=== PATIENT | female | born 1965 | race Caucasian/White ===

== ENCOUNTER 2018-11-07 15:07 | Emergency (ER) | payer OTHER ==
[2018-11-07] MEDS ORDERED: CYCLOBENZAPRINE 10 MG TAB ONE (15:29)
[2018-11-07] MEDS ORDERED: CODEINE 30MG/APAP 300MG TAB ONE (15:29)
[2018-11-07] MEDS ORDERED: IBUPROFEN 200 MG TAB PO ONE (15:29)
--- NOTE | 2018-11-07 16:00 | ER ---
Nurse's Notes [facility] Name: Gretel Ragsdale Age: 53 yrs Sex: Female : 1965 Arrival Date: 11/07/2018 Time: 15:12 Bed 12 Private MD: Diagnosis: Radiculopathy, cervical region Presentation: 11/07 15:13 Presenting complaint: Patient states: i broke my R arm 2 years ago and last 4 days my R hj neck area, R shoulder areas is hurting; denies trauma; reports 10/10; denies chest pain;. Transition of care: patient was not received from another setting of care. Onset of symptoms was November 07, 2018. Risk Assessment: Do you want to hurt yourself or someone else? Patient reports no desire to harm self or others. Initial Sepsis Screen: Does the patient meet any 2 criteria? No. Patient's initial sepsis screen is negative. Does the patient have a suspected source of infection? No. Patient's initial sepsis screen is negative. Care prior to arrival: None. 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 - Social history:: Smoking status: unknown. - Ebola Screening: : Patient negative for fever greater than or equal to 101.5 degrees Fahrenheit, and additional compatible Ebola Virus Disease symptoms Patient denies exposure to infectious person Patient denies travel to an Ebola-affected area in the 21 days before illness onset No symptoms or risks identified at this time. Screenin:40 Abuse screen: Denies threats or abuse. Denies injuries from another. Nutritional iw screening: No deficits noted. Tuberculosis screening: No symptoms or risk factors identified. Fall Risk None identified. Assessment: 15:30 General: Appears in no apparent distress. Behavior is calm, cooperative. Pain: iw Complains of pain in anterior aspect of right shoulder, posterior aspect of right shoulder and neck. Neuro: Level of Consciousness is awake, alert, obeys commands, Oriented to person, place, time, situation, Moves all extremities. Full function. Cardiovascular: Patient's skin is warm and dry. Respiratory: Respiratory effort is even, unlabored, Respiratory pattern is regular, symmetrical. GI: No signs and/or symptoms were reported involving the gastrointestinal system. Derm: Skin is intact, is healthy with good turgor. Musculoskeletal: Range of motion: intact in all extremities, Reports pain in right arm and neck. Vital Signs: 15:15 BP 169 / 89; Pulse 92; Resp 18; Temp 97.7; Pulse Ox 97% on R/A; Weight 58.06 kg; Height hj 5 ft. 0 in. (152.40 cm); Pain 10/10; 15:15 Body Mass Index 25.00 (58.06 kg, 152.40 cm) ED Course: 15:12 Patient arrived in ED. mr 15:15 Triage completed. hj 15:15 Arm band placed on left wrist. hj 15:19 Aniceto Chilel NP is PHCP. pm1 15:19 Jan Zepeda MD is Attending Physician. pm1 15:30 Patient has correct armband on for positive identification. iw 15:33 Negin Fernandez, BJ is Primary Nurse. iw 15:40 No provider procedures requiring assistance completed. Patient did not have IV access iw during this emergency room visit. Administered Medications: 15:33 Drug: Tylenol #3 (300 mg-30 mg) 1 tablet {Note: RASS 0.} Route: PO; iw 15:45 Follow up: Response: No adverse reaction; RASS: Alert and Calm (0) iw 15:33 Drug: Flexeril 10 mg Route: PO; iw 15:45 Follow up: Response: No adverse reaction iw 15:33 Drug: Ibuprofen 600 mg Route: PO; iw 15:45 Follow up: Response: No adverse reaction iw Outcome: 15:27 Discharge ordered by MD. pm1 15:40 Discharged to home ambulatory, with family. iw 15:40 Condition: good 15:40 Discharge instructions given to patient, family, Instructed on discharge instructions, follow up and referral plans. medication usage, Demonstrated understanding of instructions, follow-up care, medications, Prescriptions given X 3. 15:41 Patient left the ED. iw Signatures: Tammy Bright mr Negin Fernandez RN RN Arnie Marte RN RN Aniceto Chilel NP FAMILY HEALTH NURSE PRACTITIONER pm1 Corrections: (The following items were deleted from the chart) 15:18 15:15 Pulse 92bpm; Resp 18bpm; Pulse Ox 97% RA; Temp 97.7F; 58.06 kg; Height 5 ft. 0 hj in.; BMI: 25.0; Pain 10/10; hj
--- NOTE | 2018-11-07 16:01 | EDPHYS ---
Physician Documentation [facility] Name: Gretel Ragsdale Age: 53 yrs Sex: Female : 1965 Arrival Date: 11/07/2018 Time: 15:12 Bed 12 Private MD: ED Physician Jan Zepeda HPI: 11/07 15:26 This 53 yrs old Female presents to ER via Ambulatory with complaints of Right pm1 Arm Pain. 15:26 The patient or guardian complains of pain. The symptoms are located on the right pm1 trapezius. Onset: The symptoms/episode began/occurred 4 day(s) ago. Context: The problem was sustained at home, The neck injury/problem resulted from from unknown cause. Associated signs and symptoms: Pertinent positives: Pain radiating down right arm, Pertinent negatives: fever, headache, nausea, numbness, tingling, vomiting, weakness. Modifying factors: The symptoms are alleviated by Tylenol #3 that she borrowed from friend the symptoms are aggravated by turning head side to side. Severity of symptoms: in the emergency department the symptoms are unchanged. The patient has not recently seen a physician, and does not have an established primary care provider. Patient broke right humerus 2 years ago. No surgical intervention required at that time. 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 - Social history:: Smoking status: unknown. - Ebola Screening: : Patient negative for fever greater than or equal to 101.5 degrees Fahrenheit, and additional compatible Ebola Virus Disease symptoms Patient denies exposure to infectious person Patient denies travel to an Ebola-affected area in the 21 days before illness onset No symptoms or risks identified at this time. ROS: 15:26 Constitutional: Negative for fever, chills, and weight loss, Eyes: Negative for injury, pm1 pain, redness, and discharge, ENT: Negative for injury, pain, and discharge. 15:26 Cardiovascular: Negative for chest pain, palpitations, and edema, Respiratory: Negative for shortness of breath, cough, wheezing, and pleuritic chest pain, Abdomen/GI: Negative for abdominal pain, nausea, vomiting, diarrhea, and constipation, Back: Negative for injury and pain, MS/Extremity: Negative for injury and deformity, Skin: Negative for injury, rash, and discoloration, Neuro: Negative for headache, weakness, numbness, tingling, and seizure. 15:26 Neck: Positive for pain with movement, of the right trapezius. Exam: 15:26 Constitutional: This is a well developed, well nourished patient who is awake, alert, pm1 and in no acute distress. Head/Face: Normocephalic, atraumatic. Eyes: Pupils equal round and reactive to light, extra-ocular motions intact. Lids and lashes normal. Conjunctiva and sclera are non-icteric and not injected. Cornea within normal limits. Periorbital areas with no swelling, redness, or edema. ENT: Nares patent. No nasal discharge, no septal abnormalities noted. Tympanic membranes are normal and external auditory canals are clear. Oropharynx with no redness, swelling, or masses, exudates, or evidence of obstruction, uvula midline. Mucous membranes moist. 15:26 Chest/axilla: Normal chest wall appearance and motion. Nontender with no deformity. No lesions are appreciated. Cardiovascular: Regular rate and rhythm with a normal S1 and S2. No gallops, murmurs, or rubs. Normal PMI, no JVD. No pulse deficits. Respiratory: Lungs have equal breath sounds bilaterally, clear to auscultation and percussion. No rales, rhonchi or wheezes noted. No increased work of breathing, no retractions or nasal flaring. Abdomen/GI: Soft, non-tender, with normal bowel sounds. No distension or tympany. No guarding or rebound. No evidence of tenderness throughout. Back: No spinal tenderness. No costovertebral tenderness. Full range of motion. Skin: Warm, dry with normal turgor. Normal color with no rashes, no lesions, and no evidence of cellulitis. MS/ Extremity: Pulses equal, no cyanosis. Neurovascular intact. Full, normal range of motion. 15:26 Neck: External neck: tenderness, of the right trapezius, C-spine: vertebral tenderness, is not appreciated, Trachea: is midline with no obvious abnormalities, ROM/movement: pain, with rotation to the left, with rotation to the right. 15:26 Neuro: Orientation: is normal, Motor: is normal, moves all fours, strength is 5/5 in all extremities, Sensation: is normal, no obvious gross deficits, Gait: is steady, at a normal pace, without difficulty. Vital Signs: 15:15 BP 169 / 89; Pulse 92; Resp 18; Temp 97.7; Pulse Ox 97% on R/A; Weight 58.06 kg; Height hj 5 ft. 0 in. (152.40 cm); Pain 10/10; 15:15 Body Mass Index 25.00 (58.06 kg, 152.40 cm) hj MDM: 15:19 Patient medically screened. pm1 15:26 Data reviewed: vital signs. Data interpreted: Pulse oximetry: on room air is 97 %. pm1 Interpretation: normal. Counseling: I had a detailed discussion with the patient and/or guardian regarding: the historical points, exam findings, and any diagnostic results supporting the discharge/admit diagnosis, the need for outpatient follow up, a family practitioner, a neurosurgeon, MRI neck, to return to the emergency department if symptoms worsen or persist or if there are any questions or concerns that arise at home. Administered Medications: 15:33 Drug: Tylenol #3 (300 mg-30 mg) 1 tablet {Note: RASS 0.} Route: PO; iw 15:45 Follow up: Response: No adverse reaction; RASS: Alert and Calm (0) iw 15:33 Drug: Flexeril 10 mg Route: PO; iw 15:45 Follow up: Response: No adverse reaction iw 15:33 Drug: Ibuprofen 600 mg Route: PO; iw 15:45 Follow up: Response: No adverse reaction iw Disposition: 16:00 Co-signature as Attending Physician, Jan Zepeda MD. rn Disposition: 11/07/18 15:27 Discharged to Home. Impression: Radiculopathy, cervical region. - Condition is Stable. - Discharge Instructions: Cervical Radiculopathy. - Prescriptions for Tylenol- Codeine #3 300-30 mg Oral Tablet - take 2 tablets by ORAL route every 6 hours As needed; 20 tablet. Cyclobenzaprine 10 mg Oral Tablet - take 1 tablet by ORAL route every 8 hours As needed; 30 tablet. Diclofenac Sodium 75 mg Oral Tablet Sustained Release - take 1 tablet by ORAL route 2 times per day; 30 tablet. - Medication Reconciliation Form, Thank You Letter, Antibiotic Education, Prescription Opioid Use form. - Follow up: Emergency Department; When: As needed; Reason: Worsening of condition. Follow up: Private Physician; When: 2 - 3 days; Reason: Recheck today's complaints, Continuance of care, Re-evaluation by your physician. - Problem is new. - Symptoms have improved. Signatures: Negin Fernandez RN RN iw Jan Zepeda MD MD rn Joaquin, Henry, RN RN hj Marinas, Patrick, NP SOURCING ASSISTANT pm1 Corrections: (The following items were deleted from the chart) 15:41 15:27 11/07/2018 15:27 Discharged to Home. Impression: Radiculopathy, cervical region. iw Condition is Stable. Forms are Medication Reconciliation Form, Thank You Letter, Antibiotic Education, Prescription Opioid Use. Follow up: Emergency Department; When: As needed; Reason: Worsening of condition. Follow up: Private Physician; When: 2 - 3 days; Reason: Recheck today's complaints, Continuance of care, Re-evaluation by your physician. Problem is new. Symptoms have improved. pm1
== END 2018-11-07 15:41 | disposition home or self-care (01) ==
LOC: ER 15:07
DX: M54.12 Radiculopathy, cervical region (principal)
CPT/HCPCS: 99283

== ENCOUNTER 2019-01-31 09:09 | Emergency (ER) | payer OTHER ==
[2019-01-31] MEDS ORDERED: CLINDAMYCIN HCL 150 MG CAP ONE (09:36)
[2019-01-31] MEDS ORDERED: HYDROCODONE/APAP 10/325 TAB ONE (09:36)
[2019-01-31] MEDS ORDERED: KETOROLAC 30 MG/ML INJ ONE (09:36)
--- NOTE | 2019-01-31 10:08 | EDPHYS ---
Physician Documentation [facility] Name: Gretel Ragsdale Age: 53 yrs Sex: Female : 1965 Arrival Date: 01/31/2019 Time: 09:11 Bed 17 Private MD: ED Physician Jan Zepeda HPI: 01/31 10:10 This 53 yrs old Female presents to ER via Ambulatory with complaints of kb Facial Swelling, Toothache. 10:13 The patient presents with pain, redness, swelling. The problem is located in the upper kb left cuspid (#11). Onset: The symptoms/episode began/occurred yesterday. Duration: The symptoms are continuous. Modifying factors: The symptoms are alleviated by nothing, the symptoms are aggravated by nothing. Associated signs and symptoms: Pertinent positives: pain, redness in area, swelling. Severity of symptoms: At their worst the symptoms were moderate, in the emergency department the symptoms are unchanged. The patient has experienced similar episodes in the past. The patient has not recently seen a physician. Pt reports she has had an abscess in the same spot before and needs that tooth pulled. States abscess started yesterday and she woke up with worse pain and now facial swelling. 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 - Social history:: Smoking status: Patient uses tobacco products, smokes one-half pack cigarettes per day. - Ebola Screening: : Patient negative for fever greater than or equal to 101.5 degrees Fahrenheit, and additional compatible Ebola Virus Disease symptoms Patient denies exposure to infectious person Patient denies travel to an Ebola-affected area in the 21 days before illness onset No symptoms or risks identified at this time. ROS: 10:10 Constitutional: Negative for fever, chills, and weight loss, Neck: Negative for injury, kb pain, and swelling, Cardiovascular: Negative for chest pain, palpitations, and edema, Respiratory: Negative for shortness of breath, cough, wheezing, and pleuritic chest pain, Abdomen/GI: Negative for abdominal pain, nausea, vomiting, diarrhea, and constipation, Back: Negative for injury and pain, MS/Extremity: Negative for injury and deformity, Skin: Negative for injury, rash, and discoloration, Neuro: Negative for headache, weakness, numbness, tingling, and seizure. 10:10 ENT: Positive for dental pain. Exam: 10:09 Constitutional: This is a well developed, well nourished patient who is awake, alert, kb and in no acute distress. Chest/axilla: Normal chest wall appearance and motion. Nontender with no deformity. No lesions are appreciated. Cardiovascular: Regular rate and rhythm with a normal S1 and S2. No gallops, murmurs, or rubs. Normal PMI, no JVD. No pulse deficits. Respiratory: Lungs have equal breath sounds bilaterally, clear to auscultation and percussion. No rales, rhonchi or wheezes noted. No increased work of breathing, no retractions or nasal flaring. Abdomen/GI: Soft, non-tender, with normal bowel sounds. No distension or tympany. No guarding or rebound. No evidence of tenderness throughout. Back: No spinal tenderness. No costovertebral tenderness. Full range of motion. Skin: Warm, dry with normal turgor. Normal color with no rashes, no lesions, and no evidence of cellulitis. MS/ Extremity: Pulses equal, no cyanosis. Neurovascular intact. Full, normal range of motion. Neuro: Awake and alert, GCS 15, oriented to person, place, time, and situation. Cranial nerves II-XII grossly intact. Motor strength 5/5 in all extremities. Sensory grossly intact. Cerebellar exam normal. Normal gait. 10:09 ENT: Dental exam: abscess, that is moderate, specifically in the upper left cuspid (#11), cellulitis, that is moderate, gum swelling, that is moderate, specifically in the upper left cuspid (#11), pain. 10:09 Head/face: Noted is no obvious of injury or deformity except swelling, that is kb moderate, of the left cheek and left jaw. Vital Signs: 09:33 BP 156 / 79; Pulse 92; Resp 16 S; Temp 97.8; Pulse Ox 95% on R/A; Weight 58.97 kg; iw Height 5 ft. 0 in. (152.40 cm); Pain 10/10; 10:27 BP 113 / 79; Pulse 85; Resp 16; Temp 98; Pulse Ox 98% ; bp 09:33 Body Mass Index 25.39 (58.97 kg, 152.40 cm) iw MDM: 09:31 Patient medically screened. kb 10:04 Data reviewed: vital signs, nurses notes. Data interpreted: Pulse oximetry: on room air kb is 95 %. Interpretation: normal. 10:07 Counseling: I had a detailed discussion with the patient and/or guardian regarding: the kb historical points, exam findings, and any diagnostic results supporting the discharge/admit diagnosis, the need for outpatient follow up, a dentist, to return to the emergency department if symptoms worsen or persist or if there are any questions or concerns that arise at home. Administered Medications: 09:40 Drug: Clindamycin 300 mg Route: PO; bp 10:30 Follow up: Response: No adverse reaction bp 09:40 Drug: Clindamycin 300 mg Route: PO; bp 10:30 Follow up: Response: No adverse reaction bp 09:40 Drug: TORadol 30 mg Route: IM; Site: right gluteus; bp 10:33 Follow up: Response: Pain is decreased bp 09:40 Drug: Sugarloaf 10 mg-325 mg 1 tabs Route: PO; bp 10:31 Follow up: Response: Pain is decreased bp Disposition: 10:49 Co-signature as Attending Physician, Jan Zepeda MD. rn Disposition: 01/31/19 10:07 Discharged to Home. Impression: Periapical abscess without sinus. - Condition is Stable. - Discharge Instructions: Dental Pain, [id number], Dental Abscess, [id number]. - Prescriptions for Clindamycin HCl 300 mg Oral Capsule - take 1 capsule by ORAL route every 6 hours for 10 days; 40 capsule. Diclofenac Sodium 75 mg Oral Tablet, Delayed Release (E.C.) - take 1 tablet by ORAL route 2 times per day As needed; 30 tablet. - Medication Reconciliation Form, Thank You Letter, Antibiotic Education, Prescription Opioid Use form. - Follow up: Emergency Department; When: As needed; Reason: Worsening of condition. Follow up: Private Physician; When: 2 - 3 days; Reason: Recheck today's complaints, Continuance of care, Re-evaluation by your physician. Signatures: Ana María Pizano, LAYLA-C MENTAL HEALTH PRACTITIONER-Ckb Negin Fernandez RN RN iw Nieto, Roman, MD MD rn Peltier, Brian, RN RN bp Corrections: (The following items were deleted from the chart) 10:10 10:09 Constitutional: This is a well developed, well nourished patient who is awake, kb alert, and in no acute distress. Head/Face: Normocephalic, atraumatic. Chest/axilla: Normal chest wall appearance and motion. Nontender with no deformity. No lesions are appreciated. Cardiovascular: Regular rate and rhythm with a normal S1 and S2. No gallops, murmurs, or rubs. Normal PMI, no JVD. No pulse deficits. Respiratory: Lungs have equal breath sounds bilaterally, clear to auscultation and percussion. No rales, rhonchi or wheezes noted. No increased work of breathing, no retractions or nasal flaring. Abdomen/GI: Soft, non-tender, with normal bowel sounds. No distension or tympany. No guarding or rebound. No evidence of tenderness throughout. Back: No spinal tenderness. No costovertebral tenderness. Full range of motion. Skin: Warm, dry with normal turgor. Normal color with no rashes, no lesions, and no evidence of cellulitis. MS/ Extremity: Pulses equal, no cyanosis. Neurovascular intact. Full, normal range of motion. Neuro: Awake and alert, GCS 15, oriented to person, place, time, and situation. Cranial nerves II-XII grossly intact. Motor strength 5/5 in all extremities. Sensory grossly intact. Cerebellar exam normal. Normal gait. kb 10:34 10:07 01/31/2019 10:07 Discharged to Home. Impression: Periapical abscess without bp sinus. Condition is Stable. Forms are Medication Reconciliation Form, Thank You Letter, Antibiotic Education, Prescription Opioid Use. Follow up: Emergency Department; When: As needed; Reason: Worsening of condition. Follow up: Private Physician; When: 2 - 3 days; Reason: Recheck today's complaints, Continuance of care, Re-evaluation by your physician. kb
--- NOTE | 2019-01-31 10:08 | ER ---
Nurse's Notes [facility] Name: Gretel Ragsdale Age: 53 yrs Sex: Female : 1965 Arrival Date: 01/31/2019 Time: 09:11 Bed 17 Private MD: Diagnosis: Periapical abscess without sinus Presentation: 01/31 09:32 Presenting complaint: Patient states: woke up with left sided facial swelling, has a iw bad tooth, has given her problems off and on for 20 years. Transition of care: patient was not received from another setting of care. Onset of symptoms was January 31, 2019. Care prior to arrival: None. 09:32 Method Of Arrival: Ambulatory iw 09:35 Risk Assessment: Do you want to hurt yourself or someone else? Patient reports no iw desire to harm self or others. Initial Sepsis Screen: Does the patient meet any 2 criteria? No. Patient's initial sepsis screen is negative. Does the patient have a suspected source of infection? No. Patient's initial sepsis screen is negative. 09:35 Acuity: FAITH 4 iw Triage Assessment: 09:33 General: Appears in no apparent distress. uncomfortable, Behavior is calm, cooperative, bp appropriate for age. Pain: Complains of pain in face. EENT: Reports pain in left side of head. Neuro: No deficits noted. Cardiovascular: No deficits noted. Respiratory: No deficits noted. GI: No signs and/or symptoms were reported involving the gastrointestinal system. : No signs and/or symptoms were reported regarding the genitourinary system. Derm: No deficits noted. Musculoskeletal: No deficits noted. 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 - Social history:: Smoking status: Patient uses tobacco products, smokes one-half pack cigarettes per day. - Ebola Screening: : Patient negative for fever greater than or equal to 101.5 degrees Fahrenheit, and additional compatible Ebola Virus Disease symptoms Patient denies exposure to infectious person Patient denies travel to an Ebola-affected area in the 21 days before illness onset No symptoms or risks identified at this time. Screenin:35 Abuse screen: Denies threats or abuse. Denies injuries from another. Nutritional bp screening: No deficits noted. Tuberculosis screening: No symptoms or risk factors identified. Fall Risk None identified. Assessment: 09:33 General: SEE TRIAGE NOTE. bp 10:27 Reassessment: PT D/C HOME AMBULATORY, DX WITH PERIAPICAL ABSCESS. bp Vital Signs: 09:33 BP 156 / 79; Pulse 92; Resp 16 S; Temp 97.8; Pulse Ox 95% on R/A; Weight 58.97 kg; iw Height 5 ft. 0 in. (152.40 cm); Pain 10/10; 10:27 BP 113 / 79; Pulse 85; Resp 16; Temp 98; Pulse Ox 98% ; bp 09:33 Body Mass Index 25.39 (58.97 kg, 152.40 cm) iw ED Course: 09:11 Patient arrived in ED. rg4 09:30 Ana María Pizano F[facility]-C [facility]. kb 09:30 Jan Zepeda MD is Attending Physician. kb 09:31 Clay Diaz, BJ is Primary Nurse. bp 09:35 Triage completed. iw 09:35 Arm band placed on right wrist. iw 09:35 Patient has correct armband on for positive identification. Bed in low position. Call bp light in reach. Side rails up X2. 09:46 No provider procedures requiring assistance completed. Patient did not have IV access bp during this emergency room visit. Administered Medications: 09:40 Drug: Clindamycin 300 mg Route: PO; bp 10:30 Follow up: Response: No adverse reaction bp 09:40 Drug: Clindamycin 300 mg Route: PO; bp 10:30 Follow up: Response: No adverse reaction bp 09:40 Drug: TORadol 30 mg Route: IM; Site: right gluteus; bp 10:33 Follow up: Response: Pain is decreased bp 09:40 Drug: Tasley 10 mg-325 mg 1 tabs Route: PO; bp 10:31 Follow up: Response: Pain is decreased bp Outcome: 10:07 Discharge ordered by . kb 10:28 Discharged to home bp 10:28 Condition: stable 10:28 Discharge instructions given to patient, Instructed on discharge instructions, follow up and referral plans. medication usage. 10:34 Patient left the ED. bp Signatures: Ana María Pizano, WEED ERADICATOR-C WEED ERADICATOR-Ckb Negin Fernandez, RN RN iw Katelyn Boss rg4 Clay Diaz, RN RN bp
[2019-01-31 12:39] VITALS: BP 113/79; TEMP 98; O2SAT 98
== END 2019-01-31 10:34 | disposition home or self-care (01) ==
LOC: ER 09:09
DX: K04.7 Periapical abscess without sinus (principal); F17.210 Nicotine dependence, cigarettes, uncomplicated
CPT/HCPCS: 96372; 99283

== ENCOUNTER 2020-09-05 09:20 | Emergency (ER) | payer OTHER ==
--- OUTSIDE RECORDS SUMMARY | 2020-09-05 09:23 | XMS REPORT | Continuity of Care Document ---
:1965 Author Organization [facility] t Address [address] [place] [address] Care Team Providers Name Role Phone Tin [place] Attending Clinician Problems This patient has no known problems. Allergies, Adverse Reactions, Alerts This patient has no known allergies or adverse reactions. Medications This patient has no known medications. Procedures This patient has no known procedures. Encounters Start End Encounter Admission Attending Care Care Encounter Source Date/Time Date/Time Type Type Clinicians Facility Department ID 2020-06-12 2020-06-12 Emergency Tin [facility] [id number] 09:16:00 12:33:00 Nate Milan [id number] Jamie [id number] [place] [id number] Results This patient has no known results.
--- NOTE | 2020-09-05 10:26 | EDPHYS ---
Physician Documentation [facility] Name: Gretel Ragsdale Age: 55 yrs Sex: Female : 1965 Arrival Date: 09/05/2020 Time: 09:27 Bed 14 Private MD: ED Physician Chrissy Ko HPI: 09/05 10:22 This 55 yrs old Female presents to ER via Ambulatory with complaints of Hip jr8 Pain, Hip Injury. 10:22 The patient or guardian reports pain. that occurred at work, sustained from lifting or jr8 pulling, a heavy object. The complaints affect the back and left leg. Onset: The symptoms/episode began/occurred acutely. Modifying factors: The symptoms are alleviated by nothing, the symptoms are aggravated by extension, weight bearing. Associated signs and symptoms: Pertinent positives: None. Severity of symptoms: At their worst the symptoms were moderate, in the emergency department the symptoms are unchanged. The patient has not experienced similar symptoms in the past. The patient has not recently seen a physician. Patient stated that she was lifting heavy object at work and while lifting turned to the right. Immediately felt strain to low left back and hip region. Pain since incident . 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 - Social history:: Smoking status: Patient reports the use of cigarette tobacco products, smokes one-half pack cigarettes per day. - Immunization history: Last tetanus immunization: - up to date. ROS: 10:22 Eyes: Negative for injury, pain, redness, and discharge, ENT: Negative for injury, jr8 pain, and discharge, Neck: Negative for injury, pain, and swelling, Cardiovascular: Negative for chest pain, palpitations, and edema, Respiratory: Negative for shortness of breath, cough, wheezing, and pleuritic chest pain, Abdomen/GI: Negative for abdominal pain, nausea, vomiting, diarrhea, and constipation, Skin: Negative for injury, rash, and discoloration, Neuro: Negative for headache, weakness, numbness, tingling, and seizure. 10:22 Back: Positive for decreased range of motion, pain at rest, pain with movement, radiated pain, of the left leg. Exam: 10:22 Cardiovascular: Regular rate and rhythm with a normal S1 and S2. No gallops, murmurs, jr8 or rubs. Normal PMI, no JVD. No pulse deficits. Respiratory: Lungs have equal breath sounds bilaterally, clear to auscultation and percussion. No rales, rhonchi or wheezes noted. No increased work of breathing, no retractions or nasal flaring. Abdomen/GI: Soft, non-tender, with normal bowel sounds. No distension or tympany. No guarding or rebound. No evidence of tenderness throughout. Skin: Warm, dry with normal turgor. Normal color with no rashes, no lesions, and no evidence of cellulitis. MS/ Extremity: Pulses equal, no cyanosis. Neurovascular intact. Pain with extenion of left leg but otherwise full ROM Neuro: Awake and alert, GCS 15, oriented to person, place, time, and situation. Cranial nerves II-XII grossly intact. Motor strength 5/5 in all extremities. Sensory grossly intact. Cerebellar exam normal. Normal gait. 10:22 Back: pain, that is moderate, of the left low back, ROM is painful, normal spinal alignment noted, vertebral tenderness, is not appreciated, muscle spasm, is appreciated in the left low back. Vital Signs: 10:17 BP 156 / 87; Pulse 87; Resp 17; Temp 97.6; Pulse Ox 99% ; Weight 59.42 kg; Height 5 ft. ll1 6 in. (167.64 cm); Pain 10/10; 11:03 BP 129 / 72; Pulse 76; Resp 16; Pulse Ox 97% on R/A; ll1 10:17 Body Mass Index 21.14 (59.42 kg, 167.64 cm) ll1 [place] Coma Score: 10:35 Eye Response: spontaneous(4). Verbal Response: oriented(5). Motor Response: obeys ll1 commands(6). Total: 15. Trauma Score (Adult): 10:35 Eye Response: spontaneous(1); Verbal Response: oriented(1); Motor Response: obeys ll1 commands(2); Systolic BP: > 89 mm Hg(4); Respiratory Rate: 10 to 29 per min(4); [place] Score: 15; Trauma Score: 12 MDM: 10:12 Patient medically screened. jr8 10:21 Differential diagnosis: hip fracture, arthritis, strain, sprain. Data reviewed: vital jr8 signs, nurses notes, and as a result, I will discharge patient. Data interpreted: Pulse oximetry: on room air is 99 %. Interpretation: normal. Counseling: I had a detailed discussion with the patient and/or guardian regarding: the historical points, exam findings, and any diagnostic results supporting the discharge/admit diagnosis, the need for outpatient follow up, a family practitioner, to return to the emergency department if symptoms worsen or persist or if there are any questions or concerns that arise at home. Administered Medications: 10:33 Drug: TORadol (ketorolac) 30 mg Route: IM; Site: left gluteus; ll1 11:04 Follow up: Response: No adverse reaction; Pain is decreased; RASS: Alert and Calm (0) ll1 10:33 Drug: [place] (HYDROcodone-acetaminophen) (7.5 mg-325 mg) 1 tabs {Note: rass 0.} Route: ll1 PO; 11:04 Follow up: Response: No adverse reaction; RASS: Alert and Calm (0) ll1 Disposition: 09/05/20 10:26 Discharged to Home. Impression: Muscle spasm of back. - Condition is Stable. - Discharge Instructions: Back Pain, Adult, Muscle Cramps and Spasms, Back Injury Prevention, [id number]. - Prescriptions for meloxicam 15 mg Oral tablet - take 1 tablet by ORAL route once daily As needed; 20 tablet. Robaxin 500 mg Oral Tablet - take 2 tablet by ORAL route every 6 hours As needed; 40 tablet. Medrol ([place]) 4 mg Oral Tablets, Dose Pack - take 1 tablet by ORAL route as directed - follow package instructions; 1 packet. - Medication Reconciliation Form, Thank You Letter, Antibiotic Education, Prescription Opioid Use, Work release form form. - Follow up: Private Physician; When: 5 - 6 days; Reason: Recheck today's complaints, Continuance of care, Re-evaluation by your physician. - Problem is new. - Symptoms have improved. Addendum: 09/06/2020 14:32 Co-signature as Attending Physician, Chrissy galeas a2 Signatures: Thai Lee PA PA jr8 Chrissy Ko MD MD ma2 Philip Jovel, RN RN ll1 Corrections: (The following items were deleted from the chart) 09/05 11:05 10:26 09/05/2020 10:26 Discharged to Home. Impression: Muscle spasm of back. Condition ll1 is Stable. Forms are Medication Reconciliation Form, Thank You Letter, Antibiotic Education, Prescription Opioid Use. Follow up: Private Physician; When: 5 - 6 days; Reason: Recheck today's complaints, Continuance of care, Re-evaluation by your physician. Problem is new. Symptoms have improved. jr8
--- NOTE | 2020-09-05 10:26 | ER ---
Nurse's Notes [facility] Name: Gretel Ragsdale Age: 55 yrs Sex: Female : 1965 Arrival Date: 09/05/2020 Time: 09:27 Bed 14 Private MD: Diagnosis: Muscle spasm of back Presentation: 09/05 10:17 Chief complaint: Patient states: L hip pain for 4 days. Lifting heavy sugar bags. No ll1 trauma or falls. Coronavirus screen: Client denies travel out of the [place] in the last 14 days. At this time, the client does not indicate any symptoms associated with coronavirus-19. Ebola Screen: Patient denies travel to an Ebola-affected area in the 21 days before illness onset. Initial Sepsis Screen: Does the patient meet any 2 criteria? No. Patient's initial sepsis screen is negative. Does the patient have a suspected source of infection? Yes: Bone or joint infection. Risk Assessment: Do you want to hurt yourself or someone else? Patient reports no desire to harm self or others. Onset of symptoms was September 02, 2020. 10:17 Method Of Arrival: Ambulatory ll1 10:17 Acuity: FAITH 4 ll1 10:35 Care prior to arrival: None. Mechanism of Injury: No Mechanism of Injury. Trauma event ll1 details: Injury occurred in the [facility], Injury occurred: September 02, 2020. 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 - Social history:: Smoking status: Patient reports the use of cigarette tobacco products, smokes one-half pack cigarettes per day. - Immunization history: Last tetanus immunization: - up to date. Screenin:18 Abuse screen: Denies threats or abuse. Nutritional screening: No deficits noted. ll1 Tuberculosis screening: No symptoms or risk factors identified. Fall Risk Ambulatory Aid- Crutches/Cane/Walker (15 pts). Gait- Impaired (20 pts.). Total Barrios Fall Scale indicates Low Risk Score (25-44 pts). Fall prevention measures have been instituted. Side Rails Up X 2 Frequent Obs/Assesments occuring As available Patient and Family Educated on Fall Prevention Program and strategies. Primary Survey: 10:34 NO uncontrolled hemorrhage observed. A: The patient is alert. Airway: patent. ll1 Breathing/Chest: Respiratory pattern: regular, Respiratory effort: spontaneous, unlabored, Breath sounds: clear, Chest inspection: symmetrical rise and fall of the chest. Circulation: Pulses: palpable right radial artery, right dorsalis pedis artery, left radial artery and left dorsalis pedis artery. Disability Alert. Exposure/Environment: There is no evidence of uncontrolled external bleeding. 11:04 Reassessment Breathing/Chest Respiratory pattern Regular Respiratory effort Spontaneous ll1 Unlabored Breath sounds Clear Chest inspection Symmetrical. Assessment: 10:36 General: Appears in no apparent distress. Behavior is calm, cooperative, appropriate ll1 for age. Pain: Complains of pain in L hip Quality of pain is described as aching, Aggravated by increased activity. Musculoskeletal: Circulation, motion, and sensation intact. Capillary refill < 3 seconds, Range of motion: intact in all extremities, Tenderness present in L hip Reports pain in R hip. Injury Description: no fall or trauma. Lifting heavy sugar sacks and twisting motion. 11:05 Reassessment: No changes from previously documented assessment. Patient and/or family ll1 updated on plan of care and expected duration. Pain level reassessed. Patient is alert, oriented x 3, equal unlabored respirations, skin warm/dry/pink. Vital Signs: 10:17 BP 156 / 87; Pulse 87; Resp 17; Temp 97.6; Pulse Ox 99% ; Weight 59.42 kg; Height 5 ft. ll1 6 in. (167.64 cm); Pain 10; 11:03 BP 129 / 72; Pulse 76; Resp 16; Pulse Ox 97% on R/A; ll1 10:17 Body Mass Index 21.14 (59.42 kg, 167.64 cm) ll1 [place] Coma Score: 10:35 Eye Response: spontaneous(4). Verbal Response: oriented(5). Motor Response: obeys ll1 commands(6). Total: 15. Trauma Score (Adult): 10:35 Eye Response: spontaneous(1); Verbal Response: oriented(1); Motor Response: obeys ll1 commands(2); Systolic BP: > 89 mm Hg(4); Respiratory Rate: 10 to 29 per min(4); [place] Score: 15; Trauma Score: 12 ED Course: 09:27 Patient arrived in ED. bp1 10:10 Arm band placed on Patient placed in an exam room, on a stretcher. ll1 10:12 Thai Lee PA is PHCP. jr8 10:12 Chrissy Ko MD is Attending Physician. jr8 10:15 Philip Jovel RN is Primary Nurse. ll1 10:18 Triage completed. ll1 10:18 Patient has correct armband on for positive identification. Bed in low position. Call ll1 light in reach. 10:35 Patient maintains SpO2 saturation greater than 95% on room air. ll1 11:04 No provider procedures requiring assistance completed. Patient did not have IV access ll1 during this emergency room visit. 11:05 Thermoregulation: n/a. ll1 Administered Medications: 10:33 Drug: TORadol (ketorolac) 30 mg Route: IM; Site: left gluteus; ll1 11:04 Follow up: Response: No adverse reaction; Pain is decreased; RASS: Alert and Calm (0) ll1 10:33 Drug: [place] (HYDROcodone-acetaminophen) (7.5 mg-325 mg) 1 tabs {Note: rass 0.} Route: ll1 PO; 11:04 Follow up: Response: No adverse reaction; RASS: Alert and Calm (0) ll1 Intake: 11:05 PO: 50ml; Total: 50ml. ll1 Output: 11:05 Urine: 0ml; Total: 0ml. ll1 Outcome: 10:26 Discharge ordered by . jr8 11:04 Discharged to home via wheelchair. ll1 11:04 Condition: stable 11:04 Discharge instructions given to patient, Instructed on discharge instructions, follow up and referral plans. no drinking with medication, no driving heavy equipment, medication usage, Demonstrated understanding of instructions, follow-up care, medications, Prescriptions given X 3. 11:05 Patient's length of stay was not longer than 2 hours. ll1 11:05 Patient left the ED. ll1 Signatures: Thai Lee PA PA jr8 Philip Jovel RN RN ll1 Sandra Le
[2020-09-05] MEDS ORDERED: HYDROCODONE/APAP 7.5/325 MG TAB ONE (10:47)
[2020-09-05] MEDS ORDERED: KETOROLAC 30 MG/ML INJ ONE (10:47)
[2020-09-05 11:16] VITALS: TEMP 97.6
[2020-09-05 11:22] VITALS: BP 129/72; O2SAT 97
== END 2020-09-05 11:05 | disposition home or self-care (01) ==
LOC: ER 09:20
DX: M62.830 Muscle spasm of back (principal); F17.210 Nicotine dependence, cigarettes, uncomplicated; J44.9 Chronic obstructive pulmonary disease, unspecified

== ENCOUNTER 2020-09-07 17:42 | Emergency (ER) | payer OTHER ==
--- OUTSIDE RECORDS SUMMARY | 2020-09-07 17:44 | XMS REPORT | Continuity of Care Document ---
:[address] [facility] t Address [address] [place] [address] Care Team Providers Name Role Phone Tin [...] Facility Department ID 2020-06-12 2020-06-12 Emergency Tin [facility] [id number] 09:16:00 12:33:00 Nate Milan [id number] Jamie [id number] [place] [id number] Results This patient has no known results.
[2020-09-07] MEDS ORDERED: dexAMETHasone 10 MG/ML VIAL ONE (18:28)
[2020-09-07] MEDS ORDERED: HYDROCODONE/APAP 10/325 TAB ONE (18:28)
[2020-09-07] MEDS ORDERED: LIDOCAINE 4% PATCH ONE (18:28)
--- NOTE | 2020-09-07 19:12 | ER ---
Nurse's Notes [facility] Name: Gretel Ragsdale Age: 55 yrs Sex: Female : 1965 Arrival Date: 09/07/2020 Time: 17:44 Bed 7 Private MD: Diagnosis: Muscle spasm of back Presentation: 09/07 17:44 Chief complaint: EMS states: Seen in ED 3 days ago for back pain after lifting large hb sack of sugar, today pain became severe. Pt self medicated with "a muscle relaxer and five beers" then got into a hot bath, EMS was called because she could not get out of the bath. Coronavirus screen: At this time, the client does not indicate any symptoms associated with coronavirus-19. Ebola Screen: No symptoms or risks identified at this time. Initial Sepsis Screen: Does the patient meet any 2 criteria? No. Patient's initial sepsis screen is negative. Does the patient have a suspected source of infection? No. Patient's initial sepsis screen is negative. Risk Assessment: Do you want to hurt yourself or someone else? Patient reports no desire to harm self or others. Onset of symptoms was September 07, 2020. 17:44 Method Of Arrival: EMS: [facility] 17:44 Acuity: FAITH 3 hb Triage Assessment: 17:48 General: Appears uncomfortable, Behavior is cooperative, anxious, crying. Pain: Pain hb currently is 10 out of 10 on a pain scale. EENT: No signs and/or symptoms were reported regarding the EENT system. Neuro: Level of Consciousness is awake, alert, obeys commands, Oriented to person, place, time, situation. Cardiovascular: Patient's skin is warm and dry. Respiratory: Respiratory effort is even, unlabored, Respiratory pattern is regular, symmetrical. GI: No signs and/or symptoms were reported involving the gastrointestinal system. : No signs and/or symptoms were reported regarding the genitourinary system. Derm: Skin is pink, warm \\T\\ dry. Musculoskeletal: Reports severe low back pain, worse on left, pain radiates to left thigh. Historical: - Allergies: 17:48 No Known Allergies; hb - PMHx: 17:48 COPD; hb - PSHx: 17:48 Cholecystectomy; hb - Immunization history:: Adult Immunizations up to date. - Social history:: Smoking status: Patient reports the use of cigarette tobacco products, smokes one-half pack cigarettes per day. Screenin:49 Abuse screen: Denies threats or abuse. Denies injuries from another. Nutritional hb screening: No deficits noted. Tuberculosis screening: No symptoms or risk factors identified. Fall Risk None identified. Assessment: 17:49 General: see triage assessment . hb 18:12 Reassessment: No changes from previously documented assessment. Patient and/or family hb updated on plan of care and expected duration. Pain level reassessed. 19:30 General: Appears uncomfortable, Behavior is restless. Pain: Complains of pain in left lp1 low back Pain currently is 10 out of 10 on a pain scale. Quality of pain is described as squeezing. Neuro: Level of Consciousness is awake, alert, obeys commands, Oriented to person, place, situation, Intact. Cardiovascular: Patient's skin is warm and dry. Respiratory: Respiratory effort is even, unlabored. GI: No signs and/or symptoms were reported involving the gastrointestinal system. : No signs and/or symptoms were reported regarding the genitourinary system. EENT: No signs and/or symptoms were reported regarding the EENT system. Derm: Skin is pink, warm \\T\\ dry. Musculoskeletal: Circulation, motion, and sensation intact. 20:20 Reassessment: Patient appears more calm, reports pain is decreased; expresses readiness lp1 for discharge. Vital Signs: 17:44 BP 124 / 49; Pulse 88; Resp 16; Temp 97.7; Pulse Ox 96% on R/A; Pain 10/10; hb 18:12 BP 140 / 75; Pulse 89; Resp 17; Pulse Ox 99% on R/A; Pain 10/10; hb 19:31 BP 143 / 80; Pulse 71; Resp 18; Pulse Ox 97% on R/A; lp1 ED Course: 17:44 Patient arrived in ED. hb 17:47 Aniceto Chilel NP is PHCP. pm1 17:47 Chrissy Ko MD is Attending Physician. pm1 17:47 Triage completed. hb 17:48 Arm band placed on. hb 17:49 Patient has correct armband on for positive identification. Bed in low position. Call hb light in reach. 17:50 Ariadna Ayala, BJ is Primary Nurse. hb 19:19 Primary Nurse role handed off by Ariadna Ayala RN mw2 19:31 Leeanne Young, RN is Primary Nurse. lp1 20:31 No provider procedures requiring assistance completed. Patient did not have IV access lp1 during this emergency room visit. Administered Medications: 18:11 Drug: [place] (HYDROcodone-acetaminophen) 10 mg-325 mg 1 tabs Route: PO; hb 18:11 Drug: Lidoderm 5 % (700 mg/patch) 1 patches Route: Topical; Site: affected area; 18:11 Drug: Decadron (dexamethasone) 10 mg Route: IM; Site: right deltoid; 19:31 Drug: TORadol (ketorolac) 30 mg Route: IM; Site: left gluteus; lp1 20:32 Follow up: Response: Pain is decreased lp1 Outcome: 19:11 Discharge ordered by MD. pm1 20:33 Discharged to home via wheelchair, with friend. lp1 20:33 Condition: good 20:33 Discharge instructions given to patient, Instructed on discharge instructions, follow up and referral plans. medication usage, Demonstrated understanding of instructions, follow-up care, medications, Prescriptions given X 1. 20:33 Patient left the ED. lp1 Signatures: Leeanne Young RN RN lp1 Aniceto Chilel, FISHING VESSEL OPERATOR FISHING VESSEL OPERATOR pm1 Ariadna Ayala RN RN Wil Grace mw2
--- NOTE | 2020-09-07 19:12 | EDPHYS ---
Physician Documentation [facility] Name: Gretel Ragsdale Age: 55 yrs Sex: Female : 1965 Arrival Date: 09/07/2020 Time: 17:44 Bed 7 Private MD: ED Physician Chrissy Ko HPI: 09/07 18:11 This 55 yrs old Female presents to ER via EMS with complaints of Low Back pm1 Pain. 18:11 The patient presents with pain that is acute. The symptoms are located in the left low pm1 back and left buttocks. The pain does not radiate. The problem was sustained when lifting heavy object. Onset: The symptoms/episode began/occurred 4 day(s) ago. Modifying factors: The patient symptoms are alleviated by nothing, the patient symptoms are aggravated by movement. Associated signs and symptoms: Pertinent negatives: constipation, dysuria, fever, incontinence, numbness, tingling. Severity of symptoms: in the emergency department the symptoms are actually worse. The patient has been recently seen at the [facility] Emergency Department, last week, for similar complaints was given a prescription for pain medications. Historical: - Allergies: 17:48 No Known Allergies; hb - PMHx: 17:48 COPD; hb - PSHx: 17:48 Cholecystectomy; hb - Immunization history:: Adult Immunizations up to date. - Social history:: Smoking status: Patient reports the use of cigarette tobacco products, smokes one-half pack cigarettes per day. ROS: 18:11 Constitutional: Negative for fever, chills, and weight loss, Cardiovascular: Negative pm1 for chest pain, palpitations, and edema, Respiratory: Negative for shortness of breath, cough, wheezing, and pleuritic chest pain, Abdomen/GI: Negative for abdominal pain, nausea, vomiting, diarrhea, and constipation. 18:11 MS/Extremity: Negative for injury and deformity, Skin: Negative for injury, rash, and discoloration. 18:11 Neuro: Negative for headache, weakness, numbness, tingling, and seizure. 18:11 Back: Positive for of the left low back and left buttocks. 18:11 All other systems are negative. Exam: 18:11 Constitutional: This is a well developed, well nourished patient who is awake, alert, pm1 and in no acute distress. Head/Face: Normocephalic, atraumatic. 18:11 MS/ Extremity: Pulses equal, no cyanosis. Neurovascular intact. Full, normal range of motion. 18:11 Eyes: Exam is negative for acute changes, Extraocular movements: no acute changes, Conjunctiva: normal, no injection. 18:11 ENT: Mouth: no acute changes, Lips: normal, Oral mucosa: normal, pink and intact, moist. 18:11 Cardiovascular: Exam negative for acute changes, Rate: normal, Rhythm: regular, Pulses: no pulse deficits are appreciated, Edema: is not appreciated. 18:11 Respiratory: Exam negative for acute changes, respiratory distress, shortness of breath, Breath sounds: are clear throughout. 18:11 Abdomen/GI: Inspection: abdomen appears normal, Palpation: abdomen is soft and non-tender, in all quadrants. 18:11 Back: normal spinal alignment noted, vertebral tenderness, is not appreciated, muscle spasm, is appreciated in the left low back and left buttocks. 18:11 Neuro: Exam negative for acute changes, Orientation: is normal, Mentation: is normal, Motor: moves all fours, strength is 5/5 in all extremities, Sensation: is normal, no obvious gross deficits. Vital Signs: 17:44 BP 124 / 49; Pulse 88; Resp 16; Temp 97.7; Pulse Ox 96% on R/A; Pain 10/10; hb 18:12 BP 140 / 75; Pulse 89; Resp 17; Pulse Ox 99% on R/A; Pain 10/10; hb 19:31 BP 143 / 80; Pulse 71; Resp 18; Pulse Ox 97% on R/A; lp1 MDM: 18:01 Patient medically screened. pm1 19:09 Data reviewed: vital signs. Data interpreted: Pulse oximetry: on room air is 99 %. pm1 Interpretation: normal. Counseling: I had a detailed discussion with the patient and/or guardian regarding: the historical points, exam findings, and any diagnostic results supporting the discharge/admit diagnosis, the need for outpatient follow up, to return to the emergency department if symptoms worsen or persist or if there are any questions or concerns that arise at home. 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 No prescription data found. pm1 19:14 ED course: THAIS SHIPLEYradiation therapy technologist present as Software Development Intern. Attempted to massage muscle spasm in left pm1 lower back and gluteus but patient reports that she is unable to tolerate it. Therefore will prescribe medications class, narcotics, patient was not given at prior ER visit. Administered Medications: 18:11 Drug: Cascade (HYDROcodone-acetaminophen) 10 mg-325 mg 1 tabs Route: PO; hb 18:11 Drug: Lidoderm 5 % (700 mg/patch) 1 patches Route: Topical; Site: affected area; hb 18:11 Drug: Decadron (dexamethasone) 10 mg Route: IM; Site: right deltoid; hb 19:31 Drug: TORadol (ketorolac) 30 mg Route: IM; Site: left gluteus; lp1 20:32 Follow up: Response: Pain is decreased lp1 Disposition: 09/07/20 19:11 Discharged to Home. Impression: Muscle spasm of back. - Condition is Stable. - Discharge Instructions: Back Pain, Adult, Muscle Cramps and Spasms, Back Injury Prevention, [id number], Heat Therapy, Back Exercises. - Prescriptions for Tylenol- Codeine #3 300-30 mg Oral Tablet - take 2 tablets by ORAL route every 6 hours As needed; 20 tablet. - Medication Reconciliation Form, Thank You Letter, Antibiotic Education, Prescription Opioid Use form. - Follow up: Emergency Department; When: As needed; Reason: Worsening of condition. Follow up: Private Physician; When: 2 - 3 days; Reason: Recheck today's complaints, Continuance of care, Re-evaluation by your physician. - Problem is new. - Symptoms have improved. Signatures: Leeanne Young RN RN lp1 Aniceto Chilel NP TRAFFIC CONTROL OFFICER pm1 Ariadna Ayala RN RN Corrections: (The following items were deleted from the chart) 20:33 19:11 09/07/2020 19:11 Discharged to Home. Impression: Muscle spasm of back. Condition lp1 is Stable. Forms are Medication Reconciliation Form, Thank You Letter, Antibiotic Education, Prescription Opioid Use. Follow up: Emergency Department; When: As needed; Reason: Worsening of condition. Follow up: Private Physician; When: 2 - 3 days; Reason: Recheck today's complaints, Continuance of care, Re-evaluation by your physician. Problem is new. Symptoms have improved. pm1
[2020-09-07] MEDS ORDERED: KETOROLAC 30 MG/ML INJ ONE (19:42)
[2020-09-07 20:51] VITALS: TEMP 97.7
[2020-09-07 20:55] VITALS: BP 143/80; O2SAT 97
== END 2020-09-07 20:33 | disposition home or self-care (01) ==
LOC: ER 17:42
DX: M62.830 Muscle spasm of back (principal); F17.210 Nicotine dependence, cigarettes, uncomplicated
CPT/HCPCS: 96372; 99283; J1100

== ENCOUNTER 2023-12-20 06:26 | Observation (INO) | payer OTHER, SELFPAY ==
--- OUTSIDE RECORDS SUMMARY | 2023-12-20 06:32 | XMS REPORT | Continuity of Care Document ---
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 Role Phone PCP, PATIENT DOES NOT HAVE A Primary Care Physic mary ann Unavailable Daryl Bailey Attending Clinician Unavailable Danica Yuen Attending Clinician Unavailable JUNIE SANDERS Attending Clinician Unavailable Sisi Hart RN Attending Clinician [phone] Almas Edwards MD Attending Clinician [phone] Ced Chung DO Attending Clinician [phone] Jazmyn Sterling MD Attending Clinician [phone] ALMAS EDWARDS Attending Clinician Unavailable Doctor Unassigned, [place] Attending Clinician U Kenzie Barrientos MD Attending Clinician [phone] KENZIE CARDENAS Attending Clinician Unavailable Danilo Castle MD Attending Clinician [phone] DANILO CASTLE Attending Clinician Unavailable Almas Edwards MD Admitting Clinician [phone] ALMAS DEWARDS Admitting Clinician Unavailable DANILO CASTLE Admitting Clinician Unavailable Payers Payer Name Policy Type Policy Number Effective Date Expirati on Date Source Ambetter from [facility] [id number] 2020 00:00:00 [facility] Ambetter from [facility] [id number] 2020 00:00:00 [facility] Ambetter from [facility] [id number] 2020 00:00:00 [facility] HIM AMBETTER FROM [facility] [id number] 2018 00:00:00 Problems Condition Name Condition Details Condition Category Status Onset Date Resolution Date Last Treatment Date Treating Clinician Comments Source Perforated peptic ulcer Perforated peptic ulcer Disease Active 10-06 00:00: 00 [facility] Trauma Trauma Disease Active 09-30 00:00: 00 [facility] Acute gastric ulcer with perforatio n Acute gastric ulcer with perforatio n Disease Active 09-29 00:00: 00 Overview: Formattin g of this note might be different from the original. Added automatic ally from request for surgery [id number] [facility] [id number] Left-sided low back pain without sciatica, unspecifie d chronicity Problem [facility] [id number] Perforated duodenal ulcer Problem [facility] [id number] GERD without esophagiti s Problem [facility] [id number] Chronic obstructiv e pulmonary disease, unspecifie d COPD type Problem [facility] [id number] Tobacco abuse Problem [facility] [id number] Muscle spasm of back Problem [facility] Allergies, Adverse Reactions, Alerts Allergy Name Allergy Type Status Severity Reaction(s) Onset Date Inactive Date Treating Clinician Comments Source NO KNOWN ALLERGIE S Drug Class Active [facility] Social History Social Habit Start Date Stop Date Quantity Comments Source History of Tobacco Use Current Smoker [facility] Sex Assigned At [facility] Exposure to SARS-CoV-2 (event) Not sure [facility] Tobacco use and exposure 2020-09-30 00:00:00 2020-09-30 00:00:00 Current user [facility] Smoking Status Start Date Stop Date Source Unknown if ever smoked [facility] Current Smoker 2023-02-09 00:00:00 [facility] Medications Ordered Medication Name Filled Medication Name Start Date Stop Date Current Medication? Ordering Clinician Indication Dosage Frequency Signature (SIG) Comments Components Source Benzonatate 200 MG Benzonatate 200 MG 09-07 00:00: 00 09-21 00:00 :00 No 1{capsu le_as_n eeded} Benzonatat e 200 MG methylPREDN ISolone 4 MG methylPREDN ISolone 4 MG 09-07 00:00: 00 09-13 00:00 :00 No QD methylPRED NISolone 4 MG Azithromyci n 250 MG Azithromyci n 250 MG 09-07 00:00: 00 09-12 00:00 :00 No QD Azithromyc in 250 MG ibuprofen 800 mg tablet 10-05 00:00: 00 Yes [id number] 800mg Take 1 tablet by mouth every 6 (six) hours as needed for Pain (scale 4-6) or Temp > 38.5 C. [facility] acetaminoph en 325 mg tablet 10-05 00:00: 00 10-06 04:59 :00 No [id number] 650mg Take 2 tablets by mouth every 6 (six) hours as needed for Pain (scale 4-6) or Temp > 38.5 C. [facility] HYDROcodone -acetaminop hen (NORCO) 5-325 mg tablet 10-05 00:00: 00 10-13 04:59 :00 No [id number] 1{tbl} Take 1 tablet by mouth every 6 (six) hours as needed for Pain (scale 7-10) for up to 7 days. Indication s: acute pain [facility] D5W 0.45% NaCl (1/2NS) 1 L + KCL 20 mEq 10-04 19:15: 00 Yes IV Infusion, at 42 mL/hr, CONTINUOUS , Starting 10/04/20 at 1415, Until Discontinu ed, Routine [facility] acetaminoph en ADULT (OFIRMEV) injection 1,000 mg 10-03 23:00: 00 10-04 18:38 :00 No 1000mg 1,000 mg, IV Infusion, Administer over 15 Minutes, Q6H, 4 doses, First dose (after last reorder) on Tue10/03/20 at 1800, Last dose on Tue10/04/20 at 1200, Routine
Indicatio n: Perioperat liliam Patient [facility] acetaminoph en ADULT (OFIRMEV) injection 1,000 mg 10-02 17:00: 00 10-03 11:05 :00 No 1000mg 1,000 mg, IV Infusion, Administer over 15 Minutes, Q6H, 4 doses, First dose (after last reorder) on Tue10/02/20 at 1200, Last dose on Tue10/03/20 at 0600, Routine
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
Indicatio n: Perioperat liliam Patient [facility] naloxone (NARCAN) injection 0.1 mg 10-01 16:50: 47 Yes .1mg 0.1 mg, Slow IV Push, SEE-INSTRU CTIONS, Starting Tue10/01/20 at 1150, Until Discontinu ed, Routine [facility] pantoprazol e (PROTONIX) injection 40 mg 10-01 01:00: 00 Yes 40mg 40 mg, Slow IV Push, Q12H, First dose (after last reorder) on Tue09/30/20 at 2000, Until Discontinu ed [facility] albumin (ALBUMINAR- 5) 5 % injection 25 g 09-30 21:00: 00 09-30 20:53 :00 No 25g 25 g, IV Infusion, ONCE, 1 dose, Tue09/30/20 at 1600, 500 mL
Audrey cation: SHOCK/IMPE NDING SHOCK [facility] pantoprazol e (PROTONIX) 40 mg in NaCl 0.9% (NS) 100 mL IV Piggyback 09-30 18:30: 00 09-30 18:45 :00 No 40mg 40 mg, IV Piggyback, ONCE, 1 dose, Tue09/30/20 at 1330, 100 mL [facility] acetaminoph en ADULT (OFIRMEV) injection 1,000 mg 09-30 18:00: 00 10-01 10:21 :00 No 1000mg 1,000 mg, IV Infusion, Administer over 15 Minutes, Q6H, 4 doses, First dose on Tue09/30/20 at 1300, Last dose on Tue10/01/20 at 0600, Routine
Indicatio n: Perioperat liliam Patient [facility] lactated ringers IV infusion 1,000 mL 09-30 10:00: 00 10-01 15:56 :04 No 1000mL at 125 mL/hr, 1,000 mL, IV Infusion, CONTINUOUS , Starting Tue09/30/20 at 0500, Until Tue10/01/20 at 1056, Routine [facility] morpHINE injection 2 mg 09-30 09:46: 22 Yes 2mg 2 mg, Slow IV Push, Q3HPRN, Starting Tue09/30/20 at 0446, Until Discontinu ed, Routine, Pain (scale 7-10) [facility] sugammadex (BRIDION) injection 09-30 09:42: 00 09-30 10:06 :59 No IV Push, ONCE INTRA PROCEDURE, Starting 09/30/20 at 0442, Until Discontinu ed, Routine, Intra-op [facility] ondansetron (ZOFRAN (PF)) injection 09-30 09:28: 00 09-30 10:06 :59 No Slow IV Push, ONCE INTRA PROCEDURE, Starting Tue09/30/20 at 0428, Until Discontinu ed, Routine, Intra-op [facility] HYDROmorphO ne (DILAUDID) injection 09-30 09:15: 00 09-30 10:06 :59 No Slow IV Push, ONCE INTRA PROCEDURE, Starting Tue09/30/20 at 0415, Until Discontinu ed, Routine, Intra-op [facility] meropenem (MERREM) injection 09-30 09:05: 00 Yes PRN, Starting Tue09/30/20 at 0405, Until Discontinu ed, HELDER, Intra-op [facility] rocuronium (ZEMURON) injection 09-30 08:35: 00 09-30 10:06 :59 No IV Push, ONCE INTRA PROCEDURE, Starting Tue09/30/20 at 0335, Until Discontinu ed, Routine, Intra-op [facility] PHENYLephri ne 1000 mcg/10 mL in 0.9% NaCl syringe 09-30 08:33: 00 09-30 10:06 :59 No Slow IV Push, ONCE INTRA PROCEDURE, Starting Tue09/30/20 at 0333, Until Discontinu ed, Routine, Intra-op [facility] succinylcho line (QUELICIN) injection 09-30 08:25: 00 09-30 10:06 :59 No IV Push, ONCE INTRA PROCEDURE, Starting Tue09/30/20 at 0325, Until Discontinu ed, Routine, Intra-op [facility] lidocaine 1% (XYLOCAINE) 100 mg/10 mL (1 %) injection 09-30 08:24: 00 09-30 10:06 :59 No Slow IV Push, ONCE INTRA PROCEDURE, Starting Tue09/30/20 at 0324, Until Discontinu ed, Routine, [facility] 09-30 08:24: 00 09-30 10:06 :59 No IV Infusion, ONCE INTRA PROCEDURE, Starting Tue09/30/20 at 0324, Until Discontinu ed, Routine, [facility] FENT[facility] (SUBLIMAZE (PF)) injection 09-30 08:18: 00 09-30 10:06 :59 No Epidural, ONCE INTRA PROCEDURE, Starting Tue09/30/20 at 0318, Until Discontinu ed, Routine, Intra-op [facility] midazolam (VERSED) injection 09-30 08:18: 00 09-30 10:06 :59 No IV Push, ONCE INTRA PROCEDURE, Starting Tue09/30/20 at 0318, Until Discontinu ed, Routine, Intra-op [facility] lactated ringers IV infusion 09-30 08:15: 00 09-30 10:06 :59 No IV Infusion, CONTINUOUS PRN, Starting Tue09/30/20 at 0315, Until Discontinu ed, Routine, Intra-op [facility] fluconazole (DIFLUCAN) Piggyback 200 mg 09-30 07:45: 00 Yes 200mg at 100 mL/hr, IV Piggyback, Q24H ABX, First dose on Tue09/30/20 at 0245, Until Discontinu ed, HELDER [facility] piperacilli n-tazobacta m (ZOSYN) 3.375 gram/50 mL Piggyback RTU 3.375 g 09-30 07:45: 00 Yes 3.375g 3.375 g, IV Piggyback, Q6H ABX, First dose on Tue09/30/20 at 0245, Until Discontinu ed, 50 mL
Reas on for Anti-Infec tive: Empiric Therapy for Suspected Infection< br>Empiric Therapy Site: Abdominal< br>Duratio n of therapy: 72 hours [facility] morpHINE injection 4 mg 09-30 07:00: 00 09-30 06:15 :00 No 4mg 4 mg, Slow IV Push, ONCE, 1 dose, Tue09/30/20 at 0200, Routine [facility] lactated ringers IV infusion 1,000 mL 09-30 06:30: 00 09-30 09:47 :30 No 1000mL at 100 mL/hr, 1,000 mL, IV Infusion, CONTINUOUS , Starting Tue09/30/20 at 0130, Until Tue09/30/20 at 0447, Routine [facility] ondansetron (ZOFRAN (PF)) injection 4 mg 09-30 05:53: 14 Yes 4mg 4 mg, Slow IV Push, Q6HPRN, Starting Tue09/30/20 at 0053, Until Discontinu ed, Routine, Nausea and Vomiting (N/V) [facility] piperacilli n-tazobacta m (ZOSYN) 3.375 g in NaCl 0.9% (NS) 100 mL MINI-BAG 09-30 04:00: 00 09-30 03:39 :00 No 3.375g 3.375 g, IV Piggyback, ONCE, 1 dose, Tue09/29/20 at 2300, 100 mL
Reas on for Anti-Infec tive: Surgical Prophylaxi s
Surgi nate Prophylaxi s: Abdominal< br>Duratio n of therapy: within 24 hours of surgery [facility] ketorolac (TORADOL) injection 30 mg 09-30 02:15: 00 09-30 01:16 :00 No 30mg 30 mg, Slow IV Push, ONCE, 1 dose, Tue09/29/20 at 2115, Routine
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 Restricted medication : KENZIE CARDENAS [facility] ondansetron (ZOFRAN (PF)) injection 4 mg 09-30 01:45: 00 09-30 00:57 :00 No 4mg 4 mg, Slow IV Push, ONCE, 1 dose, Tue09/29/20 at 2044, [facility] morpHINE injection 4 mg 09-30 01:45: 00 09-30 00:59 :00 No 4mg 4 mg, Slow IV Push, ONCE, 1 dose, Tue09/29/20 at 2044, STAT [facility] iopamidol (ISOVUE 370-500 mL) injection 120 mL 09-30 01:31: 00 09-30 01:30 :00 No [id number] 120mL 120 mL, Intravenou s, ONCE, 1 dose, Tue09/29/20 at 2044, Routine [facility] ipratropium -albuteroL (DUONEB) 0.5 mg-3 mg(2.5 mg base)/3 mL nebulizer solution 3 mL 06-12 17:45: 00 06-12 16:54 :00 No 3mL 3 mL, Inhalation , ONCE, 1 dose, Chary 06/12/20 at 1245, [facility] methylpredn isolone sod succ (SOLU-MEDRO L) injection 125 mg 06-12 17:45: 00 06-12 16:53 :00 No 125mg 125 mg, Slow IV Push, ONCE NOW, 1 dose, Chary 06/12/20 at 1245, [facility] iohexol (OMNIPAQUE 350 BULK-100 mL) injection 100 mL 06-12 16:00: 00 06-12 15:56 :00 No [id number] 100mL 100 mL, Intravenou s, ONCE, 1 dose, Chary 06/12/20 at 1100, Routine [facility] albuterol 90 mcg/actuati on inhaler 06-12 00:00: 00 Yes [id number] 2{puff} Inhale 2 Puffs every 4 (four) hours as needed for Wheezing or Shortness of Breath. [facility] benzonatate 100 mg capsule 06-12 00:00: 00 Yes [id number] 100mg Take 1 capsule by mouth 3 (three) times daily as needed for Cough. [facility] predniSONE 20 mg tablet 06-12 00:00: 00 06-18 04:59 :00 No [id number] 60mg Take 3 tablets by mouth every morning for 5 days. [facility] Methocarbam ol 500 MG Methocarbam ol 500 MG No 1{table t} Methocarba mol 500 MG Meloxicam 15 MG Meloxicam 15 MG No Meloxicam 15 MG Acetaminoph en-Codeine #3 300-30 MG Acetaminoph en-Codeine #3 300-30 MG No Acetaminop hen-Codein e #3 300-30 MG Methocarbam ol 500 MG Methocarbam ol 500 MG No 1{table t} Methocarba mol 500 MG Pantoprazol e Sodium 40 MG Pantoprazol e Sodium 40 MG No 1{table t} QD Pantoprazo le Sodium 40 MG Meloxicam 15 MG Meloxicam 15 MG No Meloxicam 15 MG Acetaminoph en-Codeine #3 300-30 MG Acetaminoph en-Codeine #3 300-30 MG No Acetaminop hen-Codein e #3 300-30 MG Methocarbam ol 500 MG Methocarbam ol 500 MG No 1{table t} Methocarba mol 500 MG Pantoprazol e Sodium 40 MG Pantoprazol e Sodium 40 MG No 1{table t} QD Pantoprazo le Sodium 40 MG Meloxicam 15 MG Meloxicam 15 MG No Meloxicam 15 MG Meloxicam 15 MG Meloxicam 15 MG No Meloxicam 15 MG Methocarbam ol 500 MG Methocarbam ol 500 MG No 1{table t} Methocarba mol 500 MG ProAir HFA ProAir HFA No ProAir HFA Pantoprazol e Sodium 40 MG Pantoprazol e Sodium 40 MG No 1{table t} QD Pantoprazo le Sodium 40 MG Acetaminoph en-Codeine #3 300-30 MG Acetaminoph en-Codeine #3 300-30 MG No Acetaminop hen-Codein e #3 300-30 MG ProAir HFA ProAir HFA No ProAir HFA Methocarbam ol 500 MG Methocarbam ol 500 MG No 1{table t} Methocarba mol 500 MG Acetaminoph en-Codeine #3 300-30 MG Acetaminoph en-Codeine #3 300-30 MG No Acetaminop hen-Codein e #3 300-30 MG Meloxicam 15 MG Meloxicam 15 MG No Meloxicam 15 MG Pantoprazol e Sodium 40 MG Pantoprazol e Sodium 40 MG No Pantoprazo le Sodium 40 MG Pantoprazol e Sodium 40 MG Pantoprazol e Sodium 40 MG No QD Pantoprazo le Sodium 40 MG Methocarbam ol 500 MG Methocarbam ol 500 MG No 1{table t} Methocarba mol 500 MG ProAir HFA ProAir HFA No ProAir HFA Meloxicam 15 MG Meloxicam 15 MG No Meloxicam 15 MG Acetaminoph en-Codeine #3 300-30 MG Acetaminoph en-Codeine #3 300-30 MG No Acetaminop hen-Codein e #3 300-30 MG Pantoprazol e Sodium 40 MG Pantoprazol e Sodium 40 MG No QD Pantoprazo le Sodium 40 MG Methocarbam ol 500 MG Methocarbam ol 500 MG No 1{table t} Methocarba mol 500 MG ProAir HFA ProAir HFA No ProAir HFA Meloxicam 15 MG Meloxicam 15 MG No Meloxicam 15 MG Pantoprazol e Sodium 40 MG Pantoprazol e Sodium 40 MG No QD Pantoprazo le Sodium 40 MG Methocarbam ol 500 MG Methocarbam ol 500 MG No 1{table t} Methocarba mol 500 MG ProAir HFA ProAir HFA No ProAir HFA Meloxicam 15 MG Meloxicam 15 MG No Meloxicam 15 MG Meloxicam 15 MG Meloxicam 15 MG No Meloxicam 15 MG Pantoprazol e Sodium 40 MG Pantoprazol e Sodium 40 MG No QD Pantoprazo le Sodium 40 MG Methocarbam ol 500 MG Methocarbam ol 500 MG No 1{table t} Methocarba mol 500 MG Acetaminoph en-Codeine #3 300-30 MG Acetaminoph en-Codeine #3 300-30 MG No Acetaminop hen-Codein e #3 300-30 MG Meloxicam 15 MG Meloxicam 15 MG No Meloxicam 15 MG Pantoprazol e Sodium 40 MG Pantoprazol e Sodium 40 MG No QD Pantoprazo le Sodium 40 MG Methocarbam ol 500 MG Methocarbam ol 500 MG No 1{table t} Methocarba mol 500 MG Acetaminoph en-Codeine #3 300-30 MG Acetaminoph en-Codeine #3 300-30 MG No Acetaminop hen-Codein e #3 300-30 MG Meloxicam 15 MG Meloxicam 15 MG No Meloxicam 15 MG Pantoprazol e Sodium 40 MG Pantoprazol e Sodium 40 MG No QD Pantoprazo le Sodium 40 MG Methocarbam ol 500 MG Methocarbam ol 500 MG No 1{table t} Methocarba mol 500 MG Acetaminoph en-Codeine #3 300-30 MG Acetaminoph en-Codeine #3 300-30 MG No Acetaminop hen-Codein e #3 300-30 MG Methocarbam ol 500 MG Methocarbam ol 500 MG No 1{table t} Methocarba mol 500 MG Acetaminoph en-Codeine #3 300-30 MG Acetaminoph en-Codeine #3 300-30 MG No Acetaminop hen-Codein e #3 300-30 MG Pantoprazol e Sodium 40 MG Pantoprazol e Sodium 40 MG No 1{table t} QD Pantoprazo le Sodium 40 MG Meloxicam 15 MG Meloxicam 15 MG No Meloxicam 15 MG Acetaminoph en-Codeine #3 300-30 MG Acetaminoph en-Codeine #3 300-30 MG No Acetaminop hen-Codein e #3 300-30 MG Pantoprazol e Sodium 40 MG Pantoprazol e Sodium 40 MG No 1{table t} QD Pantoprazo le Sodium 40 MG Vital Signs Vital Name Observation Time Observation Value Comments S ource height 2022-02-05 11:30:00 60 [in_i] Commo n [facility] weight 2022-02-05 11:30:00 131 [lb_av] Comm on [facility] temperature 2022-02-05 11:30:00 96.9 [degF] Com mon [facility] bmi 2022-02-05 11:30:00 25.58 kg/m2 Comm on [facility] oximetry 2022-02-05 11:30:00 92 % Commo n [facility] respiratory rate 2022-02-05 11:30:00 16 /min Common [facility] blood pressure systolic 2022-02-05 11:30:00 132 mm[Hg] [facility] blood pressure diastolic 2022-02-05 11:30:00 72 mm[Hg] [facility] height 2022-01-13 08:00:00 60 [in_i] Commo n [facility] weight 2022-01-13 08:00:00 128.8 [lb_av] Co [facility] temperature 2022-01-13 08:00:00 97.5 [degF] Com [facility] bmi 2022-01-13 08:00:00 25.15 kg/m2 Comm on [facility] oximetry 2022-01-13 08:00:00 98 % Commo n [facility] respiratory rate 2022-01-13 08:00:00 18 /min [facility] blood pressure systolic 2022-01-13 08:00:00 139 mm[Hg] [facility] blood pressure diastolic 2022-01-13 08:00:00 72 mm[Hg] Common [facility] height 2021-09-07 11:40:00 60 [in_i] Commo n [facility] weight 2021-09-07 11:40:00 125 [lb_av] Comm on [facility] bmi 2021-09-07 11:40:00 24.41 kg/m2 Comm on [facility] height 2021-01-12 10:40:00 60 [in_i] Commo n [facility] weight 2021-01-12 10:40:00 124.6 [lb_av] Co [facility] temperature 2021-01-12 10:40:00 98.1 [degF] Com [facility] bmi 2021-01-12 10:40:00 24.33 kg/m2 Comm on [facility] oximetry 2021-01-12 10:40:00 92 % Commo n [facility] respiratory rate 2021-01-12 10:40:00 16 /min [facility] blood pressure systolic 2021-01-12 10:40:00 133 mm[Hg] [facility] blood pressure diastolic 2021-01-12 10:40:00 72 mm[Hg] [facility] height 2020-12-23 11:30:00 60 [in_i] Commo n [facility] weight 2020-12-23 11:30:00 122.9 [lb_av] Co mmon [facility] temperature 2020-12-23 11:30:00 97.2 [degF] Com mon [facility] bmi 2020-12-23 11:30:00 24 kg/m2 Commo n [facility] oximetry 2020-12-23 11:30:00 96 % Commo n [facility] respiratory rate 2020-12-23 11:30:00 17 /min [facility] blood pressure systolic 2020-12-23 11:30:00 135 mm[Hg] [facility] blood pressure diastolic 2020-12-23 11:30:00 70 mm[Hg] [facility] Systolic blood pressure 2020-10-05 15:00:00 141 mm[Hg] [facility] Diastolic blood pressure 2020-10-05 15:00:00 86 mm[Hg] [facility] Heart rate 2020-10-05 15:00:00 86 /min [facility] Respiratory rate 2020-10-05 15:00:00 15 /min [facility] Oxygen saturation in Arterial blood by Pulse oximetry 2020-10-05 15:00:00 92 /min [facility] Body temperature 2020-10-05 13:00:00 36.78 Kenisha [facility] Body height 2020-09-30 07:36:00 152.4 cm [facility] Body weight 2020-09-30 07:36:00 55 kg [facility] BMI 2020-09-30 07:36:00 23.68 kg/m2 [facility] Systolic blood pressure 2020-09-30 10:15:00 124 mm[Hg] [facility] Diastolic blood pressure 2020-09-30 10:15:00 84 mm[Hg] [facility] Heart rate 2020-09-30 10:15:00 87 /min [facility] Body temperature 2020-09-30 10:15:00 37.11 Kenisha [facility] Respiratory rate 2020-09-30 10:15:00 15 /min [facility] Oxygen saturation in Arterial blood by Pulse oximetry 2020-09-30 10:15:00 98 /min [facility] Body height 2020-09-30 07:36:[address] [facility] Body weight 2020-09-30 07:36:[address] [facility] BMI 2020-09-30 07:36:00 23.68 kg/m2 [facility] Respiratory rate 2020-09-30 08:16:00 33 /min [facility] Systolic blood pressure 2020-09-30 03:46:00 118 mm[Hg] [facility] Diastolic blood pressure 2020-09-30 03:46:00 65 mm[Hg] [facility] Heart rate 2020-09-30 03:46:00 89 /min [facility] Respiratory rate 2020-09-30 03:46:00 18 /min [facility] Oxygen saturation in Arterial blood by Pulse oximetry 2020-09-30 03:46:00 98 /min [facility] Body temperature 2020-09-29 23:33:00 35.94 Kenisha [facility] Body weight 2020-09-29 23:33:00 58.514 kg [facility] BMI 2020-09-29 23:33:00 25.19 kg/m2 [facility] Heart rate 2020-06-12 17:12:00 73 /min [facility] Respiratory rate 2020-06-12 17:12:00 24 /min [facility] Oxygen saturation in Arterial blood by Pulse oximetry 2020-06-12 17:12:00 100 /min [facility] Systolic blood pressure 2020-06-12 17:02:00 162 mm[Hg] [facility] Diastolic blood pressure 2020-06-12 17:02:00 82 mm[Hg] [facility] Body temperature 2020-06-12 14:14:00 36.39 Kenisha [facility] Body height 2020-06-12 14:14:[address] [facility] Body weight 2020-06-12 14:14:[address] [facility] BMI 2020-06-12 14:14:00 25.39 kg/m2 [facility] Heart rate 2020-06-12 17:12:00 73 /min [facility] Respiratory rate 2020-06-12 17:12:00 24 /min [facility] Oxygen saturation in Arterial blood by Pulse oximetry 2020-06-12 17:12:00 100 /min [facility] Systolic blood pressure 2020-06-12 17:02:00 162 mm[Hg] [facility] Diastolic blood pressure 2020-06-12 17:02:00 82 mm[Hg] [facility] Body temperature 2020-06-12 14:14:00 36.39 Kenisha [facility] Body height 2020-06-12 14:14:[address] [facility] Body weight 2020-06-12 14:14:[address] [facility] BMI 2020-06-12 14:14:00 25.39 kg/m2 [facility] Procedures Procedure Date / Time Performed Performing Clinician Source BASIC METABOLIC PANEL (NA, K, CL, CO2, GLUCOSE, BUN, CREATININE, CA) 2020-10-05 08:25:00 Sonia Herrera [facility] CBC WITH DIFF 2020-10-05 08:25:00 Javier, Sonia [facility] BASIC METABOLIC PANEL (NA, K, CL, CO2, GLUCOSE, BUN, CREATININE, CA) 2020-10-04 13:30[facility]00 [facility] 2020-10-04 11:18:00 Javier, [facility] BASIC METABOLIC PANEL (NA, K, CL, CO2, GLUCOSE, BUN, CREATININE, CA) 2020-10-03 10:46:00 [facility] 2020-10-03 10:46:00 Javier, [facility] CBC WITH DIFF 2020-10-02 11:31:00 Emerson [facility] BASIC METABOLIC PANEL (NA, K, CL, CO2, GLUCOSE, BUN, CREATININE, CA) 2020-10-02 11:30:00 Emerson [facility] PHOSPHORUS 2020-10-01 07:34:00 Dongur, Sonia Farideh U [facility] MAGNESIUM 2020-10-01 07:34:00 Dongur, Sonia Farideh [facility] BASIC METABOLIC PANEL (NA, K, CL, CO2, GLUCOSE, BUN, CREATININE, CA) 2020-10-01 07:34:00 Javier, [facility] CBC WITH DIFF 2020-10-01 07:34:00 Cheryl Jimenez [facility] PHOSPHORUS 2020-10-01 07:34:00 Dongur, Sonia Farideh [facility] MAGNESIUM 2020-10-01 07:34:00 Dongur, Sonia Farideh [facility] BASIC METABOLIC PANEL (NA, K, CL, CO2, GLUCOSE, BUN, CREATININE, CA) 2020-10-01 07:34:00 Dongyin, Sonia Farideh [facility] CBC WITH DIFF 2020-10-01 07:34:00 Cheryl Jimenez [facility] XR KUB 2020-09-30 20:10:00 Dongur, Sonia Farideh [facility] XR KUB 2020-09-30 20:10:00 Dongur, Sonia Farideh [facility] CBC WITH DIFF 2020-09-30 19:15:00 Dongur, Sonia Farideh [facility] PROTHROMBIN TIME / INR 2020-09-30 19:15:00 Dongur, Lax dante [facility] ACTIVATED PARTIAL THRMPLAS JOESPH 2020-09-30 19:15:00 Dongur, Sonia Farideh [facility] CBC WITH DIFF 2020-09-30 19:15:00 Dongur, Sonia Farideh [facility] PROTHROMBIN TIME / INR 2020-09-30 19:15:00 Dongur, Lax dante [facility] ACTIVATED PARTIAL THRMPLAS JOESPH 2020-09-30 19:15:00 Dongur, [facility] BASIC METABOLIC PANEL (NA, K, CL, CO2, GLUCOSE, BUN, CREATININE, CA) 2020-09-30 10:25:00 Cheryl Jimenez [facility] BASIC METABOLIC PANEL (NA, K, CL, CO2, GLUCOSE, BUN, CREATININE, CA) 2020-09-30 10:25:00 Cheryl Jimenez [facility] FUNGUS (ROUTINE) CULTURE 2020-09-30 09:06:46 [facility] BODY FLUID CULTURE(AEROBIC/ANAEROB IC) 2020-09-30 09:06:46 [facility] FUNGUS (ROUTINE) CULTURE 2020-09-30 09:06:46 [facility] BODY FLUID CULTURE(AEROBIC/ANAEROB IC) 2020-09-30 09:06:46 [facility] INTUBATION 2020-09-30 08:54:44 Edgardo Buck [facility] EXPLORATORY LAPAROTOMY 2020-09-30 07:59:00 Stanford Edwards [facility] EXPLORATORY LAPAROTOMY 2020-09-30 07:59:00 Stanford Edwards [facility] ABORH CONFIRMATION (LAB ONLY) 2020-09-30 07:55:00 Almas Edwards [facility] ABORH CONFIRMATION (LAB ONLY) 2020-09-30 07:55:00 Almas Edwards [facility] HB ABO GROUPING 2020-09-30 07:25:[facility] 2020-09-30 07:25:00 [facility] 2020-09-30 05:01:00 Doctor Un assigned, [place] [facility] COVID-19 (ID NOW RAPID TESTING) 2020-09-30 02:51:00 Kenzie Cardenas [facility] CT ABDOMEN PELVIS W CONTRAST 2020-09-30 01:36:13 Kenzie Cardenas [facility] LIPASE 2020-09-30 00:21:00 [facility] COMP. METABOLIC PANEL (95697) 2020-09-30 00:21:00 Kenzie Cardenas [facility] CBC WITH DIFF 2020-09-30 00:21:00 Kenzie Cardenas [facility] URINALYSIS 2020-09-30 00:21[facility]00 [facility]UM[facility] 2020-09-29 05:01:00 Doctor Unassigned, [place] [facility] EMERGENCY DEPARTMENT DOCUMENTS 2020-09-29 05:01:00 Doctor Unassigned, [place] [facility] CT CHEST PULMONARY ANGIOGRAM 2020-06-12 15:58:18 Tin [facility] XR CHEST 1 VW 2020-06-12 14:58:[address] [facility] TROPONIN I 2020-06-12 14:32:00 Danilo Castle [facility] HEPATIC FUNCTION PANEL (99927) (ALB,T.PRO,BILI T,BU/BC,ALT,AST,ALK PHOS) 2020-06-12 14:32:00 Tin Danilo [facility] BASIC METABOLIC PANEL (NA, K, CL, CO2, GLUCOSE, BUN, CREATININE, CA) 2020-06-12 14:32:00 Tin [facility] CBC WITH DIFF 2020-06-12 14:32:[address] [facility] PROTHROMBIN TIME / INR 2020-06-12 14:32:00 Cesar Castle [facility] ACTIVATED PARTIAL THRMPLAS JOESPH 2020-06-12 14:32:00 Danilo Castle [facility] N-TERMINAL PRO-BNP 2020-06-12 14:32:00 Danilo Castle [facility] COVID-19 (ID NOW RAPID TESTING) 2020-06-12 14:32:00 Danilo Castle [facility] NOTICE OF PRIVACY PRACTICES 2020-06-12 14:09:29 Doctor Unassigned, [place] [facility] Encounters Start Date/Time End Date/Time Encounter Type Admission Type Attending Clinicians Care Facility Care Department Encounter ID Source 2023-02-07 13:21:00 Outpatient Daryl Bailey STLMLC STLMLC [id number] [facility] 2023-02-03 15:07:00 Outpatient BaileyJeffreyh STLMLC STLMLC [id number] [facility] 2022-04-16 15:32:01 Outpatient Yuen, Avnee STLMLC STLMLC [id number] [facility] 2022-02-05 10:52:02 Outpatient Yuen Avnee STLMLC STLMLC [id number] [facility] 2022-02-03 10:17:03 Outpatient Yuen Avnee STLMLC STLMLC [id number] [facility] 2022-01-12 10:33:01 Outpatient Yuen, Avnee STLMLC STLMLC [id number] [facility] 2022-01-11 09:13:01 Outpatient Yuen Avnee STLMLC STLMLC [id number] [facility] 2021-04-15 14:17:15 Outpatient Yuen Avnee STLMLC STLMLC [id number] [facility] 2021-04-15 14:04:07 Outpatient Yuen, Avnee STLMLC STLMLC [id number] [facility] 2021-04-15 13:58:49 Outpatient Yuen, Avnee STLMLC STLMLC [id number] [facility] 2021-04-15 13:57:23 Outpatient Yuen, Avnee STLMLC STLMLC [id number] [facility] 2021-04-15 13:56:27 Outpatient Yuen, Avnee STLMLC STLMLC [id number] [facility] 2021-04-15 13:48:17 Outpatient Yuen, Avnee STLMLC STLMLC [id number] [facility] 2021-04-15 13:38:18 Outpatient Yuen, Avnee STLMLC STLMLC [id number] [facility] 2021-04-15 13:27:33 Outpatient Yuen, Avnee STLMLC STLMLC [id number] [facility] 2021-04-15 13:22:06 Outpatient STLMLC STLMLC [id number] [facility] 2023-02-08 00:00:00 2023-02-08 00:00:00 (TEL) STLMLC STLMLC [id number] [facility] 2023-02-03 00:00:00 2023-02-03 00:00:00 (TEL) STLMLC STLMLC [id number] [facility] 2022-10-08 00:00:00 2022-10-08 00:00:00 (TEL) STLMLC STLMLC [id number] [facility] 2022-05-24 00:00:00 2022-05-24 00:00:00 (TEL) STLMLC STLMLC [id number] [facility] 2022-02-24 00:00:00 2022-02-24 00:00:00 (TEL) STLMLC STLMLC [id number] [facility] 2022-02-19 00:00:00 2022-02-19 00:00:00 (TEL) STLMLC STLMLC [id number] [facility] 2022-02-05 00:00:00 2022-02-05 00:00:00 OFFICE VISIT EST PT LEVEL 3 STLMLC STLMLC [id number] [facility] 2022-02-04 00:00:00 2022-02-04 00:00:00 (TEL) STLMLC STLMLC [id number] [facility] 2022-01-13 00:00:00 2022-01-13 00:00:00 PREV VISIT EST AGE 40-64 STLMLC STLMLC [id number] [facility] 2021-10-30 00:00:00 2021-10-30 00:00:00 (TEL) STLMLC STLMLC [id number] [facility] 2021-09-07 00:00:00 2021-09-07 00:00:00 OL DIG E/M SVC 11-20 MIN STLMLC STLMLC [id number] [facility] 2021-09-03 00:00:00 2021-09-03 00:00:00 (TEL) STLMLC STLMLC [id number] [facility] 2021-08-13 00:00:00 2021-08-13 00:00:00 (TEL) STLMLC STLMLC [id number] [facility] 2021-07-22 00:00:00 2021-07-22 00:00:00 (TEL) STLMLC STLMLC [id number] [facility] 2021-02-27 00:00:00 2021-02-27 00:00:00 (TEL) STLMLC STLMLC [id number] [facility] 2021-01-12 00:00:00 2021-01-12 00:00:00 OFFICE VISIT EST PT LEVEL 3 STLMLC STLMLC [id number] [facility] 2021-01-06 00:00:00 2021-01-06 00:00:00 (TEL) STLMLC STLMLC [id number] [facility] 2020-12-23 00:00:00 2020-12-23 00:00:00 PREV VISIT EST AGE 40-64 STLMLC STLMLC [id number] [facility] 2020-10-21 10:45:00 2020-10-21 10:45:00 Outpatient JUNIE [facility]DS [facility] [id number] [facility] 2020-10-07 00:00:00 2020-10-07 00:00:00 Transition of Care [facility] [address] [id number] [facility] 2020-10-06 00:00:00 2020-10-06 00:00:00 Outpatient STLMLC STLC [id number] [facility] 2020-09-30 00:19:00 2020-10-05 13:32:00 Hospital Encounter [facility] [id number] [facility] 2020-09-30 02:45:00 2020-09-30 05:33:[id number] [id number] [facility] 2020-09-30 03:15:00 2020-09-30 05:06:00 Anesthesia Event Ced Chung [facility] [id number] [id number] [id number] [facility] 2020-09-30 00:19:00 2020-09-30 00:19:00 Emergency X ALMAS EDWARDS [facility] ERT [id number] [facility] 2020-09-30 00:00:00 2020-09-30 00:00:00 Orders Only Doctor Unassigned, [place] [facility] [id number] 4.2.7.2.686 [id number] [facility] 2020-09-29 18:55:00 2020-09-29 22:56:00 Emergency Ronald Gayathritalya Hernandez Paul Almas [facility] [id number] [id number] [facility] 2020-09-29 18:55:00 2020-09-29 18:55:00 Emergency X KENZIE CARDENAS [facility] ERT [id number] [facility] 2020-09-19 00:00:00 2020-09-19 00:00:00 Outpatient STLMLC STLMLC [id number] [facility] 2020-06-12 09:16:00 2020-06-12 12:33:00 Emergency Tin Danilo [facility] [id number] [id number] [id number] 2020-06-12 09:16:00 2020-06-12 12:33:00 Emergency X TIN DANILO [facility] ERT [id number] [facility] 2020-06-12 09:16:00 2020-06-12 12:33:00 Emergency Tin Danilo [facility] [id number] [id number] [id number] [facility] Results Test Description Test Time Test Comments Results Result Co mments Source Maricarmen 2022-01-27 00:00:00 [facility] (NA, K, CL, CO2, GLUCOSE, BUN, CREATININE, CA)2020-10-05 09:01:06* Test Item Value Reference Range Interpretation Comme nts NA (test code = 0267268434) 133 mmol/L 135-145 L K (test code = 2527136098) 3.6 mmol/L 3.5-5.0 CL (test code = 5701809594) 105 mmol/L 98-108 CO2 TOTAL (test code = 1106354355) 23 mmol/L 23-31 AGAP (test code = 9049667439) 2-16 BUN (test code = 7739647473) 2 mg/dL 7-23 L GLUCOSE (test code = 7675861298) 104 mg/dL 70-110 CREATININE (test code = 9622760260) 0.41 mg/dL 0.50-1.04 L CALCIUM (test code = 4239161065) 9.1 mg/dL 8.6-10.6 eGFR (test code = 5698943215) mL/min/1.73m2 AYANA (test code = AYANA) Association of Glomerular Filtration Rate (GFR) and Staging of Kidney Disease* + --+ --+ ------+| GFR (mL/min/1.73 m2) ?| With Kidney Damage ?| ?Without Kidney Damage+ --------+ --------+ +| ?>90 ?| ?Stage one ?| ? Normal ?+ ---+ ---+ -------+| ?60-89 ?| ?Stage two ?| ? Decreased GFR ? + --+ --+ ------+| ?30-59 ?| ?Stage three ?| ? Stage three ? + --+ --+ ------+| ?15-29 ?| ?Stage four ? | ? Stage four ?+ ---+ ---+ -------+| ?<15 (or dialysis) ? ?| ?Stage five ? | ? Stage five ?+ ---+ ---+ -------+ *Each stage assumes the associated GFR level has been in effect for at least three months. ?Stages 1 to 5, with or without kidney disease, indicate chronic kidney disease. Notes: Determination of stages one and two (with eGFR >59mL/min/1.73 m2) requires estimation of kidney damage for at least three months as defined by structural or functional abnormalities of the kidney, manifested by either:Pathological abnormalities or Markers of kidney damage (including abnormalities in the composition of the blood or urine or abnormalities in imaging tests). Lab Interpretation (test code = 73718-9) Abnormal [facility] METABOLIC PANEL (NA, K, CL, CO2, GLUCOSE, BUN, CREATININE, CA)2020-10-04 14:02:25* Test Item Value Reference Range Interpretation Comme nts NA (test code = 7660695902) 135 mmol/L 135-145 K (test code = 3819008968) 3.9 mmol/L 3.5-5.0 CL (test code = 0157321340) 103 mmol/L 98-108 CO2 TOTAL (test code = 9022310741) 25 mmol/L 23-31 AGAP (test code = 3327901131) 2-16 BUN (test code = 3144685558) 4 mg/dL 7-23 L GLUCOSE (test code = 1694082881) 125 mg/dL 70-110 H CREATININE (test code = 6470541552) 0.41 mg/dL 0.50-1.04 L CALCIUM (test code = 0084140663) 9.4 mg/dL 8.6-10.6 eGFR (test code = 4697854777) mL/min/1.73m2 AYANA (test code = AYANA) Association of Glomerular Filtration Rate (GFR) and Staging of Kidney Disease* + --+ --+ ------+| GFR (mL/min/1.73 m2) ?| With Kidney Damage ?| ?Without Kidney Damage+ --------+ --------+ +| ?>90 ?| ?Stage one ?| ? Normal ?+ ---+ ---+ -------+| ?60-89 ?| ?Stage two ?| ? Decreased GFR ? + --+ --+ ------+| ?30-59 ?| ?Stage three ?| ? Stage three ? + --+ --+ ------+| ?15-29 ?| ?Stage four ? | ? Stage four ?+ ---+ ---+ -------+| ?<15 (or dialysis) ? ?| ?Stage five ? | ? Stage five ?+ ---+ ---+ -------+ *Each stage assumes the associated GFR level has been in effect for at least three months. ?Stages 1 to 5, with or without kidney disease, indicate chronic kidney disease. Notes: Determination of stages one and two (with eGFR >59mL/min/1.73 m2) requires estimation of kidney damage for at least three months as defined by structural or functional abnormalities of the kidney, manifested by either:Pathological abnormalities or Markers of kidney damage (including abnormalities in the composition of the blood or urine or abnormalities in imaging tests). Lab Interpretation (test code = 70584-3) Abnormal [facility] WITH [id number] 11:36:56* Test Item Value Reference Range Interpretation Comme nts WBC (test code = 6690-2) See_Comment [Automated Base [employer]] The system which generated this result transmitted reference range: 4.30 - 11.10 10*3/?L. The reference range was not used to interpret this result as normal/abnormal. RBC (test code = 789-8) See_Comment L [Automated Base [employer]] The system which generated this result transmitted reference range: 3.93 - 5.25 10*6/?L. The reference range was not used to interpret this result as normal/abnormal. HGB (test code = 718-7) 12.6 g/dL 11.6-15.0 HCT (test code = 4544-3) 36.7 % 35.7-45.2 MCV (test code = 787-2) 96.6 fL 80.6-95.5 H MCH (test code = 785-6) 33.2 pg 25.9-32.8 H MCHC (test code = 786-4) 34.3 g/dL 31.6-35.1 RDW-SD (test code = 25620-0) 47.2 fL 39.0-49.9 RDW-CV (test code = 788-0) 13.3 % 12.0-15.5 PLT (test code = 777-3) See_Comment [Automated Base [employer]] The system which generated this result transmitted reference range: 166 - 358 10*3/?L. The reference range was not used to interpret this result as normal/abnormal. MPV (test code = 20034-8) 10.0 fL 9.5-12.9 NRBC/100 WBC (test code = 0195975564) See_Comment [Automated me ssage] The system which generated this result transmitted reference range: 0.0 - 10.0 /100 WBCs. The reference range was not used to interpret this result as normal/abnormal. NRBC x10^3 (test code = 2965169189) <0.01 See_Comment [Automated messa ge] The system which generated this result transmitted reference range: 10*3/?L. The reference range was not used to interpret this result as normal/abnormal. GRAN MAT (NEUT) % (test code = 770-8) 58.9 % IMM GRAN % (test code = 0592496039) 0.80 % LYMPH % (test code = 736-9) 21.1 % MONO % (test code = 5905-5) 12.7 % EOS % (test code = 713-8) 5.9 % BASO % (test code = 706-2) 0.6 % GRAN MAT x10^3(ANC) (test code = 7006284513) 3.91 10*3/uL 1.88-7.09 IMM GRAN x10^3 (test code = 3105753496) 0.05 10*3/uL 0.00-0.06 LYMPH x10^3 (test code = 731-0) 1.40 10*3/uL 1.32-3.29 MONO x10^3 (test code = 742-7) 0.84 10*3/uL 0.33-0.92 EOS x10^3 (test code = 711-2) 0.39 10*3/uL 0.03-0.39 BASO x10^3 (test code = 704-7) 0.04 10*3/uL 0.01-0.07 Lab Interpretation (test code = 31401-8) [facility] 2020-10-03 12:47:10* Test Item Value Reference Range Interpretation Comme nts BODY FLUID CULT (test code = 611-4) No organisms isolated Gram stain (test code = 664-3) Few PMNs or Mononuclear cells observed [facility] METABOLIC PANEL (NA, K, CL, CO2, GLUCOSE, BUN, CREATININE, CA)2020-10-03 11:21:54* Test Item Value Reference Range Interpretation Comme nts NA (test code = 3697743210) 136 mmol/L 135-145 K (test code = 1144669111) 3.8 mmol/L 3.5-5.0 Slight hemolysis CL (test code = 3845197856) 108 mmol/L 98-108 CO2 TOTAL (test code = 6033065053) 26 mmol/L 23-31 AGAP (test code = 3017574898) 2-16 BUN (test code = 4032475390) 4 mg/dL 7-23 L Slight hemolysis GLUCOSE (test code = 5792019025) 112 mg/dL 70-110 H CREATININE (test code = 7310435927) 0.39 mg/dL 0.50-1.04 L CALCIUM (test code = 5040826451) 8.5 mg/dL 8.6-10.6 L eGFR (test code = 1520989295) mL/min/1.73m2 AYANA (test code = AYANA) Association of Glomerular Filtration Rate (GFR) and Staging of Kidney Disease* + -----+ --------+ +| GFR (mL/min/1.73 m2) ?| With Kidney Damage ?| ?Without Kidney Damage+ +------- +---- --+| ?>90 ?| ?Stage one ?| ? Normal ?+ ------+ ---------+--------- +| ?60-89 ?| ?Stage two ?| ? Decreased GFR ? + -----+ --------+ +| ?30-59 ?| ?Stage three ?| ? Stage three ? + -----+ --------+ +| ?15-29 ?| ?Stage four ? | ? Stage four ?+ ------+ ---------+--------- +| ?<15 (or dialysis) ? ?| ?Stage five ? | ? Stage five ?+ ------+ ---------+--------- + *Each stage assumes the associated GFR level has been in effect for at least three months. ?Stages 1 to 5, with or without kidney disease, indicate chronic kidney disease. Notes: Determination of stages one and two (with eGFR >59mL/min/1.73 m2) requires estimation of kidney damage for at least three months as defined by structural or functional abnormalities of the kidney, manifested by either:Pathological abnormalities or Markers of kidney damage (including abnormalities in the composition of the blood or urine or abnormalities in imaging tests). Lab Interpretation (test code = 98523-0) Abnormal [facility] WITH [id number] 10:55:33* Test Item Value Reference Range Interpretation Comme nts WBC (test code = 6690-2) See_Comment [Automated Base CRMa ge] The system which generated this result transmitted reference range: 4.30 - 11.10 10*3/?L. The reference range was not used to interpret this result as normal/abnormal. RBC (test code = 789-8) See_Comment L [Automated Base CRMa ge] The system which generated this result transmitted reference range: 3.93 - 5.25 10*6/?L. The reference range was not used to interpret this result as normal/abnormal. HGB (test code = 718-7) 12.4 g/dL 11.6-15.0 HCT (test code = 4544-3) 36.5 % 35.7-45.2 MCV (test code = 787-2) 97.6 fL 80.6-95.5 H MCH (test code = 785-6) 33.2 pg 25.9-32.8 H MCHC (test code = 786-4) 34.0 g/dL 31.6-35.1 RDW-SD (test code = 79011-9) 46.7 fL 39.0-49.9 RDW-CV (test code = 788-0) 12.9 % 12.0-15.5 PLT (test code = 777-3) See_Comment [Automated Base CRMa ge] The system which generated this result transmitted reference range: 166 - 358 10*3/?L. The reference range was not used to interpret this result as normal/abnormal. MPV (test code = 66855-2) 10.0 fL 9.5-12.9 NRBC/100 WBC (test code = 9936727061) See_Comment [Automated [place] ssage] The system which generated this result transmitted reference range: 0.0 - 10.0 /100 WBCs. The reference range was not used to interpret this result as normal/abnormal. NRBC x10^3 (test code = 3188690193) <0.01 See_Comment [Automated messa ge] The system which generated this result transmitted reference range: 10*3/?L. The reference range was not used to interpret this result as normal/abnormal. GRAN MAT (NEUT) % (test code = 770-8) 71.4 % IMM GRAN % (test code = 4010720509) 0.40 % LYMPH % (test code = 736-9) 14.7 % MONO % (test code = 5905-5) 8.3 % EOS % (test code = 713-8) 4.8 % BASO % (test code = 706-2) 0.4 % GRAN MAT x10^3(ANC) (test code = 2551296281) 6.69 10*3/uL 1.88-7.09 IMM GRAN x10^3 (test code = 8892374067) 0.04 10*3/uL 0.00-0.06 LYMPH x10^3 (test code = 731-0) 1.38 10*3/uL 1.32-3.29 MONO x10^3 (test code = 742-7) 0.78 10*3/uL 0.33-0.92 EOS x10^3 (test code = 711-2) 0.45 10*3/uL 0.03-0.39 H BASO x10^3 (test code = 704-7) 0.04 10*3/uL 0.01-0.07 Lab Interpretation (test code = 02726-0) Abnormal [facility] METABOLIC PANEL (NA, K, CL, CO2, GLUCOSE, BUN, CREATININE, CA)2020-10-02 14:13:08* Test Item Value Reference Range Interpretation Comme nts NA (test code = 6727469836) 132 mmol/L 135-145 L K (test code = 5601260209) 3.5 mmol/L 3.5-5.0 CL (test code = 0877130421) 103 mmol/L 98-108 CO2 TOTAL (test code = 8545217524) 29 mmol/L 23-31 AGAP (test code = 0501182873) <1 2-16 L BUN (test code = 3567751345) 4 mg/dL 7-23 L GLUCOSE (test code = 9065358302) 122 mg/dL 70-110 H CREATININE (test code = 6656410367) 0.46 mg/dL 0.50-1.04 L CALCIUM (test code = 9594624367) 9.0 mg/dL 8.6-10.6 eGFR (test code = 0005805612) mL/min/1.73m2 AYANA (test code = AYANA) Association of Glomerular Filtration Rate (GFR) and Staging of Kidney Disease* + --+ --+ ------+| GFR (mL/min/1.73 m2) ?| With Kidney Damage ?| ?Without Kidney Damage+ --------+ --------+ +| ?>90 ?| ?Stage one ?| ? Normal ?+ ---+ ---+ -------+| ?60-89 ?| ?Stage two ?| ? Decreased GFR ? + --+ --+ ------+| ?30-59 ?| ?Stage three ?| ? Stage three ? + --+ --+ ------+| ?15-29 ?| ?Stage four ? | ? Stage four ?+ ---+ ---+ -------+| ?<15 (or dialysis) ? ?| ?Stage five ? | ? Stage five ?+ ---+ ---+ -------+ *Each stage assumes the associated GFR level has been in effect for at least three months. ?Stages 1 to 5, with or without kidney disease, indicate chronic kidney disease. Notes: Determination of stages one and two (with eGFR >59mL/min/1.73 m2) requires estimation of kidney damage for at least three months as defined by structural or functional abnormalities of the kidney, manifested by either:Pathological abnormalities or Markers of kidney damage (including abnormalities in the composition of the blood or urine or abnormalities in imaging tests). Lab Interpretation (test code = 87469-6) Abnormal [facility] WITH [id number] 12:09:01* Test Item Value Reference Range Interpretation Comme nts WBC (test code = 6690-2) See_Comment H [Automated message] The system which generated this result transmitted reference range: 4.30 - 11.10 10*3/?L. The reference range was not used to interpret this result as normal/abnormal. RBC (test code = 789-8) See_Comment L [Automated message] The system which generated this result transmitted reference range: 3.93 - 5.25 10*6/?L. The reference range was not used to interpret this result as normal/abnormal. HGB (test code = 718-7) 12.0 g/dL 11.6-15.0 HCT (test code = 4544-3) 34.8 % 35.7-45.2 L MCV (test code = 787-2) 96.4 fL 80.6-95.5 H MCH (test code = 785-6) 33.2 pg 25.9-32.8 H MCHC (test code = 786-4) 34.5 g/dL 31.6-35.1 RDW-SD (test code = 78412-5) 47.6 fL 39.0-49.9 RDW-CV (test code = 788-0) 13.3 % 12.0-15.5 PLT (test code = 777-3) See_Comment [Automated message] The system which generated this result transmitted reference range: 166 - 358 10*3/?L. The reference range was not used to interpret this result as normal/abnormal. MPV (test code = 06194-8) 9.9 fL 9.5-12.9 NRBC/100 WBC (test code = 3728770939) See_Comment [Automated message] The system which generated this result transmitted reference range: 0.0 - 10.0 /100 WBCs. The reference range was not used to interpret this result as normal/abnormal. NRBC x10^3 (test code = 4774335988) <0.01 See_Comment [Automated message] The system which generated this result transmitted reference range: 10*3/?L. The reference range was not used to interpret this result as normal/abnormal. GRAN MAT (NEUT) % (test code = 770-8) 81.7 % IMM GRAN % (test code = 8090496137) 0.60 % LYMPH % (test code = 736-9) 9.2 % MONO % (test code = 5905-5) 6.0 % EOS % (test code = 713-8) 2.3 % BASO % (test code = 706-2) 0.2 % GRAN MAT x10^3(ANC) (test code = 4479766371) 10.17 10*3/uL 1.88-7.09 H IMM GRAN x10^3 (test code = 8906206726) 0.07 10*3/uL 0.00-0.06 H LYMPH x10^3 (test code = 731-0) 1.15 10*3/uL 1.32-3.29 L MONO x10^3 (test code = 742-7) 0.75 10*3/uL 0.33-0.92 EOS x10^3 (test code = 711-2) 0.29 10*3/uL 0.03-0.39 BASO x10^3 (test code = 704-7) 0.03 10*3/uL 0.01-0.07 Lab Interpretation (test code = 54069-0) Abnormal [facility] METABOLIC PANEL (NA, K, CL, CO2, GLUCOSE, BUN, CREATININE, CA)2020-10-01 08:15:12* Test Item Value Reference Range Interpretation Comme nts NA (test code = 5633746534) 133 mmol/L 135-145 L K (test code = 2551357447) 3.7 mmol/L 3.5-5.0 CL (test code = 5843647172) 101 mmol/L 98-108 CO2 TOTAL (test code = 2293433024) 27 mmol/L 23-31 AGAP (test code = 2838925607) 2-16 BUN (test code = 4448199383) 8 mg/dL 7-23 GLUCOSE (test code = 4506567429) 99 mg/dL 70-110 CREATININE (test code = 8616204156) 0.50 mg/dL 0.50-1.04 CALCIUM (test code = 6173577536) 8.6 mg/dL 8.6-10.6 eGFR (test code = 3901020406) mL/min/1.73m2 AYANA (test code = AYANA) Association of Glomerular Filtration Rate (GFR) and Staging of Kidney Disease* + --+ --+ ------+| GFR (mL/min/1.73 m2) ?| With Kidney Damage ?| ?Without Kidney Damage+ --------+ --------+ +| ?>90 ?| ?Stage one ?| ? Normal ?+ ---+ ---+ -------+| ?60-89 ?| ?Stage two ?| ? Decreased GFR ? + --+ --+ ------+| ?30-59 ?| ?Stage three ?| ? Stage three ? + --+ --+ ------+| ?15-29 ?| ?Stage four ? | ? Stage four ?+ ---+ ---+ -------+| ?<15 (or dialysis) ? ?| ?Stage five ? | ? Stage five ?+ ---+ ---+ -------+ *Each stage assumes the associated GFR level has been in effect for at least three months. ?Stages 1 to 5, with or without kidney disease, indicate chronic kidney disease. Notes: Determination of stages one and two (with eGFR >59mL/min/1.73 m2) requires estimation of kidney damage for at least three months as defined by structural or functional abnormalities of the kidney, manifested by either:Pathological abnormalities or Markers of kidney damage (including abnormalities in the composition of the blood or urine or abnormalities in imaging tests). Lab Interpretation (test code = 90041-5) [facility]* Test Item Value Reference Range Interpretation Comme nts MAGNESIUM (test code = 7209698193) 1.7 mg/dL 1.7-2.4 Lab Interpretation (test cod e = 57913-3) [facility]12* Test Item Value Reference Range Interpretation Comme nts PHOSPHORUS (test code = 0200125937) 3.2 mg/dL 2.5-5.0 Lab Interpretation (test cod e = 21874-8) [facility] (NA, K, CL, CO2, GLUCOSE, BUN, CREATININE, CA)2020-10-01 08:15:12* Test Item Value Reference Range Interpretation Comme nts NA (test code = 8118828288) 133 mmol/L 135-145 L K (test code = 5043318088) 3.7 mmol/L 3.5-5.0 CL (test code = 1326571730) 101 mmol/L 98-108 CO2 TOTAL (test code = 6619549188) 27 mmol/L 23-31 AGAP (test code = 2360712398) 2-16 BUN (test code = 2482599950) 8 mg/dL 7-23 GLUCOSE (test code = 7256483145) 99 mg/dL 70-110 CREATININE (test code = 3740571969) 0.50 mg/dL 0.50-1.04 CALCIUM (test code = 4064004664) 8.6 mg/dL 8.6-10.6 eGFR (test code = 0237856797) mL/min/1.73m2 AYANA (test code = AYANA) Association of Glomerular Filtration Rate (GFR) and Staging of Kidney Disease* + --+ --+ ------+| GFR (mL/min/1.73 m2) ?| With Kidney Damage ?| ?Without Kidney Damage+ --------+ --------+ +| ?>90 ?| ?Stage one ?| ? Normal ?+ ---+ ---+ -------+| ?60-89 ?| ?Stage two ?| ? Decreased GFR ? + --+ --+ ------+| ?30-59 ?| ?Stage three ?| ? Stage three ? + --+ --+ ------+| ?15-29 ?| ?Stage four ? | ? Stage four ?+ ---+ ---+ -------+| ?<15 (or dialysis) ? ?| ?Stage five ? | ? Stage five ?+ ---+ ---+ -------+ *Each stage assumes the associated GFR level has been in effect for at least three months. ?Stages 1 to 5, with or without kidney disease, indicate chronic kidney disease. Notes: Determination of stages one and two (with eGFR >59mL/min/1.73 m2) requires estimation of kidney damage for at least three months as defined by structural or functional abnormalities of the kidney, manifested by either:Pathological abnormalities or Markers of kidney damage (including abnormalities in the composition of the blood or urine or abnormalities in imaging tests). Lab Interpretation (test code = 63922-6) [facility]12* Test Item Value Reference Range Interpretation Comme nts MAGNESIUM (test code = 9201325982) 1.7 mg/dL 1.7-2.4 Lab Interpretation (test cod e = 64039-1) [facility] 08:15:12* Test Item Value Reference Range Interpretation Comme nts PHOSPHORUS (test code = 1764164012) 3.2 mg/dL 2.5-5.0 Lab Interpretation (test cod e = 08894-8) [facility] [id number] 07:46:25* Test Item Value Reference Range Interpretation Comme nts WBC (test code = 6690-2) See_Comment [Automated messa ge] The system which generated this result transmitted reference range: 4.30 - 11.10 10*3/?L. The reference range was not used to interpret this result as normal/abnormal. RBC (test code = 789-8) See_Comment L [Automated messa ge] The system which generated this result transmitted reference range: 3.93 - 5.25 10*6/?L. The reference range was not used to interpret this result as normal/abnormal. HGB (test code = 718-7) 12.3 g/dL 11.6-15.0 HCT (test code = 4544-3) 36.2 % 35.7-45.2 MCV (test code = 787-2) 97.3 fL 80.6-95.5 H MCH (test code = 785-6) 33.1 pg 25.9-32.8 H MCHC (test code = 786-4) 34.0 g/dL 31.6-35.1 RDW-SD (test code = 77243-3) 48.8 fL 39.0-49.9 RDW-CV (test code = 788-0) 13.6 % 12.0-15.5 PLT (test code = 777-3) See_Comment [Automated messa ge] The system which generated this result transmitted reference range: 166 - 358 10*3/?L. The reference range was not used to interpret this result as normal/abnormal. MPV (test code = 33199-1) 9.6 fL 9.5-12.9 NRBC/100 WBC (test code = 5821394340) See_Comment [Automated me ssage] The system which generated this result transmitted reference range: 0.0 - 10.0 /100 WBCs. The reference range was not used to interpret this result as normal/abnormal. NRBC x10^3 (test code = 8533972179) <0.01 See_Comment [Automated messa ge] The system which generated this result transmitted reference range: 10*3/?L. The reference range was not used to interpret this result as normal/abnormal. GRAN MAT (NEUT) % (test code = 770-8) 83.8 % IMM GRAN % (test code = 5734788672) 0.50 % LYMPH % (test code = 736-9) 8.7 % MONO % (test code = 5905-5) 6.4 % EOS % (test code = 713-8) 0.3 % BASO % (test code = 706-2) 0.3 % GRAN MAT x10^3(ANC) (test code = 2199782454) 8.85 10*3/uL 1.88-7.09 H IMM GRAN x10^3 (test code = 5118046086) 0.05 10*3/uL 0.00-0.06 LYMPH x10^3 (test code = 731-0) 0.92 10*3/uL 1.32-3.29 L MONO x10^3 (test code = 742-7) 0.67 10*3/uL 0.33-0.92 EOS x10^3 (test code = 711-2) 0.03 10*3/uL 0.03-0.39 BASO x10^3 (test code = 704-7) 0.03 10*3/uL 0.01-0.07 Lab Interpretation (test code = 03564-1) Abnormal [facility] with Ccqgrgcdygkw0358-46-13 07:46:25* Test Item Value Reference Range Interpretation Comme nts WBC (test code = 6690-2) See_Comment [Automated messa ge] The system which generated this result transmitted reference range: 4.30 - 11.10 10*3/?L. The reference range was not used to interpret this result as normal/abnormal. RBC (test code = 789-8) See_Comment L [Automated messa ge] The system which generated this result transmitted reference range: 3.93 - 5.25 10*6/?L. The reference range was not used to interpret this result as normal/abnormal. HGB (test code = 718-7) 12.3 g/dL 11.6-15.0 HCT (test code = 4544-3) 36.2 % 35.7-45.2 MCV (test code = 787-2) 97.3 fL 80.6-95.5 H MCH (test code = 785-6) 33.1 pg 25.9-32.8 H MCHC (test code = 786-4) 34.0 g/dL 31.6-35.1 RDW-SD (test code = 42536-9) 48.8 fL 39.0-49.9 RDW-CV (test code = 788-0) 13.6 % 12.0-15.5 PLT (test code = 777-3) See_Comment [Automated messa ge] The system which generated this result transmitted reference range: 166 - 358 10*3/?L. The reference range was not used to interpret this result as normal/abnormal. MPV (test code = 75420-0) 9.6 fL 9.5-12.9 NRBC/100 WBC (test code = 6005195287) See_Comment [Automated [place] ssage] The system which generated this result transmitted reference range: 0.0 - 10.0 /100 WBCs. The reference range was not used to interpret this result as normal/abnormal. NRBC x10^3 (test code = 3566146691) <0.01 See_Comment [Automated messa ge] The system which generated this result transmitted reference range: 10*3/?L. The reference range was not used to interpret this result as normal/abnormal. GRAN MAT (NEUT) % (test code = 770-8) 83.8 % IMM GRAN % (test code = 2280986438) 0.50 % LYMPH % (test code = 736-9) 8.7 % MONO % (test code = 5905-5) 6.4 % EOS % (test code = 713-8) 0.3 % BASO % (test code = 706-2) 0.3 % GRAN MAT x10^3(ANC) (test code = 6223199982) 8.85 10*3/uL 1.88-7.09 H IMM GRAN x10^3 (test code = 5047186051) 0.05 10*3/uL 0.00-0.06 LYMPH x10^3 (test code = 731-0) 0.92 10*3/uL 1.32-3.29 L MONO x10^3 (test code = 742-7) 0.67 10*3/uL 0.33-0.92 EOS x10^3 (test code = 711-2) 0.03 10*3/uL 0.03-0.39 BASO x10^3 (test code = 704-7) 0.03 10*3/uL 0.01-0.07 Lab Interpretation (test code = 92031-2) [facility] [id number] 22:38:361. The tip and sidehole of the endogastric tube terminates in the stomach. 2. No acute intra-abdominal abnormality. Preliminary Report Dictated by Resident: Wei Daley MD., have reviewed this study and agree withthe above report.EXAM: XR KUB HISTORY: NGT placement COMPARISON: None. TECHNIQUE: Frontal radiographs of the abdomen and pelvis were obtained. FINDINGS: The tip and the sidehole of the endogastric tube projects over the gastriclumen. The sidehole is below thegastroesophageal junction. A single nondilated loop of small bowel with gas is present. Nonobstructivebowel gas pattern. No radiopaque stones or abnormal calcifications are identified. No acutebony abnormality is present. [facility], Radiant Results Inft User - 09/30/2020 5:39 PM CDT EXAM: XR KUBHISTORY: NGT placement COMPARISON: None.TECHNIQUE: Frontal radiographs of the abdomen and pelvis were obtained.FINDINGS:The tip and the sidehole of the endogastric tube projects over the gastriclumen. The sidehole is below the gastroesophageal junct ion. A single nondilated loop of small bowel with gas is present. Nonobstructivebowel gas pattern. No radiopaque stones or abnormal calcifications are identified. No acutebony abnormality is present.IMPRESSION1. The tip and sidehole of the endogastric tube terminates in the stomach. 2. No acute intra- abdominal abnormality.Preliminary Report Dictated by Resident: Wei Kennedy MD., have reviewed this study and agree withthe above report.[facility] [id number] 22:38:361. The tip and sidehole of the endogastric tube terminates in the stomach. 2. No acute intra-abdominal abnormality. Preliminary Report Dictated by Resident: Wei Daley MD., have reviewed this study and agree withthe above report.EXAM: XR KUB HISTORY: NGT placement COMPARISON: None. TECHNIQUE: Frontal radiographs of the abdomen and pelvis were obtained. FINDINGS: The tip and the sidehole of the endogastric tube projects over the gastriclumen. The sidehole is below thegastroesophageal junction. A single nondilated loop of small bowel with gas is present. Nonobstructivebowel gas pattern. No radiopaque stones or abnormal calcifications are identified. No acutebony abnormality is present. [facility], Radiant Results Inft User - 09/30/2020 5:39 PM CDT EXAM: XR KUBHISTORY: NGT placement COMPARISON: None.TECHNIQUE: Frontal radiographs of the abdomen and pelvis were obtained.FINDINGS:The tip and the sidehole of the endogastric tube projects over the gastriclumen. The sidehole is below the gastroesophageal junct ion. A single nondilated loop of small bowel with gas is present. Nonobstructivebowel gas pattern. No radiopaque stones or abnormal calcifications are identified. No acutebony abnormality is present.IMPRESSION1. The tip and sidehole of the endogastric tube terminates in the stomach. 2. No acute intra- abdominal abnormality.Preliminary Report Dictated by Resident: Wei Kennedy MD., have reviewed this study and agree withthe above report.[facility] [id number] 20:48:51* Test Item Value Reference Range Interpretation Comme nts WBC (test code = 6690-2) See_Comment [Automated message] The system which generated this result transmitted reference range: 4.30 - 11.10 10*3/?L. The reference range was not used to interpret this result as normal/abnormal. RBC (test code = 789-8) See_Comment [Automated message] The system which generated this result transmitted reference range: 3.93 - 5.25 10*6/?L. The reference range was not used to interpret this result as normal/abnormal. HGB (test code = 718-7) 14.5 g/dL 11.6-15.0 HCT (test code = 4544-3) 42.0 % 35.7-45.2 MCV (test code = 787-2) 97.0 fL 80.6-95.5 H MCH (test code = 785-6) 33.5 pg 25.9-32.8 H MCHC (test code = 786-4) 34.5 g/dL 31.6-35.1 RDW-SD (test code = 00260-7) 49.8 fL 39.0-49.9 RDW-CV (test code = 788-0) 13.7 % 12.0-15.5 PLT (test code = 777-3) See_Comment [Automated message] The system which generated this result transmitted reference range: 166 - 358 10*3/?L. The reference range was not used to interpret this result as normal/abnormal. MPV (test code = 97112-6) 10.0 fL 9.5-12.9 NRBC/100 WBC (test code = 9829327510) See_Comment [Automated message] The system which generated this result transmitted reference range: 0.0 - 10.0 /100 WBCs. The reference range was not used to interpret this result as normal/abnormal. NRBC x10^3 (test code = 5315201516) <0.01 See_Comment [Automated message] The system which generated this result transmitted reference range: 10*3/?L. The reference range was not used to interpret this result as normal/abnormal. GRAN MAT (NEUT) % (test code = 770-8) 85.5 % IMM GRAN % (test code = 8559665152) 0.60 % LYMPH % (test code = 736-9) 8.1 % MONO % (test code = 5905-5) 5.6 % EOS % (test code = 713-8) 0.0 % BASO % (test code = 706-2) 0.2 % GRAN MAT x10^3(ANC) (test code = 0066234942) 7.38 10*3/uL 1.88-7.09 H IMM GRAN x10^3 (test code = 6874457279) 0.05 10*3/uL 0.00-0.06 LYMPH x10^3 (test code = 731-0) 0.70 10*3/uL 1.32-3.29 L MONO x10^3 (test code = 742-7) 0.48 10*3/uL 0.33-0.92 EOS x10^3 (test code = 711-2) <0.03 0.03-0.39 L BASO x10^3 (test code = 704-7) <0.03 0.01-0.07 BANDS (test code = 1305599053) MARKED INCREASED A Lab Interpretation (test code = 20008-5) Abnormal [facility] WITH [id number] 20:48:51* Test Item Value Reference Range Interpretation Comme nts WBC (test code = 6690-2) See_Comment [Automated message] The system which generated this result transmitted reference range: 4.30 - 11.10 10*3/?L. The reference range was not used to interpret this result as normal/abnormal. RBC (test code = 789-8) See_Comment [Automated message] The system which generated this result transmitted reference range: 3.93 - 5.25 10*6/?L. The reference range was not used to interpret this result as normal/abnormal. HGB (test code = 718-7) 14.5 g/dL 11.6-15.0 HCT (test code = 4544-3) 42.0 % 35.7-45.2 MCV (test code = 787-2) 97.0 fL 80.6-95.5 H MCH (test code = 785-6) 33.5 pg 25.9-32.8 H MCHC (test code = 786-4) 34.5 g/dL 31.6-35.1 RDW-SD (test code = 83328-9) 49.8 fL 39.0-49.9 RDW-CV (test code = 788-0) 13.7 % 12.0-15.5 PLT (test code = 777-3) See_Comment [Automated message] The system which generated this result transmitted reference range: 166 - 358 10*3/?L. The reference range was not used to interpret this result as normal/abnormal. MPV (test code = 10779-1) 10.0 fL 9.5-12.9 NRBC/100 WBC (test code = 3065304037) See_Comment [Automated message] The system which generated this result transmitted reference range: 0.0 - 10.0 /100 WBCs. The reference range was not used to interpret this result as normal/abnormal. NRBC x10^3 (test code = 5197883352) <0.01 See_Comment [Automated message] The system which generated this result transmitted reference range: 10*3/?L. The reference range was not used to interpret this result as normal/abnormal. GRAN MAT (NEUT) % (test code = 770-8) 85.5 % IMM GRAN % (test code = 2891568349) 0.60 % LYMPH % (test code = 736-9) 8.1 % MONO % (test code = 5905-5) 5.6 % EOS % (test code = 713-8) 0.0 % BASO % (test code = 706-2) 0.2 % GRAN MAT x10^3(ANC) (test code = 9623159337) 7.38 10*3/uL 1.88-7.09 H IMM GRAN x10^3 (test code = 1008476851) 0.05 10*3/uL 0.00-0.06 LYMPH x10^3 (test code = 731-0) 0.70 10*3/uL 1.32-3.29 L MONO x10^3 (test code = 742-7) 0.48 10*3/uL 0.33-0.92 EOS x10^3 (test code = 711-2) <0.03 0.03-0.39 L BASO x10^3 (test code = 704-7) <0.03 0.01-0.07 BANDS (test code = 4686005669) MARKED INCREASED A Lab Interpretation (test code = 67255-1) [facility] [id number] 19:50:17* Test Item Value Reference Range Interpretation Comme nts APTT Patient (test code = 3173-2) See_Comment [Automated messa ge] The system which generated this result transmitted reference range: 26 - 36 Seconds. The reference range was not used to interpret this result as normal/abnormal. Lab Interpretation (test code = 01177-5) Normal [facility] / [id number] 19:50:17* Test Item Value Reference Range Interpretation Comme nts PROTIME PATIENT (test code = 5964-2) See_Comment H [Automated messa ge] The system which generated this result transmitted reference range: 10.1 - 12.6 Seconds. The reference range was not used to interpret this result as normal/abnormal. INR (test code = 6301-6) Normal INR <1.1; Warfarin Therapeutic range 2.0 to 3.0 or 2.5 to 3.5, depending upon the indications. Lab Interpretation (test code = 46529-1) [facility]normal [facility] [id number] 19:50:17* Test Item Value Reference Range Interpretation Comme nts APTT Patient (test code = 3173-2) See_Comment [Automated messa ge] The system which generated this result transmitted reference range: 26 - 36 Seconds. The reference range was not used to interpret this result as normal/abnormal. Lab Interpretation (test code = 46028-4) Normal [facility] / [id number] 19:50:17* Test Item Value Reference Range Interpretation Comme nts PROTIME PATIENT (test code = 5964-2) See_Comment H [Automated messa ge] The system which generated this result transmitted reference range: 10.1 - 12.6 Seconds. The reference range was not used to interpret this result as normal/abnormal. INR (test code = 6301-6) Normal INR <1.1; Warfarin Therapeutic range 2.0 to 3.0 or 2.5 to 3.5, depending upon the indications. Lab Interpretation (test code = 81612-7) Abnormal [facility] Metabolic Panel (NA, K, CL, CO2, Glucose, BUN, Creatinine, CA)2020-09-30 11:09:08* Test Item Value Reference Range Interpretation Comme nts NA (test code = 7314637176) 131 mmol/L 135-145 L K (test code = 7692278978) 4.4 mmol/L 3.5-5.0 CL (test code = 0683308610) 105 mmol/L 98-108 CO2 TOTAL (test code = 1966373426) 21 mmol/L 23-31 L AGAP (test code = 3508622074) 2-16 BUN (test code = 3294822403) 12 mg/dL 7-23 GLUCOSE (test code = 4001029646) 134 mg/dL 70-110 H CREATININE (test code = 8008844815) 0.54 mg/dL 0.50-1.04 CALCIUM (test code = 0267706588) 8.6 mg/dL 8.6-10.6 eGFR (test code = 1198390209) mL/min/1.73m2 AYANA (test code = AYANA) Association of Glomerular Filtration Rate (GFR) and Staging of Kidney Disease* + --+ --+ ------+| GFR (mL/min/1.73 m2) ?| With Kidney Damage ?| ?Without Kidney Damage+ --------+ --------+ +| ?>90 ?| ?Stage one ?| ? Normal ?+ ---+ ---+ -------+| ?60-89 ?| ?Stage two ?| ? Decreased GFR ? + --+ --+ ------+| ?30-59 ?| ?Stage three ?| ? Stage three ? + --+ --+ ------+| ?15-29 ?| ?Stage four ? | ? Stage four ?+ ---+ ---+ -------+| ?<15 (or dialysis) ? ?| ?Stage five ? | ? Stage five ?+ ---+ ---+ -------+ *Each stage assumes the associated GFR level has been in effect for at least three months. ?Stages 1 to 5, with or without kidney disease, indicate chronic kidney disease. Notes: Determination of stages one and two (with eGFR >59mL/min/1.73 m2) requires estimation of kidney damage for at least three months as defined by structural or functional abnormalities of the kidney, manifested by either:Pathological abnormalities or Markers of kidney damage (including abnormalities in the composition of the blood or urine or abnormalities in imaging tests). Lab Interpretation (test code = 59754-8) Abnormal [facility] Metabolic Panel (NA, K, CL, CO2, Glucose, BUN, Creatinine, CA)2020-09-30 11:09:08* Test Item Value Reference Range Interpretation Comme nts NA (test code = 3606439861) 131 mmol/L 135-145 L K (test code = 5821225217) 4.4 mmol/L 3.5-5.0 CL (test code = 6283281452) 105 mmol/L 98-108 CO2 TOTAL (test code = 7042990429) 21 mmol/L 23-31 L AGAP (test code = 7190564542) 2-16 BUN (test code = 0729914659) 12 mg/dL 7-23 GLUCOSE (test code = 3301188784) 134 mg/dL 70-110 H CREATININE (test code = 0974976226) 0.54 mg/dL 0.50-1.04 CALCIUM (test code = 6951684738) 8.6 mg/dL 8.6-10.6 eGFR (test code = 0399708666) mL/min/1.73m2 AYANA (test code = AYANA) Association of Glomerular Filtration Rate (GFR) and Staging of Kidney Disease* + --+ --+ ------+| GFR (mL/min/1.73 m2) ?| With Kidney Damage ?| ?Without Kidney Damage+ --------+ --------+ +| ?>90 ?| ?Stage one ?| ? Normal ?+ ---+ ---+ -------+| ?60-89 ?| ?Stage two ?| ? Decreased GFR ? + --+ --+ ------+| ?30-59 ?| ?Stage three ?| ? Stage three ? + --+ --+ ------+| ?15-29 ?| ?Stage four ? | ? Stage four ?+ ---+ ---+ -------+| ?<15 (or dialysis) ? ?| ?Stage five ? | ? Stage five ?+ ---+ ---+ -------+ *Each stage assumes the associated GFR level has been in effect for at least three months. ?Stages 1 to 5, with or without kidney disease, indicate chronic kidney disease. Notes: Determination of stages one and two (with eGFR >59mL/min/1.73 m2) requires estimation of kidney damage for at least three months as defined by structural or functional abnormalities of the kidney, manifested by either:Pathological abnormalities or Markers of kidney damage (including abnormalities in the composition of the blood or urine or abnormalities in imaging tests). Lab Interpretation (test code = 42045-4) [facility] 08:54:44Edgardo Buck MD ? ? 09/30/2020 ?3:55 AMIntubationUrgency: elective Airway not difficult General Information and Staff Patient location during procedure: ORResident/QUALITY CHECKER: Edgardo Buck MDPerformed: resident/QUALITY CHECKER Indications and Patient ConditionIndications for airway management: anesthesiaSpontaneous ventilation: presentSedation level: deepPreoxygenated: yesPatient position: sniffingMILS maintained throughoutMask difficulty assessment: 0 - not attempted Final Airway DetailsFinal airway type: endotracheal airway Successful airway: ETTCuffed: yes Successful intubation technique: video laryngoscopyFacilitating devices/methods: intubating styletEndotracheal tube insertion site: oralBlade: M acintoshBlade size: #3ETT size (mm): 7.0Cormack-Lehane Classification: grade I - full view of glottisPlacement verified by: chest auscultation and capnometry Measured from: lipsETT to lips (cm): 21Number of attempts at approach: 1Ventilation between attempts: noneNumber of other approaches attempted: 0 Additional CommentsSmooth, atraumatic, dentition and lips unchanged from pre-op. [facility] Screen - ONCE [id number] 08:24:34* Test Item Value Reference Range Interpretation Comme nts ABO & RH (test code = 20) O POSITIVE Performed at [facility] Laboratory Services - [facility] Blood [address] Free: [phone] No. [id number] IAT (test code = 1185) Negative Performed at [facility] Laboratory Services - [facility] Blood [address] Free: [phone] No. [id number] [facility] Screen - ONCE [id number] 08:24:34* Test Item Value Reference Range Interpretation Comme nts ABO & RH (test code = 20) O POSITIVE Performed at [facility] Laboratory [address] [address]Brrg Free: [phone] No. [id number] IAT (test code = 1185) Negative Performed at [place] [address]Toll Free: [phone] No. [id number] [facility] Confirmation (Lab Only)2020-09-30 08:09:54* Test Item Value Reference Range Interpretation Comme nts ABO & RH (test code = 20) O Positive Performed at [address] [address]Mzoc Free: [phone] No. [id number] [facility] Confirmation (Lab Only)2020-09-30 08:09:54* Test Item Value Reference Range Interpretation Comme nts ABO & RH (test code = 20) O Positive Performed at [address] [address]Frsj Free: [phone] No. [id number] [facility]COVID[facility] (ID NOW RAPID TESTING)2020-09-30 03:17:30* Test Item Value Reference Range Interpretation Comme nts SARS-CoV-2 Rapid ID NOW (test code = 38240-4) Not Detected Not Detected AYANA (test code = AYANA) ID NOW COVID-19 As say is an isothermal nucleic acid amplification test intended for the qualitative detection of nucleic acid from SARS-CoV-2 viral RNA in nasopharyngeal (CAR BODY MECHANIC) specimens. It is used under Emergency Use Authorization (EUA) by FDA. The limit of detection (LOD) of the assay is 125 Genome Equivalents/mL. A positive result is indicative of the presence of SARS-CoV-2 RNA. ?Clinical correlation with patient history and other diagnostic information is necessary to determine patient infection status. A negative (Not Detected) result does not preclude SARS-CoV-2 infection. In patients with clinical symptoms and other tests that are consistent with SARS-CoV-2 infection, negative results should be treated as presumptive negative and a new specimen should be tested with alternative PCR molecular test. Invalid: Please collect a new specimen for repeat patient testing if clinically indicated. Lab Interpretation (test code = 24181-3) Normal [facility] BrookCT ABDOMEN PELVIS W [id number] 02:46:09Impression: 1. Perforated ulcer in the region of the junction of the pylorus andduodenum, likely pyloric. There is a small volume of free intraperitonealfluid and free intraperitoneal air.2. Cholecystectomy. Biliary dilatation is likely related tocholecystectomy. However, clinical and laboratory correlation isrecommended.3. Atherosclerosis. RL: 460 End of Report Ordering Physician: KENZIE CARDENAS History: Acute nonlocalized abdominal pain Technique: CT abdomen and pelvis with intravenous contrast. Thisexamination was performed according to ALARA principles. Technical quality: Adequate Comparison: None. Findings: There is elevation of the left hemidiaphragm. There is a small volume offree intraperitoneal air and a small volume of free intraperitoneal fluid.There is a perforated ulceration in the region of the anterior pylorus or,less likely, duodenal bulb (series 2, image 54). Mural thickening of thegastric antrum is present. There is mild diffuse mesenteric edema. The patient is status post cholecystectomy. Biliary dilatation is noted.The spleen, pancreas, a low-attenuation cortical lesion of the right kidneyis too small to characterize, but appears cystic. There is atheroscleroticcalcification of the abdominal aorta and its branches, with no evidence ofaneurysm. No uterine or adnexal abnormalities are evident. The urinarybladder is unremarkable in appearance. There is no evidence of colitis or diverticulitis. A normal appendix isidentified. There is no bowel obstruction. There are linear areas ofatelectasis and/or scarring within both lungs. There are degenerativechanges of the spine. Left convex curvatureof the spine is noted. No acutebony abnormalities are evident. Critical Result: Perforated viscus Findings discussed with KENZIE CARDENAS at 09/29/2020 9:43 PM. [facility], Radiant Results Inft User - 09/29/2020 9:47 PM CDT Ordering Physician: KENZIE CARDENASHistory: Acute nonlocalized abdominal painTechnique: CT abdomen and pelvis with intravenous contrast. Thisexamination was performed according to ALARA principles.Technical quality: AdequateComparison: None.Findings: There is elevation of the left hemidiaphragm. There is a small volume offree intraperitoneal air and a small volume of free intraperitoneal fluid.There is a perforated ulceration in the region of the anterior pylorus or,less likely, duodenal bulb (series 2, image 54). Mural thickening of thegastric antrum is present. There is mild diffuse mesenteric edema.The patient is status post cholecystectomy. Biliary dilatation is noted.The spleen, pancreas, a low-attenuation cortical lesion of the right kidneyis too small to characterize, but appears cystic. There is atherosc leroticcalcification of the abdominal aorta and its branches, with no evidence ofaneurysm. No uterine or adnexal abnormalities are evident. The urinarybladder is unremarkable in appearance.There is no evidence of colitis or diverticulitis. A normal appendix isidentified. There is no bowel obstruction. There are linear areas ofatelectasis and/or scarring within both lungs. There are degenerativecha nges of the spine. Left convex curvature of the spine is noted. No acutebony abnormalities are evident.Critical Result: Perforated viscusFindings discussed with KENZIE CARDENAS at 09/29/2020 9:43 PM. IMPRESSIONImpression: 1. Perforated ulcer in the region of the junction of the pylorus andduodenum, likely pyloric. There is a small volume of free intraperitonealfluid and free intraperitoneal air.2.Cholecystectomy. Biliary dilatation is likely related tocholecystectomy. However, clinical and laboratory correlation isrecommended.3. Atherosclerosis.RL: 460End of Report [facility] HospitalUrinalysis[facility] 01:19:32* Test Item Value Reference Range Interpretation Comme nts APPEARANCE (test code = 5930758835) Hazy Clear A COLOR (test code = 0617839854) Yellow Yellow PH (test code = 0185465539) 4.8-8.0 SP GRAVITY (test code = 0959351235) 1.003-1.030 GLU U QUAL (test code = 0086545842) Normal Normal BLOOD (test code = 0049691759) Negative Negative KETONES (test code = 8537663202) Negative Negative PROTEIN (test code = 2887-8) Negative Negative UROBILIN (test code = 9821781431) 4.0 mg/dL Normal A BILIRUBIN (test code = 7105995432) 2 mg/dL Negative A NITRITE (test code = 0873720896) Negative Negative LEUK EUGENIO (test code = 2041764470) 250/uL Negative A RBC/HPF (test code = 4206155631) See_Comment H [Automated messa ge] The system which generated this result transmitted reference range: 0 - 3 HPF. The reference range was not used to interpret this result as normal/abnormal. WBC/HPF (test code = 3848355096) See_Comment H [Automated messa ge] The system which generated this result transmitted reference range: 0 - 5 HPF. The reference range was not used to interpret this result as normal/abnormal. BACTERIA (test code = 6622300564) Negative Negative MUCOUS (test code = 0393645797) Slight Negative LPF A SQ EPITH (test code = 2716143274) HPF HYAL CAST (test code = 9934502370) See_Comment H [Automated messa ge] The system which generated this result transmitted reference range: <=2 LPF. The reference range was not used to interpret this result as normal/abnormal. Lab Interpretation (test code = 76974-7) Abnormal [facility] BrookComplete Metabolic [id number] 01:04:29* Test Item Value Reference Range Interpretation Comme nts NA (test code = 4315984137) 133 mmol/L 135-145 L K (test code = 9244665768) 3.7 mmol/L 3.5-5.0 CL (test code = 7422253150) 101 mmol/L 98-108 CO2 TOTAL (test code = 2270534234) 22 mmol/L 23-31 L AGAP (test code = 5710396039) 2-16 BUN (test code = 9861916361) 9 mg/dL 7-23 GLUCOSE (test code = 7506707162) 133 mg/dL 70-110 H CREATININE (test code = 2171744856) 0.51 mg/dL 0.50-1.04 TOTAL BILI (test code = 4027949236) 0.6 mg/dL 0.1-1.1 CALCIUM (test code = 1425630971) 10.4 mg/dL 8.6-10.6 T PROTEIN (test code = 6852897289) 7.9 g/dL 6.3-8.2 ALBUMIN (test code = 5715016148) 5.0 g/dL 3.5-5.0 ALK PHOS (test code = 9230598024) 100 U/L 34-122 ALTv (test code = 1742-6) 16 U/L 5-35 AST(SGOT) (test code = 7275700473) 29 U/L 13-40 eGFR (test code = 1806350608) mL/min/1.73m2 AYANA (test code = AYANA) Association of Glomerular Filtration Rate (GFR) and Staging of Kidney Disease* + --+ --+ ------+| GFR (mL/min/1.73 m2) ?| With Kidney Damage ?| ?Without Kidney Damage+ --------+ --------+ +| ?>90 ?| ?Stage one ?| ? Normal ?+ ---+ ---+ -------+| ?60-89 ?| ?Stage two ?| ? Decreased GFR ? + --+ --+ ------+| ?30-59 ?| ?Stage three ?| ? Stage three ? + --+ --+ ------+| ?15-29 ?| ?Stage four ? | ? Stage four ?+ ---+ ---+ -------+| ?<15 (or dialysis) ? ?| ?Stage five ? | ? Stage five ?+ ---+ ---+ -------+ *Each stage assumes the associated GFR level has been in effect for at least three months. ?Stages 1 to 5, with or without kidney disease, indicate chronic kidney disease. Notes: Determination of stages one and two (with eGFR >59mL/min/1.73 m2) requires estimation of kidney damage for at least three months as defined by structural or functional abnormalities of the kidney, manifested by either:Pathological abnormalities or Markers of kidney damage (including abnormalities in the composition of the blood or urine or abnormalities in imaging tests). Lab Interpretation (test code = 67216-4) Abnormal [facility] BrookLipase, Wujir0363-47-03 00:57:08* Test Item Value Reference Range Interpretation Comme nts LIPASE (test code = 5025920853) 86 U/L 0-220 Lab Interpretation (test cod e = 73352-5) Normal [facility] BrookCBC with Lhrwuzkkhruu6678-51-31 00:32:03* Test Item Value Reference Range Interpretation Comme nts WBC (test code = 6690-2) See_Comment [Automated Base CRMa ge] The system which generated this result transmitted reference range: 4.30 - 11.10 10*3/?L. The reference range was not used to interpret this result as normal/abnormal. RBC (test code = 789-8) See_Comment [Automated Base CRMa ge] The system which generated this result transmitted reference range: 3.93 - 5.25 10*6/?L. The reference range was not used to interpret this result as normal/abnormal. HGB (test code = 718-7) 15.6 g/dL 11.6-15.0 H HCT (test code = 4544-3) 44.0 % 35.7-45.2 MCV (test code = 787-2) 95.4 fL 80.6-95.5 MCH (test code = 785-6) 33.8 pg 25.9-32.8 H MCHC (test code = 786-4) 35.5 g/dL 31.6-35.1 H RDW-SD (test code = 28369-8) 47.3 fL 39.0-49.9 RDW-CV (test code = 788-0) 13.3 % 12.0-15.5 PLT (test code = 777-3) See_Comment [Automated Base CRMa ge] The system which generated this result transmitted reference range: 166 - 358 10*3/?L. The reference range was not used to interpret this result as normal/abnormal. MPV (test code = 35973-1) 9.4 fL 9.5-12.9 L NRBC/100 WBC (test code = 4993655843) See_Comment [Automated me ssage] The system which generated this result transmitted reference range: 0.0 - 10.0 /100 WBCs. The reference range was not used to interpret this result as normal/abnormal. NRBC x10^3 (test code = 9980983054) <0.01 See_Comment [Automated messa ge] The system which generated this result transmitted reference range: 10*3/?L. The reference range was not used to interpret this result as normal/abnormal. GRAN MAT (NEUT) % (test code = 770-8) 58.9 % IMM GRAN % (test code = 5908884632) 0.40 % LYMPH % (test code = 736-9) 27.6 % MONO % (test code = 5905-5) 10.5 % EOS % (test code = 713-8) 1.9 % BASO % (test code = 706-2) 0.7 % GRAN MAT x10^3(ANC) (test code = 0457791301) 4.03 10*3/uL 1.88-7.09 IMM GRAN x10^3 (test code = 5321380208) 0.03 10*3/uL 0.00-0.06 LYMPH x10^3 (test code = 731-0) 1.89 10*3/uL 1.32-3.29 MONO x10^3 (test code = 742-7) 0.72 10*3/uL 0.33-0.92 EOS x10^3 (test code = 711-2) 0.13 10*3/uL 0.03-0.39 BASO x10^3 (test code = 704-7) 0.05 10*3/uL 0.01-0.07 Lab Interpretation (test code = 60385-9) Abnormal [facility] [id number] 15:21:36* Test Item Value Reference Range Interpretation Comme nts TROPONIN I (test code = 7293171162) 0.002 ng/mL See_Comment [Automated message] The system which generated this result transmitted reference range: <=0.034. The reference range was not used to interpret this result as normal/abnormal. AYANA (test code = AYANA) Equal or Less than 0.034 ng/ml---Normal ?Note: Cardiac troponin begins to rise 3-4 hours after the onset of ischemia. Repeat in 4-6 hours if the sample was drawn within 3-4 hours of the onset of the symptom and found normal. Between 0.035 and 0.120 ng/mL--- Borderline. Questionable myocardial injury or necrosis ? ?Note: Serial measurement may be necessary to confirm or exclude the diagnosis of myocardial injury or necrosis; Clinical correlation (symptoms, EKGs, imaging studies, and others) required; Repeat in 4-6 hours if clinically indicated. ? Equal or Higher than 0.121 ng/mL---Abnormal. Myocardial Injury or Necrosis Likely ? Biotin has been reported to cause a negative bias, interpret results relative to patient's use of biotin. ? Lab Interpretation (test code = 27610-9) Normal [facility] BrookN-TERMINAL UUB-[id number] 15:18:40* Test Item Value Reference Range Interpretation Comme [facility] NT-proBNP (test code = 5289094050) 141 pg/mL See_Comment H [Automated message] The system which generated this result transmitted reference range: <=125. The reference range was not used to interpret this result as normal/abnormal. AYANA (test code = AYANA) Biotin has been reported to cause a negative bias, interpret results relative to patient's use of biotin. Lab Interpretation (test code = 45327-7) Abnormal [facility] BrookaPTT2021-03-25 15:17:19* Test Item Value Reference Range Interpretation Comme [facility] APTT Patient (test code = 3173-2) See_Comment [Automated message] The system which generated this result transmitted reference range: 23 - 38 Seconds. The reference range was not used to interpret this result as normal/abnormal. AYANA (test code = AYANA) The [facility] patient population mean normal value for aPTT is 30 seconds. Lab Interpretation (test code = 97825-7) Normal [facility] BrookProthrombin Time (PT) / [id number] 15:15:19 * Test Item Value Reference Range Interpretation Comme [facility] PROTIME PATIENT (test code = 5964-2) See_Comment L [Automated Base CRMa ge] The system which generated this result transmitted reference range: 12.0 - 14.7 Seconds. The reference range was not used to interpret this result as normal/abnormal. INR (test code = 6301-6) Normal INR <1.1; Warfarin Therapeutic range 2.0 to 3.0 or 2.5 to 3.5, depending upon the indications. Lab Interpretation (test code = 29274-2) Abnormal [facility] Metabolic Panel (NA, K, CL, CO2, GLUCOSE, BUN, CREATININE, CA)2020-06-12 15:09:37* Test Item Value Reference Range Interpretation Comme [facility] NA (test code = 6872696029) 137 mmol/L 135-145 K (test code = 2177126144) 4.0 mmol/L 3.5-5.0 CL (test code = 4712982185) 105 mmol/L 98-108 CO2 TOTAL (test code = 9592000736) 24 mmol/L 23-31 AGAP (test code = 7835902613) 2-16 BUN (test code = 7372702526) 11 mg/dL 7-23 GLUCOSE (test code = 3536900735) 108 mg/dL 70-110 CREATININE (test code = 1554736993) 0.59 mg/dL 0.50-1.04 CALCIUM (test code = 0249799194) 9.4 mg/dL 8.6-10.6 eGFR Calculation (Non-) (test code = 6161122160) mL/min/1.73m2 eGFR Calculation () (test code = 5047442512) mL/min/1.73m2 AYANA (test code = AYANA) Association of Glomerular Filtration Rate (GFR) and Staging of Kidney Disease* + -+ + ---+| GFR (mL/min/1.73 m2) ?| With Kidney Damage ?| ?Without Kidney Damage+ -------+ ------+ ---------+| ?>90 ?| ?Stage one ?| ? Normal ?+ --+ -+ ----+| ?60-89 ?| ?Stage two ?| ? Decreased GFR ? + -+ + ---+| ?30-59 ?| ?Stage three ?| ? Stage three ? + -+ + ---+| ?15-29 ?| ?Stage four ? | ? Stage four ?+ --+ -+ ----+| ?<15 (or dialysis) ? ?| ?Stage five ? | ? Stage five ?+ --+ -+ ----+ *Each stage assumes the associated GFR level has been in effect for at least three months. ?Stages 1 to 5, with or without kidney disease, indicate chronic kidney disease. Notes: Determination of stages one and two (with eGFR >59mL/min/1.73 m2) requires estimation of kidney damage for at least three months as defined by structural or functional abnormalities of the kidney, manifested by either:Pathological abnormalities or Markers of kidney damage (including abnormalities in the composition of the blood or urine or abnormalities in imaging tests). [facility] (ALB, T.PRO, BILI T, BU/BC, ALT, AST, ALK PHOS)2020-06-12 15:09:37* Test Item Value Reference Range Interpretation Comme nts TOTAL BILI (test code = 0894496454) 0.7 mg/dL 0.1-1.1 BILI UNCON (test code = 2999226527) 0.5 mg/dL 0.1-1.1 BILI CONJ (test code = 2957650222) 0.0 mg/dL 0.0-0.3 T PROTEIN (test code = 5388789175) 8.2 g/dL 6.3-8.2 ALBUMIN (test code = 9587815771) 5.1 g/dL 3.5-5.0 H ALK PHOS (test code = 0592226131) 121 U/L 34-122 ALTv (test code = 1742-6) 20 U/L 5-35 AST(SGOT) (test code = 5589804278) 26 U/L 13-40 Lab Interpretation (test cod e = 50612-4) Abnormal [facility] BrookChes 1 Ttjn3940-95-22 15:05:52Small bilateral pleural effusions versus pleural thickening. Preliminary Report Dictated by Resident: Asael Murray MD., have reviewed this study and agree with theabove report.EXAM: XR CHEST 1 VW 06/12/2020 9:46 AM HISTORY: 54 years-old Female with dyspnea . TECHNIQUE: Portable AP view of the chest. COMPARISON: None. FINDINGS: Cardiomediastinal: The cardiomediastinal si lhouette is unremarkable. Lungs and pleura: Bilateral small pleural effusions or pleural thickeningis suspected. The right hilar vasculature is prominent. No focalconsolidation, pneumothorax, or pleural effusion is seen. Musculoskeletal: No acute skeletal abnormality. A chronic appearingdeformity of the right humerus is seen. [facility], Radiant Results Inft User - 06/12/2020 10:06 AM CDTEXAM: XR CHEST 1 VW 06/12/2020 9:46 AMHISTORY: 54 years-old Female with dyspnea .TECHNIQUE: Portable AP view of thechest. COMPARISON: None.FINDINGS: Cardiomediastinal: The cardiomediastinal silhouette is unremarkable.Lungs and pleura: Bilateral small pleural effusions or pleural thickeningis suspected. The right hilar vasculature is prominent. No focalconsolidation, pneumothorax, or pleural effusion is seen.Musculoskeletal: No acute skeletal abnormality. A chronic appearingdeformity of the right humerus is seen.IMPRESSIONSmall bilateral pleural effusions versus pleural thickening.Preliminary Report Dictatedby Resident: Jose E Ramirez, Asael Flores MD., have reviewed this study and agree with theabove report.[facility]OVID[facility] (ID NOW RAPID TESTING)2020-06-12 15:03:56* Test Item Value Reference Range Interpretation Comme nts SARS-CoV-2 Rapid ID NOW (test code = 43504-4) Not Detected Not Detected AYANA (test code = AYANA) ID NOW COVID-19 As say is an isothermal nucleic acid amplification test intended for the qualitative detection of nucleic acid from SARS-CoV-2 viral RNA in nasopharyngeal (CAR BODY MECHANIC) specimens. It is used under Emergency Use Authorization (EUA) by FDA. The limit of detection (LOD) of the assay is 125 Genome Equivalents/mL. A positive result is indicative of the presence of SARS-CoV-2 RNA. ?Clinical correlation with patient history and other diagnostic information is necessary to determine patient infection status. A negative (Not Detected) result does not preclude SARS-CoV-2 infection. In patients with clinical symptoms and other tests that are consistent with SARS-CoV-2 infection, negative results should be treated as presumptive negative and a new specimen should be tested with alternative PCR molecular test. Invalid: Please collect a new specimen for repeat patient testing if clinically indicated. Lab Interpretation (test code = 08077-8) Normal [facility] with Kupookxhpcve3539-33-20 14:59:28* Test Item Value Reference Range Interpretation Comme nts WBC (test code = 6690-2) See_Comment [Automated Base CRMa ge] The system which generated this result transmitted reference range: 4.30 - 11.10 10*3/?L. The reference range was not used to interpret this result as normal/abnormal. RBC (test code = 789-8) See_Comment [Automated Base CRMa ge] The system which generated this result transmitted reference range: 3.93 - 5.25 10*6/?L. The reference range was not used to interpret this result as normal/abnormal. HGB (test code = 718-7) 15.4 g/dL 11.6-15.0 H HCT (test code = 4544-3) 45.5 % 35.7-45.2 H MCV (test code = 787-2) 97.2 fL 80.6-95.5 H MCH (test code = 785-6) 32.9 pg 25.9-32.8 H MCHC (test code = 786-4) 33.8 g/dL 31.6-35.1 RDW-SD (test code = 36950-1) 49.1 fL 39.0-49.9 RDW-CV (test code = 788-0) 13.6 % 12.0-15.5 PLT (test code = 777-3) See_Comment [Automated Base CRMa ge] The system which generated this result transmitted reference range: 166 - 358 10*3/?L. The reference range was not used to interpret this result as normal/abnormal. MPV (test code = 75745-0) 9.9 fL 9.5-12.9 NRBC/100 WBC (test code = 0641713232) See_Comment [Automated [place] ssage] The system which generated this result transmitted reference range: 0.0 - 10.0 /100 WBCs. The reference range was not used to interpret this result as normal/abnormal. NRBC x10^3 (test code = 4767978280) <0.01 See_Comment [Automated messa ge] The system which generated this result transmitted reference range: 10*3/?L. The reference range was not used to interpret this result as normal/abnormal. GRAN MAT (NEUT) % (test code = 770-8) 63.7 % IMM GRAN % (test code = 3133404586) 0.50 % LYMPH % (test code = 736-9) 20.2 % MONO % (test code = 5905-5) 12.6 % EOS % (test code = 713-8) 2.4 % BASO % (test code = 706-2) 0.6 % GRAN MAT x10^3(ANC) (test code = 4406365795) 5.10 10*3/uL 1.88-7.09 IMM GRAN x10^3 (test code = 3389596514) 0.04 10*3/uL 0.00-0.06 LYMPH x10^3 (test code = 731-0) 1.62 10*3/uL 1.32-3.29 MONO x10^3 (test code = 742-7) 1.01 10*3/uL 0.33-0.92 H EOS x10^3 (test code = 711-2) 0.19 10*3/uL 0.03-0.39 BASO x10^3 (test code = 704-7) 0.05 10*3/uL 0.01-0.07 Lab Interpretation (test code = 50702-2) Abnormal [facility]"
--- NOTE | 2023-12-20 07:18 | ER ---
Nurse's Notes [facility] Name: Gretel Ragsdale Age: 58 yrs Sex: Female : 1965 Arrival Date: 12/20/2023 Time: 06:26 Bed 7 Private MD: Diagnosis: Dyspnea;Hypoxemia;COPD/ Chronic obstructive pulmonary disease with (acute) exacerbation Presentation: 12/19 06:42 Chief complaint: Patient states: SOB/cough X1 week. Coronavirus screen: Client denies lg3 travel out of the [place] in the last 14 days. At this time, the client does not indicate any symptoms associated with coronavirus-19. Ebola Screen: No symptoms or risks identified at this time. Initial Sepsis Screen: Does the patient meet any 2 criteria? RR > 20 per min. HR > 90 bpm. Yes Does the patient have a suspected source of infection? No. Patient's initial sepsis screen is negative. Risk Assessment: Do you want to hurt yourself or someone else? Patient reports no desire to harm self or others. Onset of symptoms was December 13, 2023. 06:42 Method Of Arrival: Ambulatory 3 06:42 Acuity: FAITH 3 lg3 Triage Assessment: 06:44 General: Appears in no apparent distress. uncomfortable, Behavior is calm, cooperative. lg3 Pain: Denies pain. EENT: No deficits noted. No signs and/or symptoms were reported regarding the EENT system. Neuro: No deficits noted. Weston Agitation-Sedation Scale (RASS): 0 - Alert and Calm Level of Consciousness is awake, alert, obeys commands, Oriented to person, place, time, situation. Cardiovascular: No deficits noted. Reports shortness of breath, Denies chest pain. Respiratory: Reports shortness of breath cough that is Onset: The symptoms/episode began/occurred 7 days ago, the patient has moderate shortness of breath. GI: No deficits noted. No signs and/or symptoms were reported involving the gastrointestinal system. : No deficits noted. No signs and/or symptoms were reported regarding the genitourinary system. Derm: No deficits noted. No signs and/or symptoms reported regarding the dermatologic system. Skin is intact, is healthy with good turgor, Skin is dry, Skin is normal, Skin temperature is warm. Musculoskeletal: No deficits noted. No signs and/or symptoms reported regarding the musculoskeletal system. Circulation, motion, and sensation intact. Range of motion: intact in all extremities. Historical: - Allergies: 06:44 No Known Allergies; lg3 - Home Meds: 06:44 Albuterol Inhl [Active]; lg3 - PMHx: 06:44 COPD; lg3 - PSHx: 06:44 stomach (COPD); lg3 - Immunization history:: Adult Immunizations up to date. - Infectious Disease History:: Denies. - Social history:: Smoking status: Patient reports the use of cigarette tobacco products, smokes one-half pack cigarettes per day. - Family history:: not pertinent. Screenin:46 [facility] ED Fall Risk Assessment (Adult) History of falling in the last 3 months, lg3 including since admission No falls in past 3 months (0 pts) Confusion or Disorientation No (0 pts) Intoxicated or Sedated No (0 pts) Impaired Gait No (0 pts) Mobility Assist Device Used No (0 pt) Altered Elimination No (0 pt) Score/Fall Risk Level 0 - 2 = Low Risk Oriented to surroundings, Maintained a safe environment, Educated pt \T\ family on fall prevention, incl call for assistance when getting out of bed, Assessed \T\ reinforced patient's understanding of fall precautions, Provided non-skid footwear. Abuse screen: Denies threats or abuse. Denies injuries from another. Nutritional screening: No deficits noted. Tuberculosis screening: No symptoms or risk factors identified. Assessment: 06:46 General: see triage assessment. Cardiovascular: Rhythm is sinus rhythm. Respiratory: lg3 Airway is patent Respiratory effort is even, pursed lip, Respiratory pattern is tachypnea 07:30 Reassessment: Patient appears in no apparent distress at this time. Patient and/or ph family updated on plan of care and expected duration. Pain level reassessed. Patient is alert, oriented x 3, equal unlabored respirations, skin warm/dry/pink. General: Appears in no apparent distress. comfortable, Behavior is calm, cooperative, Denies fever. Pain: Denies pain. Neuro: Level of Consciousness is awake, alert, obeys commands, Oriented to person, place, time, situation. Cardiovascular: Reports shortness of breath, Denies chest pain, Capillary refill < 3 seconds in bilateral fingers Patient's skin is warm and dry. Respiratory: Airway is patent Respiratory effort is even, Respiratory pattern is tachypnea Breath sounds are coarse bilaterally. GI: No signs and/or symptoms were reported involving the gastrointestinal system. Derm: Skin is pink, warm \T\ dry. 09:00 Reassessment: Patient appears in no apparent distress at this time. Patient and/or ph family updated on plan of care and expected duration. Pain level reassessed. Patient is alert, oriented x 3, equal unlabored respirations, skin warm/dry/pink. Vital Signs: 06:42 BP 149 / 83; Pulse 105; Resp 32 S; Temp 98(TE); Pulse Ox 87% on R/A; Weight 53.52 kg lg3 (R); Height 5 ft. 0 in. (R); 06:47 Pulse Ox 93% on 2 lpm NC; lg3 07:55 BP 140 / 72; Pulse 96; Resp 24; Pulse Ox 99% on Nebulizer Mask; ph 08:41 BP 127 / 75; Pulse 108; Resp 22; Pulse Ox 95% on 2 lpm NC; ph 06:42 Body Mass Index 23.05 (53.52 kg, 152.4 cm) lg3 ED Course: 06:29 Patient arrived in ED. gm2 06:44 Triage completed. lg3 06:44 Arm band placed on right wrist. lg3 06:45 First set of blood cultures drawn by me. oe 06:46 Patient has correct armband on for positive identification. Placed in gown. Bed in low lg3 position. Call light in reach. Side rails up X 1. Client placed on continuous cardiac and pulse oximetry monitoring. NIBP monitoring applied. hospital monitor on. Door closed. Noise minimized. Warm blanket given. Pillow given. Family accompanied patient. 06:46 Oxygen administration via nasal cannula \T\ 2L/min Response to oxygen therapy: symptoms lg3 improved. 07:03 Zane Farfan MD is Attending Physician. santino 07:05 Second set of blood cultures drawn by me. oe 07:08 Inserted saline lock: 20 gauge in right antecubital area, using aseptic technique. lg3 Blood collected. 07:11 Basic Metabolic Panel Sent. oe 07:11 LFT's Sent. oe 07:12 Magnesium Sent. oe 07:12 BNP Sent. oe 07:12 Troponin High Sensitivity Sent. oe 07:12 Ptt, Activated Sent. oe 07:12 Protime (+inr) Sent. oe 07:12 Lactate w/ 2H reflex if indic. Sent. oe 07:12 CMP Sent. oe 07:12 CBC with Diff Sent. oe 07:12 Blood Culture Adult (2) Sent. oe 07:15 Report given to BJ JEAN. bm8 07:17 Chest Single View XRAY In Process Unspecified. EDMS 07:17 Cassius Whitehead is Hospitalizing Provider. santino 07:34 Sammie Hernandez RN is Primary Nurse. ph 09:00 No provider procedures requiring assistance completed. Patient admitted, IV remains in ph place. 12:10 1210 CM met with at the bedside in the ED exam room. Patient identified by ane name and . Demographic sheet confirmed and changes sent to appropriate personnel. Patient states she lives alone on a 2nd floor apartment. She reports that prior to admission, she performs ADLs independently and only in the last week and a half, had difficulty working getting short of breath. 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 No HH, home oxygen or other medical services at this time. Her preferred discharge plan is to return home and return to work upon discharge. She states she has a friend that can transport her home. CM team will continue to follow and coordinate care during this hospital stay. Administered Medications: 07:34 Not Given (Duplicate Order): ns 0.9% 1000 ml IV at 1 bolus Per protocol; 1000 mL bolus santino 07:34 Not Given (Duplicate Order): ns 0.9% 1000 ml IV at 125 ml/hr continuous santino 07:56 Drug: Famotidine IVP 20 mg IVP once; dilute with 10 mL 0.9% NaCl; give over 2 minutes ph Route: IVP; Site: right antecubital; 08:30 Follow up: Response: No adverse reaction ph 07:56 Drug: MethylPrednisoLONE IVP 125 mg IVP once Route: IVP; Site: right antecubital; ph 08:30 Follow up: Response: No adverse reaction ph 07:57 Drug: Levalbuterol Inhalation 3.75 mg Inhalation once Route: Inhalation; ph 14:51 Follow up: Response: No adverse reaction ph 07:57 Drug: Ipratropium Inhalation Aerosol 0.5 mg Inhalation once Route: Inhalation; ph 08:30 Follow up: Response: No adverse reaction ph 07:57 Drug: levofloxacin IVPB 500 mg 100 ml IVPB once over 60 mins Volume: 100 ml; Route: ph IVPB; Infused Over: 60 mins; Site: right antecubital; 09:00 Follow up: Response: No adverse reaction; IV Status: Completed infusion; IV Intake: ph 100ml 08:16 Drug: Furosemide IVP 40 mg IVP once; give over 2 minutes Route: IVP; Site: right ph antecubital; 09:00 Follow up: Response: No adverse reaction ph Medication: 14:37 VIS not applicable for this client. ph Intake: 09:00 IV: 100ml; Total: 100ml. ph Outcome: 07:17 Decision to Hospitalize by Provider. santino 09:00 Admitted to ER Hold. [facility] documentation. ph 09:00 Condition: stable 09:00 Instructed on the need for admit, 17:34 Patient left the ED. ph Signatures: Dispatcher [employer] EDZane Khoury MD MD cha Hall, Patricia RN RN Faraz Tolliver Lacie, RN RN lg3 Lillian Simms 2 Deacon Bennett RN RN bm8 Rima Marquez RN RN ane Corrections: (The following items were deleted from the chart) 07:26 07:23 Report given to BJ JEAN ph ph 13:16 13:16 Furosemide IVP 40 mg IVP in right antecubital ph ph
--- NOTE | 2023-12-20 07:18 | EDPHYS ---
Physician Documentation [facility] Name: Gretel Ragsdale Age: 58 yrs Sex: Female : 1965 Arrival Date: 12/20/2023 Time: 06:26 Bed 7 Private MD: Zane Berry HPI: 12/19 07:08 This 58 yrs old Female presents to ER via Ambulatory with complaints of santino Breathing Difficulty. 07:08 The patient has shortness of breath at rest, with light activity. Onset: The santino symptoms/episode began/occurred 3 day(s) ago. Duration: The symptoms are continuous, and are steadily getting worse. The patient's shortness of breath is aggravated by coughing, supine position, talking, walking. Associated signs and symptoms: The patient has no apparent associated signs or symptoms. The patient has experienced similar episodes in the past, multiple times. Historical: - Allergies: 06:44 No Known Allergies; lg3 - Home Meds: 06:44 Albuterol Inhl [Active]; lg3 - PMHx: 06:44 COPD; lg3 - PSHx: 06:44 stomach (COPD); lg3 - Immunization history:: Adult Immunizations up to date. - Infectious Disease History:: Denies. - Social history:: Smoking status: Patient reports the use of cigarette tobacco products, smokes one-half pack cigarettes per day. - Family history:: not pertinent. ROS: 07:08 Constitutional: Negative for fever, chills, and weight loss, Eyes: Negative for injury, santino pain, redness, and discharge, ENT: Negative for injury, pain, and discharge, Neck: Negative for injury, pain, and swelling, Abdomen/GI: Negative for abdominal pain, nausea, vomiting, diarrhea, and constipation, Back: Negative for injury and pain, : Negative for injury, bleeding, discharge, and swelling, MS/Extremity: Negative for injury and deformity, Skin: Negative for injury, rash, and discoloration, Neuro: Negative for headache, weakness, numbness, tingling, and seizure, Psych: Negative for depression, anxiety, suicide ideation, homicidal ideation, and hallucinations, Allergy/Immunology: Negative for hives, rash, and allergies, Endocrine: Negative for neck swelling, polydipsia, polyuria, polyphagia, and marked weight changes, Hematologic/Lymphatic: Negative for swollen nodes, abnormal bleeding, and unusual bruising, 07:08 Cardiovascular: Positive for palpitations, 07:08 Respiratory: Positive for shortness of breath, wheezing, inspiratory, expiratory, Exam: 07:08 Constitutional: This is a well developed, well nourished patient who is awake, alert, santino and in no acute distress. Head/Face: Normocephalic, atraumatic. Eyes: Pupils equal round and reactive to light, extra-ocular motions intact. Lids and lashes normal. Conjunctiva and sclera are non-icteric and not injected. Cornea within normal limits. Periorbital areas with no swelling, redness, or edema. ENT: Nares patent. No nasal discharge, no septal abnormalities noted. Tympanic membranes are normal and external auditory canals are clear. Oropharynx with no redness, swelling, or masses, exudates, or evidence of obstruction, uvula midline. Mucous membranes moist. Neck: Trachea midline, no thyromegaly or masses palpated, and no cervical lymphadenopathy. Supple, full range of motion without nuchal rigidity, or vertebral point tenderness. No Meningismus. Chest/axilla: Normal chest wall appearance and motion. Nontender with no deformity. No lesions are appreciated. Abdomen/GI: Soft, non-tender, with normal bowel sounds. No distension or tympany. No guarding or rebound. No evidence of tenderness throughout. Back: No spinal tenderness. No costovertebral tenderness. Full range of motion. Female : Normal external genitalia. Skin: Warm, dry with normal turgor. Normal color with no rashes, no lesions, and no evidence of cellulitis. MS/ Extremity: Pulses equal, no cyanosis. Neurovascular intact. Full, normal range of motion. Neuro: Awake and alert, GCS 15, oriented to person, place, time, and situation. Cranial nerves II-XII grossly intact. Motor strength 5/5 in all extremities. Sensory grossly intact. Cerebellar exam normal. Normal gait. Psych: Awake, alert, with orientation to person, place and time. Behavior, mood, and affect are within normal limits. 07:08 Cardiovascular: Rate: actual rate is 105 bpm, Rhythm: regular, Pulses: Pulses are 4+ in bilateral radial, brachial, femoral, popliteal, posterior tibial and and dorsalis pedis arteries.. 07:08 ECG was reviewed by the Attending Physician. Vital Signs: 06:42 BP 149 / 83; Pulse 105; Resp 32 S; Temp 98(TE); Pulse Ox 87% on R/A; Weight 53.52 kg lg3 (R); Height 5 ft. 0 in. (R); 06:47 Pulse Ox 93% on 2 lpm NC; lg3 07:55 BP 140 / 72; Pulse 96; Resp 24; Pulse Ox 99% on Nebulizer Mask; ph 08:41 BP 127 / 75; Pulse 108; Resp 22; Pulse Ox 95% on 2 lpm NC; ph 06:42 Body Mass Index 23.05 (53.52 kg, 152.4 cm) lg3 MDM: 07:03 Patient medically screened. santino 07:11 Antibiotic administration: Levaquin given. Immunization status: Influenza vaccine: [facility] within last 5 years. Data reviewed: vital signs, nurses notes, lab test result(s), EKG, radiologic studies, plain films. Consideration of Admission/Observation Escalation of care including admission/observation considered. I considered the following discharge prescriptions or medication management in the emergency department Medications were administered in the Emergency Department. See MAR. Independent interpretation of the following test(s) in the Emergency Department EKG: See my EKG interpretation above. Test considered but Not performed: CT: no ct chest. Historians other than the Patient: Spouse/Significant Other: well informed. Care significantly affected by the following chronic conditions: Chronic Obstructive Pulmonary Disease. Counseling: I had a detailed discussion with the patient and/or guardian regarding the historical points, exam findings, and any diagnostic results supporting the discharge/admit diagnosis, lab results, radiology results, the need for further work-up and treatment in the hospital. 12/19 06:45 Order name: Blood Culture Adult (2) rt 12/19 06:45 Order name: CBC with Diff; Complete Time: 07:50 rt 12/19 06:45 Order name: CMP; Complete Time: 07:50 rt 12/19 06:45 Order name: Lactate w/ 2H reflex if indic.; Complete Time: 07:50 rt 12/19 06:45 Order name: Protime (+inr); Complete Time: 07:34 rt 12/19 06:45 Order name: Ptt, Activated; Complete Time: 07:34 rt 12/19 06:45 Order name: Troponin High Sensitivity; Complete Time: 07:50 rt 10/01 06:45 Order name: BNP; Complete Time: 07:50 rt 12/19 07:08 Order name: Basic Metabolic Panel santino 12/19 07:08 Order name: LFT's [facility] 12/19 07:08 Order name: Magnesium [facility] 12/19 07:22 Order name: Glucose, Ancillary Testing; Complete Time: 07:34 EDMS 12/19 06:45 Order name: Chest Single View XRAY; Complete Time: 07:34 rt 12/19 06:45 Order name: Accucheck; Complete Time: 07:07 rt 12/19 06:45 Order name: Cardiac monitoring; Complete Time: 07:07 rt 12/19 06:45 Order name: EKG - Nurse/Tech; Complete Time: 07:07 rt 12/19 06:45 Order name: IV Saline Lock - Large Bore; Complete Time: 07:07 rt 12/19 06:45 Order name: Labs collected and sent; Complete Time: 07:07 rt 12/19 06:45 Order name: O2 Per Protocol; Complete Time: 07:07 rt 12/19 06:45 Order name: O2 Sat Monitoring; Complete Time: 07:07 rt 12/19 06:45 Order name: Vital Signs; Complete Time: 07:07 rt 12/19 07:08 Order name: IV Saline Lock; Complete Time: 07:09 santino Administered Medications: 07:34 Not Given (Duplicate Order): ns 0.9% 1000 ml IV at 1 bolus Per protocol; 1000 mL bolus santino 07:34 Not Given (Duplicate Order): ns 0.9% 1000 ml IV at 125 ml/hr continuous santino 07:56 Drug: Famotidine IVP 20 mg IVP once; dilute with 10 mL 0.9% NaCl; give over 2 minutes ph Route: IVP; Site: right antecubital; 08:30 Follow up: Response: No adverse reaction ph 07:56 Drug: MethylPrednisoLONE IVP 125 mg IVP once Route: IVP; Site: right antecubital; ph 08:30 Follow up: Response: No adverse reaction ph 07:57 Drug: Levalbuterol Inhalation 3.75 mg Inhalation once Route: Inhalation; ph 14:51 Follow up: Response: No adverse reaction ph 07:57 Drug: Ipratropium Inhalation Aerosol 0.5 mg Inhalation once Route: Inhalation; ph 08:30 Follow up: Response: No adverse reaction ph 07:57 Drug: levofloxacin IVPB 500 mg 100 ml IVPB once over 60 mins Volume: 100 ml; Route: ph IVPB; Infused Over: 60 mins; Site: right antecubital; 09:00 Follow up: Response: No adverse reaction; IV Status: Completed infusion; IV Intake: ph 100ml 08:16 Drug: Furosemide IVP 40 mg IVP once; give over 2 minutes Route: IVP; Site: right ph antecubital; 09:00 Follow up: Response: No adverse reaction ph Disposition Summary: 12/20/23 07:17 Hospitalization Ordered Notes: Hospitalization Status: Inpatient Admission santino Provider: Cassius Whitehead cha Condition: Fair santino Problem: new santino Symptoms: have improved santino Bed/Room Type: Standard santino Location: Telemetry/MedSurg (Inpatient)(12/20/23 15:56) bd Room Assignment: 204(12/20/23 15:56) bd Diagnosis - Dyspnea santino - Hypoxemia santino - COPD/ Chronic obstructive pulmonary disease with (acute) exacerbation santino Forms: - Medication Reconciliation Form santino - SBAR form santino - Leadership Thank You Letter santino Signatures: Dispatcher [employer] EDMS Leona Minor Corey, MD MD cha Hall, Patricia, RN RN ph Able, Lacie, RN RN lg3 Ashley Mendoza RN RN cb3 Dustin Miles MD MD rt Corrections: (The following items were deleted from the chart) 07:08 07:08 BASIC METABOLIC PANEL+C.LAB.BRZ ordered. EDMS EDMS 07:08 07:08 HEPATIC FUNCTION+C.LAB.BRZ ordered. EDMS EDMS 07:08 07:08 MAGNESIUM+C.LAB.BRZ ordered. EDMS EDMS 08:58 07:17 Telemetry/MedSurg (Inpatient) santino bd 08:58 07:17 santino bd 15:56 08:58 [facility] ER HOLD bd kb3 15:56 08:58 ERHOLD- bd kb3 15:56 15:56 Telemetry/MedSurg (Inpatient) kb3 bd 15:56 15:56 204 kb3 bd
[2023-12-20 07:20] LABS: Absolute Basophils 0.1 K/uL (0-0.5); Absolute Eosinophils 0.1 K/uL (0-0.5); Absolute Lymphocytes (CBC) 1.5 K/uL (0.7-4.9); Absolute Neutrophil 6.7 K/uL (1.8-8.0); Basophils % 0.8 % (0-1.3); Eosinophils % 1.4 % (0-4.4); Hematocrit 42.8 % (36.0-45.0); Hemoglobin 14.5 g/dL (12.0-15.0); Lymphocytes % 15.9 % (15.3-44.8); MCH 33.4 pg (27.0-35.0); MCHC 33.8 g/dL (32.0-36.0); MCV 98.7 fL (80-100); MPV 7.8 fL (7.6-11.3); Monocytes % 10.5 % (3.3-12.3); Neutrophils % 71.4 % (41.7-73.7); Platelets 278 thou/uL (152-406); RBC Red Blood Cell Count 4.34 M/uL (3.86-4.86); Red Cell Distribution Width 13.6 % (12.1-15.2)
[2023-12-20] MEDS ORDERED: METHYLPREDNISOLONE 125 MG INJ ONE (07:25)
[2023-12-20] MEDS ORDERED: IPRATROPIUM BROM 0.5MG/2.5ML ONE (07:25)
[2023-12-20] MEDS ORDERED: NA CHLORIDE 0.9% 1,000 ML ONE (07:26)
[2023-12-20] MEDS ORDERED: FAMOTIDINE 20 MG/2 ML VIAL IV ONE (07:26)
[2023-12-20] MEDS ORDERED: LEVALBUTEROL 1.25 MG/3 ML NEB ONE (07:26)
[2023-12-20] MEDS ORDERED: Levofloxacin500mg IV 500 MG/100 ML BAG IV ONE (07:27)
[2023-12-20 07:29] LABS: PT Prothrombin Time 10.1 SECONDS (9.4-12.5); PTT, Activated Partial Thromb 36.1 SECONDS (24.3-36.9); Protime INR 0.9
--- NOTE | 2023-12-20 07:32 | RAD REPORT ---
EXAMINATION: ONE VIEW CHEST XR CLINICAL INDICATION: DYSPNEA TECHNIQUE: Frontal chest projection is submitted. Examination is limited by patient positioning and t echnique. COMPARISON: No prior exam. FINDINGS: Hazy opacities are present in both lung bases with trace pleural effusions. The heart is mildly promi nent. No displaced fractures identified. IMPRESSION: Mild CHF.
[2023-12-20 07:40] LABS: Albumin 3.9 g/dL (3.4-5.0); Anion Gap 8.3 mEq/L (5.0-15.0); Bilirubin Total 0.3 mg/dL (0.2-1.0); Globulin 4.1 g/dL (2.3-3.5); Potassium 4.3 mEq/L (3.5-5.1); Troponin High Sensitivity 4.5 pg/mL (<58.9)
--- NOTE | 2023-12-20 08:54 | P.HP ---
Certification for Inpatient Patient admitted to: Observation With expected LOS: <2 Midnights <Isabela Ness - Last Filed: 12/20/23 09:34> Patient History Date of Service: 12/20/23 Reason for admission: COPD exacerbation History of Present Illness: 58-year-old female with past medical history of alcohol use, tobacco use, COPD, presents to the emergency room with shortness of breath. She reports symptoms started 3 days ago is progressively getting worse. Symptoms worse while laying flat, she reports associated wheezing, productive cough, she denies prior history of COPD exacerbation admission to the hospital. She reports taking albuterol inhalers, she does not have a nebulizer. No reported chest pain, edema, dizziness, abdominal pain, fever. Plan to admit for COPD exacerbation, hyponatremia, tobacco use, alcohol use. - Past Medical/Surgical History -: COPD -: Tobacco use -: Alcohol use -: Abdominal surgery - Social History Smoking Status: Current every day smoker Alcohol use: Yes Place of Residence: Home <Isabela Ness - Last Filed: 12/20/23 09:34> Date of Service: 12/20/23 <Chrissy Turner - Last Filed: 12/25/23 23:39> Allergies No Known Allergies Allergy (Unverified 12/20/23 09:11) Review of Systems Per HPI <Isabela Ness - Last Filed: 12/20/23 09:34> Physical Examination - Physical Exam General: Alert, Oriented x3, Mild distress HEENT: Atraumatic, Normocephalic Respiratory: Expiratory wheezes, Inspiratory wheezes, Rhonchi/gurgles Cardiovascular: Normal pulses, Regular rate/rhythm Gastrointestinal: Normal bowel sounds, Soft and benign Musculoskeletal: No swelling, No contractures Integumentary: No breakdown, No significant lesion Neurological: Normal speech, Normal strength at 5/5 x4 extr - Studies Laboratory Data (last 24 hrs) 12/20/23 12/20/23 12/20/23 06:45 06:45 06:45 WBC 9.40 Hgb 14.5 Hct 42.8 Plt Count 278 PT 10.1 INR 0.90 APTT 36.1 Sodium 129 L Potassium 4.3 BUN 12 Creatinine 0.48 L Glucose 104 Total Bilirubin 0.3 AST 13 L ALT 20 Alkaline Phosphatase 105 <Isabela Ness - Last Filed: 12/20/23 09:34> - Studies Microbiology Data (last 24 hrs): 12/20/23 07:05 Blood - Blood Aerobic Blood Culture - Final No growth in 5 days. 12/20/23 07:05 Blood - Blood Anaerobic Blood Culture - Final No growth in 5 days. 12/20/23 06:45 Blood - Blood Aerobic Blood Culture - Final No growth in 5 days. 12/20/23 06:45 Blood - Blood Anaerobic Blood Culture - Final No growth in 5 days. <Chrissy Turner - Last Filed: 12/25/23 23:39> Assessment and Plan - Plan Assessment plan Acute hypoxic respiratory failure secondary to COPD exacerbation Tobacco use Alcohol use Nebulizers, steroids, antibiotics, Hyponatremia Gentle IV fluid Tobacco use Alcohol use CIWA protocol, Nicotine patch Full code DVT SCDs Diet regular Disposition Home independent prior Discharge Plan: Home - Advance Directives Does patient have a Living Will: No Does patient have a Durable POA for Healthcare: No - Code Status/Comfort Care Code Status: Full Code Critical Care: No Time Spent Managing Pts Care (In Minutes): 55 <Isabela Ness - Last Filed: 12/20/23 09:34> Date of Service: 12/20/23 Patient was seen and examined. Events of the last 24 hours have been noted. Spoke with with ELDER regarding patient's clinical picture after evaluating and examining the patient independently. I performed a substantial part of the MDM during this patient's care today. I personally made or approved the documented management plan and acknowledge its risk of complications. I agree with the findings and documentation provided in the ELDER's notes. Continue with COPD treatment. Continue with alcohol cessation. <Chrissy Turner - Last Filed: 12/25/23 23:39>
[2023-12-20] MEDS: NICOTINE 21 MG/PAT TD SCH (09:00)
[2023-12-20] MEDS ORDERED: NICOTINE 21 MG/PAT TD ONE (11:07)
[2023-12-20 13:09] LABS: ALT/SGPT 21 U/L (13-56); AST/SGOT 12 U/L (15-37); Albumin 3.7 g/dL (3.4-5.0); Alkaline Phosphatase 87 U/L (45-117); Anion Gap 13.1 mEq/L (5.0-15.0); BUN Blood Urea Nitrogen 11 mg/dL (7-18); Bicarbonate 26 mEq/L (21-32); Bilirubin Total 0.3 mg/dL (0.2-1.0); Globulin 3.6 g/dL (2.3-3.5); Glomerular Filtration Rate 109 ml/min (=/>90); Glucose Level 146 mg/dL (74-106); Magnesium 1.7 mg/dL (1.6-2.4); Potassium 4.1 mEq/L (3.5-5.1); Protein, Total 7.3 g/dL (6.4-8.2); Sodium Level 134 mEq/L (136-145)
[2023-12-20 13:10] LABS: Bilirubin Direct < 0.2 mg/dL (0-0.2); Bilirubin Indirect, Calculated 0.1 mg/dL (0.2-0.8)
[2023-12-20 13:22] VITALS: BMI 23.0
[2023-12-20] MEDS ORDERED: FLUMAZENIL 0.1 MG/ML (5 mL VIAL) IV PRN (16:06)
[2023-12-20] MEDS ORDERED: ACETAMINOPHEN 500 MG TAB PO PRN (16:06)
[2023-12-20] MEDS: MULTIVITAMIN TAB PO SCH (16:06)
[2023-12-20] MEDS ORDERED: ONDANSETRON 4 MG/2 ML VIAL IV PRN (16:06)
[2023-12-20] MEDS: THIAMINE HCL 100 MG TABLET PO SCH (16:06)
[2023-12-20] MEDS ORDERED: ALPRAZOLAM 0.25 MG TABLET PO PRN (16:06)
[2023-12-20] MEDS: FOLIC ACID 1 MG TABLET PO SCH (16:06)
[2023-12-20] MEDS ORDERED: LORazepam 2 MG/ML VIAL IV PRN (16:06)
[2023-12-20] MEDS: NA CHLORIDE 0.9% 1,000 ML IV SCH (20:34)
[2023-12-20 21:30] LABS: Urine Bilirubin NEGATIVE (Negative); Urine Blood Negative (Negative); Urine Clarity Clear (Clear); Urine Color Colorless (Yellow); Urine Glucose 4+ (Over) (Negative); Urine Ketones NEGATIVE (Negative); Urine Microscopic Reflex YN NO UMIC; Urine Nitrite NEGATIVE (Negative); Urine Protein NEGATIVE (Negative); Urine Urobilinogen Normal (Normal); Urine pH 6.5 (5.0-7.0)
[2023-12-20] MEDS: IPRATROPIUM BROM 0.5MG/2.5ML NEB PRN (23:18)
[2023-12-20] MEDS: ALBUTEROL 2.5 MG/3 ML NEB SOL NEB PRN (23:18)
[2023-12-21] MEDS: METHYLPREDNISOLONE 125 MG INJ IV SCH
[2023-12-21] MEDS: CEFTRIAXONE 1,000 MG in NA CHLORIDE 0.9% 50 ML IVPB SCH (00:43)
[2023-12-21 05:22] LABS: Absolute Lymphocytes (CBC) 0.8 K/uL (0.7-4.9); Absolute Monocytes 0.5 K/uL (0.1-1.3); Absolute Neutrophil 9.5 K/uL (1.8-8.0); Basophils % 0.3 % (0-1.3); Hematocrit 40.8 % (36.0-45.0); Hemoglobin 13.9 g/dL (12.0-15.0); Lymphocytes % 7.5 % (15.3-44.8); MCH 33.5 pg (27.0-35.0); MCV 98.5 fL (80-100); MPV 8.1 fL (7.6-11.3); Neutrophils % 87.2 % (41.7-73.7); Platelets 270 thou/uL (152-406); RBC Red Blood Cell Count 4.14 M/uL (3.86-4.86); Red Cell Distribution Width 13.2 % (12.1-15.2)
[2023-12-21 05:39] LABS: ALT/SGPT 19 U/L (13-56); Albumin 2.6 g/dL (3.4-5.0); Albumin/Globulin Ratio 0.5 (1.1-1.8); Alkaline Phosphatase 86 U/L (45-117); Anion Gap 6.8 mEq/L (5.0-15.0); BUN Blood Urea Nitrogen 12 mg/dL (7-18); Bicarbonate 28 mEq/L (21-32); Bilirubin Total 0.3 mg/dL (0.2-1.0); Globulin 4.9 g/dL (2.3-3.5); Glomerular Filtration Rate 106 ml/min (=/>90); Glucose Level 136 mg/dL (74-106); Magnesium 1.9 mg/dL (1.6-2.4); Potassium 3.8 mEq/L (3.5-5.1); Protein, Total 7.5 g/dL (6.4-8.2); Sodium Level 133 mEq/L (136-145)
[2023-12-21 05:41] LABS: AST/SGOT < 10 U/L (15-37)
[2023-12-21 06:34] LABS: Atypical Lymphocytes 1 %; Band Neutrophils 1 % (0-1); Blood Morphology Comment NOT SEEN (NOT SEEN); Differential Total Cells Count 100; Lymphocytes 6 % (15-42); Monocytes 5 % (0-10); Platelet Estimate ADEQ; Segmented Neutrophils 87 % (40-80)
--- NOTE | 2023-12-21 07:42 | P.DS ---
Admission Date: 12/20/23 Discharge Date: 12/21/23 Reason for Admission: COPD exacerbation Brief History of Present Illness: 58-year-old female with past medical history of alcohol use, tobacco use, COPD, presents to the emergency room with shortness of breath. She reports symptoms started 3 days ago is progressively getting worse. Symptoms worse while laying flat, she reports associated wheezing, productive cough, she denies prior history of COPD exacerbation admission to the hospital. She reports taking albuterol inhalers, she does not have a nebulizer. No reported chest pain, edema, dizziness, abdominal pain, fever. Plan to admit for COPD exacerbation, hyponatremia, tobacco use, alcohol use. - Physical Exam General: Alert, Oriented x3, Mild distress HEENT: Atraumatic, Normocephalic Respiratory: Expiratory wheezes, Inspiratory wheezes, Rhonchi/gurgles Cardiovascular: Normal pulses, Regular rate/rhythm Gastrointestinal: Normal bowel sounds, Soft and benign Musculoskeletal: No swelling, No contractures Integumentary: No breakdown, No significant lesion Neurological: Normal speech, Normal strength at 5/5 x4 extr Hospital Course: 58-year-old female with past medical history of alcohol use, tobacco use, COPD, presents to the emergency room with shortness of breath. She was noted to have COPD exacerbation. History of tobacco, alcohol use use, recommend on tobacco alcohol cessation. Hyponatremia treated with gentle IV fluids, patient's breathing has improved, she is tolerating diet, stable to discharge home, follow-up with PCP in 1 week Discharged home on nebulizer, albuterol Atrovent, inhalers,new rx nebulizer Antibiotics, steroids. Assessment COPD exacerbation Nebulizers, steroids, antibiotics, Tobacco use educate on alcohol tobacco cessation Alcohol use recommend on alcohol cessation Hyponatremia-encourage fluid intake. Continue home medicines as previously prescribed GOAL: Clear understanding of disease process INSTRUCTIONS: Physician Discharge Instructions: -Follow-up with PCP in 1 to 2 weeks -Please call Dr. Turner at [phone] if any questions regarding hospital stay -Please call nursing station at [phone] if any nursing or medication questions -Return to the emergency room if symptoms worsen Diet: ADA, low sodium Activity: Fall precautions <Isabela Ness - Last Filed: 12/25/23 06:00> Admission Date: 12/20/23 Discharge Date: 12/21/23 Hospital Course: Patient was seen and examined. Events of the last 24 hours have been noted. Spoke with with ELDER regarding patient's clinical picture after evaluating and examining the patient independently. I performed a substantial part of the MDM during this patient's care today. I personally made or approved the documented management plan and acknowledge its risk of complications. I agree with the findings and documentation provided in the ELDER's notes. Patient is clinically doing well and at this time patient is stable for discharge home with outpatient follow-up. <Chrissy Turner - Last Filed: 12/25/23 23:40> Disposition: ROUTINE DISCHARGE Discharge Condition: GOOD Vital Signs/Physical Exam: Temp Pulse Resp BP Pulse Ox 97.7 F 65 18 140/74 92 12/21/23 04:00 12/21/23 04:00 12/21/23 04:00 12/21/23 04:00 12/21/23 04:00 Laboratory Data at Discharge: WBC 10.90 thou/uL (4.3-10.9) 12/21/23 04:32 Hgb 13.9 g/dL (12.0-15.0) 12/21/23 04:32 Hct 40.8 % (36.0-45.0) 12/21/23 04:32 Plt Count 270 thou/uL (152-406) 12/21/23 04:32 PT 10.1 SECONDS (9.4-12.5) 12/20/23 06:45 INR 0.90 12/20/23 06:45 APTT 36.1 SECONDS (24.3-36.9) 12/20/23 06:45 Sodium 133 mEq/L (136-145) L 12/21/23 04:32 Potassium 3.8 mEq/L (3.5-5.1) 12/21/23 04:32 BUN 12 mg/dL (7-18) 12/21/23 04:32 Creatinine 0.58 mg/dL (0.55-1.02) 12/21/23 04:32 Glucose 136 mg/dL (74-106) H 12/21/23 04:32 Magnesium 1.9 mg/dL (1.6-2.4) 12/21/23 04:32 Total Bilirubin 0.3 mg/dL (0.2-1.0) 12/21/23 04:32 AST < 10 U/L (15-37) L 12/21/23 04:32 ALT 19 U/L (13-56) 12/21/23 04:32 Alkaline Phosphatase 86 U/L (45-117) 12/21/23 04:32 <Isabela Ness - Last Filed: 12/25/23 06:00> Vital Signs/Physical Exam: Temp Pulse Resp BP Pulse Ox 98.1 F 74 18 134/79 91 12/21/23 08:00 12/21/23 08:00 12/21/23 08:00 12/21/23 08:00 12/21/23 08:00 Laboratory Data at Discharge: WBC 10.90 thou/uL (4.3-10.9) 12/21/23 04:32 Hgb 13.9 g/dL (12.0-15.0) 12/21/23 04:32 Hct 40.8 % (36.0-45.0) 12/21/23 04:32 Plt Count 270 thou/uL (152-406) 12/21/23 04:32 PT 10.1 SECONDS (9.4-12.5) 12/20/23 06:45 INR 0.90 12/20/23 06:45 APTT 36.1 SECONDS (24.3-36.9) 12/20/23 06:45 Sodium 133 mEq/L (136-145) L 12/21/23 04:32 Potassium 3.8 mEq/L (3.5-5.1) 12/21/23 04:32 BUN 12 mg/dL (7-18) 12/21/23 04:32 Creatinine 0.58 mg/dL (0.55-1.02) 12/21/23 04:32 Glucose 136 mg/dL (74-106) H 12/21/23 04:32 Magnesium 1.9 mg/dL (1.6-2.4) 12/21/23 04:32 Total Bilirubin 0.3 mg/dL (0.2-1.0) 12/21/23 04:32 AST < 10 U/L (15-37) L 12/21/23 04:32 ALT 19 U/L (13-56) 12/21/23 04:32 Alkaline Phosphatase 86 U/L (45-117) 12/21/23 04:32 <Chrissy Turner - Last Filed: 12/25/23 23:40> Diet: Renal Activity: Fall precautions Time spent managing pt's care (in minutes): 55 <Isabela Ness - Last Filed: 12/25/23 06:00> <Chrissy Turner - Last Filed: 12/25/23 23:40> Home Medications: Albuterol Sulfate [Albuterol Sulfate 0.083% Neb Soln] 2.5 mg IH Q4H PRN 30 Days #1 box 12/21/23 Albuterol Sulfate [Proair Digihaler] 90 mcg IH Q6HR PRN 30 Days #1 aer 12/21/23 Cefdinir [Cefdinir*] 300 mg PO BID 7 Days #17 cap 12/21/23 Ipratropium Neb [Atrovent*] 0.2 mg IH Q6H PRN 30 Days #1 box 12/21/23 Nebulizer and Compressor [Blakely Choice Nebulizer] 1 each MC DAILY 30 Days #30 ea 12/21/23 predniSONE [Deltasone] 20 mg PO BID 5 Days #10 tab 12/21/23 New Medications: Albuterol Sulfate [Albuterol Sulfate 0.083% Neb Soln] 2.5 mg IH Q4H PRN 30 Days #1 box PRN Reason: Shortness Of Breath Ipratropium Neb [Atrovent*] 0.2 mg IH Q6H PRN 30 Days #1 box PRN Reason: Shortness Of Breath Cefdinir [Cefdinir*] 300 mg PO BID 7 Days #17 cap Nebulizer and Compressor [Blakely Choice Nebulizer] 1 each MC DAILY 30 Days #30 ea predniSONE [Deltasone] 20 mg PO BID 5 Days #10 tab Albuterol Sulfate [Proair Digihaler] 90 mcg IH Q6HR PRN 30 Days #1 aer PRN Reason: Shortness Of Breath Physician Discharge Instructions: 58-year-old female with past medical history of alcohol use, tobacco use, COPD, presents to the emergency room with shortness of breath. She was noted to have COPD exacerbation. History of tobacco, alcohol use use, recommend on tobacco alcohol cessation. Hyponatremia treated with gentle IV fluids, patient's breathing has improved, she is tolerating diet, stable to discharge home, follow-up with PCP in 1 week Discharged home on nebulizer, albuterol Atrovent, inhalers, Antibiotics, steroids. Assessment COPD exacerbation Tobacco use educate on alcohol tobacco cessation Alcohol use recommend on alcohol cessation Hyponatremia-encourage fluid intake. Continue home medicines as previously prescribed GOAL: Clear understanding of disease process INSTRUCTIONS: Physician Discharge Instructions: -Follow-up with PCP in 1 to 2 weeks -Please call Dr. Turner at [phone] if any questions regarding hospital stay -Please call nursing station at [phone] if any nursing or medication questions -Return to the emergency room if symptoms worsen Diet: ADA, low sodium Activity: Fall precautions Followup: NONE,NONE [Primary Care Provider] -
[2023-12-21 08:36] VITALS: BP 134/79; TEMP 98.1
[2023-12-21 09:07] VITALS: O2SAT 91
[2023-12-21] MEDS: Levofloxacin500mg IV 500 MG/100 ML BAG IV SCH (09:08)
--- NOTE | 2023-12-21 13:00 | EKG ---
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
== END 2023-12-21 10:47 | disposition home or self-care (01) ==
LOC: ER 06:26 → ERHOLD 08:53 → 2ND 16:38
PROVIDERS: ADMIT Hospitalist; ATTEND Hospitalist
DX: J44.1 Chronic obstructive pulmonary disease with (acute) exacerbation (principal); F17.210 Nicotine dependence, cigarettes, uncomplicated; F10.90 Alcohol use, unspecified, uncomplicated; E87.1 Hypo-osmolality and hyponatremia; J96.01 Acute respiratory failure with hypoxia; Z71.6 Tobacco abuse counseling; Z71.41 Alcohol abuse counseling and surveillance of alcoholic
CPT/HCPCS: 36415; 71045; 80048; 80053; 80076; 81003; 82947; 83605; 83735; 83880; 84484; 85025; 85610; 85730; 87040; 93005; 94640; 96365; 96375; 99285; G0378; J0696; J2919; J7030; J7613; J7614; J7644

== ENCOUNTER 2024-06-14 05:03 | Inpatient (IN) | payer SELFPAY ==
--- OUTSIDE RECORDS SUMMARY | 2024-06-14 05:10 | XMS REPORT | Continuity of Care Document ---
Author Name Unknown Address [address] [facility] [address] [place] [address] [facility] Address [address] 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 Phone PCP, PATIENT DOES NOT HAVE A Primary Care Physic mary ann Unavailable Daryl Bailey Attending Clinician Unavailable Danica Yuen Attending Clinician Unavailable JUNIE SANDERS Attending Clinician Unavailable Sisi Hart RN Attending Clinician [phone] Almas Edwards MD Attending Clinician [phone] Ced Chung DO Attending Clinician [phone] Jazmyn Sterling MD Attending Clinician + [phone] ALMAS EDWARDS Attending Clinician Unavailable Doctor Unassigned, [place] Attending Clinician U Kenzie Barrientos MD Attending Clinician [phone] KENZIE CARDENAS Attending Clinician Unavailable Danilo Castle MD Attending Clinician [phone] DANILO CASTLE Attending Clinician Unavailable Almas Edwards MD Admitting Clinician [phone] ALMAS EDWARDS Admitting Clinician Unavailable DANILO CASTLE Admitting Clinician Unavailable Payers Payer Name Policy Type Policy Number Effective Date Expirati on Date Source Ambetter from [facility] [id number] 2020 00:00:00 [facility] Ambetter from [facility] [id number] 2020 00:00:00 [facility] Ambetter from [facility] [id number] 2020 00:00:00 [facility] HIM AMBETTER FROM [facility] [id number] 2018 00:00:00 Problems Condition Name Condition Details Condition Category Status Onset Date Resolution Date Last Treatment Date Treating Clinician Comments Source Perforated peptic ulcer Perforated peptic ulcer Disease Active 10-06 00:00: 00 [facility] Trauma Trauma Disease Active 09-30 00:00: 00 [facility] Acute gastric ulcer with perforatio n Acute gastric ulcer with perforatio n Disease Active 09-29 00:00: 00 Overview: Formattin g of this note might be different from the original. Added automatic ally from request for surgery [id number] [facility] [id number] Left-sided low back pain without sciatica, unspecifie d chronicity Problem [facility] [id number] Perforated duodenal ulcer Problem [facility] [id number] GERD without esophagiti s Problem [facility] [id number] Chronic obstructiv e pulmonary disease, unspecifie d COPD type Problem [facility] [id number] Tobacco abuse Problem [facility] [id number] Muscle spasm of back Problem [facility] Allergies, Adverse Reactions, Alerts Allergy Name Allergy Type Status Severity Reaction(s) Onset Date Inactive Date Treating Clinician Comments Source NO KNOWN ALLERGIE S Drug Class Active [facility] Social History Social Habit Start Date Stop Date Quantity Comments Source History of Tobacco Use Current Smoker [facility] Sex Assigned At [facility] Exposure to SARS-CoV-2 (event) Not sure [facility] Tobacco use and exposure 2020-09-30 00:00:00 2020-09-30 00:00:00 Current user [facility] Smoking Status Start Date Stop Date Source Unknown if ever smoked [facility] Current Smoker 2023-02-09 00:00:00 [facility] Medications Ordered Medication Name Filled Medication Name [...] 800 mg tablet 10-05 00:00: 00 Yes [id number] 800mg Take 1 tablet by mouth every 6 (six) hours as needed for Pain (scale 4-6) or Temp > 38.5 C. [facility] acetaminoph en 325 mg tablet 10-05 00:00: 00 10-06 04:59 :00 No [id number] 650mg Take 2 tablets by mouth every 6 (six) hours as needed for Pain (scale 4-6) or Temp > 38.5 C. [facility] HYDROcodone -acetaminop hen (NORCO) 5-325 mg tablet 10-05 00:00: 00 10-13 04:59 :00 No [id number] 1{tbl} Take 1 tablet by mouth every 6 (six) hours as needed for Pain (scale 7-10) for up to 7 days. Indication s: acute pain [facility] D5W 0.45% NaCl (1/2NS) 1 L + KCL 20 mEq 10-04 19:15: 00 Yes IV Infusion, at 42 mL/hr, CONTINUOUS , Starting 10/04/20 at 1415, Until Discontinu ed, Routine [facility] acetaminoph en ADULT (OFIRMEV) injection 1,000 mg 10-03 23:00: 00 10-04 18:38 :00 No 1000mg 1,000 mg, IV Infusion, Administer over 15 Minutes, Q6H, 4 doses, First dose (after last reorder) on Tue10/03/20 at 1800, Last dose on Tue10/04/20 at 1200, Routine
Indicatio n: Perioperat liliam Patient [facility] acetaminoph en ADULT (OFIRMEV) injection 1,000 mg 10-02 17:00: 00 10-03 11:05 :00 No 1000mg 1,000 mg, IV Infusion, Administer over 15 Minutes, Q6H, 4 doses, First dose (after last reorder) on Tue10/02/20 at 1200, Last dose on Tue10/03/20 at 0600, Routine
Indicatio n: Perioperat liliam Patient 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 acetaminoph en ADULT [facility] injection 1,000 mg 10-01 17:00: 00 10-02 16:59 :00 No 1000mg 1,000 mg, IV Infusion, Administer over 15 Minutes, Q6H, 4 doses, First dose (after last reorder) on Tue10/01/20 at 1200, Last dose on Tue10/02/20 at 0600, Routine
Indicatio n: Perioperat liliam Patient [facility] naloxone (NARCAN) injection 0.1 mg 10-01 16:50: 47 Yes .1mg 0.1 mg, Slow IV Push, SEE-INSTRU CTIONS, Starting Tue10/01/20 at 1150, Until Discontinu ed, Routine [facility] pantoprazol e (PROTONIX) injection 40 mg 10-01 01:00: 00 Yes 40mg 40 mg, Slow IV Push, Q12H, First dose (after last reorder) on Tue09/30/20 at 2000, Until Discontinu ed [facility] albumin (ALBUMINAR- 5) 5 % injection 25 g 09-30 21:00: 00 09-30 20:53 :00 No 25g 25 g, IV Infusion, ONCE, 1 dose, Tue09/30/20 at 1600, 500 mL
Audrey cation: SHOCK/IMPE NDING SHOCK [facility] pantoprazol e (PROTONIX) 40 mg in NaCl 0.9% (NS) 100 mL IV Piggyback 09-30 18:30: 00 09-30 18:45 :00 No 40mg 40 mg, IV Piggyback, ONCE, 1 dose, Tue09/30/20 at 1330, 100 mL [facility] acetaminoph en ADULT (OFIRMEV) injection 1,000 mg 09-30 18:00: 00 10-01 10:21 :00 No 1000mg 1,000 mg, IV Infusion, Administer over 15 Minutes, Q6H, 4 doses, First dose on Tue09/30/20 at 1300, Last dose on Tue10/01/20 at 0600, Routine
Indicatio n: Perioperat liliam Patient [facility] lactated ringers IV infusion 1,000 mL 09-30 10:00: 00 10-01 15:56 :04 No 1000mL at 125 mL/hr, 1,000 mL, IV Infusion, CONTINUOUS , Starting Tue09/30/20 at 0500, Until Tue10/01/20 at 1056, Routine [facility] morpHINE injection 2 mg 09-30 09:46: 22 Yes 2mg 2 mg, Slow IV Push, Q3HPRN, Starting Tue09/30/20 at 0446, Until Discontinu ed, Routine, Pain (scale 7-10) [facility] [place] sugammadex (BRIDION) injection 09-30 09:42: 00 09-30 10:06 :59 No IV Push, ONCE INTRA PROCEDURE, Starting 09/30/20 at 0442, Until Discontinu ed, Routine, Intra-op [facility] ondansetron (ZOFRAN (PF)) injection 09-30 09:28: 00 09-30 10:06 :59 No Slow IV Push, ONCE INTRA PROCEDURE, Starting Tue09/30/20 at 0428, Until Discontinu ed, Routine, Intra-op [facility] [place] HYDROmorphO ne (DILAUDID) injection 09-30 09:15: 00 09-30 10:06 :59 No Slow IV Push, ONCE INTRA PROCEDURE, Starting Tue09/30/20 at 0415, Until Discontinu ed, Routine, Intra-op [facility] meropenem (MERREM) injection 09-30 09:05: 00 Yes PRN, Starting Tue09/30/20 at 0405, Until Discontinu ed, HELDER, Intra-op [facility] rocuronium (ZEMURON) injection 09-30 08:35: 00 09-30 10:06 :59 No IV Push, ONCE INTRA PROCEDURE, Starting Tue09/30/20 at 0335, Until Discontinu ed, Routine, Intra-op [facility] [place] PHENYLephri ne 1000 mcg/10 mL in 0.9% NaCl syringe 09-30 08:33: 00 09-30 10:06 :59 No Slow IV Push, ONCE INTRA PROCEDURE, Starting Tue09/30/20 at 0333, Until Discontinu ed, Routine, Intra-op [facility] succinylcho line (QUELICIN) injection 09-30 08:25: 00 09-30 10:06 :59 No IV Push, ONCE INTRA PROCEDURE, Starting Tue09/30/20 at 0325, Until Discontinu ed, Routine, Intra-op [facility] lidocaine 1% (XYLOCAINE) 100 mg/10 mL (1 %) injection 09-30 08:24: 00 09-30 10:06 :59 No Slow IV Push, ONCE INTRA PROCEDURE, Starting Tue09/30/20 at 0324, Until Discontinu ed, Routine, [facility] 09-30 08:24: 00 09-30 10:06 :59 No IV Infusion, ONCE INTRA PROCEDURE, Starting Tue09/30/20 at 0324, Until Discontinu ed, Routine, [facility] FENTanyl PF (SUBLIMAZE (PF)) injection 09-30 08:18: 00 09-30 10:06 :59 No Epidural, ONCE INTRA PROCEDURE, Starting Tue09/30/20 at 0318, Until Discontinu ed, Routine, Intra-op [facility] midazolam (VERSED) injection 09-30 08:18: 00 09-30 10:06 :59 No IV Push, ONCE INTRA PROCEDURE, Starting Tue09/30/20 at 0318, Until Discontinu ed, Routine, Intra-op [facility] lactated ringers IV infusion 09-30 08:15: 00 09-30 10:06 :59 No IV Infusion, CONTINUOUS PRN, Starting Tue09/30/20 at 0315, Until Discontinu ed, Routine, Intra-op [facility] fluconazole (DIFLUCAN) Piggyback 200 mg 09-30 07:45: 00 Yes 200mg at 100 mL/hr, IV Piggyback, Q24H ABX, First dose on Tue09/30/20 at 0245, Until Discontinu ed, HELDER [facility] piperacilli n-tazobacta m (ZOSYN) 3.375 gram/50 mL Piggyback RTU 3.375 g 09-30 07:45: 00 Yes 3.375g 3.375 g, IV Piggyback, Q6H ABX, First dose on Tue09/30/20 at 0245, Until Discontinu ed, 50 mL
Reas on for Anti-Infec tive: Empiric Therapy for Suspected Infection< br>Empiric Therapy Site: Abdominal< br>Duratio n of therapy: 72 hours [facility] morpHINE injection 4 mg 09-30 07:00: 00 09-30 06:15 :00 No 4mg 4 mg, Slow IV Push, ONCE, 1 dose, Tue09/30/20 at 0200, Routine [facility] lactated ringers IV infusion 1,000 mL 09-30 06:30: 00 09-30 09:47 :30 No 1000mL at 100 mL/hr, 1,000 mL, IV Infusion, CONTINUOUS , Starting Tue09/30/20 at 0130, Until Tue09/30/20 at 0447, Routine [facility] ondansetron (ZOFRAN (PF)) injection 4 mg 09-30 05:53: 14 Yes 4mg 4 mg, Slow IV Push, Q6HPRN, Starting Tue09/30/20 at 0053, Until Discontinu ed, Routine, Nausea and Vomiting (N/V) [facility] piperacilli n-tazobacta m (ZOSYN) 3.375 g in NaCl 0.9% (NS) 100 mL MINI-BAG 09-30 04:00: 00 09-30 03:39 :00 No 3.375g 3.375 g, IV Piggyback, ONCE, 1 dose, Tue09/29/20 at 2300, 100 mL
Reas on for Anti-Infec tive: Surgical Prophylaxi s
Surgi nate Prophylaxi s: Abdominal< br>Duratio n of therapy: within 24 hours of surgery [facility] ketorolac (TORADOL) injection 30 mg 09-30 02:15: 00 09-30 01:16 :00 No 30mg 30 mg, Slow IV Push, ONCE, 1 dose, Tue09/29/20 at 2115, Routine
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 : EKNZIE CARDENAS [facility] ondansetron (ZOFRAN (PF)) injection 4 mg 09-30 01:45: 00 09-30 00:57 :00 No 4mg 4 mg, Slow IV Push, ONCE, 1 dose, Tue09/29/20 at 2044, [facility] morpHINE injection 4 mg 09-30 01:45: 00 09-30 00:59 :00 No 4mg 4 mg, Slow IV Push, ONCE, 1 dose, Tue09/29/20 at 2044, STAT [facility] iopamidol (ISOVUE 370-500 mL) injection 120 mL 09-30 01:31: 00 09-30 01:30 :00 No [id number] 120mL 120 mL, Intravenou s, ONCE, 1 dose, Tue09/29/20 at 2044, Routine [facility] ipratropium -albuteroL (DUONEB) 0.5 mg-3 mg(2.5 mg base)/3 mL nebulizer solution 3 mL 06-12 17:45: 00 06-12 16:54 :00 No 3mL 3 mL, Inhalation , ONCE, 1 dose, Chary 06/12/20 at 1245, [facility] methylpredn isolone sod succ (SOLU-MEDRO L) injection 125 mg 06-12 17:45: 00 06-12 16:53 :00 No 125mg 125 mg, Slow IV Push, ONCE NOW, 1 dose, Chary 06/12/20 at 1245, [facility] iohexol (OMNIPAQUE 350 BULK-100 mL) injection 100 mL 06-12 16:00: 00 06-12 15:56 :00 No [id number] 100mL 100 mL, Intravenou s, ONCE, 1 dose, Chary 06/12/20 at 1100, Routine [facility] albuterol 90 mcg/actuati on inhaler 06-12 00:00: 00 Yes [id number] 2{puff} Inhale 2 Puffs every 4 (four) hours as needed for Wheezing or Shortness of Breath. [facility] benzonatate 100 mg capsule 06-12 00:00: 00 Yes [id number] 100mg Take 1 capsule by mouth 3 (three) times daily as needed for Cough. [facility] predniSONE 20 mg tablet 06-12 00:00: 00 06-18 04:59 :00 No [id number] 60mg Take 3 tablets by mouth every morning for 5 days. [facility] Methocarbam ol 500 MG Methocarbam ol 500 [...] height 2022-02-05 11:30:00 60 [in_i] Commo n [facility] weight 2022-02-05 11:30:00 131 [lb_av] Comm on [facility] temperature 2022-02-05 11:30:00 96.9 [degF] Com mon [facility] bmi 2022-02-05 11:30:00 25.58 kg/m2 Comm on [facility] oximetry 2022-02-05 11:30:00 92 % Commo n [facility] respiratory rate 2022-02-05 11:30:00 16 /min Common [facility] blood pressure systolic 2022-02-05 11:30:00 132 mm[Hg] [facility] blood pressure diastolic 2022-02-05 11:30:00 72 mm[Hg] [facility] height 2022-01-13 08:00:00 60 [in_i] Commo n [facility] weight 2022-01-13 08:00:00 128.8 [lb_av] Co [facility] temperature 2022-01-13 08:00:00 97.5 [degF] Com [facility] bmi 2022-01-13 08:00:00 25.15 kg/m2 Comm on [facility] oximetry 2022-01-13 08:00:00 98 % Commo n [facility] respiratory rate 2022-01-13 08:00:00 18 /min [facility] blood pressure systolic 2022-01-13 08:00:00 139 mm[Hg] Common Spiri t [facility] blood pressure diastolic 2022-01-13 08:00:00 72 mm[Hg] Common [facility] height 2021-09-07 11:40:00 60 [in_i] Commo n [facility] weight 2021-09-07 11:40:00 125 [lb_av] Comm on [facility] bmi 2021-09-07 11:40:00 24.41 kg/m2 Comm on [facility] height 2021-01-12 10:40:00 60 [in_i] Commo n [facility] weight 2021-01-12 10:40:00 124.6 [lb_av] Co [facility] temperature 2021-01-12 10:40:00 98.1 [degF] Com [facility] bmi 2021-01-12 10:40:00 24.33 kg/m2 Comm on [facility] oximetry 2021-01-12 10:40:00 92 % Commo n [facility] respiratory rate 2021-01-12 10:40:00 16 /min [facility] blood pressure systolic 2021-01-12 10:40:00 133 mm[Hg] [facility] blood pressure diastolic 2021-01-12 10:40:00 72 mm[Hg] [facility] height 2020-12-23 11:30:00 60 [in_i] Commo n [facility] weight 2020-12-23 11:30:00 122.9 [lb_av] Co mmon [facility] temperature 2020-12-23 11:30:00 97.2 [degF] Com mon [facility] bmi 2020-12-23 11:30:00 24 kg/m2 Commo n [facility] oximetry 2020-12-23 11:30:00 96 % Commo n [facility] respiratory rate 2020-12-23 11:30:00 17 /min [facility] blood pressure systolic 2020-12-23 11:30:00 135 mm[Hg] [facility] blood pressure diastolic 2020-12-23 11:30:00 70 mm[Hg] [facility] Systolic blood pressure 2020-10-05 15:00:00 141 mm[Hg] [facility] Diastolic blood pressure 2020-10-05 15:00:00 86 mm[Hg] [facility] Heart rate 2020-10-05 15:00:00 86 /min [facility] Respiratory rate 2020-10-05 15:00:00 15 /min [facility] Oxygen saturation in Arterial blood by Pulse oximetry 2020-10-05 15:00:00 92 /min [facility] Body temperature 2020-10-05 13:00:00 36.78 Kenisha [facility] Body height 2020-09-30 07:36:[address] [facility] Body weight 2020-09-30 07:36:[address] [facility] BMI 2020-09-30 07:36:00 23.68 kg/m2 [facility] Systolic blood pressure 2020-09-30 10:15:00 124 mm[Hg] [facility] Diastolic blood pressure 2020-09-30 10:15:00 84 mm[Hg] [facility] Heart rate 2020-09-30 10:15:00 87 /min [facility] Body temperature 2020-09-30 10:15:00 37.11 Kenisha [facility] Respiratory rate 2020-09-30 10:15:00 15 /min [facility] Oxygen saturation in Arterial blood by Pulse oximetry 2020-09-30 10:15:00 98 /min [facility] Body height 2020-09-30 07:36:00 152.4 cm [facility] Body weight 2020-09-30 07:36:00 55 kg [facility] BMI 2020-09-30 07:36:00 23.68 kg/m2 [facility] Respiratory rate 2020-09-30 08:16:00 33 /min [facility] Systolic blood pressure 2020-09-30 03:46:00 118 mm[Hg] [facility] Diastolic blood pressure 2020-09-30 03:46:00 65 mm[Hg] [facility] Heart rate 2020-09-30 03:46:00 89 /min [facility] Respiratory rate 2020-09-30 03:46:00 18 /min [facility] Oxygen saturation in Arterial blood by Pulse oximetry 2020-09-30 03:46:00 98 /min [facility] Body temperature 2020-09-29 23:33:00 35.94 Kenisha [facility] Body weight 2020-09-29 23:33:[address] [facility] BMI 2020-09-29 23:33:00 25.19 kg/m2 [facility] Heart rate 2020-06-12 17:12:00 73 /min Un[facility] Respiratory rate 2020-06-12 17:12:00 24 /min [facility] Oxygen saturation in Arterial blood by Pulse oximetry 2020-06-12 17:12:00 100 /min [facility] Systolic blood pressure 2020-06-12 17:02:00 162 mm[Hg] [facility] Diastolic blood pressure 2020-06-12 17:02:00 82 mm[Hg] [facility] Body temperature 2020-06-12 14:14:00 36.39 Kenisha [facility] Body height 2020-06-12 14:14:00 152.4 cm [facility] Body weight 2020-06-12 14:14:00 58.968 kg [facility] BMI 2020-06-12 14:14:00 25.39 kg/m2 [facility] Heart rate 2020-06-12 17:12:00 73 /min [facility] Respiratory rate 2020-06-12 17:12:00 24 /min [facility] Oxygen saturation in Arterial blood by Pulse oximetry 2020-06-12 17:12:00 100 /min [facility] Systolic blood pressure 2020-06-12 17:02:00 162 mm[Hg] [facility] Diastolic blood pressure 2020-06-12 17:02:00 82 mm[Hg] [facility] Body temperature 2020-06-12 14:14:00 36.39 Kenisha [facility] Body height 2020-06-12 14:14:00 152.4 cm [facility] Body weight 2020-06-12 14:14:00 58.968 kg [facility] BMI 2020-06-12 14:14:00 25.39 kg/m2 [facility] Procedures Procedure Date / Time Performed Performing Clinician Source BASIC METABOLIC PANEL (NA, K, CL, CO2, GLUCOSE, BUN, CREATININE, CA) 2020-10-05 08:25:00 Sonia Herrera [facility] CBC WITH DIFF 2020-10-05 08:25:00 Javier, [facility] BASIC METABOLIC PANEL (NA, K, CL, CO2, GLUCOSE, BUN, CREATININE, CA) 2020-10-04 13:30:00 [facility] 2020-10-04 11:18:00 Javier, [facility] BASIC METABOLIC PANEL (NA, K, CL, CO2, GLUCOSE, BUN, CREATININE, CA) 2020-10-03 10:46:00 [facility] 2020-10-03 10:46:00 Javier, [facility] CBC WITH DIFF 2020-10-02 11:31:[address] [facility] BASIC METABOLIC PANEL (NA, K, CL, CO2, GLUCOSE, BUN, CREATININE, CA) 2020-10-02 11:30:[address] [facility] PHOSPHORUS 2020-10-01 07:34:00 Dongur, Sonia Farideh [facility] MAGNESIUM 2020-10-01 07:34:00 Dongur, Sonia Farideh [facility] BASIC METABOLIC PANEL (NA, K, CL, CO2, GLUCOSE, BUN, CREATININE, CA) 2020-10-01 07:34:00 Javier, [facility] CBC WITH DIFF 2020-10-01 07:34:00 Cheryl Jimenez [facility] PHOSPHORUS 2020-10-01 07:34:00 Dongur, Sonia Farideh [facility] MAGNESIUM 2020-10-01 07:34:00 Dongur, Sonia Farideh [facility] BASIC METABOLIC PANEL (NA, K, CL, CO2, GLUCOSE, BUN, CREATININE, CA) 2020-10-01 07:34:00 Dongyin, Sonia Farideh [facility] CBC WITH DIFF 2020-10-01 07:34:00 Cheryl Jimenez [facility] XR KUB 2020-09-30 20:10:00 Dongur, [facility] 2020-09-30 20:10:00 Dongur, Sonia Farideh [facility] CBC WITH DIFF 2020-09-30 19:15:00 Dongur, Sonia Farideh [facility] PROTHROMBIN TIME / INR 2020-09-30 19:15:00 Dongur, [facility] ACTIVATED PARTIAL THRMPLAS JOESPH 2020-09-30 19:15:00 Dongur, Sonia Farideh [facility] CBC WITH DIFF 2020-09-30 19:15:00 Dongur, Sonia Farideh [facility] PROTHROMBIN TIME / INR 2020-09-30 19:15:00 Dongur, [facility] ACTIVATED PARTIAL THRMPLAS JOESPH 2020-09-30 19:15:00 Dongur, [facility] BASIC METABOLIC PANEL (NA, K, CL, CO2, GLUCOSE, BUN, CREATININE, CA) 2020-09-30 10:25:00 Cheryl Jimenez [facility] BASIC METABOLIC PANEL (NA, K, CL, CO2, GLUCOSE, BUN, CREATININE, CA) 2020-09-30 10:25:00 Cheryl Jimenez [facility] FUNGUS (ROUTINE) CULTURE 2020-09-30 09:06:46 [facility] BODY FLUID CULTURE(AEROBIC/ANAEROB IC) 2020-09-30 09:06:46 [facility] FUNGUS (ROUTINE) CULTURE 2020-09-30 09:06:46 [facility] BODY FLUID CULTURE(AEROBIC/ANAEROB IC) 2020-09-30 09:06:46 [facility] INTUBATION 2020-09-30 08:54:44 Edgardo Buck [facility] EXPLORATORY LAPAROTOMY 2020-09-30 07:59:00 Stanford Edwards [facility] EXPLORATORY LAPAROTOMY 2020-09-30 07:59:00 Stanford Edwards [facility] ABORH CONFIRMATION (LAB ONLY) 2020-09-30 07:55:00 Almas Edwards [facility] ABORH CONFIRMATION (LAB ONLY) 2020-09-30 07:55:00 Almas Edwards [facility] HB ABO GROUPING 2020-09-30 07:25[facility] 2020-09-30 07:25[facility] 2020-09-30 05:01:00 Doctor Un assigned, University [place] [facility] COVID-19 (ID NOW RAPID TESTING) 2020-09-30 02:51:00 Kenzie Cardenas [facility] CT ABDOMEN PELVIS W CONTRAST 2020-09-30 01:36:13 Kenzie Cardenas [facility] LIPASE 2020-09-30 00:21:[facility]OLIC PANEL ([id number]) 2020-09-30 00:21:00 Kenzie Cardenas [facility] CBC WITH DIFF 2020-09-30 00:21:00 Kenzie Cardenas [facility] URINALYSIS 2020-09-30 00:21:[facility] 2020-09-29 05:01:00 Doctor Unassigned, [place] [facility] EMERGENCY DEPARTMENT DOCUMENTS 2020-09-29 05:01:00 Doctor Unassigned, [place] [facility] CT CHEST PULMONARY ANGIOGRAM 2020-06-12 15:58:18 Tin [facility] XR CHEST 1 VW 2020-06-12 14:58:13 Danilo Castle [facility] TROPONIN I 2020-06-12 14:32:00 Danilo Castle [facility] HEPATIC FUNCTION PANEL ([id number]) (ALB,T.PRO,BILI T,BU/BC,ALT,AST,ALK PHOS) 2020-06-12 14:32:00 Tin Danilo [facility] BASIC METABOLIC PANEL (NA, K, CL, CO2, GLUCOSE, BUN, CREATININE, CA) 2020-06-12 14:32:00 Tin [facility] CBC WITH DIFF 2020-06-12 14:32:00 Danilo Castle [facility] PROTHROMBIN TIME / INR 2020-06-12 14:32:00 Cesar [facility] ACTIVATED PARTIAL THRMPLAS JOESPH 2020-06-12 14:32:00 Danilo Castle [facility] N-TERMINAL PRO-BNP 2020-06-12 14:32:00 Danilo [facility] COVID-19 (ID NOW RAPID TESTING) 2020-06-12 14:32:00 Danilo [place] [facility] NOTICE OF PRIVACY PRACTICES 2020-06-12 14:09:29 Doctor Unassigned, [place] [facility] Encounters Start Date/Time End Date/Time Encounter Type Admission Type Attending Clinicians Care Facility Care Department Encounter ID Source 2023-02-07 13:21:00 Outpatient Daryl Bailey [facility]LML[facility] ST[facility]C [id number] [facility] 2023-02-03 15:07:00 Outpatient BaileyJeffreyh STLMLC STLMLC [id number] [facility] 2022-04-16 15:32:01 Outpatient Yuen, Avnee STLMLC STLMLC [id number] [facility] 2022-02-05 10:52:02 Outpatient Yuen Avnee STLMLC STLMLC [id number] [facility] 2022-02-03 10:17:03 Outpatient Yuen Avnee STLMLC STLMLC [id number] [facility] 2022-01-12 10:33:01 Outpatient Yuen, Avnee STLMLC STLMLC [id number] [facility] 2022-01-11 09:13:01 Outpatient Yuen Avnee STLMLC STLMLC [id number] [facility] 2021-04-15 14:17:15 Outpatient Yuen Avnee STLMLC STLMLC [id number] [facility] 2021-04-15 14:04:07 Outpatient Yuen, Avnee STLMLC STLMLC [id number] [facility] 2021-04-15 13:58:49 Outpatient Yuen, Avnee STLMLC STLMLC [id number] [facility] 2021-04-15 13:57:23 Outpatient Yuen, Avnee STLMLC STLMLC [id number] [facility] 2021-04-15 13:56:27 Outpatient Yuen, Avnee STLMLC STLMLC [id number] [facility] 2021-04-15 13:48:17 Outpatient Yuen, Avnee STLMLC STLMLC [id number] [facility] 2021-04-15 13:38:18 Outpatient Yuen, Avnee STLMLC STLMLC [id number] [facility] 2021-04-15 13:27:33 Outpatient Yuen, Avnee STLMLC STLMLC [id number] [facility] 2021-04-15 13:22:06 Outpatient STLMLC STLMLC [id number] [facility] 2023-02-08 00:00:00 2023-02-08 00:00:00 (TEL) STLMLC STLMLC [id number] [facility] 2023-02-03 00:00:00 2023-02-03 00:00:00 (TEL) STLMLC STLMLC [id number] [facility] 2022-10-08 00:00:00 2022-10-08 00:00:00 (TEL) STLMLC STLMLC [id number] [facility] 2022-05-24 00:00:00 2022-05-24 00:00:00 (TEL) STLMLC STLMLC [id number] [facility] 2022-02-24 00:00:00 2022-02-24 00:00:00 (TEL) STLMLC STLMLC [id number] [facility] 2022-02-19 00:00:00 2022-02-19 00:00:00 (TEL) STLMLC STLMLC [id number] [facility] 2022-02-05 00:00:00 2022-02-05 00:00:00 OFFICE VISIT EST PT LEVEL 3 STLMLC STLMLC [id number] [facility] 2022-02-04 00:00:00 2022-02-04 00:00:00 (TEL) STLMLC STLMLC [id number] [facility] 2022-01-13 00:00:00 2022-01-13 00:00:00 PREV VISIT EST AGE 40-64 STLMLC STLMLC [id number] [facility] 2021-10-30 00:00:00 2021-10-30 00:00:00 (TEL) STLMLC STLMLC [id number] [facility] 2021-09-07 00:00:00 2021-09-07 00:00:00 OL DIG E/M SVC 11-20 MIN STLMLC STLMLC [id number] [facility] 2021-09-03 00:00:00 2021-09-03 00:00:00 (TEL) STLMLC STLMLC [id number] [facility] 2021-08-13 00:00:00 2021-08-13 00:00:00 (TEL) STLMLC STLMLC [id number] [facility] 2021-07-22 00:00:00 2021-07-22 00:00:00 (TEL) STLMLC STLMLC [id number] [facility] 2021-02-27 00:00:00 2021-02-27 00:00:00 (TEL) STLMLC STLMLC [id number] [facility] 2021-01-12 00:00:00 2021-01-12 00:00:00 OFFICE VISIT EST PT LEVEL 3 STLMLC STLMLC [id number] [facility] 2021-01-06 00:00:00 2021-01-06 00:00:00 (TEL) STLMLC STLMLC [id number] [facility] 2020-12-23 00:00:00 2020-12-23 00:00:00 PREV VISIT EST AGE 40-64 STLMLC STLMLC [id number] [facility] 2020-10-21 10:45:00 2020-10-21 10:45:00 Outpatient JUNIE EDMONDS [facility] [id number] [facility] 2020-10-07 00:00:00 2020-10-07 00:00:00 Transition of Care [facility] [id number] [id number] [id number] [facility] 2020-10-06 00:00:00 2020-10-06 00:00:00 Outpatient STLMLC STLC [id number] [facility] 2020-09-30 00:19:00 2020-10-05 13:32:00 [facility] 1.2.840.114 350.1.13.10 4.2.7.2.686 [id number] [facility] 2020-09-30 02:45:00 2020-09-30 05:33:00 [facility] 1.2.840.114 350.1.13.10 4.2.7.2.686 [id number] [facility] 2020-09-30 03:15:00 2020-09-30 05:06:00 Anesthesia Event Ced Chung [facility] 1.2.840.114 350.1.13.10 4.2.7.2.686 [id number] [facility] 2020-09-30 00:19:00 2020-09-30 00:19:00 Emergency X ALMAS EDWARDS [facility] ERT [id number] [facility] 2020-09-30 00:00:00 2020-09-30 00:00:00 Orders Only Doctor Unassigned, [place] [facility] 1.2840.114 350.1.13.10 4.2.7.2.686 [id number] [facility] 2020-09-29 18:55:00 2020-09-29 22:56:00 Emergency Ronald Gayathritalya Hernandez Paul Almas [facility] 1.2.840.114 350.1.13.10 4.2.7.2.686 [id number] [facility] 2020-09-29 18:55:00 2020-09-29 18:55:00 Emergency X KENZIE CARDENAS [facility] ERT [id number] [facility] 2020-09-19 00:00:00 2020-09-19 00:00:00 Outpatient STLMLC STLMLC [id number] [facility] 2020-06-12 09:16:00 2020-06-12 12:33:00 Emergency Tin Danilo [facility] 1.2.840.114 350.1.13.10 4.2.7.2.686 [id number] 2020-06-12 09:16:00 2020-06-12 12:33:00 Emergency X TIN DANILO [facility] ERT [id number] [facility] 2020-06-12 09:16:00 2020-06-12 12:33:00 Emergency Tin Danilo [facility] 1.2.840.114 350.1.13.10 4.2.7.2.686 [id number] [facility] Results Test Description Test Time Test Comments Results Result Co mments Source Maricarmen 2022-01-27 00:00:00 [facility] (NA, K, CL, CO2, GLUCOSE, BUN, CREATININE, CA)2020-10-05 09:01:06* Test Item Value Reference Range Interpretation Comme nts NA (test code = 1002796423) 133 mmol/L 135-145 L K (test code = 0140282292) 3.6 mmol/L 3.5-5.0 CL (test code = 7532811645) 105 mmol/L 98-108 CO2 TOTAL (test code = 1902425292) 23 mmol/L 23-31 AGAP (test code = 2463251113) 2-16 BUN (test code = 5099593326) 2 mg/dL 7-23 L GLUCOSE (test code = 2557638403) 104 mg/dL 70-110 CREATININE (test code = 3604884947) 0.41 mg/dL 0.50-1.04 L CALCIUM (test code = 8208395726) 9.1 mg/dL 8.6-10.6 eGFR (test code = 7967619107) mL/min/1.73m2 AYANA (test code = AYANA) Association [...] imaging tests). Lab Interpretation (test code = 47473-0) Abnormal [facility] METABOLIC PANEL (NA, K, CL, CO2, GLUCOSE, BUN, CREATININE, CA)2020-10-04 14:02:25* Test Item Value Reference Range Interpretation Comme nts NA (test code = 0264050498) 135 mmol/L 135-145 K (test code = 2347866787) 3.9 mmol/L 3.5-5.0 CL (test code = 5894034371) 103 mmol/L 98-108 CO2 TOTAL (test code = 7691196950) 25 mmol/L 23-31 AGAP (test code = 2781869413) 2-16 BUN (test code = 3129382976) 4 mg/dL 7-23 L GLUCOSE (test code = 8157435889) 125 mg/dL 70-110 H CREATININE (test code = 7701569101) 0.41 mg/dL 0.50-1.04 L CALCIUM (test code = 1062775933) 9.4 mg/dL 8.6-10.6 eGFR (test code = 8587233770) mL/min/1.73m2 AYANA (test code = AYANA) Association [...] imaging tests). Lab Interpretation (test code = 83232-0) Abnormal [facility] WITH [id number] 11:36:56* Test Item Value Reference Range Interpretation Comme nts WBC (test code = 6690-2) See_Comment [Automated [employer]] The system which generated this result transmitted reference range: 4.30 - 11.10 10*3/?L. The reference range was not used to interpret this result as normal/abnormal. RBC (test code = 789-8) See_Comment L [Automated [employer]] The system which generated this result transmitted [...] 34.3 g/dL 31.6-35.1 RDW-SD (test code = 11050-4) 47.2 fL 39.0-49.9 RDW-CV (test code = 788-0) 13.3 % 12.0-15.5 PLT (test code = 777-3) See_Comment [Automated [employer]] The system which generated this result transmitted reference range: 166 - 358 10*3/?L. The reference range was not used to interpret this result as normal/abnormal. MPV (test code = 76253-3) 10.0 fL 9.5-12.9 NRBC/100 WBC (test code = 3676879565) See_Comment [Automated me ssage] The system which generated this result transmitted reference range: 0.0 - 10.0 /100 WBCs. The reference range was not used to interpret this result as normal/abnormal. NRBC x10^3 (test code = 4236153604) <0.01 See_Comment [Automated messa ge] The system which generated this result transmitted reference range: 10*3/?L. The reference range was not used to interpret this result as normal/abnormal. GRAN MAT (NEUT) % (test code = 770-8) 58.9 % IMM GRAN % (test code = 1465741120) 0.80 % LYMPH % (test code = 736-9) 21.1 % MONO % (test code = 5905-5) 12.7 % EOS % (test code = 713-8) 5.9 % BASO % (test code = 706-2) 0.6 % GRAN MAT x10^3(ANC) (test code = 0596527512) 3.91 10*3/uL 1.88-7.09 IMM GRAN x10^3 (test code = 1543074853) 0.05 10*3/uL 0.00-0.06 LYMPH x10^3 (test code = 731-0) 1.40 10*3/uL 1.32-3.29 MONO x10^3 (test code = 742-7) 0.84 10*3/uL 0.33-0.92 EOS x10^3 (test code = 711-2) 0.39 10*3/uL 0.03-0.39 BASO x10^3 (test code = 704-7) 0.04 10*3/uL 0.01-0.07 Lab Interpretation (test code = 08218-5) [facility]/ANAEROBIC) 2020-10-03 12:47:10* Test Item Value Reference Range Interpretation Comme nts BODY FLUID CULT (test code = 611-4) No organisms isolated Gram stain (test code = 664-3) Few PMNs or Mononuclear cells observed [facility] METABOLIC PANEL (NA, K, CL, CO2, GLUCOSE, BUN, CREATININE, CA)2020-10-03 11:21:54* Test Item Value Reference Range Interpretation Comme nts NA (test code = 0593928479) 136 mmol/L 135-145 K (test code = 8843832586) 3.8 mmol/L 3.5-5.0 Slight hemolysis CL (test code = 3169058857) 108 mmol/L 98-108 CO2 TOTAL (test code = 4762926490) 26 mmol/L 23-31 AGAP (test code = 2189323839) 2-16 BUN (test code = 8208862821) 4 mg/dL 7-23 L Slight hemolysis GLUCOSE (test code = 0762586244) 112 mg/dL 70-110 H CREATININE (test code = 9776530316) 0.39 mg/dL 0.50-1.04 L CALCIUM (test code = 7814689325) 8.5 mg/dL 8.6-10.6 L eGFR (test code = 3596638650) mL/min/1.73m2 AYANA (test code = AYANA) Association [...] imaging tests). Lab Interpretation (test code = 48374-7) Abnormal [facility] WITH [id number] 10:55:33* Test Item Value Reference Range Interpretation Comme nts WBC (test code = 6690-2) See_Comment [Automated [employer]] The system which generated this result transmitted reference range: 4.30 - 11.10 10*3/?L. The reference range was not used to interpret this result as normal/abnormal. RBC (test code = 789-8) See_Comment L [Automated [employer]] The system which generated this result [...] 34.0 g/dL 31.6-35.1 RDW-SD (test code = 63853-0) 46.7 fL 39.0-49.9 RDW-CV (test code = 788-0) 12.9 % 12.0-15.5 PLT (test code = 777-3) See_Comment [Automated [employer]] The system which generated this result transmitted reference range: 166 - 358 10*3/?L. The reference range was not used to interpret this result as normal/abnormal. MPV (test code = 02315-5) 10.0 fL 9.5-12.9 NRBC/100 WBC (test code = 7095748831) See_Comment [Automated [employer] ssage] The system which generated this result transmitted reference range: 0.0 - 10.0 /100 WBCs. The reference range was not used to interpret this result as normal/abnormal. NRBC x10^3 (test code = 7968537233) <0.01 See_Comment [Automated messa ge] The system which generated this result transmitted reference range: 10*3/?L. The reference range was not used to interpret this result as normal/abnormal. GRAN MAT (NEUT) % (test code = 770-8) 71.4 % IMM GRAN % (test code = 0626921682) 0.40 % LYMPH % (test code = 736-9) 14.7 % MONO % (test code = 5905-5) 8.3 % EOS % (test code = 713-8) 4.8 % BASO % (test code = 706-2) 0.4 % GRAN MAT x10^3(ANC) (test code = 9613857468) 6.69 10*3/uL 1.88-7.09 IMM GRAN x10^3 (test code = 5517184288) 0.04 10*3/uL 0.00-0.06 LYMPH x10^3 (test code = 731-0) 1.38 10*3/uL 1.32-3.29 MONO x10^3 (test code = 742-7) 0.78 10*3/uL 0.33-0.92 EOS x10^3 (test code = 711-2) 0.45 10*3/uL 0.03-0.39 H BASO x10^3 (test code = 704-7) 0.04 10*3/uL 0.01-0.07 Lab Interpretation (test code = 98800-3) Abnormal [facility] METABOLIC PANEL (NA, K, CL, CO2, GLUCOSE, BUN, CREATININE, CA)2020-10-02 14:13:08* Test Item Value Reference Range Interpretation Comme nts NA (test code = 2042790413) 132 mmol/L 135-145 L K (test code = 4582361288) 3.5 mmol/L 3.5-5.0 CL (test code = 8061966392) 103 mmol/L 98-108 CO2 TOTAL (test code = 9149989093) 29 mmol/L 23-31 AGAP (test code = 1606041830) <1 2-16 L BUN (test code = 3227905363) 4 mg/dL 7-23 L GLUCOSE (test code = 9774434544) 122 mg/dL 70-110 H CREATININE (test code = 4565558660) 0.46 mg/dL 0.50-1.04 L CALCIUM (test code = 8776722595) 9.0 mg/dL 8.6-10.6 eGFR (test code = 7543841947) mL/min/1.73m2 AYANA (test code = AYANA) Association [...] imaging tests). Lab Interpretation (test code = 26712-3) Abnormal [facility] WITH [id number] 12:09:01* Test Item Value Reference Range Interpretation [...] 34.5 g/dL 31.6-35.1 RDW-SD (test code = 58597-1) 47.6 fL 39.0-49.9 RDW-CV (test code = 788-0) 13.3 % 12.0-15.5 PLT (test code = 777-3) See_Comment [Automated message] The system which generated this result transmitted reference range: 166 - 358 10*3/?L. The reference range was not used to interpret this result as normal/abnormal. MPV (test code = 18710-2) 9.9 fL 9.5-12.9 NRBC/100 WBC (test code = 1016133758) See_Comment [Automated message] The system which generated this result transmitted reference range: 0.0 - 10.0 /100 WBCs. The reference range was not used to interpret this result as normal/abnormal. NRBC x10^3 (test code = 7907538493) <0.01 See_Comment [Automated message] The system which generated this result transmitted reference range: 10*3/?L. The reference range was not used to interpret this result as normal/abnormal. GRAN MAT (NEUT) % (test code = 770-8) 81.7 % IMM GRAN % (test code = 8476629430) 0.60 % LYMPH % (test code = 736-9) 9.2 % MONO % (test code = 5905-5) 6.0 % EOS % (test code = 713-8) 2.3 % BASO % (test code = 706-2) 0.2 % GRAN MAT x10^3(ANC) (test code = 4394554989) 10.17 10*3/uL 1.88-7.09 H IMM GRAN x10^3 (test code = 5452868915) 0.07 10*3/uL 0.00-0.06 H LYMPH x10^3 (test code = 731-0) 1.15 10*3/uL 1.32-3.29 L MONO x10^3 (test code = 742-7) 0.75 10*3/uL 0.33-0.92 EOS x10^3 (test code = 711-2) 0.29 10*3/uL 0.03-0.39 BASO x10^3 (test code = 704-7) 0.03 10*3/uL 0.01-0.07 Lab Interpretation (test code = 49605-1) Abnormal [facility] METABOLIC PANEL (NA, K, CL, CO2, GLUCOSE, BUN, CREATININE, CA)2020-10-01 08:15:12* Test Item Value Reference Range Interpretation Comme nts NA (test code = 1904561146) 133 mmol/L 135-145 L K (test code = 4435997471) 3.7 mmol/L 3.5-5.0 CL (test code = 0958209178) 101 mmol/L 98-108 CO2 TOTAL (test code = 0469867808) 27 mmol/L 23-31 AGAP (test code = 9407876482) 2-16 BUN (test code = 9648157172) 8 mg/dL 7-23 GLUCOSE (test code = 5784471278) 99 mg/dL 70-110 CREATININE (test code = 1516855216) 0.50 mg/dL 0.50-1.04 CALCIUM (test code = 5384950943) 8.6 mg/dL 8.6-10.6 eGFR (test code = 7535259271) mL/min/1.73m2 AYANA (test code = AYANA) Association [...] imaging tests). Lab Interpretation (test code = 91549-5) [facility] 08:15:12* Test Item Value Reference Range Interpretation Comme nts MAGNESIUM (test code = 5917848653) 1.7 mg/dL 1.7-2.4 Lab Interpretation (test cod e = 53901-3) Normal [facility] 08:15:12* Test Item Value Reference Range Interpretation Comme nts PHOSPHORUS (test code = 0299280141) 3.2 mg/dL 2.5-5.0 Lab Interpretation (test cod e = 83943-6) Normal [facility] (NA, K, CL, CO2, GLUCOSE, BUN, CREATININE, CA)2020-10-01 08:15:12* Test Item Value Reference Range Interpretation Comme nts NA (test code = 1688080670) 133 mmol/L 135-145 L K (test code = 8749889147) 3.7 mmol/L 3.5-5.0 CL (test code = 4454493588) 101 mmol/L 98-108 CO2 TOTAL (test code = 8170808761) 27 mmol/L 23-31 AGAP (test code = 7906299003) 2-16 BUN (test code = 4401819410) 8 mg/dL 7-23 GLUCOSE (test code = 5540799473) 99 mg/dL 70-110 CREATININE (test code = 0545957371) 0.50 mg/dL 0.50-1.04 CALCIUM (test code = 8539783830) 8.6 mg/dL 8.6-10.6 eGFR (test code = 9996182903) mL/min/1.73m2 AYANA (test code = AYANA) Association [...] imaging tests). Lab Interpretation (test code = 04335-1) [facility]normal [facility] 08:15:12* Test Item Value Reference Range Interpretation Comme nts MAGNESIUM (test code = 9754980575) 1.7 mg/dL 1.7-2.4 Lab Interpretation (test cod e = 89116-6) Normal [facility] 08:15:12* Test Item Value Reference Range Interpretation Comme nts PHOSPHORUS (test code = 4373277278) 3.2 mg/dL 2.5-5.0 Lab Interpretation (test cod e = 45987-5) Normal [facility] with [id number] 07:46:25* Test Item Value Reference Range Interpretation [...] 34.0 g/dL 31.6-35.1 RDW-SD (test code = 66734-6) 48.8 fL 39.0-49.9 RDW-CV (test code = 788-0) 13.6 % 12.0-15.5 PLT (test code = 777-3) See_Comment [Automated messa ge] The system which generated this result transmitted reference range: 166 - 358 10*3/?L. The reference range was not used to interpret this result as normal/abnormal. MPV (test code = 75219-5) 9.6 fL 9.5-12.9 NRBC/100 WBC (test code = 5103797890) See_Comment [Automated me ssage] The system which generated this result transmitted reference range: 0.0 - 10.0 /100 WBCs. The reference range was not used to interpret this result as normal/abnormal. NRBC x10^3 (test code = 7815519501) <0.01 See_Comment [Automated messa ge] The system which generated this result transmitted reference range: 10*3/?L. The reference range was not used to interpret this result as normal/abnormal. GRAN MAT (NEUT) % (test code = 770-8) 83.8 % IMM GRAN % (test code = 0430787370) 0.50 % LYMPH % (test code = 736-9) 8.7 % MONO % (test code = 5905-5) 6.4 % EOS % (test code = 713-8) 0.3 % BASO % (test code = 706-2) 0.3 % GRAN MAT x10^3(ANC) (test code = 8207959573) 8.85 10*3/uL 1.88-7.09 H IMM GRAN x10^3 (test code = 9237290806) 0.05 10*3/uL 0.00-0.06 LYMPH x10^3 (test code = 731-0) 0.92 10*3/uL 1.32-3.29 L MONO x10^3 (test code = 742-7) 0.67 10*3/uL 0.33-0.92 EOS x10^3 (test code = 711-2) 0.03 10*3/uL 0.03-0.39 BASO x10^3 (test code = 704-7) 0.03 10*3/uL 0.01-0.07 Lab Interpretation (test code = 19723-3) Abnormal [facility] with [id number] 07:46:25* Test Item Value Reference Range Interpretation [...] 34.0 g/dL 31.6-35.1 RDW-SD (test code = 07777-9) 48.8 fL 39.0-49.9 RDW-CV (test code = 788-0) 13.6 % 12.0-15.5 PLT (test code = 777-3) See_Comment [Automated messa ge] The system which generated this result transmitted reference range: 166 - 358 10*3/?L. The reference range was not used to interpret this result as normal/abnormal. MPV (test code = 38615-0) 9.6 fL 9.5-12.9 NRBC/100 WBC (test code = 2849081575) See_Comment [Automated [employer] ssage] The system which generated this result transmitted reference range: 0.0 - 10.0 /100 WBCs. The reference range was not used to interpret this result as normal/abnormal. NRBC x10^3 (test code = 6608691105) <0.01 See_Comment [Automated messa ge] The system which generated this result transmitted reference range: 10*3/?L. The reference range was not used to interpret this result as normal/abnormal. GRAN MAT (NEUT) % (test code = 770-8) 83.8 % IMM GRAN % (test code = 8776929058) 0.50 % LYMPH % (test code = 736-9) 8.7 % MONO % (test code = 5905-5) 6.4 % EOS % (test code = 713-8) 0.3 % BASO % (test code = 706-2) 0.3 % GRAN MAT x10^3(ANC) (test code = 9692912972) 8.85 10*3/uL 1.88-7.09 H IMM GRAN x10^3 (test code = 9114061424) 0.05 10*3/uL 0.00-0.06 LYMPH x10^3 (test code = 731-0) 0.92 10*3/uL 1.32-3.29 L MONO x10^3 (test code = 742-7) 0.67 10*3/uL 0.33-0.92 EOS x10^3 (test code = 711-2) 0.03 10*3/uL 0.03-0.39 BASO x10^3 (test code = 704-7) 0.03 10*3/uL 0.01-0.07 Lab Interpretation (test code = 17518-7) [id number] 22:38:361. The tip and sidehole of the [...] reviewed this study and agree withthe above report.[facility] [id number] 22:38:361. The tip and sidehole of the [...] are identified. No acutebony abnormality is present. [facility], Radiant Results Inft User - 09/30/2020 5:39 [...] reviewed this study and agree withthe above report.[facility] [id number] 20:48:51* Test Item Value Reference Range Interpretation [...] 34.5 g/dL 31.6-35.1 RDW-SD (test code = 26400-2) 49.8 fL 39.0-49.9 RDW-CV (test code = 788-0) 13.7 % 12.0-15.5 PLT (test code = 777-3) See_Comment [Automated message] The system which generated this result transmitted reference range: 166 - 358 10*3/?L. The reference range was not used to interpret this result as normal/abnormal. MPV (test code = 76601-6) 10.0 fL 9.5-12.9 NRBC/100 WBC (test code = 2117437487) See_Comment [Automated message] The system which generated this result transmitted reference range: 0.0 - 10.0 /100 WBCs. The reference range was not used to interpret this result as normal/abnormal. NRBC x10^3 (test code = 1474833683) <0.01 See_Comment [Automated message] The system which generated this result transmitted reference range: 10*3/?L. The reference range was not used to interpret this result as normal/abnormal. GRAN MAT (NEUT) % (test code = 770-8) 85.5 % IMM GRAN % (test code = 0737527814) 0.60 % LYMPH % (test code = 736-9) 8.1 % MONO % (test code = 5905-5) 5.6 % EOS % (test code = 713-8) 0.0 % BASO % (test code = 706-2) 0.2 % GRAN MAT x10^3(ANC) (test code = 9570299841) 7.38 10*3/uL 1.88-7.09 H IMM GRAN x10^3 (test code = 0714277760) 0.05 10*3/uL 0.00-0.06 LYMPH x10^3 (test code = 731-0) 0.70 10*3/uL 1.32-3.29 L MONO x10^3 (test code = 742-7) 0.48 10*3/uL 0.33-0.92 EOS x10^3 (test code = 711-2) <0.03 0.03-0.39 L BASO x10^3 (test code = 704-7) <0.03 0.01-0.07 BANDS (test code = 3476433919) MARKED INCREASED A Lab Interpretation (test code = 98435-2) Abnormal [facility] WITH [id number] 20:48:51* Test Item Value Reference Range Interpretation [...] 34.5 g/dL 31.6-35.1 RDW-SD (test code = 82701-7) 49.8 fL 39.0-49.9 RDW-CV (test code = 788-0) 13.7 % 12.0-15.5 PLT (test code = 777-3) See_Comment [Automated message] The system which generated this result transmitted reference range: 166 - 358 10*3/?L. The reference range was not used to interpret this result as normal/abnormal. MPV (test code = 46878-7) 10.0 fL 9.5-12.9 NRBC/100 WBC (test code = 9706091065) See_Comment [Automated message] The system which generated this result transmitted reference range: 0.0 - 10.0 /100 WBCs. The reference range was not used to interpret this result as normal/abnormal. NRBC x10^3 (test code = 3275101325) <0.01 See_Comment [Automated message] The system which generated this result transmitted reference range: 10*3/?L. The reference range was not used to interpret this result as normal/abnormal. GRAN MAT (NEUT) % (test code = 770-8) 85.5 % IMM GRAN % (test code = 5274478953) 0.60 % LYMPH % (test code = 736-9) 8.1 % MONO % (test code = 5905-5) 5.6 % EOS % (test code = 713-8) 0.0 % BASO % (test code = 706-2) 0.2 % GRAN MAT x10^3(ANC) (test code = 4246358244) 7.38 10*3/uL 1.88-7.09 H IMM GRAN x10^3 (test code = 2146098480) 0.05 10*3/uL 0.00-0.06 LYMPH x10^3 (test code = 731-0) 0.70 10*3/uL 1.32-3.29 L MONO x10^3 (test code = 742-7) 0.48 10*3/uL 0.33-0.92 EOS x10^3 (test code = 711-2) <0.03 0.03-0.39 L BASO x10^3 (test code = 704-7) <0.03 0.01-0.07 BANDS (test code = 9459514961) MARKED INCREASED A Lab Interpretation (test code = 67718-1) [facility]normal [facility] [id number] 19:50:17* Test Item Value Reference Range Interpretation Comme nts APTT Patient (test code = 3173-2) See_Comment [Automated messa ge] The system which generated this result transmitted reference range: 26 - 36 Seconds. The reference range was not used to interpret this result as normal/abnormal. Lab Interpretation (test code = 75698-0) Normal [facility] CenterPROTHROMBIN TIME / [id number] 19:50:17* Test Item Value Reference Range Interpretation [...] the indications. Lab Interpretation (test code = 24792-1) Abnormal [facility] THRM[facility] [id number] 19:50:17* Test Item Value Reference Range Interpretation Comme nts APTT Patient (test code = 3173-2) See_Comment [Automated messa ge] The system which generated this result transmitted reference range: 26 - 36 Seconds. The reference range was not used to interpret this result as normal/abnormal. Lab Interpretation (test code = 73408-2) Normal [facility] CenterPROTHROM[facility] TIME / [id number] 19:50:17* Test Item Value Reference Range Interpretation [...] the indications. Lab Interpretation (test code = 86103-4) Abnormal [facility] Metabolic Panel (NA, K, CL, CO2, Glucose, BUN, Creatinine, CA)2020-09-30 11:09:08* Test Item Value Reference Range Interpretation Comme nts NA (test code = 3515141657) 131 mmol/L 135-145 L K (test code = 1490053001) 4.4 mmol/L 3.5-5.0 CL (test code = 9317866080) 105 mmol/L 98-108 CO2 TOTAL (test code = 1584088563) 21 mmol/L 23-31 L AGAP (test code = 7161658696) 2-16 BUN (test code = 3200305080) 12 mg/dL 7-23 GLUCOSE (test code = 4487268176) 134 mg/dL 70-110 H CREATININE (test code = 0824332843) 0.54 mg/dL 0.50-1.04 CALCIUM (test code = 8575611136) 8.6 mg/dL 8.6-10.6 eGFR (test code = 7420841026) mL/min/1.73m2 AYANA (test code = AYANA) Association [...] imaging tests). Lab Interpretation (test code = 95036-8) Abnormal [facility] Metabolic Panel (NA, K, CL, CO2, Glucose, BUN, Creatinine, CA)2020-09-30 11:09:08* Test Item Value Reference Range Interpretation Comme nts NA (test code = 8895729775) 131 mmol/L 135-145 L K (test code = 3871613600) 4.4 mmol/L 3.5-5.0 CL (test code = 9281176519) 105 mmol/L 98-108 CO2 TOTAL (test code = 3711469733) 21 mmol/L 23-31 L AGAP (test code = 9051236890) 2-16 BUN (test code = 5064744318) 12 mg/dL 7-23 GLUCOSE (test code = 4208889549) 134 mg/dL 70-110 H CREATININE (test code = 5466595674) 0.54 mg/dL 0.50-1.04 CALCIUM (test code = 2781993959) 8.6 mg/dL 8.6-10.6 eGFR (test code = 2908426530) mL/min/1.73m2 AYANA (test code = AYANA) Association [...] imaging tests). Lab Interpretation (test code = 58171-3) Abnormal [facility] CenterIntubation2021-07-13 08:54:44Edgardo Buck MD ? ? 09/30/2020 ?3:55 AMIntubationUrgency: elective Airway not difficult General Information and Staff Patient location during procedure: ORResident/PLANER SETUP OPERATOR: Edgardo Buck MDPerformed: resident/PLANER SETUP OPERATOR Indications and Patient ConditionIndications for airway management: [...] atraumatic, dentition and lips unchanged from pre-op. [facility] CenterType and Screen - ONCE [id number] 08:24:34* Test Item Value Reference Range Interpretation Comme nts ABO & RH (test code = 20) O POSITIVE Performed at [facility] Laboratory Services - [facility] Blood [address] Free: [phone] No. [id number] IAT (test code = 1185) Negative Performed at [facility] Laboratory Services - [facility] Blood [address] Free: [phone] No. [id number] [facility] CenterType and Screen - ONCE [id number] 08:24:34* Test Item Value Reference Range Interpretation Comme nts ABO & RH (test code = 20) O POSITIVE Performed at [facility] Laboratory [address] [address] Free: [phone] No. [id number] IAT (test code = 1185) Negative Performed at [place] [address]Toll Free: [phone] No. [id number] [facility] Confirmation (Lab Only)2020-09-30 08:09:54* Test Item Value Reference Range Interpretation Comme nts ABO & RH (test code = 20) O Positive Performed at [address] [address] Free: [phone] No. [id number] [facility] Confirmation (Lab Only)2020-09-30 08:09:54* Test Item Value Reference Range Interpretation Comme nts ABO & RH (test code = 20) O Positive Performed at [address] [address]Dvpr Free: [phone] No. [id number] [facility] CenterCOVID-19 (ID NOW RAPID TESTING)2020-09-30 03:17:30* Test Item Value Reference Range Interpretation Comme nts SARS-CoV-2 Rapid ID NOW (test code = 11814-8) Not Detected Not Detected AYANA (test code = AYANA) ID NOW COVID-19 As say is an isothermal nucleic acid amplification test intended for the qualitative detection of nucleic acid from SARS-CoV-2 viral RNA in nasopharyngeal (STOCK ASSOCIATE) specimens. It is used under Emergency Use [...] clinically indicated. Lab Interpretation (test code = 89768-2) Normal [facility] CenterCT ABDOMEN PELVIS W [id number] 02:46:09Impression: 1. Perforated ulcer in the region [...] with KENZIE CARDENAS at 09/29/2020 9:43 PM. Nvmb, Radiant Results Inft User - 09/29/2020 9:47 [...] laboratory correlation isrecommended.3. Atherosclerosis.RL: 460End of Report UnB[facility] WorthUrinalysis2021-07-13 01:19:32* Test Item Value Reference Range Interpretation Comme nts APPEARANCE (test code = 4044649826) Hazy Clear A COLOR (test code = 3762831737) Yellow Yellow PH (test code = 7781823363) 4.8-8.0 SP GRAVITY (test code = 3151361530) 1.003-1.030 GLU U QUAL (test code = 8239564092) Normal Normal BLOOD (test code = 6006395793) Negative Negative KETONES (test code = 8156114624) Negative Negative PROTEIN (test code = 2887-8) Negative Negative UROBILIN (test code = 9500437396) 4.0 mg/dL Normal A BILIRUBIN (test code = 3258247620) 2 mg/dL Negative A NITRITE (test code = 6004146114) Negative Negative LEUK EUGENIO (test code = 8921206961) 250/uL Negative A RBC/HPF (test code = 4669507325) See_Comment H [Automated messa ge] The system which generated this result transmitted reference range: 0 - 3 HPF. The reference range was not used to interpret this result as normal/abnormal. WBC/HPF (test code = 1076271113) See_Comment H [Automated messa ge] The system which generated this result transmitted reference range: 0 - 5 HPF. The reference range was not used to interpret this result as normal/abnormal. BACTERIA (test code = 3472732878) Negative Negative MUCOUS (test code = 5746505385) Slight Negative LPF A SQ EPITH (test code = 1221430881) HPF HYAL CAST (test code = 2128398240) See_Comment H [Automated messa ge] The system which generated this result transmitted reference range: <=2 LPF. The reference range was not used to interpret this result as normal/abnormal. Lab Interpretation (test code = 64285-2) Abnormal [facility] CenterComplete Metabolic [id number] 01:04:29* Test Item Value Reference Range Interpretation Comme nts NA (test code = 6251229349) 133 mmol/L 135-145 L K (test code = 8952777990) 3.7 mmol/L 3.5-5.0 CL (test code = 5323049530) 101 mmol/L 98-108 CO2 TOTAL (test code = 0481351206) 22 mmol/L 23-31 L AGAP (test code = 7098624465) 2-16 BUN (test code = 5656871922) 9 mg/dL 7-23 GLUCOSE (test code = 3667782613) 133 mg/dL 70-110 H CREATININE (test code = 7424038080) 0.51 mg/dL 0.50-1.04 TOTAL BILI (test code = 1486637808) 0.6 mg/dL 0.1-1.1 CALCIUM (test code = 2704202252) 10.4 mg/dL 8.6-10.6 T PROTEIN (test code = 7161153599) 7.9 g/dL 6.3-8.2 ALBUMIN (test code = 2576487464) 5.0 g/dL 3.5-5.0 ALK PHOS (test code = 8670231139) 100 U/L 34-122 ALTv (test code = 1742-6) 16 U/L 5-35 AST(SGOT) (test code = 6835152414) 29 U/L 13-40 eGFR (test code = 9530719787) mL/min/1.73m2 AYANA (test code = AYANA) Association [...] imaging tests). Lab Interpretation (test code = 07291-7) Abnormal [facility] CenterLipase, [id number] 00:57:08* Test Item Value Reference Range Interpretation Comme nts LIPASE (test code = 5273808245) 86 U/L 0-220 Lab Interpretation (test cod e = 63729-3) Normal [facility] CenterCBC with [id number] 00:32:03* Test Item Value Reference Range Interpretation Comme nts WBC (test code = 6690-2) See_Comment [Automated [employer]] The system which generated this result transmitted reference range: 4.30 - 11.10 10*3/?L. The reference range was not used to interpret this result as normal/abnormal. RBC (test code = 789-8) See_Comment [Automated [employer]] The system which generated this result [...] g/dL 31.6-35.1 H RDW-SD (test code = 32863-3) 47.3 fL 39.0-49.9 RDW-CV (test code = 788-0) 13.3 % 12.0-15.5 PLT (test code = 777-3) See_Comment [Automated [employer]] The system which generated this result transmitted reference range: 166 - 358 10*3/?L. The reference range was not used to interpret this result as normal/abnormal. MPV (test code = 28155-7) 9.4 fL 9.5-12.9 L NRBC/100 WBC (test code = 1302719275) See_Comment [Automated me ssage] The system which generated this result transmitted reference range: 0.0 - 10.0 /100 WBCs. The reference range was not used to interpret this result as normal/abnormal. NRBC x10^3 (test code = 1570587862) <0.01 See_Comment [Automated messa ge] The system which generated this result transmitted reference range: 10*3/?L. The reference range was not used to interpret this result as normal/abnormal. GRAN MAT (NEUT) % (test code = 770-8) 58.9 % IMM GRAN % (test code = 5782657121) 0.40 % LYMPH % (test code = 736-9) 27.6 % MONO % (test code = 5905-5) 10.5 % EOS % (test code = 713-8) 1.9 % BASO % (test code = 706-2) 0.7 % GRAN MAT x10^3(ANC) (test code = 2957488875) 4.03 10*3/uL 1.88-7.09 IMM GRAN x10^3 (test code = 9159368630) 0.03 10*3/uL 0.00-0.06 LYMPH x10^3 (test code = 731-0) 1.89 10*3/uL 1.32-3.29 MONO x10^3 (test code = 742-7) 0.72 10*3/uL 0.33-0.92 EOS x10^3 (test code = 711-2) 0.13 10*3/uL 0.03-0.39 BASO x10^3 (test code = 704-7) 0.05 10*3/uL 0.01-0.07 Lab Interpretation (test code = 31737-7) Abnormal [facility] [id number] 15:21:36* Test Item Value Reference Range Interpretation Comme nts TROPONIN I (test code = 1737866427) 0.002 ng/mL See_Comment [Automated message] The system [...] biotin. ? Lab Interpretation (test code = 96586-0) Normal [facility] CenterN-TERMINAL [id number]-[id number] 15:18:40* Test Item Value Reference Range Interpretation Comme [facility] NT-proBNP (test code = 9574304734) 141 pg/mL See_Comment H [Automated message] The system which generated this result transmitted reference range: <=125. The reference range was not used to interpret this result as normal/abnormal. AYANA (test code = AYANA) Biotin has been reported to cause a negative bias, interpret results relative to patient's use of biotin. Lab Interpretation (test code = 66098-6) Abnormal [facility] CenteraPTT2021-03-25 15:17:19* Test Item Value Reference Range Interpretation Comme [facility] APTT Patient (test code = 3173-2) See_Comment [Automated message] The system which generated this result transmitted reference range: 23 - 38 Seconds. The reference range was not used to interpret this result as normal/abnormal. AYANA (test code = AYANA) The [facility] patient population mean normal value for aPTT is 30 seconds. Lab Interpretation (test code = 74521-8) Normal [facility] CenterProthrombin Time (PT) / [id number] 15:15:19 * Test Item Value Reference Range Interpretation Comme [facility] PROTIME PATIENT (test code = 5964-2) See_Comment L [Automated [employer] ge] The system which generated this result transmitted reference range: 12.0 - 14.7 Seconds. The reference range was not used to interpret this result as normal/abnormal. INR (test code = 6301-6) Normal INR <1.1; Warfarin Therapeutic range 2.0 to 3.0 or 2.5 to 3.5, depending upon the indications. Lab Interpretation (test code = 08496-1) Abnormal [facility] Metabolic Panel (NA, K, CL, CO2, GLUCOSE, BUN, CREATININE, CA)2020-06-12 15:09:37* Test Item Value Reference Range Interpretation Comme [facility] NA (test code = 9188786626) 137 mmol/L 135-145 K (test code = 5557307288) 4.0 mmol/L 3.5-5.0 CL (test code = 0817743392) 105 mmol/L 98-108 CO2 TOTAL (test code = 6714838342) 24 mmol/L 23-31 AGAP (test code = 3636778911) 2-16 BUN (test code = 3742875759) 11 mg/dL 7-23 GLUCOSE (test code = 1573943339) 108 mg/dL 70-110 CREATININE (test code = 8601132249) 0.59 mg/dL 0.50-1.04 CALCIUM (test code = 7362392578) 9.4 mg/dL 8.6-10.6 eGFR Calculation (Non-) (test code = 1780510960) mL/min/1.73m2 eGFR Calculation () (test code = 5163619738) mL/min/1.73m2 AYANA (test code = AYANA) Association [...] or urine or abnormalities in imaging tests). [facility] CenterHepatic Function Panel (ALB, T.PRO, BILI T, BU/BC, ALT, AST, ALK PHOS)2020-06-12 15:09:37* Test Item Value Reference Range Interpretation Comme nts TOTAL BILI (test code = 2769732791) 0.7 mg/dL 0.1-1.1 BILI UNCON (test code = 1464463361) 0.5 mg/dL 0.1-1.1 BILI CONJ (test code = 1733609245) 0.0 mg/dL 0.0-0.3 T PROTEIN (test code = 8100292502) 8.2 g/dL 6.3-8.2 ALBUMIN (test code = 4748478955) 5.1 g/dL 3.5-5.0 H ALK PHOS (test code = 0124683452) 121 U/L 34-122 ALTv (test code = 1742-6) 20 U/L 5-35 AST(SGOT) (test code = 1883150132) 26 U/L 13-40 Lab Interpretation (test cod e = 26580-9) Abnormal [facility] CenterChes 1 [id number] 15:05:52Small bilateral pleural effusions versus pleural thickening. [...] reviewed this study and agree with theabove report.[facility] CenterCOVID-19 (ID NOW RAPID TESTING)2020-06-12 15:03:56* Test Item Value Reference Range Interpretation Comme nts SARS-CoV-2 Rapid ID NOW (test code = 18738-7) Not Detected Not Detected AYANA (test code = AYANA) ID NOW COVID-19 As say is an isothermal nucleic acid amplification test intended for the qualitative detection of nucleic acid from SARS-CoV-2 viral RNA in nasopharyngeal (STOCK ASSOCIATE) specimens. It is used under Emergency Use [...] clinically indicated. Lab Interpretation (test code = 26260-6) Normal [facility] with Kqaokdqmctdx1967 14:59:28* Test Item Value Reference Range Interpretation Comme nts WBC (test code = 6690-2) See_Comment [Automated [employer]] The system which generated this result transmitted reference range: 4.30 - 11.10 10*3/?L. The reference range was not used to interpret this result as normal/abnormal. RBC (test code = 789-8) See_Comment [Automated [employer]] The system which generated this result [...] 33.8 g/dL 31.6-35.1 RDW-SD (test code = 20320-7) 49.1 fL 39.0-49.9 RDW-CV (test code = 788-0) 13.6 % 12.0-15.5 PLT (test code = 777-3) See_Comment [Automated [employer]] The system which generated this result transmitted reference range: 166 - 358 10*3/?L. The reference range was not used to interpret this result as normal/abnormal. MPV (test code = 73059-2) 9.9 fL 9.5-12.9 NRBC/100 WBC (test code = 2814604129) See_Comment [Automated [employer] ssage] The system which generated this result transmitted reference range: 0.0 - 10.0 /100 WBCs. The reference range was not used to interpret this result as normal/abnormal. NRBC x10^3 (test code = 9418433842) <0.01 See_Comment [Automated messa ge] The system which generated this result transmitted reference range: 10*3/?L. The reference range was not used to interpret this result as normal/abnormal. GRAN MAT (NEUT) % (test code = 770-8) 63.7 % IMM GRAN % (test code = 5030796126) 0.50 % LYMPH % (test code = 736-9) 20.2 % MONO % (test code = 5905-5) 12.6 % EOS % (test code = 713-8) 2.4 % BASO % (test code = 706-2) 0.6 % GRAN MAT x10^3(ANC) (test code = 1027239706) 5.10 10*3/uL 1.88-7.09 IMM GRAN x10^3 (test code = 2178039446) 0.04 10*3/uL 0.00-0.06 LYMPH x10^3 (test code = 731-0) 1.62 10*3/uL 1.32-3.29 MONO x10^3 (test code = 742-7) 1.01 10*3/uL 0.33-0.92 H EOS x10^3 (test code = 711-2) 0.19 10*3/uL 0.03-0.39 BASO x10^3 (test code = 704-7) 0.05 10*3/uL 0.01-0.07 Lab Interpretation (test code = 84458-9) Abnormal [facility]"
[2024-06-14] MEDS ORDERED: ALBUTEROL 2.5 MG/3 ML NEB SOL ONE ×3 (05:18→14:37)
[2024-06-14 06:33] LABS: Influenza A Ag Negative; Influenza B Ag Negative; SARS-CoV-2 Antigen Rapid Res Negative (Negative)
[2024-06-14 07:03] LABS: Absolute Eosinophils 0.3 K/uL (0-0.5); Absolute Lymphocytes (CBC) 0.7 K/uL (0.7-4.9); Absolute Monocytes 0.3 K/uL (0.1-1.3); Absolute Neutrophil 8.9 K/uL (1.8-8.0); Basophils % 0.3 % (0-1.3); Eosinophils % 2.5 % (0-4.4); Hematocrit 44.6 % (36.0-45.0); Hemoglobin 15.5 g/dL (12.0-15.0); Lymphocytes % 6.6 % (15.3-44.8); MCH 34.2 pg (27.0-35.0); MCHC 34.8 g/dL (32.0-36.0); MCV 98.3 fL (80-100); MPV 7.9 fL (7.6-11.3); Monocytes % 2.9 % (3.3-12.3); Neutrophils % 87.7 % (41.7-73.7); Platelets 266 thou/uL (152-406); RBC Red Blood Cell Count 4.54 M/uL (3.86-4.86); Red Cell Distribution Width 14.1 % (12.1-15.2)
--- NOTE | 2024-06-14 07:07 | RAD REPORT ---
CLINICAL HISTORY: COPD COMPARISON: None. TECHNIQUE: XR CHEST 1 VIEW 06/14/2024 5:07 AM CDT FINDINGS: The heart is mildly enlarged there are small bilateral pleural effusions. Lungs are clear without con solidation, atelectasis, mass or edema. There is no pleural effusion. There is no pneumothorax. There is a partially visualized likely old fracture of the proximal right humerus. IMPRESSION: Small pleural effusions without definite pneumonia. Electronically signed by: Valentin Hahn MD 06/14/2024 06:55 AM CDT RP Due to temporary technical issues with the PACS/[employer] reporting system, reports are being edgar d by the in-house radiologist without review as a courtesy to ensure prompt reporting the interpreting radiologist is fully responsible for the content of the report. Transcribed Date/Time: 06/14/2024 7:07 AM
--- NOTE | 2024-06-14 07:08 | EDPHYS ---
Physician Documentation [facility] Name: Gretel Bunch Age: 58 yrs Sex: Female : 1965 Arrival Date: 06/14/2024 Time: 05:03 Bed 19 Private MD: ED Physician Sydnee Fernandez HPI: 06/14 05:07 This 58 yrs old Female presents to ER via Unassigned with complaints of sw6 Shortness Of Breath. 05:07 The patient has shortness of breath at rest. Onset: The symptoms/episode began/occurred sw6 last week. Duration: The symptoms are continuous, and are steadily getting worse. The patient's shortness of breath is aggravated by light activity, is alleviated by inhaler, nebulizer treatment, sitting up, application of supplemental oxygen. Associated signs and symptoms: Pertinent positives: non-productive cough, Pertinent negatives: chest pain, fever, loss of consciousness. Severity of symptoms: At their worst the symptoms were severe in the emergency department the symptoms have improved. The patient has experienced similar episodes in the past, several times. The patient presents from home with EMS for evaluation for worsening shortness of breath and cough for the past 1 week. She does have sick contacts at work. No fevers. She does have a history of COPD and still smokes although she is working on [employer]. She does wear oxygen at night but none during the day. She has been using her inhalers at home and reports it has not been helping. Upon EMS arrival she was noted to be tachypneic as well as tripoding and diaphoretic. She was placed on supplemental oxygen, given a DuoNeb treatment, and albuterol treatment, 125 mg Solu-Medrol as well as 4 g of magnesium. She has noted improvement by EMS upon arrival to the ER. No history of high blood pressure diabetes. Here for evaluation.. Historical: - Allergies: 06:02 No Known Allergies; br2 - PMHx: 06:02 COPD; br2 - PSHx: 06:02 stomach (COPD); br2 - Immunization history:: Adult Immunizations not up to date. - Social history:: Smoking status: Patient reports the use of cigarette tobacco products, unknown amount. - Infectious Disease History:: Denies. ROS: 05:07 Constitutional: Negative for fever, chills, and weight loss, Cardiovascular: Negative sw6 for chest pain, palpitations, and edema, Abdomen/GI: Negative for abdominal pain, nausea, vomiting, diarrhea, and constipation, 05:07 Respiratory: Positive for cough, with no reported sputum, shortness of breath, wheezing, 05:07 All other systems are negative, Exam: 05:07 Head/Face: Normocephalic, atraumatic. Abdomen/GI: Soft, non-tender, with normal bowel sw6 sounds. No distension or tympany. No guarding or rebound. No evidence of tenderness throughout. Back: No spinal tenderness. No costovertebral tenderness. Full range of motion. MS/ Extremity: Pulses equal, no cyanosis. Neurovascular intact. Full, normal range of motion. Psych: Awake, alert, with orientation to person, place and time. Behavior, mood, and affect are within normal limits. 05:07 Constitutional: The patient appears in no acute distress, awake, non-diaphoretic, non-toxic, well developed, 05:07 Cardiovascular: Rate: normal, Rhythm: regular, 05:07 Respiratory: Breath sounds: Coarse wheezing throughout bilateral lungs., No use of accessory muscles. She is able to speak in 3-4 word sentences., Vital Signs: 05:58 BP 158 / 98; Pulse 110; Resp 26; Temp 97.4; Pulse Ox 90% on 3 lpm NC; Weight 50.8 kg; br2 Height 5 ft. 0 in. ; 06:35 BP 122 / 71; Pulse 79; Resp 18; Pulse Ox 97% on 3 lpm NC; br2 05:58 Body Mass Index 21.87 (50.80 kg, 152.4 cm) br2 MDM: 05:07 Differential diagnosis: asthma, Bronchitis Chronic Obstructive Pulmonary Disease sw6 pneumonia, reactive airway disease. Data reviewed: vital signs, nurses notes, EMS record. 05:12 Medical Screening Exam initiated sw 06:37 Data reviewed: lab test result(s), radiologic studies, plain films. Consideration of 6 Admission/Observation Patient was admitted/placed on observation. ED course: The patient has slight improvement after the treatments given above. She still has coarse wheezing bilaterally but is resting comfortably on 3 L of oxygen where her baseline is none. Her chest x-ray shows no acute cardiopulmonary issues. She does require admission for continued management.. 07:08 ED course: spoke with Dr. Zepeda with the internal medicine service and the patient was sw6 accepted for admission for continued management. . 06/14 05:07 Order name: BMP; Complete Time: 07:31 06/14 05:07 Order name: CBC with Diff; Complete Time: 07:05 06/14 07:08 Interpretation: Within normal limits. 06/14 05:07 Order name: Hepatic Function; Complete Time: 07:31 06/14 05:07 Order name: Magnesium; Complete Time: 07:31 06/14 05:07 Order name: NT PRO-BNP; Complete Time: 07:31 06/14 05:07 Order name: Troponin HS; Complete Time: 07:31 06/14 05:07 Order name: COVID-19 Ag + Flu A+B Ag; Complete Time: 06:56 06/14 06:59 Interpretation: Within normal limits. 06/14 07:44 Order name: CBC with Automated Diff EDMS 06/14 07:44 Order name: CBC with Automated Diff EDMS 06/14 07:44 Order name: CBC with Automated Diff EDMS 06/14 07:44 Order name: CBC with Automated Diff EDMS 06/14 07:44 Order name: Comprehensive Metabolic Panel EDMS 06/14 07:44 Order name: Comprehensive Metabolic Panel EDMS 06/14 07:44 Order name: Comprehensive Metabolic Panel EDMS 06/14 07:44 Order name: Comprehensive Metabolic Panel EDMS 06/14 07:44 Order name: T4 Free EDMS 06/14 07:44 Order name: T4 Free EDMS 06/14 07:44 Order name: Thyroid Stimulating Hormone EDMS 06/14 07:44 Order name: Thyroid Stimulating Hormone EDMS 06/14 07:44 Order name: Troponin High Sensitivity EDMS 06/14 07:44 Order name: Troponin High Sensitivity EDMS 06/14 07:44 Order name: Troponin High Sensitivity EDMS 06/14 05:07 Order name: XRAY CXR (1 view) 06/14 06:59 Interpretation: No acute disease. 06/14 07:44 Order name: Echo with Doppler 06/14 05:07 Order name: Cardiac monitoring; Complete Time: 05:48 06/14 05:07 Order name: EKG - Nurse/Tech; Complete Time: 05:48 06/14 05:07 Order name: IV Saline Lock; Complete Time: 05:48 06/14 05:07 Order name: Labs collected and sent; Complete Time: 05:48 06/14 05:07 Order name: O2 Per Protocol; Complete Time: 05:48 06/14 05:07 Order name: O2 Sat Monitoring; Complete Time: 05:48 06/14 06:31 Order name: Misc. Order: RECOLLECT LAVENDER AND LIGHT GREEN; Complete Time: 06:54 rv1 Administered Medications: 05:40 Drug: Albuterol Inhalation 2.5 mg Inhalation every 20 minutes x3 Route: Inhalation; br2 06:00 Drug: Albuterol Inhalation 2.5 mg Inhalation every 20 minutes x3 Route: Inhalation; br2 06:30 Drug: Albuterol Inhalation 2.5 mg Inhalation every 20 minutes x3 Route: Inhalation; br2 07:31 Drug: Albuterol Inhalation 7.5 mg Inhalation once Route: Inhalation; kc6 07:56 Drug: Aspirin PO Chewable Tablet 324 mg PO once; 81 mg tablets x 4 Route: PO; kc6 07:56 Drug: Enoxaparin Sub-Q 1 mg/kg Sub-Q once Route: Sub-Q; Site: abdomen; kc6 Disposition Summary: 06/14/24 07:07 Hospitalization Ordered Notes: Hospitalization Status: Inpatient Admission rust Provider: Juan José Zepeda Kathy Condition: Serious 6 Problem: an acute exacerbation sw6 Symptoms: have improved sw6 Bed/Room Type: Standard rust Location: Telemetry/MedSurg (Inpatient)(06/14/24 15:50) kb3 Room Assignment: 208(06/14/24 15:50) kb3 Diagnosis - COPD/ Chronic obstructive pulmonary disease with (acute) exacerbation sw6 - Respiratory failure, unspecified with hypoxia sw6 Forms: - Medication Reconciliation Form sw6 - SBAR form sw6 - Leadership Thank You Letter rust Signatures: Dispatcher [employer] Jan Cifuentes MD MD rn Attema, Lee, PSYCH THERAPIST-C PSYCH THERAPIST-Cla1 Juanita Powell RN RN kc6 Ashley Mendoza RN RN kb3 Vita Buckley rv1 Sydnee Fernandez MD MD sw6 Warren, Cora, RN RN br2 Corrections: (The following items were deleted from the chart) 05:07 05:07 BASIC METABOLIC PANEL+C.LAB.BRZ ordered. EDMS EDMS 05:07 05:07 CBC+H.LAB.BRZ ordered. EDMS EDMS 05:07 05:07 HEPATIC FUNCTION+C.LAB.BRZ ordered. EDMS EDMS 05:07 05:07 MAGNESIUM+C.LAB.BRZ ordered. EDMS EDMS 05:07 05:07 PROBNP+C.LAB.BRZ ordered. EDMS EDMS 05:07 05:07 Troponin High Sensitivity+C.LAB.BRZ ordered. EDMS EDMS 05:07 05:07 COVID-19 Ag + Flu A+B Ag+I.LAB.BRZ ordered. EDMS EDMS 05:07 05:07 Chest Single View+RAD.RAD.BRZ ordered. EDMS EDMS 07:51 07:07 Telemetry/MedSurg (Inpatient) sw6 kb3 07:51 07:07 sw6 kb3 15:50 07:51 [facility] ER HOLD kb3 kb3 15:50 07:51 ERHOLD- kb3 kb3
--- NOTE | 2024-06-14 07:08 | ER ---
Nurse's Notes [facility] Name: Gretel Bunch Age: 58 yrs Sex: Female : 1965 Arrival Date: 06/14/2024 Time: 05:03 Bed 19 Private MD: Diagnosis: COPD/ Chronic obstructive pulmonary disease with (acute) exacerbation;Respiratory failure, unspecified with hypoxia Presentation: 06/14 05:00 Chief complaint: Patient states: SOB HASN'T BEEN FEELING GOOD FOR THE LAST WEEK. BECAME br2 EXTREMELY SOB AND WAS BARELY ABLE TO SPEAK. PT RECEIVED SOLUMEDROL 125MG IV, MAG 4MG/100ML OF NS, A\T\A NEB TX PER [employer] [employer]IN PUMPER. 05:58 Coronavirus screen: Client denies travel out of the [place] in the last 14 days. Ebola br2 Screen: Patient denies exposure to infectious person. Initial Sepsis Screen: Does the patient meet any 2 criteria? RR > 20 per min. HR > 90 bpm. Does the patient have a suspected source of infection? No. Patient's initial sepsis screen is negative. Risk Assessment: Do you want to hurt yourself or someone else? Patient reports no desire to harm self or others. Onset of symptoms was June 07, 2024. 05:58 Method Of Arrival: EMS: [facility] br2 05:58 Acuity: FAITH 3 br2 Triage Assessment: 06:02 General: Appears slender, malnourished, Behavior is calm, cooperative, anxious. Pain: br2 Denies pain. EENT: No signs and/or symptoms were reported regarding the EENT system. Neuro: [place] Agitation-Sedation Scale (RASS): 0 - Alert and Calm Level of Consciousness is awake, alert, obeys commands, Oriented to person, place, time, situation. Cardiovascular: Denies chest pain. Respiratory: Reports shortness of breath at rest on exertion Onset: The symptoms/episode began/occurred , the patient has severe shortness of breath. Respiratory: Airway is patent Respiratory effort is pursed lip, Respiratory pattern is regular, symmetrical, tachypnea. GI: No signs and/or symptoms were reported involving the gastrointestinal system. : No signs and/or symptoms were reported regarding the genitourinary system. Derm: No signs and/or symptoms reported regarding the dermatologic system. Musculoskeletal: No signs and/or symptoms reported regarding the musculoskeletal system. Historical: - Allergies: 06:02 No Known Allergies; br2 - PMHx: 06:02 COPD; br2 - PSHx: 06:02 stomach (COPD); br2 - Immunization history:: Adult Immunizations not up to date. - Social history:: Smoking status: Patient reports the use of cigarette tobacco products, unknown amount. - Infectious Disease History:: Denies. Screenin:00 [facility] ED Fall Risk Assessment (Adult) History of falling in the last 3 months, br2 including since admission No falls in past 3 months (0 pts) Confusion or Disorientation No (0 pts) Intoxicated or Sedated No (0 pts) Impaired Gait No (0 pts) Mobility Assist Device Used No (0 pt) Altered Elimination No (0 pt) Score/Fall Risk Level 0 - 2 = Low Risk Oriented to surroundings. Abuse screen: Denies threats or abuse. Denies injuries from another. Nutritional screening: No deficits noted. Tuberculosis screening: No symptoms or risk factors identified. Assessment: 05:00 Reassessment: see triage assesment. Cardiovascular: Denies chest pain, Capillary refill br2 < 3 seconds Rhythm is regular. Respiratory: Airway is patent Breath sounds with wheezes bilaterally. 07:05 General: Appears in no apparent distress. comfortable, well groomed, well developed, kc6 Behavior is calm, cooperative, appropriate for age. Pain: Denies pain. Neuro: Level of Consciousness is awake, alert, obeys commands, Oriented to person, place, time, situation, Appropriate for age. Cardiovascular: Denies chest pain, Heart tones S1 S2 present Capillary refill < 3 seconds Rhythm is sinus tachycardia. Respiratory: Reports shortness of breath at rest on exertion cough that is productive, Airway is patent Trachea midline Respiratory effort is even, unlabored, Respiratory pattern is regular, symmetrical, Breath sounds with wheezes bilaterally. GI: No signs and/or symptoms were reported involving the gastrointestinal system. : No signs and/or symptoms were reported regarding the genitourinary system. EENT: No signs and/or symptoms were reported regarding the EENT system. Derm: No signs and/or symptoms reported regarding the dermatologic system. Skin is intact, is healthy with good turgor, Skin is pink, warm \T\ dry. Musculoskeletal: No signs and/or symptoms reported regarding the musculoskeletal system. Circulation, motion, and sensation intact. Range of motion: intact in all extremities. Vital Signs: 05:58 BP 158 / 98; Pulse 110; Resp 26; Temp 97.4; Pulse Ox 90% on 3 lpm NC; Weight 50.8 kg; br2 Height 5 ft. 0 in. ; 06:35 BP 122 / 71; Pulse 79; Resp 18; Pulse Ox 97% on 3 lpm NC; br2 05:58 Body Mass Index 21.87 (50.80 kg, 152.4 cm) br2 ED Course: 05:00 Maintain EMS IV. Dressing intact. Good blood return noted. Site clean \T\ dry. Gauge \T\ br 2 site: 20g right wrist. 05:00 Fall risk band placed. Placed in gown. Bed in low position. Call light in reach. Side br2 rails up X 1. Provided Education on: plan of care. 05:05 Patient arrived in ED. gm2 05:05 Sydnee Fernandez MD is Attending Physician. sw6 05:48 BMP Sent. br2 05:48 CBC with Diff Sent. br2 05:48 Hepatic Function Sent. br2 05:48 Magnesium Sent. br2 05:48 NT PRO-BNP Sent. br2 05:49 Troponin HS Sent. br2 05:58 Cora Tucker, BJ is Primary Nurse. br2 05:59 XRAY CXR (1 view) In Process Unspecified. EDMS 06:02 Triage completed. br2 06:02 Arm band placed on right wrist. br2 06:45 Inserted saline lock: 22 gauge in left forearm, using aseptic technique. br2 07:07 Juan José Zepeda MD is Hospitalizing Provider. sw6 07:08 Report received from Cora Tucker RN. lunchroom monitor on. Pulse ox on. NIBP on. Door kc6 closed. Noise minimized. Lights dimmed. Warm blanket given. Pillow given. Verbal reassurance given. 07:31 Assisted to bedside commode. kc6 07:57 No provider procedures requiring assistance completed. Patient admitted, IV remains in kc6 place. Administered Medications: 05:40 Drug: Albuterol Inhalation 2.5 mg Inhalation every 20 minutes x3 Route: Inhalation; br2 06:00 Drug: Albuterol Inhalation 2.5 mg Inhalation every 20 minutes x3 Route: Inhalation; br2 06:30 Drug: Albuterol Inhalation 2.5 mg Inhalation every 20 minutes x3 Route: Inhalation; br2 07:31 Drug: Albuterol Inhalation 7.5 mg Inhalation once Route: Inhalation; kc6 07:56 Drug: Aspirin PO Chewable Tablet 324 mg PO once; 81 mg tablets x 4 Route: PO; kc6 07:56 Drug: Enoxaparin Sub-Q 1 mg/kg Sub-Q once Route: Sub-Q; Site: abdomen; kc6 Medication: 07:57 VIS not applicable for this client. kc6 Outcome: 07:07 Decision to Hospitalize by Provider. sw6 07:57 Admitted to ER Hold. Please see [facility] for further documentation. kc6 07:57 Condition: good 07:57 Instructed on the need for admit, 16:50 Patient left the ED. kc6 Signatures: Dispatcher [employer] EDMS Juanita Powell RN RN kc6 Lillian Simms 2 Sydnee Fernandez MD MD sw6 Cora Tucker RN RN br2 Corrections: (The following items were deleted from the chart) 06:37 05:58 Chief complaint: Patient states: SOB HASN'T BEEN FEELING GOOD FOR THE LAST WEEK. br2 BECAME EXTREMELY SOB AND WAS BARELY ABLE TO SPEAK. PT RECEIVED SOLUMEDROL 125MG IV, MAG 4MG/100ML OF NS, A\T\A NEB TX PER [employer]IN [employer]ER br2
[2024-06-14 07:16] LABS: ALT/SGPT 46 U/L (13-56); AST/SGOT 63 U/L (15-37); Alkaline Phosphatase 137 U/L (45-117); Anion Gap 10.4 mEq/L (5.0-15.0); BUN Blood Urea Nitrogen 8 mg/dL (7-18); Bicarbonate 29 mEq/L (21-32); Bilirubin Total 0.3 mg/dL (0.2-1.0); Glomerular Filtration Rate 109 ml/min (=/>90); Glucose Level 110 mg/dL (74-106); Magnesium 2.7 mg/dL (1.6-2.4); NT PRO-BNP 182 pg/mL (<125); Potassium 4.4 mEq/L (3.5-5.1); Sodium Level 134 mEq/L (136-145)
[2024-06-14 07:24] LABS: Bilirubin Direct < 0.2 mg/dL (0-0.2); Bilirubin Indirect, Calculated 0.1 mg/dL (0.2-0.8)
[2024-06-14 07:30] LABS: Troponin High Sensitivity 365.7 pg/mL (<58.9)
[2024-06-14] MEDS ORDERED: BENZONATATE 100 MG CAP PO PRN (07:39)
[2024-06-14] MEDS ORDERED: IPRATROPIUM BROM 0.5MG/2.5ML NEB PRN (07:39)
[2024-06-14] MEDS ORDERED: ALBUTEROL 2.5 MG/3 ML NEB SOL NEB PRN ×2 (07:39→15:25)
[2024-06-14] MEDS ORDERED: ONDANSETRON 4 MG/2 ML VIAL IV PRN (07:39)
[2024-06-14] MEDS ORDERED: ASPIRIN 81 MG CHEWABLE TABLET ONE (07:49)
[2024-06-14] MEDS ORDERED: ENOXAPARIN 60 MG/0.6 ML SQ ONE (07:49)
[2024-06-14] MEDS ORDERED: predniSONE 20 MG TAB ONE (08:31)
--- NOTE | 2024-06-14 08:35 | EKG ---
Test Date: 2024-06-14 Test Time: 07:39:08 [employer]: BENY MEASUREMENT RESULTS: Intervals: Rate: 100 MT: 138 QRSD: 86 QT: 372 QTc: 479 [place]: P: 74 MT: 138 QRS: -22 T: 56 INTERPRETIVE STATEMENTS: Normal sinus rhythm Possible Left atrial enlargement Anterior infarct, age undetermined Abnormal ECG Compared to ECG 06/14/2024 05:28:40 Myocardial infarct finding now present T-wave abnormality no longer present Prolonged QT interval no longer present Electronically Signed On 06-14-24 08:34:44 CDT by David Li
[2024-06-14] MEDS ORDERED: levoFLOXacin 750 MG TAB ONE (08:47)
[2024-06-14] MEDS: predniSONE 20 MG TAB PO SCH (08:52)
[2024-06-14] MEDS: levoFLOXacin 750 MG TAB PO SCH (08:52)
[2024-06-14] MEDS: DULERA 200/5 (MOMETASONE/FORMOTEROL) INHALER IH SCH (08:52)
--- NOTE | 2024-06-14 10:47 | ECHO ---
HEIGHT: 5 ft 0 in WEIGHT: 111 lb 15.917 oz DATE OF STUDY: 06/14/[address]: Mehdi Torrez NP 2-DIMENSIONAL: YES M.MODE: YES DOPPLER: YES COLOR FLOW: YES TDS: PORTABLE: YES DEFINITY: BUBBLE STUDY: DIAGNOSIS: NON ST ELEVATION MYOCARDIAL INFARCTION CARDIAC HISTORY: CATHERIZATION: NO SURGERY: NO PROSTHETIC VALVE: NO PACEMAKER: NO MEASUREMENTS (cm) DIASTOLIC (NORMALS) SYSTOLIC (NORMALS) IVSd 0.9 (0.6-1.2) LA Diam 2.3 (1.9-4.0) LVEF 60-65% LVIDd 4.4 (3.5-5.7) LVIDs 3.0 (2.0-3.5) %FS 33% LVPWd 1.0 (0.6-1.2) Ao Diam 3.0 (2.0-3.7) 2 DIMENSIONAL ASSESSMENT: RIGHT ATRIUM: NORMAL LEFT ATRIUM: NORMAL RIGHT VENTRICLE: NORMAL LEFT VENTRICLE: NORMAL TRICUSPID VALVE: NORMAL MITRAL VALVE: MILD MITRAL REGURGITATION PULMONIC VALVE: NORMAL AORTIC VALVE: MILD AORTIC REGURGITATION PERICARDIAL EFFUSION: NONE AORTIC ROOT: NORMAL LEFT VENTRICULAR WALL MOTION: NORMAL DOPPLER/COLOR FLOW: NORMAL COMMENTS: 1. NORMAL LEFT VENTRICULAR SYSTOLIC FUNCTION, EJECTION FRACTION 60-65%, NORMAL WALL MOTION 2. MILD MITRAL REGURGITATION, MILD AORTIC REGURGITATION 3. NORMAL FILLING PRESSURE TECHNOLOGIST: VJ HOLBROOK
--- NOTE | 2024-06-14 11:50 | P.CNS ---
Date of Consult: 06/14/24 Chief Complaint: COPD/SOB History of Present Illness: Patient with PMH of COPD, Tobacco use, ETOH use, presented with worsening SOB, wheezes, denies chest pain, no syncope, report palpitations, no other cardiac symptoms. Allergies No Known Allergies Allergy (Unverified 12/20/23 09:11) Home medications list reviewed: Yes Home Medications: Albuterol Sulfate [Albuterol Sulfate 0.083% Neb Soln] 2.5 mg IH Q4H PRN 30 Days #1 box 12/21/23 Albuterol Sulfate [Proair Digihaler] 90 mcg IH Q6HR PRN 30 Days #1 aer 12/21/23 Cefdinir [Cefdinir*] 300 mg PO BID 7 Days #17 cap 12/21/23 Ipratropium Neb [Atrovent*] 0.2 mg IH Q6H PRN 30 Days #1 box 12/21/23 Nebulizer and Compressor [[place] Choice Nebulizer] 1 each MC DAILY 30 Days #30 ea 12/21/23 predniSONE [Deltasone] 20 mg PO BID 5 Days #10 tab 12/21/23 - Past Medical/Surgical History Diabetic: No -: COPD -: Tobacco use -: Alcohol use -: Abdominal surgery - Social History Smoking Status: Current every day smoker Alcohol use: No CD- Drugs: No Caffeine use: No Place of Residence: Home Review of Systems 10-point ROS is otherwise unremarkable Physical Examination Temp Pulse Resp BP Pulse Ox 98.0 F 97 H 20 110/77 92 06/14/24 08:00 06/14/24 08:00 06/14/24 08:00 06/14/24 08:00 06/14/24 08:00 General: Alert, In no apparent distress HEENT: Atraumatic, PERRLA, Mucous membr. moist/pink, EOMI, Sclerae nonicteric Neck: Supple, 2+ carotid pulse no bruit, No LAD, Without JVD or thyroid abnormality Respiratory: Normal air movement, Expiratory wheezes Cardiovascular: Regular rate/rhythm, Normal S1 S2 Gastrointestinal: Normal bowel sounds, No tenderness Musculoskeletal: No tenderness Integumentary: No rashes Neurological: Normal gait, Normal speech, Normal tone, Normal affect Lymphatics: No axilla or inguinal lymphadenopathy Laboratory Data (last 24 hrs) 06/14/24 06/14/24 06:46 06:46 WBC 10.20 Hgb 15.5 H Hct 44.6 Plt Count 266 Sodium 134 L Potassium 4.4 BUN 8 Creatinine 0.51 L Glucose 110 H Magnesium 2.7 H Total Bilirubin 0.3 AST 63 H ALT 46 Alkaline Phosphatase 137 H - Problems (1) NSTEMI (non-ST elevated myocardial infarction) Current Visit: Yes Status: Acute Plan: Patient with no chest pain, EKG is normal, Troponin mild elevated with no significant delta. Echo shows normal EF, normal bautista motion. continue to trend cardiac enzymes until peak and down trending. start ASA 81 mg daily Lipitor 40 mg daily No further cardiac work up is indicated at this time.
[2024-06-14] MEDS: carvediloL 6.25 MG TAB PO SCH (12:20)
--- NOTE | 2024-06-14 12:20 | P.CNS ---
Date of Consult: 06/14/24 Reason for Consult: COPD exacerbation Chief Complaint: COPD/SOB History of Present Illness: Patient is 58 years of age with a history of COPD has been sick for the past week developed a chest cold came in with cough congestion worsening dyspnea and it appeared in the hospital she uses albuterol on a as needed basis no long- acting bronchodilators Allergies No Known Allergies Allergy (Unverified 12/20/23 09:11) Home Medications: Albuterol Sulfate [Albuterol Sulfate 0.083% Neb Soln] 2.5 mg IH Q4H PRN 30 Days #1 box 12/21/23 Albuterol Sulfate [Proair Digihaler] 90 mcg IH Q6HR PRN 30 Days #1 aer 12/21/23 Cefdinir [Cefdinir*] 300 mg PO BID 7 Days #17 cap 12/21/23 Ipratropium Neb [Atrovent*] 0.2 mg IH Q6H PRN 30 Days #1 box 12/21/23 Nebulizer and Compressor [[place] Choice Nebulizer] 1 each MC DAILY 30 Days #30 ea 12/21/23 predniSONE [Deltasone] 20 mg PO BID 5 Days #10 tab 12/21/23 - Past Medical/Surgical History Diabetic: No -: COPD -: Tobacco use -: Alcohol use -: Abdominal surgery - Social History Smoking Status: Current every day smoker Alcohol use: No CD- Drugs: No Caffeine use: No Place of Residence: Home Review of Systems 10-point ROS is otherwise unremarkable General: Weakness Respiratory: Cough, Shortness of Breath Physical Examination Temp Pulse Resp BP Pulse Ox 98.0 F 97 H 20 110/77 92 06/14/24 08:00 06/14/24 08:00 06/14/24 08:00 06/14/24 08:00 06/14/24 08:00 General: Alert, Moderate distress Neck: Supple Respiratory: Expiratory wheezes Cardiovascular: No edema, Regular rate/rhythm, Normal S1 S2 Gastrointestinal: Normal bowel sounds, Soft and benign Laboratory Data (last 24 hrs) 06/14/24 06/14/24 06:46 06:46 WBC 10.20 Hgb 15.5 H Hct 44.6 Plt Count 266 Sodium 134 L Potassium 4.4 BUN 8 Creatinine 0.51 L Glucose 110 H Magnesium 2.7 H Total Bilirubin 0.3 AST 63 H ALT 46 Alkaline Phosphatase 137 H - Problems (1) COPD exacerbation Current Visit: No Status: Acute Plan: Patient is 58 years of age history of COPD active smoker admitted with an exacerbation patient is echocardiogram is normal she does have some abnormal changes on the EKG vital signs are stable continue with anticoagulation will reconfirm with cardiology regarding EKG findings (2) NSTEMI (non-ST elevated myocardial infarction) Current Visit: Yes Status: Acute Plan: Patient has had a non-STEMI troponins are increasing abnormal EKG normal echo continue with anticoagulation add a beta-roman will discuss with cardiology
[2024-06-14] MEDS: IPRATROPIUM BROM 0.5MG/2.5ML NEB SCH (13:00)
[2024-06-14] MEDS ORDERED: carvediloL 6.25 MG TAB ONE (13:08)
[2024-06-14] MEDS ORDERED: IPRATROPIUM BROM 0.5MG/2.5ML ONE (13:15)
--- NOTE | 2024-06-14 15:10 | P.HP ---
Certification for Inpatient Patient admitted to: Inpatient With expected LOS: >2 Midnights Patient will require the following post-hospital care: None Practitioner: I am a practitioner with admitting privileges, knowledge of patient current condition, hospital course, and medical plan of care. Services: Services provided to patient in accordance with Admission requirements found in Title 42 Section 412.3 of the Code of Federal Regulations Patient History Date of Service: 06/14/24 Reason for admission: COPD/SOB History of Present Illness: 58-year-old female with history of COPD, gastric ulcers/gastric perforation presents to the emergency department chief complaint of shortness of breath. She reports that she has been feeling short of breath for the last 1 week or so but significantly worse in the past 1 to 2 days. She does wear oxygen at home but only at night typically. She was evaluated in the emergency department and her labs were significant for sodium of 134 troponin 365.7 BNP 182 chest x-ray was negative for acute findings. Patient given aspirin, therapeutic Lovenox in ED as well as nebulizer treatments, per EMS she had received IV magnesium, steroids. Patient will be admitted for COPD exacerbation, NSTEMI. Allergies No Known Allergies Allergy (Unverified 12/20/23 09:11) Home Medications: Albuterol Sulfate [Albuterol Sulfate 0.083% Neb Soln] 2.5 mg IH Q4H PRN 30 Days #1 box 12/21/23 Albuterol Sulfate [Proair Digihaler] 90 mcg IH Q6HR PRN 30 Days #1 aer 12/21/23 Cefdinir [Cefdinir*] 300 mg PO BID 7 Days #17 cap 12/21/23 Ipratropium Neb [Atrovent*] 0.2 mg IH Q6H PRN 30 Days #1 box 12/21/23 Nebulizer and Compressor [[place] Choice Nebulizer] 1 each MC DAILY 30 Days #30 ea 12/21/23 predniSONE [Deltasone] 20 mg PO BID 5 Days #10 tab 12/21/23 - Past Medical/Surgical History Has patient received pneumonia vaccine in the past: No Diabetic: No -: COPD -: Tobacco use -: Alcohol use -: Abdominal surgery Psychosocial/ Personal History: Lives at home alone - Social History Smoking Status: Current every day smoker Alcohol use: No CD- Drugs: No Caffeine use: No Place of Residence: Home Review of Systems 10-point ROS is otherwise unremarkable Respiratory: Cough, Shortness of Breath, SOB with Excertion Physical Examination - Vital Signs Temperature: 98.0 F Blood Pressure: 130/73 Pulse: 110 Respirations: 19 Pulse Ox (%): 96 - Physical Exam General: Alert, In no apparent distress, Oriented x3 HEENT: Atraumatic, PERRLA, EOMI, Sclerae nonicteric Neck: Supple, 2+ carotid pulse no bruit, No LAD Respiratory: Crackles/rales, Expiratory wheezes Cardiovascular: Regular rate/rhythm, Normal S1 S2 Gastrointestinal: Normal bowel sounds, No tenderness Musculoskeletal: No tenderness Integumentary: No rashes Neurological: Normal speech, Normal strength at 5/5 x4 extr, Normal affect - Studies Laboratory Data (last 24 hrs) 06/14/24 06/14/24 06:46 06:46 WBC 10.20 Hgb 15.5 H Hct 44.6 Plt Count 266 Sodium 134 L Potassium 4.4 BUN 8 Creatinine 0.51 L Glucose 110 H Magnesium 2.7 H Total Bilirubin 0.3 AST 63 H ALT 46 Alkaline Phosphatase 137 H Assessment and Plan - Plan Assessment: COPD with exacerbation NSTEMI Tobacco use disorder Alcohol use disorder Plan: COPD with exacerbation Pulmonology consult Steroids, nebs, inhalers Supplemental oxygen as needed-wears home O2 at night at home Counseled on need for tobacco cessation NSTEMI Troponin elevated but trending flat so far patient denies chest pain Will need outpatient cardiac evaluation Continue to monitor on telemetry Continue aspirin, statin Tobacco use disorder Alcohol use disorder Counseled on need for cessation, NicoDerm patch supplied DVT PPX: Therapeutic Lovenox Code status: Full code Discharge Plan: Home Plan to discharge in: Greater than 2 days - Advance Directives Does patient have a Living Will: No Does patient have a Durable POA for Healthcare: No - Code Status/Comfort Care Code Status Assessed: Yes (Full code) Critical Care: No Time Spent Managing Pts Care (In Minutes): 65
[2024-06-14] MEDS: NICOTINE 21 MG/PAT TD SCH (15:24)
[2024-06-14] MEDS: ENOXAPARIN 60 MG/0.6 ML SQ SCH (20:46)
[2024-06-14] MEDS: ATORVASTATIN 40 MG TAB PO SCH (20:47)
[2024-06-15 05:33] LABS: Absolute Basophils 0.1 K/uL (0-0.5); Absolute Lymphocytes (CBC) 1.4 K/uL (0.7-4.9); Absolute Monocytes 0.9 K/uL (0.1-1.3); Absolute Neutrophil 5.7 K/uL (1.8-8.0); Basophils % 0.7 % (0-1.3); Eosinophils % 0.1 % (0-4.4); Hematocrit 42.7 % (36.0-45.0); Hemoglobin 14.7 g/dL (12.0-15.0); Lymphocytes % 17.1 % (15.3-44.8); MCH 33.7 pg (27.0-35.0); MCHC 34.4 g/dL (32.0-36.0); MCV 97.8 fL (80-100); MPV 8.1 fL (7.6-11.3); Monocytes % 11.2 % (3.3-12.3); Neutrophils % 70.9 % (41.7-73.7); Platelets 284 thou/uL (152-406); RBC Red Blood Cell Count 4.37 M/uL (3.86-4.86); Red Cell Distribution Width 14.1 % (12.1-15.2)
[2024-06-15 06:04] LABS: Albumin 3.4 g/dL (3.4-5.0); Albumin/Globulin Ratio 0.9 (1.1-1.8); Anion Gap 11.2 mEq/L (5.0-15.0); Bilirubin Total 0.3 mg/dL (0.2-1.0); Globulin 3.6 g/dL (2.3-3.5); Potassium 4.2 mEq/L (3.5-5.1); Thyroid Stimulating Hormone 0.78 uIU/mL (0.358-3.740)
[2024-06-15 06:08] LABS: Troponin High Sensitivity 573.8 pg/mL (<58.9)
[2024-06-15 07:56] VITALS: BMI 21.9
[2024-06-15] MEDS: NA CHLORIDE 0.9% 500 ML ONE ×2 (13:29→18:04)
[2024-06-15] MEDS ORDERED: HEPARIN 10,000 UNIT/10 ML VIAL IV ONE (13:36)
[2024-06-15] MEDS ORDERED: HEPA 1000U/500MLS 2,000 UNIT/1,000 ML BAG IV ONE (13:36)
[2024-06-15] MEDS ORDERED: CLOPIDOGREL 75 MG TABLET ONE (13:37)
[2024-06-15] MEDS ORDERED: ATROPINE SULF 1 MG/10 ML SYR IV ONE (13:37)
[2024-06-15] MEDS ORDERED: MIDAZOLAM HCL 2 MG/2 ML INJ ONE (13:37)
[2024-06-15] MEDS ORDERED: VERAPAMIL HCL 10 MG/4 ML VIAL IV ONE (13:37)
[2024-06-15] MEDS ORDERED: TICAGRELOR 90 MG TABLET PO ONE (13:37)
[2024-06-15] MEDS ORDERED: HEPARIN 5000 UNIT/ML 1 ML VIAL ONE (13:37)
[2024-06-15] MEDS ORDERED: LIDOCAINE 1% 20 ML MDV ONE (13:37)
[2024-06-15] MEDS ORDERED: ASPIRIN 325 MG TAB ONE (13:37)
[2024-06-15] MEDS ORDERED: FENTANYL CITR 100 MCG/2 ML ONE (13:38)
--- NOTE | 2024-06-15 14:32 | P.PN ---
Date of Service: 06/15/24 Subjective: Breathing improved overnight Denies chest pain Troponin continued to climb ROS: 10 point ROS as noted above, otherwise negative Physical exam GEN: Alert, oriented, NAD HEENT: Normal conjunctiva, sclera anicteric CV: Regular rate and rhythm, no edema Pulm: Nonlabored respirations on room air ABD: Soft, nontender, nondistended MSK: No joint tenderness Integumentary: No rashes Neuro: Normal speech, normal affect Vitals reviewed Assessment: COPD with exacerbation NSTEMI Tobacco use disorder Alcohol use disorder Plan: COPD with exacerbation Pulmonology consult Steroids, nebs, inhalers Supplemental oxygen as needed-wears home O2 at night at home Counseled on need for tobacco cessation Improving in this regard NSTEMI Troponin climbing patient denies chest pain Given significantly elevated troponin levels patient will undergo coronary angiogram today Await results of heart cath Tobacco use disorder Alcohol use disorder Counseled on need for cessation, NicoDerm patch supplied DVT PPX: Therapeutic Lovenox Code status: Full code Discharge Plan: Home Plan to discharge in: 1 to 2 days Time Spent Managing Pts Care (In Minutes): 35
[2024-06-15] MEDS: levoFLOXacin 750 MG TAB PO SCH (17:08)
[2024-06-15] MEDS: ASPIRIN EC 81 MG TAB PO SCH (17:08)
[2024-06-15] MEDS: NA CHLORIDE 0.9% 500 ML IV ONE (18:18)
--- NOTE | 2024-06-15 18:56 | PN ---
Date of Progress Note: 06/15/2024 Subjective: Seen by bedside. No active chest pain. Troponin jumped to 1020. Review of Systems: No chest pain, shortness of breath, orthopnea, cough. No nausea, vomiting, diarrhea. All other syst ems reviewed are negative. Physical Examination: Vital signs: Reviewed. Head and Neck: Pupils are equal, reactive to light. Intact eye movements. No JVD, no cervical joaquin opathy. Neck is supple. Thyroid is not enlarged. Lungs: Clear to auscultation bilaterally. No rhonchi, wheezing, or crackles. No accessory muscle u se. Heart: Regular rate and rhythm. No extra sounds. Abdomen: Soft, nontender. Bowel sounds positive. No organomegaly. No masses or hernia. No rigidi ty or rebound. Extremities: No clubbing, cyanosis. Intact pulses. Skin: No rash. Neurologic: Alert, awake. No acute focal deficits appreciated. Neurologic: Alert, awake, and oriented x3. No acute focal deficits appreciated. Investigations: Troponin peaked at 1020. Assessment And Recommendations: 1. Ccq-SQ-gcrityagg myocardial infarction. She is n.p.o. Plan for coronary angiogram and interventi on as needed. In the interim, continue aspirin, carvedilol, and Lipitor. 2. Dyslipidemia. Continue Lipitor. 3. Hypertension. Blood pressure is controlled. SR/MODL Voice ID: [id number] Report ID: [id number]
--- NOTE | 2024-06-15 22:31 | OP ---
Date of Procedure: 06/15/2024 Surgeon: LULU MEJIA Procedures Performed: 1. Selective coronary angiogram. 2. Left heart catheterization. Indication: Non-ST elevation myocardial infarction. Access: Right radial artery 6-Lao, closed with TR band. Complications: None. Bleeding: Less than 50 mL. Total Sedation Time: 45 minutes. Description Of Procedure: After risks, benefits, and alternatives were explained, the patient agreed to procedure and signed informed consent. The patient was [facility], prepped and draped in usual sterile fashion. Then, I accessed the right radial artery using pediatric micropuncture kit and ultrasound guidance, and placed 6-Lao Slender sheath and took 5-Fr ench [place] 4 catheter over J-wire into the aortic root, across the aortic valve, measured the LVEDP, and pullback did not record any gradient, then engaged left main, took standard views and then the RC A, took standard views, and removed the catheter and the sheath, placed TR band with good hemostasis. Findings: 1. Left main, large and normal. 2. LAD, large and normal. Normal diagonal branches. 3. Left circumflex, it is a moderate-sized vessel, normal. 4. RCA, large vessel with mid 30% stenosis. Rest of the RCA is normal. 5. LVEDP is normal at 5 mmHg. Conclusions: 1. Mild nonobstructive coronary artery disease. 2. Normal LVEDP. Recommendation: Medical management. SR/MODL Voice ID: [id number] Report ID: [id number]
[2024-06-16 06:10] LABS: Absolute Basophils 0.1 K/uL (0-0.5); Absolute Lymphocytes (CBC) 1.6 K/uL (0.7-4.9); Absolute Monocytes 0.5 K/uL (0.1-1.3); Absolute Neutrophil 4.1 K/uL (1.8-8.0); Basophils % 0.9 % (0-1.3); Eosinophils % 0.1 % (0-4.4); Hematocrit 44.6 % (36.0-45.0); Hemoglobin 14.9 g/dL (12.0-15.0); Lymphocytes % 25.4 % (15.3-44.8); MCH 33.4 pg (27.0-35.0); MCHC 33.5 g/dL (32.0-36.0); MCV 99.7 fL (80-100); MPV 7.5 fL (7.6-11.3); Monocytes % 7.5 % (3.3-12.3); Neutrophils % 66.1 % (41.7-73.7); Platelets 277 thou/uL (152-406); RBC Red Blood Cell Count 4.47 M/uL (3.86-4.86); Red Cell Distribution Width 13.8 % (12.1-15.2)
[2024-06-16 06:30] LABS: Albumin 3.2 g/dL (3.4-5.0); Anion Gap 10.4 mEq/L (5.0-15.0); Bilirubin Total 0.3 mg/dL (0.2-1.0); Globulin 3.3 g/dL (2.3-3.5); Potassium 4.4 mEq/L (3.5-5.1); Protein, Total 6.5 g/dL (6.4-8.2)
[2024-06-16 08:00] VITALS: O2SAT 90
[2024-06-16 08:20] VITALS: TEMP 98.2
[2024-06-16 10:06] VITALS: BP 117/69
--- NOTE | 2024-06-16 11:53 | P.DS ---
Admission Date: 06/14/24 Discharge Date: 06/16/24 Disposition: ROUTINE DISCHARGE Discharge Condition: GOOD Reason for Admission: COPD/SOB Brief History of Present Illness: 58-year-old female with history of COPD, gastric ulcers/gastric perforation presents to the emergency department chief complaint of shortness of breath. She reports that she has been feeling short of breath for the last 1 week or so but significantly worse in the past 1 to 2 days. She does wear oxygen at home but only at night typically. She was evaluated in the emergency department and her labs were significant for sodium of 134 troponin 365.7 BNP 182 chest x-ray was negative for acute findings. Patient given aspirin, therapeutic Lovenox in ED as well as nebulizer treatments, per EMS she had received IV magnesium, steroids. Patient will be admitted for COPD exacerbation, NSTEMI. Hospital Course: Assessment: COPD with exacerbation NSTEMI Tobacco use disorder Alcohol use disorder Patient was admitted to the hospital for COPD exacerbation. Her troponin was also elevated he was evaluated by cardiology. She underwent coronary angiogram on 06/15/2024 which showed mild nonobstructive CAD and normal LVEDP. She also had an echocardiogram which showed normal LVEF, normal wall motion, normal filling pressures. She was treated with steroids, nebulizer treatments as needed and had significant improvement in her respiratory status. She does have home oxygen that she wears at night, she is currently breathing well on room air without any wheezing noted. She stable for discharge and outpatient follow-up with her primary care doctor and pulmonology outpatient. Prescriptions for inhalers, short course of oral steroids and antibiotics sent to her pharmacy Follow-up with your primary care doctor 1 to 2 weeks Follow-up pulmonologyDr. Ojeda in 1 to 2 weeks It is very important that you stop smoking Vital Signs/Physical Exam: Temp Pulse Resp BP Pulse Ox 98.2 F 93 H 16 117/69 92 06/16/24 08:00 06/16/24 10:04 06/16/24 08:00 06/16/24 10:04 06/16/24 10:04 General: Alert, In no apparent distress, Oriented x3 HEENT: Atraumatic, PERRLA Neck: Supple, JVD not distended Respiratory: Clear to auscultation bilaterally, Normal air movement Cardiovascular: Regular rate/rhythm, Normal S1 S2 Gastrointestinal: Normal bowel sounds Musculoskeletal: No tenderness Integumentary: No rashes Neurological: Normal speech, Normal affect Laboratory Data at Discharge: WBC 6.20 thou/uL (4.3-10.9) 06/16/24 06:00 Hgb 14.9 g/dL (12.0-15.0) 06/16/24 06:00 Hct 44.6 % (36.0-45.0) 06/16/24 06:00 Plt Count 277 thou/uL (152-406) 06/16/24 06:00 Sodium 133 mEq/L (136-145) L 06/16/24 06:00 Potassium 4.4 mEq/L (3.5-5.1) 06/16/24 06:00 BUN 13 mg/dL (7-18) 06/16/24 06:00 Creatinine 0.60 mg/dL (0.55-1.02) 06/16/24 06:00 Glucose 113 mg/dL (74-106) H 06/16/24 06:00 Magnesium 2.7 mg/dL (1.6-2.4) H 06/14/24 06:46 Total Bilirubin 0.3 mg/dL (0.2-1.0) 06/16/24 06:00 AST 16 U/L (15-37) 06/16/24 06:00 ALT 28 U/L (13-56) 06/16/24 06:00 Alkaline Phosphatase 88 U/L (45-117) 06/16/24 06:00 Home Medications: Pantoprazole Sodium [Protonix] 40 mg PO DAILY 06/15/24 Albuterol Inhaler [Ventolin Inhaler*] 2 puff IH Q6H PRN #2 inhaler 06/16/24 Mometasone/Formoterol [Dulera 200 Mcg/5 Mcg Inhaler] 2 puff IH BID #1 inhaler 06/16/24 levoFLOXacin [Levaquin*] 750 mg PO DAILY 4 Days #4 tab 06/16/24 predniSONE [Deltasone*] 10 mg PO BID 7 Days #14 tab 06/16/24 New Medications: predniSONE [Deltasone*] 10 mg PO BID 7 Days #14 tab Mometasone/Formoterol [Dulera 200 Mcg/5 Mcg Inhaler] 2 puff IH BID #1 inhaler levoFLOXacin [Levaquin*] 750 mg PO DAILY 4 Days #4 tab Albuterol Inhaler [Ventolin Inhaler*] 2 puff IH Q6H PRN #2 inhaler PRN Reason: Shortness Of Breath Physician Discharge Instructions: Patient was admitted to the hospital for COPD exacerbation. Her troponin was also elevated he was evaluated by cardiology. She underwent coronary angiogram on 06/15/2024 which showed mild nonobstructive CAD and normal LVEDP. She also had an echocardiogram which showed normal LVEF, normal wall motion, normal filling pressures. She was treated with steroids, nebulizer treatments as needed and had significant improvement in her respiratory status. She does have home oxygen that she wears at night, she is currently breathing well on room air without any wheezing noted. She stable for discharge and outpatient follow-up with her primary care doctor and pulmonology outpatient. Prescriptions for inhalers, short course of oral steroids and antibiotics sent to her pharmacy Follow-up with your primary care doctor 1 to 2 weeks Follow-up pulmonologyDr. Lynette in 1 to 2 weeks It is very important that you stop smoking Diet: Regular Activity: Ad tre Followup: Abdifatah Ojeda MD [ACTIVE - CAN ADMIT] - 1-2 Weeks OOTWANDA [Primary Care Provider] - 1 Week Time spent managing pt's care (in minutes): 54
--- NOTE | 2024-06-18 11:35 | EKG ---
Test Date: 2024-06-14 Test Time: 05:28:40 Body Liner: BAYRON MEASUREMENT RESULTS: Intervals: Rate: 92 DC: 144 QRSD: 86 QT: 378 QTc: 467 [place]: P: 76 DC: 144 QRS: 22 T: 67 INTERPRETIVE STATEMENTS: Normal sinus rhythm Possible Left atrial enlargement Nonspecific T wave abnormality Prolonged QT Abnormal ECG No previous ECG available for comparison Electronically Signed On 06-18-24 11:24:32 CDT by David Li
== END 2024-06-16 12:30 | disposition home or self-care (01) | DRG 190 ==
LOC: ER 05:03 → ERHOLD 07:39 → 2ND 16:37
PROVIDERS: ADMIT Hospitalist; ATTEND Hospitalist
PROC: 4A023N7 Measurement of Cardiac Sampling and Pressure, Left Heart, Percutaneous Approach (ICD-10-PCS; principal; 2024-06-15)
PROC: B2111ZZ Fluoroscopy of Multiple Coronary Arteries using Low Osmolar Contrast (ICD-10-PCS; 2024-06-15)
DX: J44.1 Chronic obstructive pulmonary disease with (acute) exacerbation (principal); I21.4 Non-ST elevation (NSTEMI) myocardial infarction; J96.11 Chronic respiratory failure with hypoxia; F10.10 Alcohol abuse, uncomplicated; I25.10 Atherosclerotic heart disease of native coronary artery without angina pectoris; F17.210 Nicotine dependence, cigarettes, uncomplicated; Z60.2 Problems related to living alone; Z11.52 Encounter for screening for COVID-19; Z79.52 Long term (current) use of systemic steroids; Z79.899 Other long term (current) drug therapy
CPT/HCPCS: 36415; 71045; 76937; 80048; 80053; 80076; 83735; 83880; 84439; 84443; 84484; 85025; 87428; 93005; 93306; 93454; 94640; 96372; 99152; 99153; 99285; C1893; J0461; J1644; J1650; J2003; J2250; J3010; J3535; J7040; J7512; J7613; J7644; Q9966

== ENCOUNTER 2024-11-04 12:17 | Emergency (ER) | payer OTHER, SELFPAY ==
--- OUTSIDE RECORDS SUMMARY | 2024-11-04 12:25 | XMS REPORT | Continuity of Care Document ---
Author Name Unknown Address [address] [place] [address] [facility] Address [address] [place] [address] Care Team Providers Care Lamp Wirer Name Role Phone PCP, PATIENT DOES NOT HAVE A Primary Care Physic mary ann Unavailable Daryl Bailey Attending Clinician Unavailable Danica Yuen Attending Clinician Unavailable JUNIE SANDERS Attending Clinician Unavailable Sisi Hart RN Attending Clinician [phone] Almas Edwards MD Attending Clinician [phone] Ced Chung DO Attending Clinician [phone] Jazmyn Sterling MD Attending Clinician [phone] ALMAS EDWARDS Attending Clinician Unavailable Doctor Unassigned, [place] Attending Clinician U Kenzie Barrientos MD Attending Clinician [phone] KENZIE CARDENAS Attending Clinician Unavailable Danilo Castle MD Attending Clinician [phone] DANILO CASTLE Attending Clinician Unavailable Almas Edwards MD Admitting Clinician [phone] ALMAS EDWARDS Admitting Clinician Unavailable DANILO CASTLE Admitting Clinician Unavailable Payers Payer Name Policy Type Policy Number Effective Date Expirati on Date Source Ambetter from [facility] [id number] 2020 00:00:00 [facility] from [facility] [id number] 2020 00:00:00 [facility] Ambetter from [facility] [id number] 2020 00:00:00 [facility] HIM AMBETTER FROM [facility] [id number] 2018 00:00:00 Problems Condition Name Condition Details Condition Category Status Onset Date Resolution Date Last Treatment Date Treating Clinician Comments Source Perforated peptic ulcer Perforated peptic ulcer Disease Active 10-06 00:00: 00 [facility] Trauma Trauma Disease Active 09-30 00:00: 00 [facility] Acute gastric ulcer with perforatio n Acute gastric ulcer with perforatio n Disease Active 09-29 00:00: 00 Overview: Formattin g of this note might be different from the original. Added automatic ally from request for surgery [id number] [facility] [id number] Left-sided low back pain without sciatica, unspecifie d chronicity Problem [facility] [id number] Perforated duodenal ulcer Problem [facility] [id number] GERD without esophagiti s Problem [facility] [id number] Chronic obstructiv e pulmonary disease, unspecifie d COPD type Problem [facility] [id number] Tobacco abuse Problem [facility] [id number] Muscle spasm of back Problem [facility] Allergies, Adverse Reactions, Alerts Allergy Name Allergy Type Status Severity Reaction(s) Onset Date Inactive Date Treating Clinician Comments Source NO KNOWN ALLERGIE S Drug Class Active [facility] Social History Social Habit Start Date Stop Date Quantity Comments Source History of Tobacco Use Current Smoker [facility] Sex Assigned At [facility] Exposure to SARS-CoV-2 (event) Not sure [facility] Tobacco use and exposure 2020-09-30 00:00:00 2020-09-30 00:00:00 Current user [facility] Smoking Status Start Date Stop Date Source Unknown if ever smoked [facility] Current Smoker 2023-02-09 00:00:00 [facility] Medications Ordered Medication Name Filled [...] 800 mg tablet 10-05 00:00: 00 Yes [id number] 800mg Take 1 tablet by mouth every 6 (six) hours as needed for Pain (scale 4-6) or Temp > 38.5 C. [facility] acetaminoph en 325 mg tablet 10-05 00:00: 00 10-06 04:59 :00 No [id number] 650mg Take 2 tablets by mouth every 6 (six) hours as needed for Pain (scale 4-6) or Temp > 38.5 C. [facility] HYDROcodone -acetaminop hen (NORCO) 5-325 mg tablet 10-05 00:00: 00 10-13 04:59 :00 No [id number] 1{tbl} Take 1 tablet by mouth every 6 (six) hours as needed for Pain (scale 7-10) for up to 7 days. Indication s: acute pain [facility] D5W 0.45% NaCl (1/2NS) 1 L + KCL 20 mEq 10-04 19:15: 00 Yes IV Infusion, at 42 mL/hr, CONTINUOUS , Starting 10/04/20 at 1415, Until Discontinu ed, Routine [facility] acetaminoph en ADULT (OFIRMEV) injection 1,000 mg 10-03 23:00: 00 10-04 18:38 :00 No 1000mg 1,000 mg, IV Infusion, Administer over 15 Minutes, Q6H, 4 doses, First dose (after last reorder) on Tue10/03/20 at 1800, Last dose on Tue10/04/20 at 1200, Routine
Indicatio n: Perioperat liliam Patient [facility] acetaminoph en ADULT (OFIRMEV) injection 1,000 mg 10-02 17:00: 00 10-03 11:05 :00 No 1000mg 1,000 mg, IV Infusion, Administer over 15 Minutes, Q6H, 4 doses, First dose (after last reorder) on Tue10/02/20 at 1200, Last dose on Tue10/03/20 at 0600, Routine
Indicatio n: Perioperat liilam Patient [facility] morpHINE 30 mg/30 mL (fixed dose) AMBULANCE ASSISTANT injection 10-01 18:00: 00 Yes [facility] D5W 0.45% NaCl (1/2NS) 1 L + KCL 20 mEq 10-01 17:30: 00 Yes IV Infusion, at 100 mL/hr, CONTINUOUS , Starting Tue10/01/20 at 1230, Until Discontinu ed, Routine [facility] acetaminoph en ADULT ([facility] injection 1,000 mg 10-01 17:00: 00 10-02 16:59 :00 No 1000mg 1,000 mg, IV Infusion, Administer over 15 Minutes, Q6H, 4 doses, First dose (after last reorder) on Tue10/01/20 at 1200, Last dose on Tue10/02/20 at 0600, Routine
Indicatio n: Perioperat liliam Patient [facility] naloxone (NARCAN) injection 0.1 mg 10-01 16:50: 47 Yes .1mg 0.1 mg, Slow IV Push, SEE-INSTRU CTIONS, Starting Tue10/01/20 at 1150, Until Discontinu ed, Routine [facility] pantoprazol e (PROTONIX) injection 40 mg 10-01 01:00: 00 Yes 40mg 40 mg, Slow IV Push, Q12H, First dose (after last reorder) on Tue09/30/20 at 2000, Until Discontinu ed [facility] albumin (ALBUMINAR- 5) 5 % injection 25 g 09-30 21:00: 00 09-30 20:53 :00 No 25g 25 g, IV Infusion, ONCE, 1 dose, Tue09/30/20 at 1600, 500 mL
Audrey cation: SHOCK/IMPE NDING SHOCK [facility] pantoprazol e (PROTONIX) 40 mg in NaCl 0.9% (NS) 100 mL IV Piggyback 09-30 18:30: 00 09-30 18:45 :00 No 40mg 40 mg, IV Piggyback, ONCE, 1 dose, Tue09/30/20 at 1330, 100 mL [facility] acetaminoph en ADULT (OFIRMEV) injection 1,000 mg 09-30 18:00: 00 10-01 10:21 :00 No 1000mg 1,000 mg, IV Infusion, Administer over 15 Minutes, Q6H, 4 doses, First dose on Tue09/30/20 at 1300, Last dose on Tue10/01/20 at 0600, Routine
Indicatio n: Perioperat liliam Patient [facility] lactated ringers IV infusion 1,000 mL 09-30 10:00: 00 10-01 15:56 :04 No 1000mL at 125 mL/hr, 1,000 mL, IV Infusion, CONTINUOUS , Starting Tue09/30/20 at 0500, Until Tue10/01/20 at 1056, Routine [facility] morpHINE injection 2 mg 09-30 09:46: 22 Yes 2mg 2 mg, Slow IV Push, Q3HPRN, Starting Tue09/30/20 at 0446, Until Discontinu ed, Routine, Pain (scale 7-10) [facility] sugammadex (BRIDION) injection 09-30 09:42: 00 09-30 10:06 :59 No IV Push, ONCE INTRA PROCEDURE, Starting 09/30/20 at 0442, Until Discontinu ed, Routine, Intra-op [facility] ondansetron (ZOFRAN (PF)) injection 09-30 09:28: 00 09-30 10:06 :59 No Slow IV Push, ONCE INTRA PROCEDURE, Starting Tue09/30/20 at 0428, Until Discontinu ed, Routine, Intra-op [facility] HYDROmorphO ne (DILAUDID) injection 09-30 09:15: 00 09-30 10:06 :59 No Slow IV Push, ONCE INTRA PROCEDURE, Starting Tue09/30/20 at 0415, Until Discontinu ed, Routine, Intra-op [facility] meropenem (MERREM) injection 09-30 09:05: 00 Yes PRN, Starting Tue09/30/20 at 0405, Until Discontinu ed, HELDER, Intra-op [facility] rocuronium (ZEMURON) injection 09-30 08:35: 00 09-30 10:06 :59 No IV Push, ONCE INTRA PROCEDURE, Starting Tue09/30/20 at 0335, Until Discontinu ed, Routine, Intra-op [facility] PHENYLephri ne 1000 mcg/10 mL in 0.9% NaCl syringe 09-30 08:33: 00 09-30 10:06 :59 No Slow IV Push, ONCE INTRA PROCEDURE, Starting Tue09/30/20 at 0333, Until Discontinu ed, Routine, Intra-op [facility] succinylcho line (QUELICIN) injection 09-30 08:25: 00 09-30 10:06 :59 No IV Push, ONCE INTRA PROCEDURE, Starting Tue09/30/20 at 0325, Until Discontinu ed, Routine, Intra-op [facility] lidocaine 1% (XYLOCAINE) 100 mg/10 mL (1 %) injection 09-30 08:24: 00 09-30 10:06 :59 No Slow IV Push, ONCE INTRA PROCEDURE, Starting Tue09/30/20 at 0324, Until Discontinu ed, Routine, [facility] 09-30 08:24: 00 09-30 10:06 :59 No IV Infusion, ONCE INTRA PROCEDURE, Starting Tue09/30/20 at 0324, Until Discontinu ed, Routine, [facility] FENT[facility] PF (SUBLIMAZE (PF)) injection 09-30 08:18: 00 09-30 10:06 :59 No Epidural, ONCE INTRA PROCEDURE, Starting Tue09/30/20 at 0318, Until Discontinu ed, Routine, Intra-op [facility] midazolam (VERSED) injection 09-30 08:18: 00 09-30 10:06 :59 No IV Push, ONCE INTRA PROCEDURE, Starting Tue09/30/20 at 0318, Until Discontinu ed, Routine, Intra-op [facility] lactated ringers IV infusion 09-30 08:15: 00 09-30 10:06 :59 No IV Infusion, CONTINUOUS PRN, Starting Tue09/30/20 at 0315, Until Discontinu ed, Routine, Intra-op [facility] fluconazole (DIFLUCAN) Piggyback 200 mg 09-30 07:45: 00 Yes 200mg at 100 mL/hr, IV Piggyback, Q24H ABX, First dose on Tue09/30/20 at 0245, Until Discontinu ed, HELDER [facility] piperacilli n-tazobacta m (ZOSYN) 3.375 gram/50 mL Piggyback RTU 3.375 g 09-30 07:45: 00 Yes 3.375g 3.375 g, IV Piggyback, Q6H ABX, First dose on Tue09/30/20 at 0245, Until Discontinu ed, 50 mL
Reas on for Anti-Infec tive: Empiric Therapy for Suspected Infection< br>Empiric Therapy Site: Abdominal< br>Duratio n of therapy: 72 hours [facility] morpHINE injection 4 mg 09-30 07:00: 00 09-30 06:15 :00 No 4mg 4 mg, Slow IV Push, ONCE, 1 dose, Tue09/30/20 at 0200, Routine [facility] lactated ringers IV infusion 1,000 mL 09-30 06:30: 00 09-30 09:47 :30 No 1000mL at 100 mL/hr, 1,000 mL, IV Infusion, CONTINUOUS , Starting Tue09/30/20 at 0130, Until Tue09/30/20 at 0447, Routine [facility] ondansetron (ZOFRAN (PF)) injection 4 mg 09-30 05:53: 14 Yes 4mg 4 mg, Slow IV Push, Q6HPRN, Starting Tue09/30/20 at 0053, Until Discontinu ed, Routine, Nausea and Vomiting (N/V) [facility] piperacilli n-tazobacta m (ZOSYN) 3.375 g in NaCl 0.9% (NS) 100 mL MINI-BAG 09-30 04:00: 00 09-30 03:39 :00 No 3.375g 3.375 g, IV Piggyback, ONCE, 1 dose, Tue09/29/20 at 2300, 100 mL
Reas on for Anti-Infec tive: Surgical Prophylaxi s
Surgi nate Prophylaxi s: Abdominal< br>Duratio n of therapy: within 24 hours of surgery [facility] ketorolac (TORADOL) injection 30 mg 09-30 02:15: 00 09-30 01:16 :00 No 30mg 30 mg, Slow IV Push, ONCE, 1 dose, Tue09/29/20 at 2115, Routine
road crew member approving Restricted medication : KENZIE CARDENAS [facility] ondansetron (ZOFRAN (PF)) injection 4 mg 09-30 01:45: 00 09-30 00:57 :00 No 4mg 4 mg, Slow IV Push, ONCE, 1 dose, Tue09/29/20 at 2044, [facility] morpHINE injection 4 mg 09-30 01:45: 00 09-30 00:59 :00 No 4mg 4 mg, Slow IV Push, ONCE, 1 dose, Tue09/29/20 at 2044, STAT [facility] iopamidol (ISOVUE 370-500 mL) injection 120 mL 09-30 01:31: 00 09-30 01:30 :00 No [id number] 120mL 120 mL, Intravenou s, ONCE, 1 dose, Tue09/29/20 at 2044, Routine [facility] ipratropium -albuteroL (DUONEB) 0.5 mg-3 mg(2.5 mg base)/3 mL nebulizer solution 3 mL 06-12 17:45: 00 06-12 16:54 :00 No 3mL 3 mL, Inhalation , ONCE, 1 dose, Chary 06/12/20 at 1245, [facility] methylpredn isolone sod succ (SOLU-MEDRO L) injection 125 mg 06-12 17:45: 00 06-12 16:53 :00 No 125mg 125 mg, Slow IV Push, ONCE NOW, 1 dose, Chary 06/12/20 at 1245, [facility] iohexol (OMNIPAQUE 350 BULK-100 mL) injection 100 mL 06-12 16:00: 00 06-12 15:56 :00 No [id number] 100mL 100 mL, Intravenou s, ONCE, 1 dose, Chary 06/12/20 at 1100, Routine [facility] albuterol 90 mcg/actuati on inhaler 06-12 00:00: 00 Yes [id number] 2{puff} Inhale 2 Puffs every 4 (four) hours as needed for Wheezing or Shortness of Breath. [facility] benzonatate 100 mg capsule 06-12 00:00: 00 Yes [id number] 100mg Take 1 capsule by mouth 3 (three) times daily as needed for Cough. [facility] predniSONE 20 mg tablet 06-12 00:00: 00 06-18 04:59 :00 No [id number] 60mg Take 3 tablets by mouth every morning for 5 days. [facility] Methocarbam ol 500 MG Methocarbam [...] height 2022-02-05 11:30:00 60 [in_i] Commo n [facility] weight 2022-02-05 11:30:00 131 [lb_av] Comm on [facility] temperature 2022-02-05 11:30:00 96.9 [degF] Com mon [facility] bmi 2022-02-05 11:30:00 25.58 kg/m2 Comm on [facility] oximetry 2022-02-05 11:30:00 92 % Commo n [facility] respiratory rate 2022-02-05 11:30:00 16 /min Common [facility] blood pressure systolic 2022-02-05 11:30:00 132 mm[Hg] Common [facility] blood pressure diastolic 2022-02-05 11:30:00 72 mm[Hg] [facility] height 2022-01-13 08:00:00 60 [in_i] Commo n [facility] weight 2022-01-13 08:00:00 128.8 [lb_av] Co [facility] temperature 2022-01-13 08:00:00 97.5 [degF] Com [facility] bmi 2022-01-13 08:00:00 25.15 kg/m2 Comm on [facility] oximetry 2022-01-13 08:00:00 98 % Commo n [facility] respiratory rate 2022-01-13 08:00:00 18 /min [facility] blood pressure systolic 2022-01-13 08:00:00 139 mm[Hg] Common Spiri t [facility] blood pressure diastolic 2022-01-13 08:00:00 72 mm[Hg] Common [facility] height 2021-09-07 11:40:00 60 [in_i] Commo n [facility] weight 2021-09-07 11:40:00 125 [lb_av] Comm on [facility] bmi 2021-09-07 11:40:00 24.41 kg/m2 Comm on [facility] height 2021-01-12 10:40:00 60 [in_i] Commo n [facility] weight 2021-01-12 10:40:00 124.6 [lb_av] Co [facility] temperature 2021-01-12 10:40:00 98.1 [degF] Com [facility] bmi 2021-01-12 10:40:00 24.33 kg/m2 Comm on [facility] oximetry 2021-01-12 10:40:00 92 % Commo n [facility] respiratory rate 2021-01-12 10:40:00 16 /min [facility] blood pressure systolic 2021-01-12 10:40:00 133 mm[Hg] [facility] blood pressure diastolic 2021-01-12 10:40:00 72 mm[Hg] [facility] height 2020-12-23 11:30:00 60 [in_i] Commo n [facility] weight 2020-12-23 11:30:00 122.9 [lb_av] Co mmon [facility] temperature 2020-12-23 11:30:00 97.2 [degF] Com mon [facility] bmi 2020-12-23 11:30:00 24 kg/m2 Commo n [facility] oximetry 2020-12-23 11:30:00 96 % Commo n [facility] respiratory rate 2020-12-23 11:30:00 17 /min [facility] blood pressure systolic 2020-12-23 11:30:00 135 mm[Hg] [facility] blood pressure diastolic 2020-12-23 11:30:00 70 mm[Hg] [facility] Systolic blood pressure 2020-10-05 15:00:00 141 mm[Hg] [facility] Diastolic blood pressure 2020-10-05 15:00:00 86 mm[Hg] [facility] Heart rate 2020-10-05 15:00:00 86 /min [facility] Respiratory rate 2020-10-05 15:00:00 15 /min [facility] Oxygen saturation in Arterial blood by Pulse oximetry 2020-10-05 15:00:00 92 /min [facility] Body temperature 2020-10-05 13:00:00 36.78 Kenisha [facility] Body height 2020-09-30 07:36:00 152.4 cm [facility] Body weight 2020-09-30 07:36:00 55 kg [facility] BMI 2020-09-30 07:36:00 23.68 kg/m2 [facility] Systolic blood pressure 2020-09-30 10:15:00 124 mm[Hg] [facility] Diastolic blood pressure 2020-09-30 10:15:00 84 mm[Hg] [facility] Heart rate 2020-09-30 10:15:00 87 /min [facility] Body temperature 2020-09-30 10:15:00 37.11 Kenisha [facility] Respiratory rate 2020-09-30 10:15:00 15 /min [facility] Oxygen saturation in Arterial blood by Pulse oximetry 2020-09-30 10:15:00 98 /min [facility] Body height 2020-09-30 07:36:00 152.4 cm [facility] Body weight 2020-09-30 07:36:00 55 kg [facility] BMI 2020-09-30 07:36:00 23.68 kg/m2 [facility] Respiratory rate 2020-09-30 08:16:00 33 /min [facility] Systolic blood pressure 2020-09-30 03:46:00 118 mm[Hg] [facility] Diastolic blood pressure 2020-09-30 03:46:00 65 mm[Hg] [facility] Heart rate 2020-09-30 03:46:00 89 /min [facility] Respiratory rate 2020-09-30 03:46:00 18 /min [facility] Oxygen saturation in Arterial blood by Pulse oximetry 2020-09-30 03:46:00 98 /min [facility] Body temperature 2020-09-29 23:33:00 35.94 Kenisha [facility] Body weight 2020-09-29 23:33:00 58.514 kg [facility] BMI 2020-09-29 23:33:00 25.19 kg/m2 [facility] Heart rate 2020-06-12 17:12:00 73 /min [facility] Respiratory rate 2020-06-12 17:12:00 24 /min [facility] Oxygen saturation in Arterial blood by Pulse oximetry 2020-06-12 17:12:00 100 /min [facility] Systolic blood pressure 2020-06-12 17:02:00 162 mm[Hg] [facility] Diastolic blood pressure 2020-06-12 17:02:00 82 mm[Hg] [facility] Body temperature 2020-06-12 14:14:00 36.39 Kenisha [facility] Body height 2020-06-12 14:14:00 152.4 cm [facility] Body weight 2020-06-12 14:14:00 58.968 kg [facility] BMI 2020-06-12 14:14:00 25.39 kg/m2 [facility] Heart rate 2020-06-12 17:12:00 73 /min [facility] Respiratory rate 2020-06-12 17:12:00 24 /min [facility] Oxygen saturation in Arterial blood by Pulse oximetry 2020-06-12 17:12:00 100 /min [facility] Systolic blood pressure 2020-06-12 17:02:00 162 mm[Hg] [facility] Diastolic blood pressure 2020-06-12 17:02:00 82 mm[Hg] [facility] Body temperature 2020-06-12 14:14:00 36.39 Kenisha [facility] Body height 2020-06-12 14:14:00 152.4 cm [facility] Body weight 2020-06-12 14:14:00 58.968 kg [facility] BMI 2020-06-12 14:14:00 25.39 kg/m2 [facility] Procedures Procedure Date / Time Performed Performing Clinician Source BASIC METABOLIC PANEL (NA, K, CL, CO2, GLUCOSE, BUN, CREATININE, CA) 2020-10-05 08:25:00 Sonia Herrera [facility] CBC WITH DIFF 2020-10-05 08:25:00 Javier, Sonia [facility] BASIC METABOLIC PANEL (NA, K, CL, CO2, GLUCOSE, BUN, CREATININE, CA) 2020-10-04 13:30[facility]00 [facility] 2020-10-04 11:18:00 Javier, [facility] BASIC METABOLIC PANEL (NA, K, CL, CO2, GLUCOSE, BUN, CREATININE, CA) 2020-10-03 10:46:00 [facility] 2020-10-03 10:46:00 Javier, [facility] CBC WITH DIFF 2020-10-02 11:31:00 [facility] BASIC METABOLIC PANEL (NA, K, CL, CO2, GLUCOSE, BUN, CREATININE, CA) 2020-10-02 11:30:00 [facility] PHOSPHORUS 2020-10-01 07:34:00 Dongur, Sonia Farideh [facility] MAGNESIUM 2020-10-01 07:34:00 Dongur, Sonia Farideh [facility] BASIC METABOLIC PANEL (NA, K, CL, CO2, GLUCOSE, BUN, CREATININE, CA) 2020-10-01 07:34:00 Javier, [facility] CBC WITH DIFF 2020-10-01 07:34:[address] [facility] PHOSPHORUS 2020-10-01 07:34:00 Dongur, Sonia Farideh [facility] MAGNESIUM 2020-10-01 07:34:00 Dongur, Sonia Farideh [facility] BASIC METABOLIC PANEL (NA, K, CL, CO2, GLUCOSE, BUN, CREATININE, CA) 2020-10-01 07:34:00 Dongyin, Sonia Farideh [facility] CBC WITH DIFF 2020-10-01 07:34:[address] [facility] XR KUB 2020-09-30 20:10:00 Dongur, [facility] 2020-09-30 20:10:00 Dongur, Sonia Farideh [facility] CBC WITH DIFF 2020-09-30 19:15:00 Dongur, Sonia Farideh [facility] PROTHROMBIN TIME / INR 2020-09-30 19:15:00 Dongur, Lax dante [facility] ACTIVATED PARTIAL THRMPLAS JOESPH 2020-09-30 19:15:00 Dongur, Sonia Farideh [facility] CBC WITH DIFF 2020-09-30 19:15:00 Dongur, Sonia Farideh [facility] PROTHROMBIN TIME / INR 2020-09-30 19:15:00 Dongur, Lax dante [facility] ACTIVATED PARTIAL THRMPLAS JOESPH 2020-09-30 19:15:00 Dongur, [facility] BASIC METABOLIC PANEL (NA, K, CL, CO2, GLUCOSE, BUN, CREATININE, CA) 2020-09-30 10:25:00 Cheryl Jimenez [facility] BASIC METABOLIC PANEL (NA, K, CL, CO2, GLUCOSE, BUN, CREATININE, CA) 2020-09-30 10:25:00 Cheryl Jimenez [facility] FUNGUS (ROUTINE) CULTURE 2020-09-30 09:06:46 Paul [facility] BODY FLUID CULTURE(AEROBIC/ANAEROB IC) 2020-09-30 09:06:46 Paul [facility] FUNGUS (ROUTINE) CULTURE 2020-09-30 09:06:46 Paul [facility] BODY FLUID CULTURE(AEROBIC/ANAEROB IC) 2020-09-30 09:06:46 Paul [facility] INTUBATION 2020-09-30 08:54:44 Edgardo Buck [facility] EXPLORATORY LAPAROTOMY 2020-09-30 07:59:00 Stanford Edwards [facility] EXPLORATORY LAPAROTOMY 2020-09-30 07:59:00 Stanford Edwards [facility] ABORH CONFIRMATION (LAB ONLY) 2020-09-30 07:55:00 Almas Edwards [facility] ABORH CONFIRMATION (LAB ONLY) 2020-09-30 07:55:00 Almas Edwards [facility] HB ABO GROUPING 2020-09-30 07:25[facility] 2020-09-30 07:25[facility]00 [facility] 2020-09-30 05:01:00 Doctor Un assigned, [place] [facility] COVID-19 (ID NOW RAPID TESTING) 2020-09-30 02:51:00 Kenzie Cardenas [facility] CT ABDOMEN PELVIS W CONTRAST 2020-09-30 01:36:13 Kenzie Cardenas [facility] LIPASE 2020-09-30 00:21:00 [facility] COMP. METABOLIC PANEL (58572) 2020-09-30 00:21:00 Kenzie Cardenas [facility] CBC WITH DIFF 2020-09-30 00:21:00 Kenzie Cardenas [facility] URINALYSIS 2020-09-30 00:21:00 [facility]Y DEPART[facility] DOCUMENTS 2020-09-29 05:01:00 Doctor Unassigned, [place] [facility] EMERGENCY DEPARTMENT DOCUMENTS 2020-09-29 05:01:00 Doctor Unassigned, [place] [facility] CT CHEST PULMONARY ANGIOGRAM 2020-06-12 15:58:18 [facility] XR CHEST 1 VW 2020-06-12 14:58:13 Danilo Castle [facility] TROPONIN I 2020-06-12 14:32:00 Danilo Castle [facility] HEPATIC FUNCTION PANEL (30360) (ALB,T.PRO,BILI T,BU/BC,ALT,AST,ALK PHOS) 2020-06-12 14:32:00 Tin Danilo [facility] BASIC METABOLIC PANEL (NA, K, CL, CO2, GLUCOSE, BUN, CREATININE, CA) 2020-06-12 14:32:00 [facility] CBC WITH DIFF 2020-06-12 14:32:00 Danilo Castle [facility] PROTHROMBIN TIME / INR 2020-06-12 14:32:00 Cesar Castle [facility] ACTIVATED PARTIAL THRMPLAS JOESPH 2020-06-12 14:32:00 Danilo Castle [facility] N-TERMINAL PRO-BNP 2020-06-12 14:32:00 Danilo Castle [facility] COVID-19 (ID NOW RAPID TESTING) 2020-06-12 14:32:00 Danilo Castle [facility] NOTICE OF PRIVACY PRACTICES 2020-06-12 14:09:29 Doctor Unassigned, [place] [facility] Encounters Start Date/Time End Date/Time Encounter Type Admission Type Attending Clinicians Care Facility Care Department Encounter ID Source 2023-02-07 13:21:00 Outpatient Daryl Bailey [facility] [id number] [facility] 2023-02-03 15:07:00 Outpatient BaileyJeffreyh STLMLC STLMLC [id number] [facility] 2022-04-16 15:32:01 Outpatient Yuen, Avnee STLMLC STLMLC [id number] [facility] 2022-02-05 10:52:02 Outpatient Yuen Avnee STLMLC STLMLC [id number] [facility] 2022-02-03 10:17:03 Outpatient Yuen Avnee STLML[facility] STLMLC [id number] [facility] 2022-01-12 10:33:01 Outpatient Yuen, Avnee STLMLC STLMLC [id number] [facility] 2022-01-11 09:13:01 Outpatient Yuen Avnee STLML[facility] STL[facility]C [id number] [facility] 2021-04-15 14:17:15 Outpatient Yuen Avnee STLMLC STLMLC [id number] [facility] 2021-04-15 14:04:07 Outpatient Yuen, Avnee ST[facility]ML[facility] STL[facility]C [id number] [facility] 2021-04-15 13:58:49 Outpatient Yuen, Avnee STLMLC STLMLC [id number] [facility] 2021-04-15 13:57:23 Outpatient Yuen, Avnee STLMLC STLMLC [id number] [facility] 2021-04-15 13:56:27 Outpatient Yuen, Avnee STLMLC STLMLC [id number] [facility] 2021-04-15 13:48:17 Outpatient Yuen, Avnee ST[facility]MLC STLMLC [id number] [facility] 2021-04-15 13:38:18 Outpatient Yuen, Avnee ST[facility]MLC STLMLC [id number] [facility] 2021-04-15 13:27:33 Outpatient Yuen, Avnee STLMLC STLMLC [id number] [facility] 2021-04-15 13:22:06 Outpatient STLMLC STLMLC [id number] [facility] 2023-02-08 00:00:00 2023-02-08 00:00:00 (TEL) STLMLC STLMLC [id number] [facility] 2023-02-03 00:00:00 2023-02-03 00:00:00 (TEL) STLMLC STLMLC [id number] [facility] 2022-10-08 00:00:00 2022-10-08 00:00:00 (TEL) STLMLC STLMLC [id number] [facility] 2022-05-24 00:00:00 2022-05-24 00:00:00 (TEL) STLMLC STLMLC [id number] [facility] 2022-02-24 00:00:00 2022-02-24 00:00:00 (TEL) STLMLC STLMLC [id number] [facility] 2022-02-19 00:00:00 2022-02-19 00:00:00 (TEL) STLMLC STLMLC [id number] [facility] 2022-02-05 00:00:00 2022-02-05 00:00:00 OFFICE VISIT EST PT LEVEL 3 STLMLC STLMLC [id number] [facility] 2022-02-04 00:00:00 2022-02-04 00:00:00 (TEL) STLMLC STLMLC [id number] [facility] 2022-01-13 00:00:00 2022-01-13 00:00:00 PREV VISIT EST AGE 40-64 STLMLC STLMLC [id number] [facility] 2021-10-30 00:00:00 2021-10-30 00:00:00 (TEL) STLMLC STLMLC [id number] [facility] 2021-09-07 00:00:00 2021-09-07 00:00:00 OL DIG E/M SVC 11-20 MIN STLMLC STLMLC [id number] [facility] 2021-09-03 00:00:00 2021-09-03 00:00:00 (TEL) STLMLC STLMLC [id number] [facility] 2021-08-13 00:00:00 2021-08-13 00:00:00 (TEL) STLMLC STLMLC [id number] [facility] 2021-07-22 00:00:00 2021-07-22 00:00:00 (TEL) STLMLC STLMLC [id number] [facility] 2021-02-27 00:00:00 2021-02-27 00:00:00 (TEL) STLMLC STLMLC [id number] [facility] 2021-01-12 00:00:00 2021-01-12 00:00:00 OFFICE VISIT EST PT LEVEL 3 STLMLC STLMLC [id number] [facility] 2021-01-06 00:00:00 2021-01-06 00:00:00 (TEL) STLMLC STLMLC [id number] [facility] 2020-12-23 00:00:00 2020-12-23 00:00:00 PREV VISIT EST AGE 40-64 STLMLC STLMLC [id number] [facility] 2020-10-21 10:45:00 2020-10-21 10:45:00 Outpatient JUNIE EDMONDS [facility] [id number] [facility] 2020-10-07 00:00:00 2020-10-07 00:00:00 Transition of Care [facility] [id number] [id number] [facility] 2020-10-06 00:00:00 2020-10-06 00:00:00 Outpatient STLMLC STLC [id number] [facility] 2020-09-30 00:19:00 2020-10-05 13:32:00 Hospital Encounter [facility] 1.2.840.114 350.1.13.10 4.2.7.2.686 [id number] [facility] 2020-09-30 02:45:00 2020-09-30 05:33:00 [facility] 1.2.840.114 350.1.13.10 4.2.7.2.686 [id number] [facility] 2020-09-30 03:15:00 2020-09-30 05:06:00 Anesthesia Event Ced Chung Stefanie [facility] 1.2.840.114 350.1.13.10 4.2.7.2.686 [id number] [facility] 2020-09-30 00:19:00 2020-09-30 00:19:00 Emergency X ALMAS EDWARDS [facility] ERT [id number] [facility] 2020-09-30 00:00:00 2020-09-30 00:00:00 Orders Only Doctor Unassigned, [place] [facility] 1.2840.114 350.1.13.10 4.2.7.2.686 [id number] [facility] 2020-09-29 18:55:00 2020-09-29 22:56:00 Emergency Ronald Gayathritalya Hernandez Paul Almas [facility] 1.2.840.114 350.1.13.10 4.2.7.2.686 [id number] [facility] 2020-09-29 18:55:00 2020-09-29 18:55:00 Emergency X KENZIE CARDENAS [facility] ERT [id number] [facility] 2020-09-19 00:00:00 2020-09-19 00:00:00 Outpatient STLMLC STLMLC [id number] [facility] 2020-06-12 09:16:00 2020-06-12 12:33:00 Emergency Tin Danilo [facility] 1.2.840.114 350.1.13.10 4.2.7.2.686 [id number] 2020-06-12 09:16:00 2020-06-12 12:33:00 Emergency X TIN DANILO [facility] ERT [id number] [facility] 2020-06-12 09:16:00 2020-06-12 12:33:00 Emergency Tin Danilo [facility] 1.2.840.114 350.1.13.10 4.2.7.2.686 [id number] [facility] Results Test Description Test Time Test Comments Results Result Co mments Source Maricarmen 2022-01-27 00:00:00 [facility] (NA, K, CL, CO2, GLUCOSE, BUN, CREATININE, CA)2020-10-05 09:01:06* Test Item Value Reference Range Interpretation Comme nts NA (test code = 9774143486) 133 mmol/L 135-145 L K (test code = 8068612298) 3.6 mmol/L 3.5-5.0 CL (test code = 8413934689) 105 mmol/L 98-108 CO2 TOTAL (test code = 4088815746) 23 mmol/L 23-31 AGAP (test code = 4815000666) 2-16 BUN (test code = 2929118042) 2 mg/dL 7-23 L GLUCOSE (test code = 3989285854) 104 mg/dL 70-110 CREATININE (test code = 1529500272) 0.41 mg/dL 0.50-1.04 L CALCIUM (test code = 3736487557) 9.1 mg/dL 8.6-10.6 eGFR (test code = 9437133339) mL/min/1.73m2 AYANA (test code = AYANA) Association [...] imaging tests). Lab Interpretation (test code = 16665-7) Abnormal [facility] METABOLIC PANEL (NA, K, CL, CO2, GLUCOSE, BUN, CREATININE, CA)2020-10-04 14:02:25* Test Item Value Reference Range Interpretation Comme nts NA (test code = 6838949237) 135 mmol/L 135-145 K (test code = 2783395714) 3.9 mmol/L 3.5-5.0 CL (test code = 5150878990) 103 mmol/L 98-108 CO2 TOTAL (test code = 8096983223) 25 mmol/L 23-31 AGAP (test code = 4245676742) 2-16 BUN (test code = 4311076626) 4 mg/dL 7-23 L GLUCOSE (test code = 0380602966) 125 mg/dL 70-110 H CREATININE (test code = 3107894993) 0.41 mg/dL 0.50-1.04 L CALCIUM (test code = 1049274555) 9.4 mg/dL 8.6-10.6 eGFR (test code = 4002773648) mL/min/1.73m2 AYANA (test code = AYANA) Association [...] imaging tests). Lab Interpretation (test code = 03149-9) Abnormal [facility] WITH [id number] 11:36:56* Test Item Value Reference Range Interpretation Comme nts WBC (test code = 6690-2) See_Comment [Automated [employer]] The system which generated this result transmitted reference range: 4.30 - 11.10 10*3/?L. The reference range was not used to interpret this result as normal/abnormal. RBC (test code = 789-8) See_Comment L [Automated [employer]] The system which generated this result transmitted [...] 34.3 g/dL 31.6-35.1 RDW-SD (test code = 76351-5) 47.2 fL 39.0-49.9 RDW-CV (test code = 788-0) 13.3 % 12.0-15.5 PLT (test code = 777-3) See_Comment [Automated [employer]] The system which generated this result transmitted reference range: 166 - 358 10*3/?L. The reference range was not used to interpret this result as normal/abnormal. MPV (test code = 97088-9) 10.0 fL 9.5-12.9 NRBC/100 WBC (test code = 5122845812) See_Comment [Automated me ssage] The system which generated this result transmitted reference range: 0.0 - 10.0 /100 WBCs. The reference range was not used to interpret this result as normal/abnormal. NRBC x10^3 (test code = 1976510572) <0.01 See_Comment [Automated messa ge] The system which generated this result transmitted reference range: 10*3/?L. The reference range was not used to interpret this result as normal/abnormal. GRAN MAT (NEUT) % (test code = 770-8) 58.9 % IMM GRAN % (test code = 2944851144) 0.80 % LYMPH % (test code = 736-9) 21.1 % MONO % (test code = 5905-5) 12.7 % EOS % (test code = 713-8) 5.9 % BASO % (test code = 706-2) 0.6 % GRAN MAT x10^3(ANC) (test code = 3570963060) 3.91 10*3/uL 1.88-7.09 IMM GRAN x10^3 (test code = 2978946035) 0.05 10*3/uL 0.00-0.06 LYMPH x10^3 (test code = 731-0) 1.40 10*3/uL 1.32-3.29 MONO x10^3 (test code = 742-7) 0.84 10*3/uL 0.33-0.92 EOS x10^3 (test code = 711-2) 0.39 10*3/uL 0.03-0.39 BASO x10^3 (test code = 704-7) 0.04 10*3/uL 0.01-0.07 Lab Interpretation (test code = 59368-7) [facility]normal [facility]/ANAEROBIC) 2020-10-03 12:47:10* Test Item Value Reference Range Interpretation Comme nts BODY FLUID CULT (test code = 611-4) No organisms isolated Gram stain (test code = 664-3) Few PMNs or Mononuclear cells observed [facility] METABOLIC PANEL (NA, K, CL, CO2, GLUCOSE, BUN, CREATININE, CA)2020-10-03 11:21:54* Test Item Value Reference Range Interpretation Comme nts NA (test code = 6457397645) 136 mmol/L 135-145 K (test code = 3200994531) 3.8 mmol/L 3.5-5.0 Slight hemolysis CL (test code = 6492009791) 108 mmol/L 98-108 CO2 TOTAL (test code = 7818037393) 26 mmol/L 23-31 AGAP (test code = 9960040809) 2-16 BUN (test code = 5193433725) 4 mg/dL 7-23 L Slight hemolysis GLUCOSE (test code = 5991551772) 112 mg/dL 70-110 H CREATININE (test code = 6384422537) 0.39 mg/dL 0.50-1.04 L CALCIUM (test code = 6594780169) 8.5 mg/dL 8.6-10.6 L eGFR (test code = 0437090967) mL/min/1.73m2 AYANA (test code = AYANA) Association [...] imaging tests). Lab Interpretation (test code = 15396-4) Abnormal [facility] WITH [id number] 10:55:33* Test Item Value Reference Range Interpretation Comme nts WBC (test code = 6690-2) See_Comment [Automated [employer]] The system which generated this result transmitted reference range: 4.30 - 11.10 10*3/?L. The reference range was not used to interpret this result as normal/abnormal. RBC (test code = 789-8) See_Comment L [Automated [employer]] The system which generated this result [...] 34.0 g/dL 31.6-35.1 RDW-SD (test code = 65898-0) 46.7 fL 39.0-49.9 RDW-CV (test code = 788-0) 12.9 % 12.0-15.5 PLT (test code = 777-3) See_Comment [Automated [employer]] The system which generated this result transmitted reference range: 166 - 358 10*3/?L. The reference range was not used to interpret this result as normal/abnormal. MPV (test code = 27815-4) 10.0 fL 9.5-12.9 NRBC/100 WBC (test code = 7038858240) See_Comment [Automated [employer] ssage] The system which generated this result transmitted reference range: 0.0 - 10.0 /100 WBCs. The reference range was not used to interpret this result as normal/abnormal. NRBC x10^3 (test code = 3398013222) <0.01 See_Comment [Automated messa ge] The system which generated this result transmitted reference range: 10*3/?L. The reference range was not used to interpret this result as normal/abnormal. GRAN MAT (NEUT) % (test code = 770-8) 71.4 % IMM GRAN % (test code = 6124581062) 0.40 % LYMPH % (test code = 736-9) 14.7 % MONO % (test code = 5905-5) 8.3 % EOS % (test code = 713-8) 4.8 % BASO % (test code = 706-2) 0.4 % GRAN MAT x10^3(ANC) (test code = 4048033156) 6.69 10*3/uL 1.88-7.09 IMM GRAN x10^3 (test code = 5426875205) 0.04 10*3/uL 0.00-0.06 LYMPH x10^3 (test code = 731-0) 1.38 10*3/uL 1.32-3.29 MONO x10^3 (test code = 742-7) 0.78 10*3/uL 0.33-0.92 EOS x10^3 (test code = 711-2) 0.45 10*3/uL 0.03-0.39 H BASO x10^3 (test code = 704-7) 0.04 10*3/uL 0.01-0.07 Lab Interpretation (test code = 95495-5) Abnormal [facility] METABOLIC PANEL (NA, K, CL, CO2, GLUCOSE, BUN, CREATININE, CA)2020-10-02 14:13:08* Test Item Value Reference Range Interpretation Comme nts NA (test code = 0024013605) 132 mmol/L 135-145 L K (test code = 9776269651) 3.5 mmol/L 3.5-5.0 CL (test code = 6751047442) 103 mmol/L 98-108 CO2 TOTAL (test code = 8767606795) 29 mmol/L 23-31 AGAP (test code = 2806069144) <1 2-16 L BUN (test code = 4140189014) 4 mg/dL 7-23 L GLUCOSE (test code = 5996027773) 122 mg/dL 70-110 H CREATININE (test code = 0954007163) 0.46 mg/dL 0.50-1.04 L CALCIUM (test code = 1198137553) 9.0 mg/dL 8.6-10.6 eGFR (test code = 2968021840) mL/min/1.73m2 AYANA (test code = AYANA) Association [...] imaging tests). Lab Interpretation (test code = 83669-7) Abnormal [facility] WITH [id number] 12:09:01* Test Item Value Reference Range Interpretation [...] 34.5 g/dL 31.6-35.1 RDW-SD (test code = 60691-1) 47.6 fL 39.0-49.9 RDW-CV (test code = 788-0) 13.3 % 12.0-15.5 PLT (test code = 777-3) See_Comment [Automated message] The system which generated this result transmitted reference range: 166 - 358 10*3/?L. The reference range was not used to interpret this result as normal/abnormal. MPV (test code = 90636-2) 9.9 fL 9.5-12.9 NRBC/100 WBC (test code = 1652347497) See_Comment [Automated message] The system which generated this result transmitted reference range: 0.0 - 10.0 /100 WBCs. The reference range was not used to interpret this result as normal/abnormal. NRBC x10^3 (test code = 5060830731) <0.01 See_Comment [Automated message] The system which generated this result transmitted reference range: 10*3/?L. The reference range was not used to interpret this result as normal/abnormal. GRAN MAT (NEUT) % (test code = 770-8) 81.7 % IMM GRAN % (test code = 7573488196) 0.60 % LYMPH % (test code = 736-9) 9.2 % MONO % (test code = 5905-5) 6.0 % EOS % (test code = 713-8) 2.3 % BASO % (test code = 706-2) 0.2 % GRAN MAT x10^3(ANC) (test code = 0791568363) 10.17 10*3/uL 1.88-7.09 H IMM GRAN x10^3 (test code = 9653656941) 0.07 10*3/uL 0.00-0.06 H LYMPH x10^3 (test code = 731-0) 1.15 10*3/uL 1.32-3.29 L MONO x10^3 (test code = 742-7) 0.75 10*3/uL 0.33-0.92 EOS x10^3 (test code = 711-2) 0.29 10*3/uL 0.03-0.39 BASO x10^3 (test code = 704-7) 0.03 10*3/uL 0.01-0.07 Lab Interpretation (test code = 79552-6) Abnormal [facility] METABOLIC PANEL (NA, K, CL, CO2, GLUCOSE, BUN, CREATININE, CA)2020-10-01 08:15:12* Test Item Value Reference Range Interpretation Comme nts NA (test code = 1275873299) 133 mmol/L 135-145 L K (test code = 3444988531) 3.7 mmol/L 3.5-5.0 CL (test code = 1762800645) 101 mmol/L 98-108 CO2 TOTAL (test code = 9662465265) 27 mmol/L 23-31 AGAP (test code = 3480191653) 2-16 BUN (test code = 5986817501) 8 mg/dL 7-23 GLUCOSE (test code = 9080192954) 99 mg/dL 70-110 CREATININE (test code = 4071219718) 0.50 mg/dL 0.50-1.04 CALCIUM (test code = 3574975165) 8.6 mg/dL 8.6-10.6 eGFR (test code = 7231273715) mL/min/1.73m2 AYANA (test code = AYANA) Association [...] imaging tests). Lab Interpretation (test code = 77790-7) [facility]normal [facility] 08:15:12* Test Item Value Reference Range Interpretation Comme nts MAGNESIUM (test code = 8541045499) 1.7 mg/dL 1.7-2.4 Lab Interpretation (test cod e = 38855-3) Normal [facility]21[facility] 08:15:12* Test Item Value Reference Range Interpretation Comme nts PHOSPHORUS (test code = 2578418922) 3.2 mg/dL 2.5-5.0 Lab Interpretation (test cod e = 71547-0) Normal [facility] (NA, K, CL, CO2, GLUCOSE, BUN, CREATININE, CA)2020-10-01 08:15:12* Test Item Value Reference Range Interpretation Comme nts NA (test code = 4503020981) 133 mmol/L 135-145 L K (test code = 7395100556) 3.7 mmol/L 3.5-5.0 CL (test code = 9422502589) 101 mmol/L 98-108 CO2 TOTAL (test code = 7337186105) 27 mmol/L 23-31 AGAP (test code = 1833224897) 2-16 BUN (test code = 6766259917) 8 mg/dL 7-23 GLUCOSE (test code = 6114614948) 99 mg/dL 70-110 CREATININE (test code = 4996083354) 0.50 mg/dL 0.50-1.04 CALCIUM (test code = 3682555869) 8.6 mg/dL 8.6-10.6 eGFR (test code = 9624725125) mL/min/1.73m2 AYANA (test code = AYANA) Association [...] imaging tests). Lab Interpretation (test code = 58151-4) Abnormal [facility]14 08:15:12* Test Item Value Reference Range Interpretation Comme nts MAGNESIUM (test code = 2055853972) 1.7 mg/dL 1.7-2.4 Lab Interpretation (test cod e = 98380-1) Normal [facility]21-[facility]-14 08:15:12* Test Item Value Reference Range Interpretation Comme nts PHOSPHORUS (test code = 9931394431) 3.2 mg/dL 2.5-5.0 Lab Interpretation (test cod e = 81352-5) Normal [facility] Jhofcantcdiu7294-66-92 07:46:25* Test Item Value Reference Range Interpretation [...] 34.0 g/dL 31.6-35.1 RDW-SD (test code = 50647-5) 48.8 fL 39.0-49.9 RDW-CV (test code = 788-0) 13.6 % 12.0-15.5 PLT (test code = 777-3) See_Comment [Automated messa ge] The system which generated this result transmitted reference range: 166 - 358 10*3/?L. The reference range was not used to interpret this result as normal/abnormal. MPV (test code = 04272-9) 9.6 fL 9.5-12.9 NRBC/100 WBC (test code = 8421339685) See_Comment [Automated me ssage] The system which generated this result transmitted reference range: 0.0 - 10.0 /100 WBCs. The reference range was not used to interpret this result as normal/abnormal. NRBC x10^3 (test code = 0523111858) <0.01 See_Comment [Automated messa ge] The system which generated this result transmitted reference range: 10*3/?L. The reference range was not used to interpret this result as normal/abnormal. GRAN MAT (NEUT) % (test code = 770-8) 83.8 % IMM GRAN % (test code = 5571095519) 0.50 % LYMPH % (test code = 736-9) 8.7 % MONO % (test code = 5905-5) 6.4 % EOS % (test code = 713-8) 0.3 % BASO % (test code = 706-2) 0.3 % GRAN MAT x10^3(ANC) (test code = 2587037990) 8.85 10*3/uL 1.88-7.09 H IMM GRAN x10^3 (test code = 3956521343) 0.05 10*3/uL 0.00-0.06 LYMPH x10^3 (test code = 731-0) 0.92 10*3/uL 1.32-3.29 L MONO x10^3 (test code = 742-7) 0.67 10*3/uL 0.33-0.92 EOS x10^3 (test code = 711-2) 0.03 10*3/uL 0.03-0.39 BASO x10^3 (test code = 704-7) 0.03 10*3/uL 0.01-0.07 Lab Interpretation (test code = 40687-6) Abnormal [facility] with Kwdrbqewdogg4600-50-50 07:46:25* Test Item Value Reference Range Interpretation [...] 34.0 g/dL 31.6-35.1 RDW-SD (test code = 86539-5) 48.8 fL 39.0-49.9 RDW-CV (test code = 788-0) 13.6 % 12.0-15.5 PLT (test code = 777-3) See_Comment [Automated messa ge] The system which generated this result transmitted reference range: 166 - 358 10*3/?L. The reference range was not used to interpret this result as normal/abnormal. MPV (test code = 67756-2) 9.6 fL 9.5-12.9 NRBC/100 WBC (test code = 2756672583) See_Comment [Automated [employer] ssage] The system which generated this result transmitted reference range: 0.0 - 10.0 /100 WBCs. The reference range was not used to interpret this result as normal/abnormal. NRBC x10^3 (test code = 7920385148) <0.01 See_Comment [Automated messa ge] The system which generated this result transmitted reference range: 10*3/?L. The reference range was not used to interpret this result as normal/abnormal. GRAN MAT (NEUT) % (test code = 770-8) 83.8 % IMM GRAN % (test code = 3314593528) 0.50 % LYMPH % (test code = 736-9) 8.7 % MONO % (test code = 5905-5) 6.4 % EOS % (test code = 713-8) 0.3 % BASO % (test code = 706-2) 0.3 % GRAN MAT x10^3(ANC) (test code = 2940678939) 8.85 10*3/uL 1.88-7.09 H IMM GRAN x10^3 (test code = 9719453122) 0.05 10*3/uL 0.00-0.06 LYMPH x10^3 (test code = 731-0) 0.92 10*3/uL 1.32-3.29 L MONO x10^3 (test code = 742-7) 0.67 10*3/uL 0.33-0.92 EOS x10^3 (test code = 711-2) 0.03 10*3/uL 0.03-0.39 BASO x10^3 (test code = 704-7) 0.03 10*3/uL 0.01-0.07 Lab Interpretation (test code = 73270-5) [id number] 22:38:361. The tip and sidehole of the [...] reviewed this study and agree withthe above report.[facility] [id number] 22:38:361. The tip and sidehole of the [...] are identified. No acutebony abnormality is present. [facility], Radiant Results Inft User [...] reviewed this study and agree withthe above report.[facility] [id number] 20:48:51* Test Item Value Reference Range Interpretation [...] 34.5 g/dL 31.6-35.1 RDW-SD (test code = 82844-4) 49.8 fL 39.0-49.9 RDW-CV (test code = 788-0) 13.7 % 12.0-15.5 PLT (test code = 777-3) See_Comment [Automated message] The system which generated this result transmitted reference range: 166 - 358 10*3/?L. The reference range was not used to interpret this result as normal/abnormal. MPV (test code = 89407-9) 10.0 fL 9.5-12.9 NRBC/100 WBC (test code = 3788553028) See_Comment [Automated message] The system which generated this result transmitted reference range: 0.0 - 10.0 /100 WBCs. The reference range was not used to interpret this result as normal/abnormal. NRBC x10^3 (test code = 7258517783) <0.01 See_Comment [Automated message] The system which generated this result transmitted reference range: 10*3/?L. The reference range was not used to interpret this result as normal/abnormal. GRAN MAT (NEUT) % (test code = 770-8) 85.5 % IMM GRAN % (test code = 2027205939) 0.60 % LYMPH % (test code = 736-9) 8.1 % MONO % (test code = 5905-5) 5.6 % EOS % (test code = 713-8) 0.0 % BASO % (test code = 706-2) 0.2 % GRAN MAT x10^3(ANC) (test code = 8291814007) 7.38 10*3/uL 1.88-7.09 H IMM GRAN x10^3 (test code = 7398548410) 0.05 10*3/uL 0.00-0.06 LYMPH x10^3 (test code = 731-0) 0.70 10*3/uL 1.32-3.29 L MONO x10^3 (test code = 742-7) 0.48 10*3/uL 0.33-0.92 EOS x10^3 (test code = 711-2) <0.03 0.03-0.39 L BASO x10^3 (test code = 704-7) <0.03 0.01-0.07 BANDS (test code = 2765693911) MARKED INCREASED A Lab Interpretation (test code = 50538-3) Abnormal [facility] WITH [id number] 20:48:51* Test Item Value Reference Range Interpretation [...] 34.5 g/dL 31.6-35.1 RDW-SD (test code = 25890-7) 49.8 fL 39.0-49.9 RDW-CV (test code = 788-0) 13.7 % 12.0-15.5 PLT (test code = 777-3) See_Comment [Automated message] The system which generated this result transmitted reference range: 166 - 358 10*3/?L. The reference range was not used to interpret this result as normal/abnormal. MPV (test code = 00993-3) 10.0 fL 9.5-12.9 NRBC/100 WBC (test code = 2438510282) See_Comment [Automated message] The system which generated this result transmitted reference range: 0.0 - 10.0 /100 WBCs. The reference range was not used to interpret this result as normal/abnormal. NRBC x10^3 (test code = 0386709561) <0.01 See_Comment [Automated message] The system which generated this result transmitted reference range: 10*3/?L. The reference range was not used to interpret this result as normal/abnormal. GRAN MAT (NEUT) % (test code = 770-8) 85.5 % IMM GRAN % (test code = 6413550516) 0.60 % LYMPH % (test code = 736-9) 8.1 % MONO % (test code = 5905-5) 5.6 % EOS % (test code = 713-8) 0.0 % BASO % (test code = 706-2) 0.2 % GRAN MAT x10^3(ANC) (test code = 3255027100) 7.38 10*3/uL 1.88-7.09 H IMM GRAN x10^3 (test code = 7290684695) 0.05 10*3/uL 0.00-0.06 LYMPH x10^3 (test code = 731-0) 0.70 10*3/uL 1.32-3.29 L MONO x10^3 (test code = 742-7) 0.48 10*3/uL 0.33-0.92 EOS x10^3 (test code = 711-2) <0.03 0.03-0.39 L BASO x10^3 (test code = 704-7) <0.03 0.01-0.07 BANDS (test code = 1705442285) MARKED INCREASED A Lab Interpretation (test code = 07090-8) [facility]normal [facility] PART[facility] THRMPLAS [id number] 19:50:17* Test Item Value Reference Range Interpretation Comme nts APTT Patient (test code = 3173-2) See_Comment [Automated messa ge] The system which generated this result transmitted reference range: 26 - 36 Seconds. The reference range was not used to interpret this result as normal/abnormal. Lab Interpretation (test code = 42382-2) Normal [facility] ClubPROTHROMBIN TIME / [id number] 19:50:17* Test Item Value Reference Range Interpretation [...] the indications. Lab Interpretation (test code = 75338-9) Abnormal [facility] ClubACTIV[facility] PARTIAL THRMPLAS [id number] 19:50:17* Test Item Value Reference Range Interpretation Comme nts APTT Patient (test code = 3173-2) See_Comment [Automated messa ge] The system which generated this result transmitted reference range: 26 - 36 Seconds. The reference range was not used to interpret this result as normal/abnormal. Lab Interpretation (test code = 16527-9) Normal [facility] ClubPROTHROMBIN TIME / [id number] 19:50:17* Test Item Value Reference Range Interpretation [...] the indications. Lab Interpretation (test code = 24593-2) Abnormal [facility] Metabolic Panel (NA, K, CL, CO2, Glucose, BUN, Creatinine, CA)2020-09-30 11:09:08* Test Item Value Reference Range Interpretation Comme nts NA (test code = 4011009870) 131 mmol/L 135-145 L K (test code = 8630367373) 4.4 mmol/L 3.5-5.0 CL (test code = 7253720181) 105 mmol/L 98-108 CO2 TOTAL (test code = 0115077065) 21 mmol/L 23-31 L AGAP (test code = 4092889060) 2-16 BUN (test code = 2267354847) 12 mg/dL 7-23 GLUCOSE (test code = 0455719729) 134 mg/dL 70-110 H CREATININE (test code = 2908379426) 0.54 mg/dL 0.50-1.04 CALCIUM (test code = 0599122862) 8.6 mg/dL 8.6-10.6 eGFR (test code = 7837158460) mL/min/1.73m2 AYANA (test code = AYANA) Association [...] imaging tests). Lab Interpretation (test code = 34279-5) Abnormal [facility] Metabolic Panel (NA, K, CL, CO2, Glucose, BUN, Creatinine, CA)2020-09-30 11:09:08* Test Item Value Reference Range Interpretation Comme nts NA (test code = 6279546062) 131 mmol/L 135-145 L K (test code = 5728385200) 4.4 mmol/L 3.5-5.0 CL (test code = 4772096228) 105 mmol/L 98-108 CO2 TOTAL (test code = 4828812678) 21 mmol/L 23-31 L AGAP (test code = 9738620369) 2-16 BUN (test code = 2465084645) 12 mg/dL 7-23 GLUCOSE (test code = 9543727392) 134 mg/dL 70-110 H CREATININE (test code = 4775821423) 0.54 mg/dL 0.50-1.04 CALCIUM (test code = 4820468707) 8.6 mg/dL 8.6-10.6 eGFR (test code = 6205591329) mL/min/1.73m2 AYANA (test code = AYANA) Association [...] imaging tests). Lab Interpretation (test code = 90129-0) [facility]normal [facility] ClubIntubation2021-07-13 08:54:44Edgardo Buck MD ? ? 09/30/2020 ?3:55 AMIntubationUrgency: elective Airway not difficult General Information and Staff Patient location during procedure: ORResident/FITNESS COACH: Edgardo Buck MDPerformed: resident/FITNESS COACH Indications and Patient ConditionIndications for airway management: [...] atraumatic, dentition and lips unchanged from pre-op. [facility] ClubType and Screen - ONCE [id number] 08:24:34* Test Item Value Reference Range Interpretation Comme nts ABO & RH (test code = 20) O POSITIVE Performed at [facility] Laboratory Services - [facility] Blood [address] Free: [phone] No. [id number] IAT (test code = 1185) Negative Performed at [facility] Laboratory Services - [facility] Blood [address] Free: [phone] No. [id number] [facility] ClubType and Screen - ONCE [id number] 08:24:34* Test Item Value Reference Range Interpretation Comme nts ABO & RH (test code = 20) O POSITIVE Performed at [facility] Laboratory [address] [address]Oojg Free: [phone] No. [id number] IAT (test code = 1185) Negative Performed at [place] [address]Toll Free: [phone] No. [id number] [facility] Confirmation (Lab Only)2020-09-30 08:09:54* Test Item Value Reference Range Interpretation Comme nts ABO & RH (test code = 20) O Positive Performed at [address] [address]Htug Free: [phone] No. [id number] [facility] Confirmation (Lab Only)2020-09-30 08:09:54* Test Item Value Reference Range Interpretation Comme nts ABO & RH (test code = 20) O Positive Performed at [address] [address]Hrwp Free: [phone] No. [id number] [facility] ClubCOVID-19 (ID NOW RAPID TESTING)2020-09-30 03:17:30* Test Item Value Reference Range Interpretation Comme nts SARS-CoV-2 Rapid ID NOW (test code = 58777-7) Not Detected Not Detected AYANA (test code = AYANA) ID NOW COVID-19 As say is an isothermal nucleic acid amplification test intended for the qualitative detection of nucleic acid from SARS-CoV-2 viral RNA in nasopharyngeal (ARCHIVES TECHNICIAN) specimens. It is used under Emergency Use [...] clinically indicated. Lab Interpretation (test code = 48674-5) Normal [facility] ClubCT ABDOMEN PELVIS W [id number] 02:46:09Impression: 1. Perforated ulcer in the region [...] with KENZIE CARDENAS at 09/29/2020 9:43 PM. Inmb, Radiant Results Inft User - 09/29/2020 9:47 [...] laboratory correlation isrecommended.3. Atherosclerosis.RL: 460End of Report UnNorth [facility] CampusUrinalysis2021-07-13 01:19:32* Test Item Value Reference Range Interpretation Comme nts APPEARANCE (test code = 0619542689) Hazy Clear A COLOR (test code = 9350559300) Yellow Yellow PH (test code = 3489917233) 4.8-8.0 SP GRAVITY (test code = 3175689806) 1.003-1.030 GLU U QUAL (test code = 0244197232) Normal Normal BLOOD (test code = 4121025221) Negative Negative KETONES (test code = 5821702444) Negative Negative PROTEIN (test code = 2887-8) Negative Negative UROBILIN (test code = 3421687158) 4.0 mg/dL Normal A BILIRUBIN (test code = 8462365995) 2 mg/dL Negative A NITRITE (test code = 6980340875) Negative Negative LEUK EUGENIO (test code = 4131019733) 250/uL Negative A RBC/HPF (test code = 5584244458) See_Comment H [Automated messa ge] The system which generated this result transmitted reference range: 0 - 3 HPF. The reference range was not used to interpret this result as normal/abnormal. WBC/HPF (test code = 2374071498) See_Comment H [Automated messa ge] The system which generated this result transmitted reference range: 0 - 5 HPF. The reference range was not used to interpret this result as normal/abnormal. BACTERIA (test code = 7392596270) Negative Negative MUCOUS (test code = 6761121245) Slight Negative LPF A SQ EPITH (test code = 4281497467) HPF HYAL CAST (test code = 5136126191) See_Comment H [Automated messa ge] The system which generated this result transmitted reference range: <=2 LPF. The reference range was not used to interpret this result as normal/abnormal. Lab Interpretation (test code = 54894-7) Abnormal [facility] ClubComplete Metabolic [id number] 01:04:29* Test Item Value Reference Range Interpretation Comme nts NA (test code = 7291464794) 133 mmol/L 135-145 L K (test code = 5813577648) 3.7 mmol/L 3.5-5.0 CL (test code = 9298949877) 101 mmol/L 98-108 CO2 TOTAL (test code = 4440790775) 22 mmol/L 23-31 L AGAP (test code = 8080326378) 2-16 BUN (test code = 2813357737) 9 mg/dL 7-23 GLUCOSE (test code = 8314199250) 133 mg/dL 70-110 H CREATININE (test code = 1322912313) 0.51 mg/dL 0.50-1.04 TOTAL BILI (test code = 7546506803) 0.6 mg/dL 0.1-1.1 CALCIUM (test code = 5154942250) 10.4 mg/dL 8.6-10.6 T PROTEIN (test code = 3531355419) 7.9 g/dL 6.3-8.2 ALBUMIN (test code = 2063514449) 5.0 g/dL 3.5-5.0 ALK PHOS (test code = 6889974139) 100 U/L 34-122 ALTv (test code = 1742-6) 16 U/L 5-35 AST(SGOT) (test code = 1924385340) 29 U/L 13-40 eGFR (test code = 2741887360) mL/min/1.73m2 AYANA (test code = AYANA) Association [...] imaging tests). Lab Interpretation (test code = 68427-2) Abnormal [facility] ClubLipase, [id number] 00:57:08* Test Item Value Reference Range Interpretation Comme nts LIPASE (test code = 7351246050) 86 U/L 0-220 Lab Interpretation (test cod e = 68409-6) Normal [facility] ClubCBC with Zksovgfpewbr4573-98-49 00:32:03* Test Item Value Reference Range Interpretation Comme nts WBC (test code = 6690-2) See_Comment [Automated [employer] ge] The system which generated this result transmitted reference range: 4.30 - 11.10 10*3/?L. The reference range was not used to interpret this result as normal/abnormal. RBC (test code = 789-8) See_Comment [Automated [employer] ge] The system which generated this result [...] g/dL 31.6-35.1 H RDW-SD (test code = 92390-1) 47.3 fL 39.0-49.9 RDW-CV (test code = 788-0) 13.3 % 12.0-15.5 PLT (test code = 777-3) See_Comment [Automated [employer] ge] The system which generated this result transmitted reference range: 166 - 358 10*3/?L. The reference range was not used to interpret this result as normal/abnormal. MPV (test code = 37470-7) 9.4 fL 9.5-12.9 L NRBC/100 WBC (test code = 2895281896) See_Comment [Automated me ssage] The system which generated this result transmitted reference range: 0.0 - 10.0 /100 WBCs. The reference range was not used to interpret this result as normal/abnormal. NRBC x10^3 (test code = 9906323971) <0.01 See_Comment [Automated messa ge] The system which generated this result transmitted reference range: 10*3/?L. The reference range was not used to interpret this result as normal/abnormal. GRAN MAT (NEUT) % (test code = 770-8) 58.9 % IMM GRAN % (test code = 5642027043) 0.40 % LYMPH % (test code = 736-9) 27.6 % MONO % (test code = 5905-5) 10.5 % EOS % (test code = 713-8) 1.9 % BASO % (test code = 706-2) 0.7 % GRAN MAT x10^3(ANC) (test code = 3249211283) 4.03 10*3/uL 1.88-7.09 IMM GRAN x10^3 (test code = 3499740664) 0.03 10*3/uL 0.00-0.06 LYMPH x10^3 (test code = 731-0) 1.89 10*3/uL 1.32-3.29 MONO x10^3 (test code = 742-7) 0.72 10*3/uL 0.33-0.92 EOS x10^3 (test code = 711-2) 0.13 10*3/uL 0.03-0.39 BASO x10^3 (test code = 704-7) 0.05 10*3/uL 0.01-0.07 Lab Interpretation (test code = 91179-5) Abnormal [facility] [id number] 15:21:36* Test Item Value Reference Range Interpretation Comme nts TROPONIN I (test code = 5872415182) 0.002 ng/mL See_Comment [Automated message] The system [...] biotin. ? Lab Interpretation (test code = 34359-1) Normal [facility] ClubN-TERMINAL [id number] 15:18:40* Test Item Value Reference Range Interpretation Comme [facility] NT-proBNP (test code = 1044722491) 141 pg/mL See_Comment H [Automated message] The system which generated this result transmitted reference range: <=125. The reference range was not used to interpret this result as normal/abnormal. AYANA (test code = AYANA) Biotin has been reported to cause a negative bias, interpret results relative to patient's use of biotin. Lab Interpretation (test code = 76715-2) Abnormal [facility] ClubaPTT2021-03-25 15:17:19* Test Item Value Reference Range Interpretation Comme [facility] APTT Patient (test code = 3173-2) See_Comment [Automated message] The system which generated this result transmitted reference range: 23 - 38 Seconds. The reference range was not used to interpret this result as normal/abnormal. AYANA (test code = AYANA) The [facility] patient population mean normal value for aPTT is 30 seconds. Lab Interpretation (test code = 01569-7) Normal [facility] ClubProthrombin Time (PT) / [id number] 15:15:19 * Test Item Value Reference Range Interpretation Comme [facility] PROTIME PATIENT (test code = 5964-2) See_Comment L [Automated [employer] ge] The system which generated this result transmitted reference range: 12.0 - 14.7 Seconds. The reference range was not used to interpret this result as normal/abnormal. INR (test code = 6301-6) Normal INR <1.1; Warfarin Therapeutic range 2.0 to 3.0 or 2.5 to 3.5, depending upon the indications. Lab Interpretation (test code = 19978-2) Abnormal [facility] Metabolic Panel (NA, K, CL, CO2, GLUCOSE, BUN, CREATININE, CA)2020-06-12 15:09:37* Test Item Value Reference Range Interpretation Comme [facility] NA (test code = 8978179548) 137 mmol/L 135-145 K (test code = 0319085689) 4.0 mmol/L 3.5-5.0 CL (test code = 2444718373) 105 mmol/L 98-108 CO2 TOTAL (test code = 4790210208) 24 mmol/L 23-31 AGAP (test code = 8729263994) 2-16 BUN (test code = 5079911740) 11 mg/dL 7-23 GLUCOSE (test code = 0257796950) 108 mg/dL 70-110 CREATININE (test code = 9615872460) 0.59 mg/dL 0.50-1.04 CALCIUM (test code = 7451716071) 9.4 mg/dL 8.6-10.6 eGFR Calculation (Non-) (test code = 8454164883) mL/min/1.73m2 eGFR Calculation () (test code = 5837735540) mL/min/1.73m2 AYANA (test code = AYANA) Association [...] or urine or abnormalities in imaging tests). [facility] ClubHepatic Function Panel (ALB, T.PRO, BILI T, BU/BC, ALT, AST, ALK PHOS)2020-06-12 15:09:37* Test Item Value Reference Range Interpretation Comme nts TOTAL BILI (test code = 3447413204) 0.7 mg/dL 0.1-1.1 BILI UNCON (test code = 3715387547) 0.5 mg/dL 0.1-1.1 BILI CONJ (test code = 0012676604) 0.0 mg/dL 0.0-0.3 T PROTEIN (test code = 4705798431) 8.2 g/dL 6.3-8.2 ALBUMIN (test code = 4001365686) 5.1 g/dL 3.5-5.0 H ALK PHOS (test code = 9619342983) 121 U/L 34-122 ALTv (test code = 1742-6) 20 U/L 5-35 AST(SGOT) (test code = 6758253205) 26 U/L 13-40 Lab Interpretation (test cod e = 97850-4) Abnormal [facility] ClubChes 1 [id number] 15:05:52Small bilateral pleural effusions versus pleural thickening. [...] reviewed this study and agree with theabove report.[facility] ClubCOVID-19 (ID NOW RAPID TESTING)2020-06-12 15:03:56* Test Item Value Reference Range Interpretation Comme nts SARS-CoV-2 Rapid ID NOW (test code = 97401-1) Not Detected Not Detected AYANA (test code = AYANA) ID NOW COVID-19 As say is an isothermal nucleic acid amplification test intended for the qualitative detection of nucleic acid from SARS-CoV-2 viral RNA in nasopharyngeal (ARCHIVES TECHNICIAN) specimens. It is used under Emergency Use [...] clinically indicated. Lab Interpretation (test code = 08718-3) Normal [facility] with Jnqbsmxaetih9954-18-85 14:59:28* Test Item Value Reference Range Interpretation Comme nts WBC (test code = 6690-2) See_Comment [Automated [employer] ge] The system which generated this result transmitted reference range: 4.30 - 11.10 10*3/?L. The reference range was not used to interpret this result as normal/abnormal. RBC (test code = 789-8) See_Comment [Automated [employer] ge] The system which generated this result [...] 33.8 g/dL 31.6-35.1 RDW-SD (test code = 57719-4) 49.1 fL 39.0-49.9 RDW-CV (test code = 788-0) 13.6 % 12.0-15.5 PLT (test code = 777-3) See_Comment [Automated [employer] ge] The system which generated this result transmitted reference range: 166 - 358 10*3/?L. The reference range was not used to interpret this result as normal/abnormal. MPV (test code = 04260-3) 9.9 fL 9.5-12.9 NRBC/100 WBC (test code = 8909565457) See_Comment [Automated [employer] ssage] The system which generated this result transmitted reference range: 0.0 - 10.0 /100 WBCs. The reference range was not used to interpret this result as normal/abnormal. NRBC x10^3 (test code = 8469322896) <0.01 See_Comment [Automated messa ge] The system which generated this result transmitted reference range: 10*3/?L. The reference range was not used to interpret this result as normal/abnormal. GRAN MAT (NEUT) % (test code = 770-8) 63.7 % IMM GRAN % (test code = 1394779602) 0.50 % LYMPH % (test code = 736-9) 20.2 % MONO % (test code = 5905-5) 12.6 % EOS % (test code = 713-8) 2.4 % BASO % (test code = 706-2) 0.6 % GRAN MAT x10^3(ANC) (test code = 1984296717) 5.10 10*3/uL 1.88-7.09 IMM GRAN x10^3 (test code = 3089191883) 0.04 10*3/uL 0.00-0.06 LYMPH x10^3 (test code = 731-0) 1.62 10*3/uL 1.32-3.29 MONO x10^3 (test code = 742-7) 1.01 10*3/uL 0.33-0.92 H EOS x10^3 (test code = 711-2) 0.19 10*3/uL 0.03-0.39 BASO x10^3 (test code = 704-7) 0.05 10*3/uL 0.01-0.07 Lab Interpretation (test code = 93606-0) Abnormal [facility]"
[2024-11-04] MEDS ORDERED: NA CHLORIDE 0.9% 500 ML ONE (12:41)
[2024-11-04 12:53] LABS: Absolute Lymphocytes (CBC) 1.4 K/uL (0.7-4.9); Hematocrit 38.8 % (36.0-45.0); Hemoglobin 13.4 g/dL (12.0-15.0); MCH 33.5 pg (27.0-35.0); MCHC 34.6 g/dL (32.0-36.0); MCV 96.8 fL (80-100); MPV 7.4 fL (7.6-11.3); Nucleated RBC Absolute Count 0.0 (0-0); Nucleated Red Blood Cells % 0.0 % (0-0); RBC Red Blood Cell Count 4.01 M/uL (3.86-4.86); White Blood Count 4.20 thou/uL (4.3-10.9)
[2024-11-04 12:57] LABS: PT Prothrombin Time 10.9 SECONDS (10-13.0); PTT, Activated Partial Thromb 34.1 SECONDS (27.2-37.4); Protime INR 0.96
[2024-11-04 13:11] LABS: Sqamous Epithelial <5 /HPF (None Seen); Urine Culture Reflex Order NOT NEEDED; Urine Microscopic Reflex YN ORDER UMIC
[2024-11-04 13:13] LABS: ALT/SGPT 26 U/L (13-56); AST/SGOT 12 U/L (15-37); Albumin 3.6 g/dL (3.4-5.0); Albumin/Globulin Ratio 1.1 (1.1-1.8); Alkaline Phosphatase 92 U/L (45-117); Anion Gap 15.6 mEq/L (5.0-15.0); BUN Blood Urea Nitrogen 7 mg/dL (7-18); Bilirubin Indirect, Calculated 0.1 mg/dL (0.2-0.8); Globulin 3.2 g/dL (2.3-3.5); Glucose Level 89 mg/dL (74-106); Magnesium 2.0 mg/dL (1.6-2.4); Potassium 3.6 mEq/L (3.5-5.1); Troponin High Sensitivity 5.0 pg/mL (<58.9)
--- NOTE | 2024-11-04 13:15 | RAD REPORT ---
EXAMINATION: Head Brain Wo Cont CLINICAL INDICATION: Female, 59 years old.WEAKNESS TECHNIQUE: Axial CT images from the skull base to the vertex without intravenous contrast. Coronal an d sagittal reformatted images were created from the data set. One or more of the following dose reduction techniques were used: Automated exposure control, adjustment of the mA and/or kV according to patient size, and/or iterative reconstruction. Unless otherwise specified, incidental findings do not require dedicated imaging follow-up. [id number]. COMPARISON: No prior exams FINDINGS: INTRACRANIAL: No acute intracranial hemorrhage. No acute large vascular territory infarct. No hydroce phalus. No mass effect or midline shift. No significant white matter disease.Right basal ganglia dilated perivascular space. VASCULATURE: No visualized abnormalities in the arteries or dural venous sinuses. SCALP/SKULL: No calvarial fracture identified. No acute soft tissue abnormality. SINUSES: The visualized paranasal sinuses are mostly clear. No significant mastoid fluid. IMPRESSION: No acute intracranial abnormality.
--- NOTE | 2024-11-04 13:24 | RAD REPORT ---
EXAM: Chest Single View HISTORY: 59 years Female copd, weakness COMPARISON: 06/14/2024. FINDINGS: LUNGS/PLEURA: Blunting of the costophrenic angles may reflect small effusions or pleural parenchymal thickening. The lungs are otherwise clear. Lungs are hyperinflated. CARDIAC/MEDIASTINUM: The cardiac silhouette is within normal limits. UPPER ABDOMEN: No significant abnormality. BONES: No acute abnormality. LINES/TUBES/OTHER: N/A IMPRESSION: Possible small effusions, otherwise the lungs are clear.
[2024-11-04] MEDS ORDERED: CALCIUM GLUCONATE 1 GM IVPB 1 GM/50 ML BAG IV ONE (13:38)
[2024-11-04 13:56] LABS: Blood Morphology Comment NOTED (NOT SEEN); White Blood Cell Scan OK (OK)
[2024-11-04 13:57] LABS: Anisocytosis 1+
--- NOTE | 2024-11-04 14:32 | ER ---
Nurse's Notes [facility] Name: Gretel Bunch Age: 59 yrs Sex: Female : 1965 Arrival Date: 11/04/2024 Time: 12:17 Bed 8 Private MD: Diagnosis: Muscle weakness (generalized);Hypo-osmolality and hyponatremia;Hypocalcemia Presentation: 11/04 12:25 Chief complaint: EMS states: Toned out for weakness all over since yesterday morning. jl7 Coronavirus screen: Client presents with at least one sign or symptom that may indicate coronavirus-19. Ebola Screen: No symptoms or risks identified at this time. Initial Sepsis Screen: Does the patient meet any 2 criteria? No. Patient's initial sepsis screen is negative. Does the patient have a suspected source of infection? No. Patient's initial sepsis screen is negative. Risk Assessment: Do you want to hurt yourself or someone else? Patient reports no desire to harm self or others. Onset of symptoms was November 03, 2024 at 07:00. Care prior to arrival: IV initiated. 20 GA, in the left forearm. 12:25 Method Of Arrival: EMS: [facility] 12:25 Acuity: FAITH 3 jl7 Triage Assessment: 12:26 General: Appears in no apparent distress. uncomfortable, Behavior is cooperative, jl7 anxious, crying. Pain: Denies pain. Neuro: [place] Agitation-Sedation Scale (RASS): +1 Restless Level of Consciousness is awake, alert, obeys commands, Oriented to person, place, time, situation. Cardiovascular: Patient's skin is warm and dry. Respiratory: Airway is patent Respiratory effort is even, unlabored, Respiratory pattern is regular, symmetrical. Derm: Skin is pink, warm \T\ dry. Historical: - Allergies: 12:26 No Known Allergies; jl7 - Home Meds: 12:26 Albuterol Inhl [Active]; jl7 - PMHx: 12:26 COPD; jl7 - Immunization history:: Adult Immunizations unknown. - Infectious Disease History:: Denies. - Social history:: Smoking status: Patient reports the use of cigarette tobacco products, smokes one-half pack cigarettes per day, Patient uses alcohol, on a daily basis. claims drinking about a 6 pack/day. - Family history:: not pertinent. - Hospitalizations: : No recent hospitalization is reported. Screenin:56 [facility] ED Fall Risk Assessment (Adult) History of falling in the last 3 months, jl7 including since admission No falls in past 3 months (0 pts) Confusion or Disorientation No (0 pts) Intoxicated or Sedated Yes (3 pts) Impaired Gait No (0 pts) Mobility Assist Device Used No (0 pt) Altered Elimination No (0 pt) Score/Fall Risk Level 0 - 2 = Low Risk Oriented to surroundings, Maintained a safe environment. Abuse screen: Denies threats or abuse. Denies injuries from another. Nutritional screening: No deficits noted. Tuberculosis screening: No symptoms or risk factors identified. Assessment: 14:42 Reassessment: Patient appears in no apparent distress at this time. Patient and/or iw family updated on plan of care and expected duration. Pain level reassessed. Patient is alert, oriented x 3, equal unlabored respirations, skin warm/dry/pink. Patient states feeling better. Patient states symptoms have improved. Vital Signs: 12:25 BP 115 / 72; Pulse 74; Resp 17; Temp 98.2; Pulse Ox 92% ; Weight 53.52 kg; Height 5 ft. jl7 1 in. ; Pain 0/10; 13:46 BP 112 / 71; Pulse 59; Resp 15; Pulse Ox 95% ; jl7 14:42 BP 128 / 73; Pulse 57; Resp 16; Pulse Ox 98% on R/A; Pain 0/10; iw 12:25 Body Mass Index 22.30 (53.52 kg, 154.94 cm) jl7 12:25 Pain Scale: Adult jl7 14:42 Pain Scale: Adult iw ED Course: 12:18 Patient arrived in ED. eb 12:19 Jan Zepeda MD is Attending Physician. rn 12:26 Triage completed. jl7 12:26 Arm band placed on right wrist. jl7 12:35 EKG done, by ED staff, reviewed by Jan Zepeda MD. rk3 12:55 CT Head Brain wo Cont In Process Unspecified. EDMS 12:56 Patient has correct armband on for positive identification. Provided Education on: use jl7 of call andersen. Client placed on continuous cardiac and pulse oximetry monitoring. NIBP monitoring applied. 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 Pulse ox on. 12:56 Urine collected: clean catch specimen. jl7 13:01 Chest Single View XRAY In Process Unspecified. EDMS 13:37 Cameron Dimas, RN is Primary Nurse. jl7 14:42 No provider procedures requiring assistance completed. IV discontinued, intact, iw bleeding controlled, No redness/swelling at site. Pressure dressing applied. Administered Medications: 12:56 Drug: NS 0.9% IV 500 ml 500 ml IV at 1 bolus once; to be given as a bolus over 30 jl7 minutes Volume: 500 ml; Route: IV; Rate: 1 bolus; Site: left forearm; 14:20 Follow up: IV Status: Completed infusion iw 13:42 Drug: Calcium Gluconate IVPB 1 grams IVPB once over 60 mins; (mix in NS 100 mL) Route: iw IVPB; Infused Over: 60 mins; Site: left antecubital; 14:45 Follow up: IV Status: Completed infusion iw Medication: 12:56 VIS not applicable for this client. jl7 Outcome: 14:32 Discharge ordered by . rn 14:45 Discharged to home ambulatory, with friend, iw 14:45 Condition: good 14:45 Discharge instructions given to patient, Instructed on discharge instructions, follow up and referral plans. Demonstrated understanding of instructions, follow-up care, 14:46 Patient left the ED. iw Signatures: Dispatcher [employer] EDMS Negin Fernandez RN RN iw Jan Zepeda MD MD rn Leal, Jahala, RN RN jl7 [place] 3
--- NOTE | 2024-11-04 14:33 | EDPHYS ---
Physician Documentation [facility] Name: Gretel Bunch Age: 59 yrs Sex: Female : 1965 Arrival Date: 11/04/2024 Time: 12:17 Bed 8 Private MD: ED Physician Jan Zepeda HPI: 11/04 12:33 This 59 yrs old Female presents to ER via EMS with complaints of General Weakness. rn 12:33 Patient reports generalized weakness that began yesterday. 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 No speech or vision problem. Patient reports is a daily drinker and drinks a sixpack of beer daily, did not drink for 2 days and then drank again today. Denies fever or chills. Has COPD but denies any new symptoms or dyspnea or new cough. Denies abdominal pain or vomiting. No blood in stool. No chest pain. Historical: - Allergies: 12:26 No Known Allergies; jl7 - Home Meds: 12:26 Albuterol Inhl [Active]; jl7 - PMHx: 12:26 COPD; jl7 - Immunization history:: Adult Immunizations unknown. - Infectious Disease History:: Denies. - Social history:: Smoking status: Patient reports the use of cigarette tobacco products, smokes one-half pack cigarettes per day, Patient uses alcohol, on a daily basis. claims drinking about a 6 pack/day. - Family history:: not pertinent. - Hospitalizations: : No recent hospitalization is reported. ROS: 12:33 Constitutional: Negative for fever, chills, and weight loss, ENT: Negative for injury, rn pain, and discharge, Neck: Negative for injury, pain, and swelling, Cardiovascular: Negative for chest pain, palpitations, and edema, Respiratory: Negative for shortness of breath, cough, wheezing, and pleuritic chest pain, Abdomen/GI: Negative for abdominal pain, nausea, vomiting, diarrhea, and constipation, Back: Negative for injury and pain, : Negative for injury, bleeding, discharge, and swelling, MS/Extremity: Negative for injury and deformity, Skin: Negative for injury, rash, and discoloration, Neuro: Positive for generalized weakness and malaise Exam: 12:32 ECG was reviewed by the Attending Physician. rn 12:33 Constitutional: This is a well developed, well nourished patient who is awake, alert, rn and in no acute distress. Head/Face: Normocephalic, atraumatic. Eyes: Pupils equal round and reactive to light, extra-ocular motions intact. Lids and lashes normal. Conjunctiva and sclera are non-icteric and not injected. Cornea within normal limits. Periorbital areas with no swelling, redness, or edema. ENT: Dry mucous membranes Cardiovascular: Regular rate and rhythm. No pulse deficits. Respiratory: No increased work of breathing, no retractions or nasal flaring. Abdomen/GI: Soft, non-tender, no masses Skin: Warm, dry, no cyanosis Neuro: Awake and alert, GCS 15, oriented to person, place, time, and situation. Cranial nerves II-XII grossly intact. Motor strength 5/5 in all extremities. Sensory grossly intact. Cerebellar exam normal. No tremor or tongue fasciculations to indicate alcohol withdrawal Vital Signs: 12:25 BP 115 / 72; Pulse 74; Resp 17; Temp 98.2; Pulse Ox 92% ; Weight 53.52 kg; Height 5 ft. jl7 1 in. ; Pain 0/10; 13:46 BP 112 / 71; Pulse 59; Resp 15; Pulse Ox 95% ; jl7 14:42 BP 128 / 73; Pulse 57; Resp 16; Pulse Ox 98% on R/A; Pain 0/10; iw 12:25 Body Mass Index 22.30 (53.52 kg, 154.94 cm) jl7 12:25 Pain Scale: Adult jl7 14:42 Pain Scale: Adult iw MDM: 12:19 Medical Screening Exam initiated rn 14:30 Differential Diagnosis [place], hyponatremia, electrolyte problem. Data rn reviewed: vital signs, nurses notes, lab test result(s), radiologic studies, CT scan, and as a result, I will discharge patient. Independent interpretation of the following test(s) in the Emergency Department X-Ray: My interpretation is Chest x-ray images negative for pneumonia or pneumothorax per my interpretation. CT Scan: My interpretation is CT head images negative for hemorrhage per my interpretation. Counseling: I had a detailed discussion with the patient and/or guardian regarding the historical points, exam findings, and any diagnostic results supporting the discharge/admit diagnosis, lab results, radiology results, the need for outpatient follow up, to return to the emergency department if symptoms worsen or persist or if there are any questions or concerns that arise at home. Response to treatment: the patient's symptoms have markedly improved after treatment, Patient markedly improved, ambulatory to bathroom without assistance, strength is better. Patient would like to go home., and as a result, I will discharge patient. Special discussion: I discussed with the patient/guardian in detail that at this point there is no indication for admission to the hospital. It is understood, however, that if the symptoms persist or worsen the patient needs to return immediately for re-evaluation. Based on the history and exam findings, there is no indication for further emergent testing or inpatient evaluation. I discussed with the patient/guardian the need to see the primary care provider for further evaluation of the symptoms. ED course: Had long discussion with patient and family member regarding hyponatremia and hypocalcemia likely secondary to chronic alcoholism. No indication for emergent admission at this time recommend slow and gradual cessation of alcohol so that she does not withdraw. 11/04 12:25 Order name: Basic Metabolic Panel; Complete Time: 13:14 11/04 12:25 Order name: CBC with Diff; Complete Time: 13:59 rn 11/04 12:25 Order name: Hepatic Function; Complete Time: 13:14 rn 11/04 12:25 Order name: Magnesium; Complete Time: 13:14 rn 11/04 12:25 Order name: Protime (+inr); Complete Time: 13:14 rn 11/04 12:25 Order name: Ptt, Activated; Complete Time: 13:14 rn 11/04 12:25 Order name: Troponin High Sensitivity; Complete Time: 13:14 11/04 12:25 Order name: UA Rfx Stanford Cult if indicated; Complete Time: 13:14 rn 11/04 12:25 Order name: ETOH Level; Complete Time: 13:59 rn 11/04 12:56 Order name: CBC Smear Scan; Complete Time: 13:59 EDMS 11/04 12:25 Order name: CT Head Brain wo Cont; Complete Time: 13:18 rn 11/04 12:25 Order name: Chest Single View XRAY; Complete Time: 13:27 rn 11/04 12:25 Order name: Cardiac monitoring; Complete Time: 12:28 rn 11/04 12:25 Order name: EKG - Nurse/Tech; Complete Time: 12:37 rn 11/04 12:25 Order name: IV Saline Lock; Complete Time: 12: rn 11/04 12:25 Order name: Labs collected and sent; Complete Time: 12:56 rn 11/04 12: Order name: NPO; Complete Time: rn 11/04 12: Order name: O2 Per Protocol; Complete Time: 12 rn 11/04 12:25 Order name: O2 Sat Monitoring; Complete Time: 12: rn EC:32 Rate is 66 beats/min. Rhythm is regular. QRS [place] is Normal. ID interval is normal. QRS rn interval is normal. QT interval is normal. No Q waves. T waves are Normal. No ST changes noted. Clinical impression: Normal ECG. Interpreted by me. Reviewed by me. Administered Medications: 12:56 Drug: NS 0.9% IV 500 ml 500 ml IV at 1 bolus once; to be given as a bolus over 30 jl7 minutes Volume: 500 ml; Route: IV; Rate: 1 bolus; Site: left forearm; 14:20 Follow up: IV Status: Completed infusion iw 13:42 Drug: Calcium Gluconate IVPB 1 grams IVPB once over 60 mins; (mix in NS 100 mL) Route: iw IVPB; Infused Over: 60 mins; Site: left antecubital; 14:45 Follow up: IV Status: Completed infusion iw Disposition Summary: 11/04/24 14:32 Discharge Ordered Notes: Location: Home rn Problem: new rn Symptoms: have improved rn Condition: Stable rn Diagnosis - Muscle weakness (generalized) rn - Hypo-osmolality and hyponatremia rn - Hypocalcemia rn Followup: rn - With: Private Physician - When: As needed - Reason: Recheck today's complaints, Re-evaluation by your physician Discharge Instructions: - Discharge Summary Sheet rn - Hyponatremia rn - Alcohol Abuse and Nutrition rn - Hypocalcemia, Adult rn Forms: - Medication Reconciliation Form 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 EDMS EDMS 12: 12:25 CBC+H.LAB.BRZ ordered. EDMS EDMS 12:25 12:25 HEPATIC FUNCTION+C.LAB.BRZ ordered. EDMS EDMS 12: 12:25 MAGNESIUM+C.LAB.BRZ ordered. EDMS EDMS : 12:25 PROTIME (+INR)+COAG.LAB.BRZ ordered. EDMS EDMS : 12:25 PTT, ACTIVATED+COAG.LAB.BRZ ordered. EDMS EDMS 12: 12:25 Troponin High Sensitivity+C.LAB.BRZ ordered. EDMS EDMS : 12:25 UA Rfx Stanford Cult if indicated+U.LAB.BRZ ordered. EDMS EDMS 12: 12:25 ETHANOL+C.LAB.BRZ ordered. EDMS EDMS : 12:26 Head Brain Wo Cont+CT.RAD.BRZ ordered. EDMS EDMS : 12:26 Chest Single View+RAD.RAD.BRZ ordered. EDMS EDMS
[2024-11-04 18:44] VITALS: TEMP 98.2
[2024-11-04 18:46] VITALS: BP 128/73; O2SAT 98
== END 2024-11-04 14:46 | disposition home or self-care (01) ==
LOC: ER 12:17
DX: M62.81 Muscle weakness (generalized) (principal); E87.1 Hypo-osmolality and hyponatremia; E83.51 Hypocalcemia; J44.9 Chronic obstructive pulmonary disease, unspecified; F17.210 Nicotine dependence, cigarettes, uncomplicated
CPT/HCPCS: 96365; 96361; 93005; 85025; 81001; 80048; 36415; 83735; 85610; 80076; 85730; 84484; 70450; 71045; 99285; 82077; J0612; J7040